=== PATIENT | male | born 1985 | race Two or more races ===

== ENCOUNTER 2016-06-07 17:21 | Emergency (ER) | payer SELFPAY ==
[~2016-06-07] VITALS: Ht 177.8 cm; Wt 90.7 kg
[2016-06-07 18:09] VITALS: BP 139/85
[2016-06-07] MEDS ORDERED: DIPHTH,PERTUSS(ACELL),TET TOX 0.5 ML DISP.SYRIN. VAX IM ONE (18:30)
[2016-06-07] MEDS ORDERED: CEPH-264 PO (18:59)
[2016-06-07] MEDS ORDERED: HYDR-971 PO (18:59)
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
== END 2016-06-07 19:05 | disposition home or self-care (01) ==
LOC: ER 17:21
DX: T23.232A Burn of second degree of multiple left fingers (nail), not including thumb, initial encounter (principal); G62.9 Polyneuropathy, unspecified; X12.XXXA Contact with other hot fluids, initial encounter; Y93.89 Activity, other specified; Y92.009 Unspecified place in unspecified non-institutional (private) residence as the place of occurrence of the external cause; Y99.8 Other external cause status
CPT/HCPCS: 90471; 90715; 99283-25

== ENCOUNTER 2016-07-01 15:46 | Emergency (ER) | payer SELFPAY ==
[~2016-07-01 15:46] MED LIST: CEPH-264 PO; HYDR-971 PO
[2016-07-01] MEDS ORDERED: CEPH-264 PO (16:37)
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
[2016-07-01] MEDS ORDERED: NEOMY/BACITR/POLYMYXIN OINT PACKET. TP ONE (16:45)
[2016-07-01 16:53] VITALS: BP 138/84
== END 2016-07-01 17:15 | disposition home or self-care (01) ==
LOC: ER 15:46
DX: T25.222A Burn of second degree of left foot, initial encounter (principal); T31.0 Burns involving less than 10% of body surface; X11.8XXA Contact with other hot tap-water, initial encounter; Y93.02 Activity, running; Y99.8 Other external cause status; Y92.89 Other specified places as the place of occurrence of the external cause
CPT/HCPCS: 16020; 82947; 99284-25

== ENCOUNTER 2016-11-15 00:45 | Emergency (ER) | payer SELFPAY ==
[~2016-11-15] VITALS: Ht 175.3 cm; Wt 90.7 kg
[2016-11-15] MEDS ORDERED: PIP/TAZO PER PHARMACY MC PRN (03:30)
[2016-11-15] MEDS ORDERED: VANCOMYCIN PER PHARMACY MC PRN (03:30)
[2016-11-15] MEDS ORDERED: ACETAMINOPHEN 325 MG TABLET. PO ONE (04:00)
[2016-11-15] MEDS ORDERED: KETOROLAC 15 MG/ML VIAL. IV ONE (04:00)
[2016-11-15] MEDS ORDERED: VANCOMYCIN 2 GM in IV NORMAL SALINE 500ML BAG 500 ML IV ONE (04:00)
[2016-11-15] MEDS ORDERED: PIPERACILLIN/TAZOBACTAM 4.5 GM in IV NORMAL SALINE 100ML 100 ML IV ONE (04:00)
[2016-11-15 04:35] LABS: BASO # 0.1 x10^3/uL (0.0-0.2); BASO % 0 % (0-3); EOS % 1 % (0-3); HEMATOCRIT 43.5 % (39.0-53.0); HEMOGLOBIN 14.7 g/dL (13.0-17.5); LYMPH # 2.8 x10^3/uL (1.0-4.8); LYMPH % 18 % (24-48); MEAN CORPUSCULAR HEMOGLOBIN 28 pg (25-35); MEAN CORPUSCULAR HGB CONC 34 g/dL (31-37); MEAN CORPUSCULAR VOLUME 82 fL (79-100); MONO % 9 % (0-9); NEUT % 73 % (31-73); PLATELET COUNT 352 x10^3/uL (140-400); RED BLOOD COUNT 5.31 x10^6/uL (4.30-5.70); RED CELL DISTRIBUTION WIDTH 14.2 % (11.5-14.5); WHITE BLOOD COUNT 16.1 x10^3/uL (4.0-11.0)
[2016-11-15 04:51] LABS: ALBUMIN 3.9 g/dL (3.4-5.0); ALBUMIN/GLOBULIN RATIO 0.8 (1.0-1.7); CREATININE 1.2 mg/dL (0.7-1.3); GFR 71.1; TOTAL PROTEIN 9.1 g/dL (6.4-8.2)
[2016-11-15 05:08] LABS: POTASSIUM 2.4 mmol/L (3.5-5.1)
[2016-11-15] MEDS ORDERED: POTASSIUM CHLORIDE 20 MEQ TABLET.ER. PO ONE (05:30)
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
[2016-11-15 06:38] VITALS: BP 118/73
== END 2016-11-15 06:52 | disposition home or self-care (01) ==
LOC: ER 00:45
DX: M65.842 Other synovitis and tenosynovitis, left hand (principal); M65.841 Other synovitis and tenosynovitis, right hand; E87.6 Hypokalemia; L08.9 Local infection of the skin and subcutaneous tissue, unspecified; G62.9 Polyneuropathy, unspecified
CPT/HCPCS: 36415; 80053; 83605; 85027; 87040; 96365; 96366; 96367; 96375; 99285; J1885; J2543; J3370; J7040

== ENCOUNTER 2018-05-23 23:25 | Inpatient (IN) | payer SELFPAY ==
[~2018-05-23] VITALS: Ht 170.2 cm; Wt 94.3 kg
[~2018-05-23 23:25] MED LIST changes: +HYDR-3164 PO; -HYDR-971 PO
[2018-05-24] VITALS (13 sets, daily range): BP systolic 88–128; BP diastolic 49–83
[2018-05-24] MEDS ORDERED: CLINDAMYCIN 600MG PREMIX 50 ML IV ONE
[2018-05-24] MEDS ORDERED: DIPHTH,PERTUSS(ACELL),TET TOX 0.5 ML DISP.SYRIN. VAX IM ONE (00:15)
[2018-05-24] MEDS ORDERED: ACETAMINOPHEN 500 MG TABLET PO ONE (00:15)
[2018-05-24] MEDS ORDERED: IV NORMAL SALINE 1000ML BAG 1,000 ML IV ONE ×2 (00:15)
[2018-05-24] MEDS ORDERED: MUPIROCIN 2 % TOPICAL CREAM 15GM TUBE. TP ONE (00:15)
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
[2018-05-24 00:52] LABS: BASO # 0.1 x10^3/uL (0.0-0.2); BASO % 1 % (0-3); EOS # 0.2 x10^3/uL (0.0-0.7); EOS % 2 % (0-3); HEMATOCRIT 38.5 % (39.0-53.0); LYMPH # 0.9 x10^3/uL (1.0-4.8); LYMPH % 10 % (24-48); MEAN CORPUSCULAR HEMOGLOBIN 27 pg (25-35); MEAN CORPUSCULAR HGB CONC 34 g/dL (31-37); MEAN CORPUSCULAR VOLUME 79 fL (79-100); MONO # 0.4 x10^3/uL (0.0-1.1); MONO % 5 % (0-9); NEUT # 7.4 x10^3uL (1.8-7.7); NEUT % 82 % (31-73); PLATELET COUNT 348 x10^3/uL (140-400); RED BLOOD COUNT 4.86 x10^6/uL (4.30-5.70)
[2018-05-24 00:58] LABS: INFLUENZA A PATIENT NEGATIVE (NEGATIVE); INFLUENZA B PATIENT NEGATIVE (NEGATIVE)
[2018-05-24 01:08] LABS: PROTHROMBIN TIME PATIENT 14.6 SEC (11.7-14.0)
[2018-05-24 01:12] LABS: ALBUMIN 2.7 g/dL (3.4-5.0); ALBUMIN/GLOBULIN RATIO 0.5 (1.0-1.7); CALCIUM 8.4 mg/dL (8.5-10.1); CREATININE 1.1 mg/dL (0.7-1.3); GFR 78.1; MAGNESIUM 1.6 mg/dL (1.8-2.4); TOTAL BILIRUBIN 0.4 mg/dL (0.2-1.0); TOTAL PROTEIN 8.5 g/dL (6.4-8.2)
[2018-05-24 01:18] LABS: POTASSIUM 2.6 mmol/L (3.5-5.1)
[2018-05-24] MEDS ORDERED: POTASSIUM CHLORIDE 20 MEQ TABLET.ER. PO ONE (01:30)
[2018-05-24] MEDS ORDERED: VANCOMYCIN 1.75 GM in IV NORMAL SALINE 500ML BAG 500 ML IV ONE (01:30)
[2018-05-24 01:37] LABS: BILIRUBIN,URINE NEGATIVE (NEG); CLARITY,URINE CLEAR; COLOR,URINE YELLOW; NITRITE,URINE NEGATIVE (NEG); PH,URINE 6.5; PROTEIN,URINE 30 mg/dL (NEG-TRACE)
[2018-05-24 01:43] LABS: BACTERIA,URINE 0 /HPF (0-FEW); SQUAMOUS EPITHELIAL CELL,UR OCC /LPF; WBC,URINE OCC /HPF (0-4)
[2018-05-24] MEDS ORDERED: ONDANSETRON PF 4 MG/2 ML VIAL. IV PRN ×2 (02:15→07:30)
[2018-05-24] MEDS ORDERED: fentaNYL PF VIAL 100 MCG/2 ML VIAL IV PRN ×3 (02:15→07:30)
--- NOTE | 2018-05-24 03:30 | NUR ---
ADMIT Pt arrived via W/C from ED accompanied by spouse, Dana. Pt A/Ox4, room air. VSS, 99.7 oral temp. Full admission assessment completed at this time. Vanco infusion currently infusing. IV intact. Discussed plan of care, spouse at bedside. Bilateral hand wounds and left foot wound photographed at this time and dressed. Advised of NPO. Oriented to room and call light. Pt denies pain at this time. Will continue to monitor closely.
--- NOTE | 2018-05-24 04:02 | RAD ---
PA and lateral chest x-ray HISTORY: Cough. FINDINGS: Heart size normal. Mediastinal silhouette is normal. No pneumothorax, pulmonary opacities or pleural effusions. Bones are unremarkable. IMPRESSION: No acute process. Electronically signed by: Abdoulaye Quiroz MD (05/24/2018 3:57 AM) [id number]
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
--- NOTE | 2018-05-24 04:10 | RAD ---
Hand bilateral x-rays 3 views each HISTORY: Restricted fingers or hands unable to straighten from old injury, hand pain and open wounds. FINDINGS: Right hand demonstrates fixed flexion of the thumb and index finger. There is a small metallic density at the thenar soft tissues could be a foreign body. Small chronic ossicle overlying the tuft of the second finger distal phalanx. No acute fracture or dislocation. No lytic bone destruction. Left hand: The fingers are fixed in a flexed position. There is soft tissue swelling of the tip of the index finger and there is moderate ostial lysis of the distal phalanx tuft. There may be mild osteolysis of the tuft of the thumb distal phalanx. There is dorsal dislocation of the fourth distal phalanx at the DIP joint. No acute fracture. IMPRESSION: 1. Fingers are flexed presumably due to contractures. The left hand demonstrates areas of acral osteolysis involving the second digit distal phalanx and thumb distal phalanx kwadwo with surrounding soft tissue swelling, which could be indicative of osteomyelitis, although phalangeal tuft lysis could also be observed with a prior chemical or thermal injury as well as other etiologies. 2. Dislocation of the left hand fourth DIP joint could be chronic. No acute fracture evident. 3. Chronic appearing small ossicle about the tuft of the right hand second distal phalanx tuft. 4. Small metallic density could be a foreign body at the thenar web of the right hand. Electronically signed by: Abdoulaye Quiroz MD (05/24/2018 4:06 AM) [facility]
[2018-05-24] MEDS ORDERED: IV RINGERS,LACTATED 1000ML 1,000 ML IV SCH (07:29)
[2018-05-24] MEDS ORDERED: HYDROmorphone 2 MG/ML VIAL IV PRN (07:30)
[2018-05-24] MEDS ORDERED: LIDOCAINE 1% PF 2 ML VIAL. ID PRN (07:30)
[2018-05-24] MEDS ORDERED: MORPHINE SULFATE 4 MG/ML VIAL. IV PRN (07:30)
[2018-05-24] MEDS ORDERED: PROCHLORPERAZINE 10 MG/2 ML VIAL. IV PRN (07:30)
[2018-05-24 08:10] LABS: CALCIUM 7.9 mg/dL (8.5-10.1); GFR 87.2
--- NOTE | 2018-05-24 08:23 | PDOC ---
Infectious Disease Note Vital Sign Vital Signs Vital Signs Date Time Temp Pulse Resp B/P (MAP) Pulse Ox O2 Delivery O2 Flow Rate FiO2 05/24/18 03:30 Room Air 05/24/18 03:30 99.7 95 16 102/64 (77) 98 99.7 Labs Lab Laboratory Tests Test 05/24/18 00:20 05/24/18 00:40 05/24/18 01:20 Influenza Type A Antigen Negative (NEGATIVE) Influenza Type B Antigen Negative (NEGATIVE) White Blood Count 9.0 x10^3/uL (4.0-11.0) Red Blood Count 4.86 x10^6/uL (4.30-5.70) Hemoglobin 13.0 g/dL (13.0-17.5) Hematocrit 38.5 % (39.0-53.0) Mean Corpuscular Volume 79 fL (79-100) Mean Corpuscular Hemoglobin 27 pg (25-35) Mean Corpuscular Hemoglobin Concent 34 g/dL (31-37) Red Cell Distribution Width 13.0 % (11.5-14.5) Platelet Count 348 x10^3/uL (140-400) Neutrophils (%) (Auto) 82 % (31-73) Lymphocytes (%) (Auto) 10 % (24-48) Monocytes (%) (Auto) 5 % (0-9) Eosinophils (%) (Auto) 2 % (0-3) Basophils (%) (Auto) 1 % (0-3) Neutrophils # (Auto) 7.4 x10^3uL (1.8-7.7) Lymphocytes # (Auto) 0.9 x10^3/uL (1.0-4.8) Monocytes # (Auto) 0.4 x10^3/uL (0.0-1.1) Eosinophils # (Auto) 0.2 x10^3/uL (0.0-0.7) Basophils # (Auto) 0.1 x10^3/uL (0.0-0.2) Erythrocyte Sedimentation Rate 80 (0-15) Prothrombin Time 14.6 SEC (11.7-14.0) Prothromb Time International Ratio 1.2 (0.8-1.1) Activated Partial Thromboplast Time 44 SEC (24-38) Sodium Level 128 mmol/L (136-145) Potassium Level 2.6 mmol/L (3.5-5.1) Chloride Level 95 mmol/L (98-107) Carbon Dioxide Level 26 mmol/L (21-32) Anion Gap 7 (6-14) Blood Urea Nitrogen 12 mg/dL (8-26) Creatinine 1.1 mg/dL (0.7-1.3) Estimated GFR (Cockcroft-Gault) 78.1 BUN/Creatinine Ratio 11 (6-20) Glucose Level 131 mg/dL (70-99) Lactic Acid Level 1.8 mmol/L (0.4-2.0) Calcium Level 8.4 mg/dL (8.5-10.1) Magnesium Level 1.6 mg/dL (1.8-2.4) Total Bilirubin 0.4 mg/dL (0.2-1.0) Aspartate Amino Transf (AST/SGOT) 54 U/L (15-37) Alanine Aminotransferase (ALT/SGPT) 75 U/L (16-63) Alkaline Phosphatase 150 U/L (46-116) C-Reactive Protein, Quantitative 149.2 mg/L (0-3.3) Total Protein 8.5 g/dL (6.4-8.2) Albumin 2.7 g/dL (3.4-5.0) Albumin/Globulin Ratio 0.5 (1.0-1.7) Urine Collection Type Unknown Urine Color Yellow Urine Clarity Clear Urine pH 6.5 Urine Specific [place] 1.025 Urine Protein 30 mg/dL (NEG-TRACE) Urine Glucose (UA) Negative mg/dL (NEG) Urine Ketones (Stick) Negative mg/dL (NEG) Urine Blood Trace (NEG) Urine Nitrite Negative (NEG) Urine Bilirubin Negative (NEG) Urine Urobilinogen Dipstick 1.0 mg/dL (0.2 mg/dL) Urine Leukocyte Esterase Negative (NEG) Urine RBC 3-5 /HPF (0-2) Urine WBC Occ /HPF (0-4) Urine Squamous Epithelial Cells Occ /LPF Urine Bacteria 0 /HPF (0-FEW) Urine Mucus Mod /LPF Micro IMPRESSION: Soft tissue swelling of the plantar and dorsal forefoot. Widening of the second metatarsophalangeal joint and small lytic defects at the second metatarsal head and a portion of the base of the third proximal phalanx, could be observed with osteomyelitis given the adjacent soft tissue abnormalities. There is mixed bone lysis and bony sclerosis and exuberant ossification at the base of the second toe proximal phalanx which could be observed with chronic injury superimposed upon osteomyelitis. This could be further assessed with MR imaging. FINDINGS: Right hand demonstrates fixed flexion of the thumb and index finger. There is a small metallic density at the thenar soft tissues could be a foreign body. Small chronic ossicle overlying the tuft of the second finger distal phalanx. No acute fracture or dislocation. No lytic bone destruction. Left hand: The fingers are fixed in a flexed position. There is soft tissue swelling of the tip of the index finger and there is moderate ostial lysis of the distal phalanx tuft. There may be mild osteolysis of the tuft of the thumb distal phalanx. There is dorsal dislocation of the fourth distal phalanx at the DIP joint. No acute fracture. IMPRESSION: 1. Fingers are flexed presumably due to contractures. The left hand demonstrates areas of acral osteolysis involving the second digit distal phalanx and thumb distal phalanx kwadwo with surrounding soft tissue swelling, which could be indicative of osteomyelitis, although phalangeal tuft lysis could also be observed with a prior chemical or thermal injury as well as other etiologies. 2. Dislocation of the left hand fourth DIP joint could be chronic. No acute fracture evident. 3. Chronic appearing small ossicle about the tuft of the right hand second distal phalanx tuft. 4. Small metallic density could be a foreign body at the thenar web of the right hand Objective Assessment Fever Left foot wound from stepping on a screw - ? osteomyelitis Left foot cellulitis ? Foreign body to right hand Plan Plan of Care Cont Vanc (tetanus given) Add Zosyn/fluconazole F/u labs and cults Await surgical eval as he is NPO. Made need further imaging Thank you # [id number] [place] ROLAND MD May 24, 2018 08:23
[2018-05-24] MEDS: PIPERACILLIN/TAZOBACTAM 4.5 GM in IV NORMAL SALINE 100ML 100 ML IV SCH ×3 (09:37→17:45)
--- NOTE | 2018-05-24 10:34 | PDOC2 ---
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 He tells me that he has noticed a wound over a digit of his left hand. There has not been any drainage or redness associated with this. Her bottom and was worsening pain redness and drainage from a puncture wound suffered a couple weeks ago when he stepped on a screw. He has been trying to keep the wound on the bottom his left foot clean, but has noticed over the past couple days it is becoming more red swollen and draining. This prompted his visit to the emergency department. No fevers or chills lately. He denies any pain in his right hand, over his thenar eminence and webspace. He has recurrent wounds at the volar base of his fingers from working, this most recent one is a couple weeks old. He tells me that he usually does not have any difficulty healing these. His initial injury was about 2 years ago. Current Medications Current Medications Current Medications Clindamycin Phosphate 50 ml @ 100 mls/hr 1X ONCE IV Last administered on 05/24at 01:05; Start 05/24/18 at 00:00; Stop 05/24/18 at 00:29; Status DC Sodium Chloride 1,000 ml @ 1,000 mls/hr 1X ONCE IV Last administered on at 01:05; Start 05/24/18 at 00:00; Stop 05/24/18 at 00:59; Status DC Acetaminophen (Tylenol) 500 mg 1X ONCE PO Last administered on 05/24/18at 01:05 ; Start 05/24/18 at 00:15; Stop 05/24/18 at 00:16; Status DC Sodium Chloride 1,000 ml @ 1,000 mls/hr 1X ONCE IV Last administered on at 01:50; Start 05/24/18 at 00:15; Stop 05/24/18 at 01:14; Status DC Diphtheria/ Tetanus/Acell Pertussis (Boostrix) 0.5 ml ONCE ONCE VAX IM Last administered on 05/24/18at 01:05; Start 05/24/18 at 00:15; Stop 05/24/18 at 00:16 ; Status DC Mupirocin (Bactroban) 1 brii 1X ONCE TP Last administered on 05/24/18at 00:15; Start 05/24/18 at 00:15; Stop 05/24/18 at 00:16; Status DC Potassium Chloride (Klor-Con) 40 meq 1X ONCE PO Last administered on at 01:30; Start 05/24/18 at 01:30; Stop 05/24/18 at 01:31; Status DC Vancomycin HCl 1.75 gm/Sodium Chloride 500 ml @ 250 mls/hr 1X ONCE IV Last administered on 05/24/18at 01:50; Start 05/24/18 at 01:30; Stop 05/24/18 at 03:29 ; Status DC Ondansetron HCl (Zofran) 4 mg PRN Q8HRS PRN IV NAUSEA/VOMITING; Start 05/24/18 at 02:15; Stop 05/25/18 at 02:14 Fentanyl Citrate (Fentanyl 2ml Vial) 50 mcg PRN Q2HR PRN IV PAIN; Start at 02:15 Ondansetron HCl (Zofran) 4 mg PRN Q6HRS PRN IV NAUSEA/VOMITING; Start 05/24/18 at 07:30; Stop 05/24/18 at 18:00 Fentanyl Citrate (Fentanyl 2ml Vial) 25 mcg PRN Q5MIN PRN IV MILD PAIN; Start 05/24/18 at 07:30; Stop 05/24/18 at 18:00 Fentanyl Citrate (Fentanyl 2ml Vial) 50 mcg PRN Q5MIN PRN IV MODERATE TO SEVERE PAIN; Start 05/24/18 at 07:30; Stop 05/24/18 at 18:00 Morphine Sulfate (Morphine Sulfate) 1 mg PRN Q10MIN PRN IV SEVERE PAIN; Start 05/24/18 at 07:30; Stop 05/25/18 at 07:29 Ringer's Solution 1,000 ml @ 30 mls/hr Q24H IV ; Start 05/24/18 at 07:29; Stop 05/24/18 at 19:28 Lidocaine HCl (Xylocaine-Mpf 1% 2ml Vial) 2 ml 1X PRN PRN ID IV START; Start at 07:30; Stop 05/24/18 at 18:00 Hydromorphone HCl (Dilaudid) 0.5 mg PRN Q10MIN PRN IV SEV PAIN, Second choice; Start 05/24/18 at 07:30; Stop 05/24/18 at 18:00 Prochlorperazine Edisylate (Compazine) 5 mg PACU PRN PRN IV NAUSEA, MRX1; Start 05/24/18 at 07:30; Stop 05/24/18 at 18:00 Piperacillin Sod/ Tazobactam Sod 4.5 gm/Sodium Chloride 100 ml @ 200 mls/hr Q6HRS IV Last administered on 05/24/18at 09:37; Start 05/24/18 at 08:00 Fluconazole/ Sodium Chloride 100 ml @ 100 mls/hr Q24H IV ; Start 05/24/18 at 10 :00 Vancomycin HCl (Vanco Per Pharmacy) 1 each PRN DAILY PRN MC SEE COMMENTS; Start 05/24/18 at 08:00 Active Scripts Active Keflex (Cephalexin) 500 Mg Capsule 1 Cap PO TID [place] 5-325 Tablet (Acetaminophen/Hydrocodone Bitart) 1 Each Tablet 1 Tab PO PRN Q6HRS PRN Keflex (Cephalexin) 500 Mg Capsule 1 Cap PO TID Allergies Allergies: Coded Allergies: No Known Drug Allergies (Unverified , 06/07/16) ROS General: No: Chills, Night Sweats, Fatigue, Malaise, Appetite, Other PSYCHOLOGICAL ROS: No: Anxiety, Behavioral Disorder, Concentration difficultie , Decreased libido, Depression, Disorientation, Hallucinations, Hostility, Irritablity, Memory difficulties, Mood Swings, Obsessive thoughts, Physical abuse, Sexual abuse, Sleep disturbances, Suicidal ideation, Other Eyes: No Blurry vision, No Decreased vision, No Double vision, No Dry eyes, No Excessive tearing, No Eye Pain, No Itchy Eyes, No Loss of vision, No Photophobia , No Scotomata, No Uses contacts, No Uses glasses, No Other HEENT: No: Heacaches, Visual Changes, Hearing change, Nasal congestion, Nasal discharge, Oral lesions, Sinus pain, Sore Throat, Epistaxis, Sneezing, Snoring, Tinnitus, Vertigo, Vocal changes, Other Hematological and Lymphatic: No: Bleeding Problems, Blood Clots, Blood Transfusions, Brusing, Night Sweats, Pallor, Swollen Lymph Nodes, Other ENDOCRINE: No: Breast Changes, Galactorrhea, Hair Pattern Changes, Hot Flashes , Malaise/lethargy, Mood Swings, Palpitations, Polydipsia/polyuria, Skin Changes , Temperature Intolerance, Unexpected Weight Changes, Other Respiratory: No: Cough, Hemoptysis, Orthopnea, Pleuritic Pain, Shortness of breath, SOB with excertion, Sputum Changes, Stridor, Tachypnea, Wheezing, Other Cardiovascular: No Chest Pain, No Palpitations, No Orthopnea, No Paroxysmal Noc. Dyspnea, No Edema, No Lt Headedness, No Other Gastrointestinal: No Nausea, No Vomiting, No Abdominal Pain, No Diarrhea, No Constipation, No Melena, No Hematochezia, No Other Genitourinary: No Dysuria, No Frequency, No Incontinence, No Hematuria, No Retention, No Discharge, No Urgency, No Pain, No Flank Pain, No Other, No , No , No , No , No , No , No Musculoskeletal: Yes Joint Pain, Yes Joint Stiffness, Yes Pain In: (left foot) Neurological: No Behavorial Changes, No Bowel/Bladder ControlChng, No Confusion , No Dizziness, No Gait Disturbance, No Headaches, No Impaired Coord/balance, No Memory Loss, No Numbness/Tingling, No Seizures, No Speech Problems, No Tremors, No Visual Changes, No Weakness, No Other Skin: No Dry Skin, No Eczema, No Hair Changes, No Lumps, No Mole Changes, No Mottling, No Nail Changes, No Pruritus, No Rash, No Skin Lesion Changes, No Other, No Acne Physical Exam General: Alert, Oriented X3, No acute distress HEENT: Atraumatic, EOMI Lungs: Other (respirations are unlabored with symmetric chest rise) Heart: Regular rate Abdomen: Soft, No tenderness Extremities: No edema, Normal pulses, Other (no edema except in his left foot) Neuro: Normal speech, Strength at 5/5 X4 ext, Other (decreased sensation in hands) Psych/Mental Status: Mental status NL, Mood NL MUSCULOSKELETAL: Other (he has flexion contractures of bilateral hands with shiny skin around. He has about a 1-1/2 cm wound at his volar MCP of his left third digit. No erythema or drainage present. There is granulation tissue at the base. He has no tenderness with palpation over his thenar eminence or webspace on the right hand. Examination of his left foot reveals it is erythematous and swollen the dorsal and plantar aspect of his forefoot. He has about a 1.5 x 1 cm open wound, I'm able to probe to bone. There is purulent and necrotic material the base of the wound.) Vitals VITALS Vital Signs Date Time Temp Pulse Resp B/P (MAP) Pulse Ox O2 Delivery O2 Flow Rate FiO2 05/24/18 07:00 98.7 86 18 88/50 (63) 97 Room Air 98.7 Labs Labs Laboratory Tests Test 05/24/18 00:20 05/24/18 00:40 05/24/18 01:20 05/24/18 07:20 Influenza Type A Antigen Negative (NEGATIVE) Influenza Type B Antigen Negative (NEGATIVE) White Blood Count 9.0 x10^3/uL (4.0-11.0) Red Blood Count 4.86 x10^6/uL (4.30-5.70) Hemoglobin 13.0 g/dL (13.0-17.5) Hematocrit 38.5 % (39.0-53.0) Mean Corpuscular Volume 79 fL (79-100) Mean Corpuscular Hemoglobin 27 pg (25-35) Mean Corpuscular Hemoglobin Concent 34 g/dL (31-37) Red Cell Distribution Width 13.0 % (11.5-14.5) Platelet Count 348 x10^3/uL (140-400) Neutrophils (%) (Auto) 82 % (31-73) Lymphocytes (%) (Auto) 10 % (24-48) Monocytes (%) (Auto) 5 % (0-9) Eosinophils (%) (Auto) 2 % (0-3) Basophils (%) (Auto) 1 % (0-3) Neutrophils # (Auto) 7.4 x10^3uL (1.8-7.7) Lymphocytes # (Auto) 0.9 x10^3/uL (1.0-4.8) Monocytes # (Auto) 0.4 x10^3/uL (0.0-1.1) Eosinophils # (Auto) 0.2 x10^3/uL (0.0-0.7) Basophils # (Auto) 0.1 x10^3/uL (0.0-0.2) Erythrocyte Sedimentation Rate 80 (0-15) Prothrombin Time 14.6 SEC (11.7-14.0) Prothromb Time International Ratio 1.2 (0.8-1.1) Activated Partial Thromboplast Time 44 SEC (24-38) Sodium Level 128 mmol/L (136-145) 138 mmol/L (136-145) Potassium Level 2.6 mmol/L (3.5-5.1) 3.0 mmol/L (3.5-5.1) Chloride Level 95 mmol/L (98-107) 102 mmol/L (98-107) Carbon Dioxide Level 26 mmol/L (21-32) 26 mmol/L (21-32) Anion Gap 7 (6-14) 10 (6-14) Blood Urea Nitrogen 12 mg/dL (8-26) 8 mg/dL (8-26) Creatinine 1.1 mg/dL (0.7-1.3) 1.0 mg/dL (0.7-1.3) Estimated GFR (Cockcroft-Gault) 78.1 87.2 BUN/Creatinine Ratio 11 (6-20) Glucose Level 131 mg/dL (70-99) 101 mg/dL (70-99) Lactic Acid Level 1.8 mmol/L (0.4-2.0) Calcium Level 8.4 mg/dL (8.5-10.1) 7.9 mg/dL (8.5-10.1) Magnesium Level 1.6 mg/dL (1.8-2.4) Total Bilirubin 0.4 mg/dL (0.2-1.0) Aspartate Amino Transf (AST/SGOT) 54 U/L (15-37) Alanine Aminotransferase (ALT/SGPT) 75 U/L (16-63) Alkaline Phosphatase 150 U/L (46-116) C-Reactive Protein, Quantitative 149.2 mg/L (0-3.3) Total Protein 8.5 g/dL (6.4-8.2) Albumin 2.7 g/dL (3.4-5.0) Albumin/Globulin Ratio 0.5 (1.0-1.7) Urine Collection Type Unknown Urine Color Yellow Urine Clarity Clear Urine pH 6.5 Urine Specific [place] 1.025 Urine Protein 30 mg/dL (NEG-TRACE) Urine Glucose (UA) Negative mg/dL (NEG) Urine Ketones (Stick) Negative mg/dL (NEG) Urine Blood Trace (NEG) Urine Nitrite Negative (NEG) Urine Bilirubin Negative (NEG) Urine Urobilinogen Dipstick 1.0 mg/dL (0.2 mg/dL) Urine Leukocyte Esterase Negative (NEG) Urine RBC 3-5 /HPF (0-2) Urine WBC Occ /HPF (0-4) Urine Squamous Epithelial Cells Occ /LPF Urine Bacteria 0 /HPF (0-FEW) Urine Mucus Mod /LPF Laboratory Tests Test 05/24/18 00:20 05/24/18 00:40 05/24/18 01:20 05/24/18 07:20 Influenza Type A Antigen Negative (NEGATIVE) Influenza Type B Antigen Negative (NEGATIVE) White Blood Count 9.0 x10^3/uL (4.0-11.0) Red Blood Count 4.86 x10^6/uL (4.30-5.70) Hemoglobin 13.0 g/dL (13.0-17.5) Hematocrit 38.5 % (39.0-53.0) Mean Corpuscular Volume 79 fL (79-100) Mean Corpuscular Hemoglobin 27 pg (25-35) Mean Corpuscular Hemoglobin Concent 34 g/dL (31-37) Red Cell Distribution Width 13.0 % (11.5-14.5) Platelet Count 348 x10^3/uL (140-400) Neutrophils (%) (Auto) 82 % (31-73) Lymphocytes (%) (Auto) 10 % (24-48) Monocytes (%) (Auto) 5 % (0-9) Eosinophils (%) (Auto) 2 % (0-3) Basophils (%) (Auto) 1 % (0-3) Neutrophils # (Auto) 7.4 x10^3uL (1.8-7.7) Lymphocytes # (Auto) 0.9 x10^3/uL (1.0-4.8) Monocytes # (Auto) 0.4 x10^3/uL (0.0-1.1) Eosinophils # (Auto) 0.2 x10^3/uL (0.0-0.7) Basophils # (Auto) 0.1 x10^3/uL (0.0-0.2) Erythrocyte Sedimentation Rate 80 (0-15) Prothrombin Time 14.6 SEC (11.7-14.0) Prothromb Time International Ratio 1.2 (0.8-1.1) Activated Partial Thromboplast Time 44 SEC (24-38) Sodium Level 128 mmol/L (136-145) 138 mmol/L (136-145) Potassium Level 2.6 mmol/L (3.5-5.1) 3.0 mmol/L (3.5-5.1) Chloride Level 95 mmol/L (98-107) 102 mmol/L (98-107) Carbon Dioxide Level 26 mmol/L (21-32) 26 mmol/L (21-32) Anion Gap 7 (6-14) 10 (6-14) Blood Urea Nitrogen 12 mg/dL (8-26) 8 mg/dL (8-26) Creatinine 1.1 mg/dL (0.7-1.3) 1.0 mg/dL (0.7-1.3) Estimated GFR (Cockcroft-Gault) 78.1 87.2 BUN/Creatinine Ratio 11 (6-20) Glucose Level 131 mg/dL (70-99) 101 mg/dL (70-99) Lactic Acid Level 1.8 mmol/L (0.4-2.0) Calcium Level 8.4 mg/dL (8.5-10.1) 7.9 mg/dL (8.5-10.1) Magnesium Level 1.6 mg/dL (1.8-2.4) Total Bilirubin 0.4 mg/dL (0.2-1.0) Aspartate Amino Transf (AST/SGOT) 54 U/L (15-37) Alanine Aminotransferase (ALT/SGPT) 75 U/L (16-63) Alkaline Phosphatase 150 U/L (46-116) C-Reactive Protein, Quantitative 149.2 mg/L (0-3.3) Total Protein 8.5 g/dL (6.4-8.2) Albumin 2.7 g/dL (3.4-5.0) Albumin/Globulin Ratio 0.5 (1.0-1.7) Urine Collection Type Unknown Urine Color Yellow Urine Clarity Clear Urine pH 6.5 Urine Specific [place] 1.025 Urine Protein 30 mg/dL (NEG-TRACE) Urine Glucose (UA) Negative mg/dL (NEG) Urine Ketones (Stick) Negative mg/dL (NEG) Urine Blood Trace (NEG) Urine Nitrite Negative (NEG) Urine Bilirubin Negative (NEG) Urine Urobilinogen Dipstick 1.0 mg/dL (0.2 mg/dL) Urine Leukocyte Esterase Negative (NEG) Urine RBC 3-5 /HPF (0-2) Urine WBC Occ /HPF (0-4) Urine Squamous Epithelial Cells Occ /LPF Urine Bacteria 0 /HPF (0-FEW) Urine Mucus Mod /LPF Images Images Hand and foot x-rays are reviewed by myself. He has chronic deformity in his hands present. Small metallic debris in his first webspace right hand. Foot x- rays reveal chronic changes adjacent to the open wound at his bone, mainly at the base of the second proximal phalanx Assessment/Plan Assessment/Plan I did discuss the risks, benefits, and alternatives to irrigation and debridement and biopsy of his left foot wound. I do not think anything needs to be done regarding the very small foreign material in his right first webspace. The hand wound appears to be healing appropriately and we will continue to monitor this. We will plan on surgery later today. OBINNA LÓPEZ II, MD May 24, 2018 10:34
[2018-05-24] MEDS: FLUCONAZOLE 200MG/100ML PREMIX 100 ML IV SCH (10:51)
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
[2018-05-24] MEDS ORDERED: PROPOFOL 20 ML IV ONE (11:47)
[2018-05-24] MEDS ORDERED: SEVOFLURANE 31 TO 60 MINUTES. IH ONE (11:47)
[2018-05-24] MEDS ORDERED: KETOROLAC 30 MG/ML INJ FOR OR. INJ ONE (11:47)
[2018-05-24] MEDS ORDERED: LIDOCAINE 2% PF 5 ML VIAL. ONE (11:47)
--- NOTE | 2018-05-24 12:16 | PDOC4 ---
Operative Note Operative Note Date of procedure: 05/16/2018 Surgeon: Antoine López Preoperative diagnosis: Left foot infection with osteomyelitis Postoperative diagnosis: Same Procedure performed: #1 irrigation and debridement down to bone, excisional of left foot #2 bone biopsy of metatarsal head region #3 application of wound VAC to wound less than 25 cm� Anesthesia: Gen. Findings: Gross purulence and necrotic debris in wound Blood loss: 10mL Tourniquet time: less than 30 min Specimens: Swabs and tissue sent for culture; bone to pathology Findings: Patient had full-thickness wound from plantar aspect to dorsal aspect of his foot that tracked through the second metatarsal phalangeal joint region. The involved bone did not feel soft, had normal appearance. There was scattered purulent material and some necrotic material throughout this wound. Reason for procedure: Patient is a pleasant 32-year-old gentleman who has has seen in consultation for his foot pain, redness drainage and open wound. Please see my consult note for full details. A discussion of the risks, benefits, and alternatives to surgery was had with him and he elected to proceed. Description of procedure: Patient was greeted in the preoperative holding area by myself for the correct extremity was verified and marked. He was taken back to the operative suite, maintained on his scheduled antibiotics. Once in the operative room, he was transferred gently supine to the operating table and secured to the bed after successful induction of a general anesthetic. All pressure points were padded. Nonsterile tourniquet applied and taped in place to his left thigh. Left lower extremity was prepped and draped in our usual sterile fashion using Betadine paint. I then began the procedure by exploring the wound, I sharply excised the necrotic tissue around the periphery of the wound on the plantar aspect of his foot with a scalpel. I then used a combination of rongeur and curet to debride the subcutaneous tissue down to bone. Using a hemostat, was able to easily enter the dorsal aspect of the foot, he had a small punctate wound over the third metatarsal phalangeal joint region. I debrided skin and necrotic appearing tissue around this area. In order to get a bone biopsy, and an incision centered over his second metatarsal phalangeal joint spread down with hemostat, protected the tendon, and identified the base of the proximal phalanx at his second digit and using a rongeur, I took samples of bone and sent off to pathology. After all this I irrigated him out a little bit. I then sent tissue and swabs for culture. I then continued my irrigation at all 3 of these wounds using approximately the full amount of the 3000 mL bag. After this, I cut to pieces of wound VAC sponge to pack the wounds, the medial one went from dorsal to plantar, the lateral 1 I connected to this in the subcutaneous tissue. I then secured these with the VAC adhesive and placed 2 more on top of this to create a connection to the wound VAC suction. I then ensured the wound VAC had a good seal after turning it on. After this, the leg was cleansed and dried. He was awakened and transferred gently supine to the hospital bed and taken to PACU in a stable and extubated condition. Postoperative plan is to readmitted to the [facility] to the floor under the care of the primary care provider. Antibiotics per infectious disease. I will follow along with his course. ANTOINE LÓPEZ II, MD May 24, 2018 12:16
[2018-05-24] MEDS ORDERED: ONDANSETRON PF 4 MG/2 ML VIAL. ONE (12:37)
[2018-05-24] MEDS ORDERED: fentaNYL PF VIAL 100 MCG/2 ML VIAL ONE (12:37)
[2018-05-24] MEDS ORDERED: DEXAMETHASONE SOD PHOS 20 MG/5 ML VIAL. ONE (12:37)
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
[2018-05-24] MEDS: VANCOMYCIN PER PHARMACY MC PRN (14:23)
--- NOTE | 2018-05-24 14:26 | NUR ---
Pharmacy Vancomycin Dosing Note S:Consulted to monitor and dose vancomycin started 05/24/18. O:JOHN CURRY is a 32 year old M with Cellulitis Osteomyelitis . Height: 5 feet, 7 inches Weight: 94.490281 kg [place] Body Weight: 66.10 Adjusted Body Weight: 77.46 Dosing Weight: Actual Other Antibiotics: ZOSYN LABS: Last BUN: 8 Last Creatinine: 1.0 Creatinine Clearance: >100 mL/min Last WBC: 9.0 Last Procalcitonin: Tmax (past 24 hours): 103.1 Microbiology: I/O: Drug Levels: Last level: on at Last dose given 05/24/18 at 0150 Vancomycin Dosing: Loading Dose: 1750 mg x1 Dosing Weight: Actual Target Trough: 15-20 A: Based on: Body weight and renal function P: 1. start Vancomycin 1500 mg IV q12h 2. Follow up Trough level on 05/25/18 at 1430 3. Pharmacy will continue to monitor, follow and adjust therapy as needed. SHAD ROBB [facility], 05/24/18 [id number]
--- NOTE | 2018-05-24 15:18 | NUR ---
Wound Care Wound care consult for wounds to hands and left foot. Pt went to surgery today with Dr Garcias, vac placed on foot. Bilat hands have callouses with fissures from using contracted hands to work. Cleansed wounds, applied Bactroban, Xeroform and Kerlix to help soften callouses. No other wounds found on full skin inspection. Pt educated on PU prevention. WC will follow up on Thu to assess foot wound.
[2018-05-24] MEDS: VANCOMYCIN 1.5 GM in IV NORMAL SALINE 500ML BAG 500 ML IV SCH (15:29)
--- NOTE | 2018-05-24 16:13 | NUR ---
SW following for discharge planning. Discussed with RN, pt is from home with and is having surgery today. SW attempted to meet with pt to give self pay resources, however pt was being seen by wound care. SW will attempt to see pt tomorrow (05/25/18). SW will continue to follow.
[2018-05-25] MEDS: PIPERACILLIN/TAZOBACTAM 4.5 GM in IV NORMAL SALINE 100ML 100 ML IV SCH ×4 (00:05→18:35)
[2018-05-25 03:00] VITALS: BP 131/77
[2018-05-25] MEDS: VANCOMYCIN 1.5 GM in IV NORMAL SALINE 500ML BAG 500 ML IV SCH ×3 (03:08→23:15)
[2018-05-25 04:04] LABS: BASO % 0 % (0-3); EOS % 0 % (0-3); HEMATOCRIT 39.1 % (39.0-53.0); LYMPH # 1.2 x10^3/uL (1.0-4.8); LYMPH % 15 % (24-48); MEAN CORPUSCULAR HEMOGLOBIN 27 pg (25-35); MEAN CORPUSCULAR HGB CONC 33 g/dL (31-37); MEAN CORPUSCULAR VOLUME 81 fL (79-100); MONO # 0.3 x10^3/uL (0.0-1.1); MONO % 4 % (0-9); NEUT # 6.7 x10^3uL (1.8-7.7); NEUT % 81 % (31-73); PLATELET COUNT 354 x10^3/uL (140-400); RED CELL DISTRIBUTION WIDTH 13.2 % (11.5-14.5); WHITE BLOOD COUNT 8.2 x10^3/uL (4.0-11.0)
[2018-05-25 04:19] LABS: ALBUMIN 2.3 g/dL (3.4-5.0); ALBUMIN/GLOBULIN RATIO 0.4 (1.0-1.7); CALCIUM 8.8 mg/dL (8.5-10.1); CREATININE 1.1 mg/dL (0.7-1.3); GFR 78.1; POTASSIUM 3.6 mmol/L (3.5-5.1); TOTAL BILIRUBIN 0.5 mg/dL (0.2-1.0)
[2018-05-25 07:00] VITALS: BP 103/45
--- NOTE | 2018-05-25 08:34 | PDOC ---
ORTHO PROGRESS NOTES Subjective Resting comfortably. No acute events Vitals Vital Signs Date Time Temp Pulse Resp B/P (MAP) Pulse Ox O2 Delivery O2 Flow Rate FiO2 05/25/18 07:00 97.5 49 18 103/45 (64) 100 Room Air 97.5 05/24/18 13:37 10 Labs Laboratory Tests Test 05/24/18 00:20 05/24/18 00:40 05/24/18 01:20 05/24/18 07:20 Influenza Type A Antigen Negative (NEGATIVE) Influenza Type B Antigen Negative (NEGATIVE) White Blood Count 9.0 x10^3/uL (4.0-11.0) Red Blood Count 4.86 x10^6/uL (4.30-5.70) Hemoglobin 13.0 g/dL (13.0-17.5) Hematocrit 38.5 % (39.0-53.0) Mean Corpuscular Volume 79 fL (79-100) Mean Corpuscular Hemoglobin 27 pg (25-35) Mean Corpuscular Hemoglobin Concent 34 g/dL (31-37) Red Cell Distribution Width 13.0 % (11.5-14.5) Platelet Count 348 x10^3/uL (140-400) Neutrophils (%) (Auto) 82 % (31-73) Lymphocytes (%) (Auto) 10 % (24-48) Monocytes (%) (Auto) 5 % (0-9) Eosinophils (%) (Auto) 2 % (0-3) Basophils (%) (Auto) 1 % (0-3) Neutrophils # (Auto) 7.4 x10^3uL (1.8-7.7) Lymphocytes # (Auto) 0.9 x10^3/uL (1.0-4.8) Monocytes # (Auto) 0.4 x10^3/uL (0.0-1.1) Eosinophils # (Auto) 0.2 x10^3/uL (0.0-0.7) Basophils # (Auto) 0.1 x10^3/uL (0.0-0.2) Erythrocyte Sedimentation Rate 80 (0-15) Prothrombin Time 14.6 SEC (11.7-14.0) Prothromb Time International Ratio 1.2 (0.8-1.1) Activated Partial Thromboplast Time 44 SEC (24-38) Sodium Level 128 mmol/L (136-145) 138 mmol/L (136-145) Potassium Level 2.6 mmol/L (3.5-5.1) 3.0 mmol/L (3.5-5.1) Chloride Level 95 mmol/L (98-107) 102 mmol/L (98-107) Carbon Dioxide Level 26 mmol/L (21-32) 26 mmol/L (21-32) Anion Gap 7 (6-14) 10 (6-14) Blood Urea Nitrogen 12 mg/dL (8-26) 8 mg/dL (8-26) Creatinine 1.1 mg/dL (0.7-1.3) 1.0 mg/dL (0.7-1.3) Estimated GFR (Cockcroft-Gault) 78.1 87.2 BUN/Creatinine Ratio 11 (6-20) Glucose Level 131 mg/dL (70-99) 101 mg/dL (70-99) Lactic Acid Level 1.8 mmol/L (0.4-2.0) Calcium Level 8.4 mg/dL (8.5-10.1) 7.9 mg/dL (8.5-10.1) Magnesium Level 1.6 mg/dL (1.8-2.4) Total Bilirubin 0.4 mg/dL (0.2-1.0) Aspartate Amino Transf (AST/SGOT) 54 U/L (15-37) Alanine Aminotransferase (ALT/SGPT) 75 U/L (16-63) Alkaline Phosphatase 150 U/L (46-116) C-Reactive Protein, Quantitative 149.2 mg/L (0-3.3) Total Protein 8.5 g/dL (6.4-8.2) Albumin 2.7 g/dL (3.4-5.0) Albumin/Globulin Ratio 0.5 (1.0-1.7) Urine Collection Type Unknown Urine Color Yellow Urine Clarity Clear Urine pH 6.5 Urine Specific [place] 1.025 Urine Protein 30 mg/dL (NEG-TRACE) Urine Glucose (UA) Negative mg/dL (NEG) Urine Ketones (Stick) Negative mg/dL (NEG) Urine Blood Trace (NEG) Urine Nitrite Negative (NEG) Urine Bilirubin Negative (NEG) Urine Urobilinogen Dipstick 1.0 mg/dL (0.2 mg/dL) Urine Leukocyte Esterase Negative (NEG) Urine RBC 3-5 /HPF (0-2) Urine WBC Occ /HPF (0-4) Urine Squamous Epithelial Cells Occ /LPF Urine Bacteria 0 /HPF (0-FEW) Urine Mucus Mod /LPF Test 05/25/18 03:40 White Blood Count 8.2 x10^3/uL (4.0-11.0) Red Blood Count 4.80 x10^6/uL (4.30-5.70) Hemoglobin 13.0 g/dL (13.0-17.5) Hematocrit 39.1 % (39.0-53.0) Mean Corpuscular Volume 81 fL (79-100) Mean Corpuscular Hemoglobin 27 pg (25-35) Mean Corpuscular Hemoglobin Concent 33 g/dL (31-37) Red Cell Distribution Width 13.2 % (11.5-14.5) Platelet Count 354 x10^3/uL (140-400) Neutrophils (%) (Auto) 81 % (31-73) Lymphocytes (%) (Auto) 15 % (24-48) Monocytes (%) (Auto) 4 % (0-9) Eosinophils (%) (Auto) 0 % (0-3) Basophils (%) (Auto) 0 % (0-3) Neutrophils # (Auto) 6.7 x10^3uL (1.8-7.7) Lymphocytes # (Auto) 1.2 x10^3/uL (1.0-4.8) Monocytes # (Auto) 0.3 x10^3/uL (0.0-1.1) Eosinophils # (Auto) 0.0 x10^3/uL (0.0-0.7) Basophils # (Auto) 0.0 x10^3/uL (0.0-0.2) Sodium Level 139 mmol/L (136-145) Potassium Level 3.6 mmol/L (3.5-5.1) Chloride Level 103 mmol/L (98-107) Carbon Dioxide Level 26 mmol/L (21-32) Anion Gap 10 (6-14) Blood Urea Nitrogen 16 mg/dL (8-26) Creatinine 1.1 mg/dL (0.7-1.3) Estimated GFR (Cockcroft-Gault) 78.1 BUN/Creatinine Ratio 15 (6-20) Glucose Level 216 mg/dL (70-99) Calcium Level 8.8 mg/dL (8.5-10.1) Total Bilirubin 0.5 mg/dL (0.2-1.0) Aspartate Amino Transf (AST/SGOT) 67 U/L (15-37) Alanine Aminotransferase (ALT/SGPT) 101 U/L (16-63) Alkaline Phosphatase 151 U/L (46-116) Total Protein 8.0 g/dL (6.4-8.2) Albumin 2.3 g/dL (3.4-5.0) Albumin/Globulin Ratio 0.4 (1.0-1.7) Laboratory Tests Test 05/25/18 03:40 White Blood Count 8.2 x10^3/uL (4.0-11.0) Red Blood Count 4.80 x10^6/uL (4.30-5.70) Hemoglobin 13.0 g/dL (13.0-17.5) Hematocrit 39.1 % (39.0-53.0) Mean Corpuscular Volume 81 fL (79-100) Mean Corpuscular Hemoglobin 27 pg (25-35) Mean Corpuscular Hemoglobin Concent 33 g/dL (31-37) Red Cell Distribution Width 13.2 % (11.5-14.5) Platelet Count 354 x10^3/uL (140-400) Neutrophils (%) (Auto) 81 % (31-73) Lymphocytes (%) (Auto) 15 % (24-48) Monocytes (%) (Auto) 4 % (0-9) Eosinophils (%) (Auto) 0 % (0-3) Basophils (%) (Auto) 0 % (0-3) Neutrophils # (Auto) 6.7 x10^3uL (1.8-7.7) Lymphocytes # (Auto) 1.2 x10^3/uL (1.0-4.8) Monocytes # (Auto) 0.3 x10^3/uL (0.0-1.1) Eosinophils # (Auto) 0.0 x10^3/uL (0.0-0.7) Basophils # (Auto) 0.0 x10^3/uL (0.0-0.2) Sodium Level 139 mmol/L (136-145) Potassium Level 3.6 mmol/L (3.5-5.1) Chloride Level 103 mmol/L (98-107) Carbon Dioxide Level 26 mmol/L (21-32) Anion Gap 10 (6-14) Blood Urea Nitrogen 16 mg/dL (8-26) Creatinine 1.1 mg/dL (0.7-1.3) Estimated GFR (Cockcroft-Gault) 78.1 BUN/Creatinine Ratio 15 (6-20) Glucose Level 216 mg/dL (70-99) Calcium Level 8.8 mg/dL (8.5-10.1) Total Bilirubin 0.5 mg/dL (0.2-1.0) Aspartate Amino Transf (AST/SGOT) 67 U/L (15-37) Alanine Aminotransferase (ALT/SGPT) 101 U/L (16-63) Alkaline Phosphatase 151 U/L (46-116) Total Protein 8.0 g/dL (6.4-8.2) Albumin 2.3 g/dL (3.4-5.0) Albumin/Globulin Ratio 0.4 (1.0-1.7) Notes He is resting, easily awakens. Wound VAC is in place with a good seal at his left foot. Overall the foot appears unchanged in appearance. Assessment and Plan Osteomyelitis and cellulitis left foot. Antibiotic spur infectious disease, we will follow along with the culture reports. OBINNA LÓPEZ II, MD May 25, 2018 08:34
--- NOTE | 2018-05-25 09:14 | PDOC ---
Infectious Disease Note Subjective Subjective Doing ok. pain controlled. No Hungry No F/C/S/N/V/SOA/Rash. No Flatus ROS ROS o/w neg Vital Sign Vital Signs Vital Signs Date Time Temp Pulse Resp B/P (MAP) Pulse Ox O2 Delivery O2 Flow Rate FiO2 05/25/18 07:00 97.5 49 18 103/45 (64) 100 Room Air 97.5 05/24/18 13:37 10 Physical Exam PHYSICAL EXAM CONSTITUTIONAL: He is alert. He is minimally responsive. He was lying on his right side on arrival, did shift a little bit over on to his back. HEENT: Pupils were equal and reactive. Oral cavity, pharynx was moist. NECK: Without swelling. No JVD. LUNGS: Clear to auscultation. HEART: S1, S2. ABDOMEN: Obese, soft, no guarding or rebound. SKIN: Without generalized rash. He does have some tattoos. EXTREMITIES: His left foot has 1+ edema. Vac in place. Left hand and right hand have bilateral contractures with some chronic appearing wound on the palmar surface. He does have a little bit of tenia associated with hands and his feet. NEUROLOGIC: He was nonfocal, moved extremities, but was limited with his answers. PSYCHIATRIC: Affect was flat Labs Lab Laboratory Tests Test 05/25/18 03:40 White Blood Count 8.2 x10^3/uL (4.0-11.0) Red Blood Count 4.80 x10^6/uL (4.30-5.70) Hemoglobin 13.0 g/dL (13.0-17.5) Hematocrit 39.1 % (39.0-53.0) Mean Corpuscular Volume 81 fL (79-100) Mean Corpuscular Hemoglobin 27 pg (25-35) Mean Corpuscular Hemoglobin Concent 33 g/dL (31-37) Red Cell Distribution Width 13.2 % (11.5-14.5) Platelet Count 354 x10^3/uL (140-400) Neutrophils (%) (Auto) 81 % (31-73) Lymphocytes (%) (Auto) 15 % (24-48) Monocytes (%) (Auto) 4 % (0-9) Eosinophils (%) (Auto) 0 % (0-3) Basophils (%) (Auto) 0 % (0-3) Neutrophils # (Auto) 6.7 x10^3uL (1.8-7.7) Lymphocytes # (Auto) 1.2 x10^3/uL (1.0-4.8) Monocytes # (Auto) 0.3 x10^3/uL (0.0-1.1) Eosinophils # (Auto) 0.0 x10^3/uL (0.0-0.7) Basophils # (Auto) 0.0 x10^3/uL (0.0-0.2) Sodium Level 139 mmol/L (136-145) Potassium Level 3.6 mmol/L (3.5-5.1) Chloride Level 103 mmol/L (98-107) Carbon Dioxide Level 26 mmol/L (21-32) Anion Gap 10 (6-14) Blood Urea Nitrogen 16 mg/dL (8-26) Creatinine 1.1 mg/dL (0.7-1.3) Estimated GFR (Cockcroft-Gault) 78.1 BUN/Creatinine Ratio 15 (6-20) Glucose Level 216 mg/dL (70-99) Calcium Level 8.8 mg/dL (8.5-10.1) Total Bilirubin 0.5 mg/dL (0.2-1.0) Aspartate Amino Transf (AST/SGOT) 67 U/L (15-37) Alanine Aminotransferase (ALT/SGPT) 101 U/L (16-63) Alkaline Phosphatase 151 U/L (46-116) Total Protein 8.0 g/dL (6.4-8.2) Albumin 2.3 g/dL (3.4-5.0) Albumin/Globulin Ratio 0.4 (1.0-1.7) Micro IMPRESSION: Soft tissue swelling of the plantar and dorsal forefoot. Widening of the second metatarsophalangeal joint and small lytic defects at the second metatarsal head and a portion of the base of the third proximal phalanx, could be observed with osteomyelitis given the adjacent soft tissue abnormalities. There is mixed bone lysis and bony sclerosis and exuberant ossification at the base of the second toe proximal phalanx which could be observed with chronic injury superimposed upon osteomyelitis. This could be further assessed with MR imaging. FINDINGS: Right hand demonstrates fixed flexion of the thumb and index finger. There is a small metallic density at the thenar soft tissues could be a foreign body. Small chronic ossicle overlying the tuft of the second finger distal phalanx. No acute fracture or dislocation. No lytic bone destruction. Left hand: The fingers are fixed in a flexed position. There is soft tissue swelling of the tip of the index finger and there is moderate ostial lysis of the distal phalanx tuft. There may be mild osteolysis of the tuft of the thumb distal phalanx. There is dorsal dislocation of the fourth distal phalanx at the DIP joint. No acute fracture. IMPRESSION: 1. Fingers are flexed presumably due to contractures. The left hand demonstrates areas of acral osteolysis involving the second digit distal phalanx and thumb distal phalanx kwadwo with surrounding soft tissue swelling, which could be indicative of osteomyelitis, although phalangeal tuft lysis could also be observed with a prior chemical or thermal injury as well as other etiologies. 2. Dislocation of the left hand fourth DIP joint could be chronic. No acute fracture evident. 3. Chronic appearing small ossicle about the tuft of the right hand second distal phalanx tuft. 4. Small metallic density could be a foreign body at the thenar web of the right hand Objective Assessment Fever - better Left foot wound from stepping on a screw - ? osteomyelitis - s/p I and D 05/24 cults pending Left foot cellulitis ? Foreign body to right hand Plan Plan of Care Cont Vanc (tetanus given) Add Zosyn/fluconazole F/u labs and cults [place] ROLAND MD May 25, 2018 09:14
--- NOTE | 2018-05-25 10:35 | PDOC ---
PROGRESS NOTES History of Present Illness History of Present Illness Assessment/Plan Assessment/Plan impression 1. Widening of the second metatarsophalangeal joint and small lytic defects at the second metatarsal head and a portion of the base of the third proximal phalanx, could be observed with osteomyelitis 2. left hand demonstrates areas of acral osteolysis involving the second digit distal phalanx and thumb distal phalanx kwadwo with surrounding soft tissue swelling, which could be indicative of osteomyelitis plan iv antibiotics ID consult ortho consult Date of procedure: 05/24/2018 Surgeon: Antoine Garcias Preoperative diagnosis: Left foot infection with osteomyelitis Postoperative diagnosis: Same Procedure performed: #1 irrigation and debridement down to bone, excisional of left foot #2 bone biopsy of metatarsal head region #3 application of wound VAC to wound less than 25 cm� Anesthesia: Gen. Findings: Gross purulence and necrotic debris in wound Blood loss: 10mL Tourniquet time: less than 30 min Vitals Vitals Vital Signs Date Time Temp Pulse Resp B/P (MAP) Pulse Ox O2 Delivery O2 Flow Rate FiO2 05/25/18 07:00 97.5 49 18 103/45 (64) 100 Room Air 97.5 05/24/18 13:37 10 Physical Exam Physical Exam CONSTITUTIONAL: He is alert. He is minimally responsive. He was lying on his right side on arrival, did shift a little bit over on to his back. HEENT: Pupils were equal and reactive. Oral cavity, pharynx was moist. NECK: Without swelling. No JVD. LUNGS: Clear to auscultation. HEART: S1, S2. ABDOMEN: Obese, soft, no guarding or rebound. SKIN: Without generalized rash. He does have some tattoos. EXTREMITIES: His left foot has 1+ edema. Vac in place. Left hand and right hand have bilateral contractures with some chronic appearing wound on the palmar surface. He does have a little bit of tenia associated with hands and his feet. NEUROLOGIC: He was nonfocal, moved extremities, but was limited with his answers. PSYCHIATRIC: Affect was flat General: Alert, Oriented X3, Cooperative, moderate distress Heart: Regular rate, Normal S1, Normal S2 Lungs: Clear Abdomen: Soft, No tenderness Extremities: No cyanosis Labs LABS Laboratory Tests Test 05/25/18 03:40 White Blood Count 8.2 x10^3/uL (4.0-11.0) Red Blood Count 4.80 x10^6/uL (4.30-5.70) Hemoglobin 13.0 g/dL (13.0-17.5) Hematocrit 39.1 % (39.0-53.0) Mean Corpuscular Volume 81 fL (79-100) Mean Corpuscular Hemoglobin 27 pg (25-35) Mean Corpuscular Hemoglobin Concent 33 g/dL (31-37) Red Cell Distribution Width 13.2 % (11.5-14.5) Platelet Count 354 x10^3/uL (140-400) Neutrophils (%) (Auto) 81 % (31-73) Lymphocytes (%) (Auto) 15 % (24-48) Monocytes (%) (Auto) 4 % (0-9) Eosinophils (%) (Auto) 0 % (0-3) Basophils (%) (Auto) 0 % (0-3) Neutrophils # (Auto) 6.7 x10^3uL (1.8-7.7) Lymphocytes # (Auto) 1.2 x10^3/uL (1.0-4.8) Monocytes # (Auto) 0.3 x10^3/uL (0.0-1.1) Eosinophils # (Auto) 0.0 x10^3/uL (0.0-0.7) Basophils # (Auto) 0.0 x10^3/uL (0.0-0.2) Sodium Level 139 mmol/L (136-145) Potassium Level 3.6 mmol/L (3.5-5.1) Chloride Level 103 mmol/L (98-107) Carbon Dioxide Level 26 mmol/L (21-32) Anion Gap 10 (6-14) Blood Urea Nitrogen 16 mg/dL (8-26) Creatinine 1.1 mg/dL (0.7-1.3) Estimated GFR (Cockcroft-Gault) 78.1 BUN/Creatinine Ratio 15 (6-20) Glucose Level 216 mg/dL (70-99) Calcium Level 8.8 mg/dL (8.5-10.1) Total Bilirubin 0.5 mg/dL (0.2-1.0) Aspartate Amino Transf (AST/SGOT) 67 U/L (15-37) Alanine Aminotransferase (ALT/SGPT) 101 U/L (16-63) Alkaline Phosphatase 151 U/L (46-116) Total Protein 8.0 g/dL (6.4-8.2) Albumin 2.3 g/dL (3.4-5.0) Albumin/Globulin Ratio 0.4 (1.0-1.7) Comment Review of Relevant I have reviewed the following items pedro (where applicable) has been applied. Labs Laboratory Tests Test 05/24/18 00:20 05/24/18 00:40 05/24/18 01:20 05/24/18 07:20 Influenza Type A Antigen Negative (NEGATIVE) Influenza Type B Antigen Negative (NEGATIVE) White Blood Count 9.0 x10^3/uL (4.0-11.0) Red Blood Count 4.86 x10^6/uL (4.30-5.70) Hemoglobin 13.0 g/dL (13.0-17.5) Hematocrit 38.5 % (39.0-53.0) Mean Corpuscular Volume 79 fL (79-100) Mean Corpuscular Hemoglobin 27 pg (25-35) Mean Corpuscular Hemoglobin Concent 34 g/dL (31-37) Red Cell Distribution Width 13.0 % (11.5-14.5) Platelet Count 348 x10^3/uL (140-400) Neutrophils (%) (Auto) 82 % (31-73) Lymphocytes (%) (Auto) 10 % (24-48) Monocytes (%) (Auto) 5 % (0-9) Eosinophils (%) (Auto) 2 % (0-3) Basophils (%) (Auto) 1 % (0-3) Neutrophils # (Auto) 7.4 x10^3uL (1.8-7.7) Lymphocytes # (Auto) 0.9 x10^3/uL (1.0-4.8) Monocytes # (Auto) 0.4 x10^3/uL (0.0-1.1) Eosinophils # (Auto) 0.2 x10^3/uL (0.0-0.7) Basophils # (Auto) 0.1 x10^3/uL (0.0-0.2) Erythrocyte Sedimentation Rate 80 (0-15) Prothrombin Time 14.6 SEC (11.7-14.0) Prothromb Time International Ratio 1.2 (0.8-1.1) Activated Partial Thromboplast Time 44 SEC (24-38) Sodium Level 128 mmol/L (136-145) 138 mmol/L (136-145) Potassium Level 2.6 mmol/L (3.5-5.1) 3.0 mmol/L (3.5-5.1) Chloride Level 95 mmol/L (98-107) 102 mmol/L (98-107) Carbon Dioxide Level 26 mmol/L (21-32) 26 mmol/L (21-32) Anion Gap 7 (6-14) 10 (6-14) Blood Urea Nitrogen 12 mg/dL (8-26) 8 mg/dL (8-26) Creatinine 1.1 mg/dL (0.7-1.3) 1.0 mg/dL (0.7-1.3) Estimated GFR (Cockcroft-Gault) 78.1 87.2 BUN/Creatinine Ratio 11 (6-20) Glucose Level 131 mg/dL (70-99) 101 mg/dL (70-99) Lactic Acid Level 1.8 mmol/L (0.4-2.0) Calcium Level 8.4 mg/dL (8.5-10.1) 7.9 mg/dL (8.5-10.1) Magnesium Level 1.6 mg/dL (1.8-2.4) Total Bilirubin 0.4 mg/dL (0.2-1.0) Aspartate Amino Transf (AST/SGOT) 54 U/L (15-37) Alanine Aminotransferase (ALT/SGPT) 75 U/L (16-63) Alkaline Phosphatase 150 U/L (46-116) C-Reactive Protein, Quantitative 149.2 mg/L (0-3.3) Total Protein 8.5 g/dL (6.4-8.2) Albumin 2.7 g/dL (3.4-5.0) Albumin/Globulin Ratio 0.5 (1.0-1.7) Urine Collection Type Unknown Urine Color Yellow Urine Clarity Clear Urine pH 6.5 Urine Specific [place] 1.025 Urine Protein 30 mg/dL (NEG-TRACE) Urine Glucose (UA) Negative mg/dL (NEG) Urine Ketones (Stick) Negative mg/dL (NEG) Urine Blood Trace (NEG) Urine Nitrite Negative (NEG) Urine Bilirubin Negative (NEG) Urine Urobilinogen Dipstick 1.0 mg/dL (0.2 mg/dL) Urine Leukocyte Esterase Negative (NEG) Urine RBC 3-5 /HPF (0-2) Urine WBC Occ /HPF (0-4) Urine Squamous Epithelial Cells Occ /LPF Urine Bacteria 0 /HPF (0-FEW) Urine Mucus Mod /LPF Test 05/25/18 03:40 White Blood Count 8.2 x10^3/uL (4.0-11.0) Red Blood Count 4.80 x10^6/uL (4.30-5.70) Hemoglobin 13.0 g/dL (13.0-17.5) Hematocrit 39.1 % (39.0-53.0) Mean Corpuscular Volume 81 fL (79-100) Mean Corpuscular Hemoglobin 27 pg (25-35) Mean Corpuscular Hemoglobin Concent 33 g/dL (31-37) Red Cell Distribution Width 13.2 % (11.5-14.5) Platelet Count 354 x10^3/uL (140-400) Neutrophils (%) (Auto) 81 % (31-73) Lymphocytes (%) (Auto) 15 % (24-48) Monocytes (%) (Auto) 4 % (0-9) Eosinophils (%) (Auto) 0 % (0-3) Basophils (%) (Auto) 0 % (0-3) Neutrophils # (Auto) 6.7 x10^3uL (1.8-7.7) Lymphocytes # (Auto) 1.2 x10^3/uL (1.0-4.8) Monocytes # (Auto) 0.3 x10^3/uL (0.0-1.1) Eosinophils # (Auto) 0.0 x10^3/uL (0.0-0.7) Basophils # (Auto) 0.0 x10^3/uL (0.0-0.2) Sodium Level 139 mmol/L (136-145) Potassium Level 3.6 mmol/L (3.5-5.1) Chloride Level 103 mmol/L (98-107) Carbon Dioxide Level 26 mmol/L (21-32) Anion Gap 10 (6-14) Blood Urea Nitrogen 16 mg/dL (8-26) Creatinine 1.1 mg/dL (0.7-1.3) Estimated GFR (Cockcroft-Gault) 78.1 BUN/Creatinine Ratio 15 (6-20) Glucose Level 216 mg/dL (70-99) Calcium Level 8.8 mg/dL (8.5-10.1) Total Bilirubin 0.5 mg/dL (0.2-1.0) Aspartate Amino Transf (AST/SGOT) 67 U/L (15-37) Alanine Aminotransferase (ALT/SGPT) 101 U/L (16-63) Alkaline Phosphatase 151 U/L (46-116) Total Protein 8.0 g/dL (6.4-8.2) Albumin 2.3 g/dL (3.4-5.0) Albumin/Globulin Ratio 0.4 (1.0-1.7) Laboratory Tests Test 05/25/18 03:40 White Blood Count 8.2 x10^3/uL (4.0-11.0) Red Blood Count 4.80 x10^6/uL (4.30-5.70) Hemoglobin 13.0 g/dL (13.0-17.5) Hematocrit 39.1 % (39.0-53.0) Mean Corpuscular Volume 81 fL (79-100) Mean Corpuscular Hemoglobin 27 pg (25-35) Mean Corpuscular Hemoglobin Concent 33 g/dL (31-37) Red Cell Distribution Width 13.2 % (11.5-14.5) Platelet Count 354 x10^3/uL (140-400) Neutrophils (%) (Auto) 81 % (31-73) Lymphocytes (%) (Auto) 15 % (24-48) Monocytes (%) (Auto) 4 % (0-9) Eosinophils (%) (Auto) 0 % (0-3) Basophils (%) (Auto) 0 % (0-3) Neutrophils # (Auto) 6.7 x10^3uL (1.8-7.7) Lymphocytes # (Auto) 1.2 x10^3/uL (1.0-4.8) Monocytes # (Auto) 0.3 x10^3/uL (0.0-1.1) Eosinophils # (Auto) 0.0 x10^3/uL (0.0-0.7) Basophils # (Auto) 0.0 x10^3/uL (0.0-0.2) Sodium Level 139 mmol/L (136-145) Potassium Level 3.6 mmol/L (3.5-5.1) Chloride Level 103 mmol/L (98-107) Carbon Dioxide Level 26 mmol/L (21-32) Anion Gap 10 (6-14) Blood Urea Nitrogen 16 mg/dL (8-26) Creatinine 1.1 mg/dL (0.7-1.3) Estimated GFR (Cockcroft-Gault) 78.1 BUN/Creatinine Ratio 15 (6-20) Glucose Level 216 mg/dL (70-99) Calcium Level 8.8 mg/dL (8.5-10.1) Total Bilirubin 0.5 mg/dL (0.2-1.0) Aspartate Amino Transf (AST/SGOT) 67 U/L (15-37) Alanine Aminotransferase (ALT/SGPT) 101 U/L (16-63) Alkaline Phosphatase 151 U/L (46-116) Total Protein 8.0 g/dL (6.4-8.2) Albumin 2.3 g/dL (3.4-5.0) Albumin/Globulin Ratio 0.4 (1.0-1.7) Microbiology 05/24/18 Blood Culture - Preliminary, Resulted NO GROWTH AFTER 1 DAY Medications Current Medications Clindamycin Phosphate 50 ml @ 100 mls/hr 1X ONCE IV Last administered on 05/24at 01:05; Start 05/24/18 at 00:00; Stop 05/24/18 at 00:29; Status DC Sodium Chloride 1,000 ml @ 1,000 mls/hr 1X ONCE IV Last administered on at 01:05; Start 05/24/18 at 00:00; Stop 05/24/18 at 00:59; Status DC Acetaminophen (Tylenol) 500 mg 1X ONCE PO Last administered on 05/24/18at 01:05 ; Start 05/24/18 at 00:15; Stop 05/24/18 at 00:16; Status DC Sodium Chloride 1,000 ml @ 1,000 mls/hr 1X ONCE IV Last administered on at 01:50; Start 05/24/18 at 00:15; Stop 05/24/18 at 01:14; Status DC Diphtheria/ Tetanus/Acell Pertussis (Boostrix) 0.5 ml ONCE ONCE VAX IM Last administered on 05/24/18at 01:05; Start 05/24/18 at 00:15; Stop 05/24/18 at 00:16 ; Status DC Mupirocin (Bactroban) 1 brii 1X ONCE TP Last administered on 05/24/18at 00:15; Start 05/24/18 at 00:15; Stop 05/24/18 at 00:16; Status DC Potassium Chloride (Klor-Con) 40 meq 1X ONCE PO Last administered on at 01:30; Start 05/24/18 at 01:30; Stop 05/24/18 at 01:31; Status DC Vancomycin HCl 1.75 gm/Sodium Chloride 500 ml @ 250 mls/hr 1X ONCE IV Last administered on 05/24/18at 01:50; Start 05/24/18 at 01:30; Stop 05/24/18 at 03:29 ; Status DC Ondansetron HCl (Zofran) 4 mg PRN Q8HRS PRN IV NAUSEA/VOMITING; Start 05/24/18 at 02:15; Stop 05/25/18 at 02:14; Status DC Fentanyl Citrate (Fentanyl 2ml Vial) 50 mcg PRN Q2HR PRN IV PAIN; Start at 02:15 Ondansetron HCl (Zofran) 4 mg PRN Q6HRS PRN IV NAUSEA/VOMITING; Start 05/24/18 at 07:30; Stop 05/24/18 at 18:00; Status DC Fentanyl Citrate (Fentanyl 2ml Vial) 25 mcg PRN Q5MIN PRN IV MILD PAIN; Start 05/24/18 at 07:30; Stop 05/24/18 at 18:00; Status DC Fentanyl Citrate (Fentanyl 2ml Vial) 50 mcg PRN Q5MIN PRN IV MODERATE TO SEVERE PAIN; Start 05/24/18 at 07:30; Stop 05/24/18 at 18:00; Status DC Morphine Sulfate (Morphine Sulfate) 1 mg PRN Q10MIN PRN IV SEVERE PAIN; Start 05/24/18 at 07:30; Stop 05/25/18 at 07:29; Status DC Ringer's Solution 1,000 ml @ 30 mls/hr Q24H IV ; Start 05/24/18 at 07:29; Stop 05/24/18 at 19:28; Status DC Lidocaine HCl (Xylocaine-Mpf 1% 2ml Vial) 2 ml 1X PRN PRN ID IV START; Start at 07:30; Stop 05/24/18 at 18:00; Status DC Hydromorphone HCl (Dilaudid) 0.5 mg PRN Q10MIN PRN IV SEV PAIN, Second choice; Start 05/24/18 at 07:30; Stop 05/24/18 at 18:00; Status DC Prochlorperazine Edisylate (Compazine) 5 mg PACU PRN PRN IV NAUSEA, MRX1; Start 05/24/18 at 07:30; Stop 05/24/18 at 18:00; Status DC Piperacillin Sod/ Tazobactam Sod 4.5 gm/Sodium Chloride 100 ml @ 200 mls/hr Q6HRS IV Last administered on 05/25/18at 06:00; Start 05/24/18 at 08:00 Fluconazole/ Sodium Chloride 100 ml @ 100 mls/hr Q24H IV Last administered on 05/24/18at 10:51; Start 05/24/18 at 10:00 Vancomycin HCl (Vanco Per Pharmacy) 1 each PRN DAILY PRN MC SEE COMMENTS Last administered on 05/24/18at 14:23; Start 05/24/18 at 08:00 Propofol 20 ml @ As Directed STK-MED ONCE IV ; Start 05/24/18 at 11:47; Stop at 11:49; Status DC Lidocaine HCl (Lidocaine Pf 2% Vial) 5 ml STK-MED ONCE .ROUTE ; Start 05/24/18 at 11:47; Stop 05/24/18 at 11:49; Status DC Ketorolac Tromethamine (Toradol For Or Only) 30 mg STK-MED ONCE INJ ; Start at 11:47; Stop 05/24/18 at 11:49; Status DC Sevoflurane (Ultane) 30 ml STK-MED ONCE IH ; Start 05/24/18 at 11:47; Stop 05/24 at 11:49; Status DC Dexamethasone Sodium Phosphate (Decadron) 20 mg STK-MED ONCE .ROUTE ; Start at 12:37; Stop 05/24/18 at 12:39; Status DC Ondansetron HCl (Zofran) 4 mg STK-MED ONCE .ROUTE ; Start 05/24/18 at 12:37; Stop 05/24/18 at 12:39; Status DC Fentanyl Citrate (Fentanyl 2ml Vial) 100 mcg STK-MED ONCE .ROUTE ; Start at 12:37; Stop 05/24/18 at 12:39; Status DC Vancomycin HCl 1.5 gm/Sodium Chloride 500 ml @ 250 mls/hr Q12H IV Last administered on 05/25/18at 03:08; Start 05/24/18 at 15:00 Vancomycin HCl (Vancomycin Trough Level) 1 each 1X ONCE MC ; Start 05/25/18 at 14:30; Stop 05/25/18 at 14:31 Active Scripts Active Keflex (Cephalexin) 500 Mg Capsule 1 Cap PO TID [place] 5-325 Tablet (Acetaminophen/Hydrocodone Bitart) 1 Each Tablet 1 Tab PO PRN Q6HRS PRN Keflex (Cephalexin) 500 Mg Capsule 1 Cap PO TID Vitals/I & O Vital Sign - Last 24 Hours 05/24/18 05/24/18 05/24/18 05/24/18 11:00 12:21 13:37 13:37 Temp 98.3 98.2 98.4 98.3 98.2 98.4 Pulse 86 89 78 Resp 18 15 16 B/P (MAP) 119/74 (89) 126/67 96/49 Pulse Ox 98 99 99 O2 Delivery Room Air Room Air Simple Mask Mask O2 Flow Rate 10 10 05/24/18 05/24/18 05/24/18 05/24/18 13:52 14:30 14:45 15:00 Temp 98.4 98.1 98.4 98.1 Pulse 82 84 72 78 Resp 18 16 B/P (MAP) 111/55 111/68 (82) 107/68 (81) 109/76 (87) Pulse Ox 96 98 99 97 O2 Delivery Room Air Room Air Room Air Room Air 05/24/18 05/24/18 05/24/18 05/24/18 15:15 15:30 16:00 16:30 Pulse 83 86 74 72 B/P (MAP) 114/83 (93) 121/73 (89) 107/63 (78) 100/56 (71) Pulse Ox 98 100 99 99 O2 Delivery Room Air Room Air Room Air Room Air 05/24/18 05/24/18 05/24/18 05/24/18 17:30 19:00 20:00 23:00 Temp 97.9 98.3 97.9 98.3 Pulse 72 59 93 Resp 18 16 B/P (MAP) 107/49 (68) 112/59 (76) 128/72 (90) Pulse Ox 99 100 96 O2 Delivery Room Air Room Air Room Air Room Air 05/25/18 05/25/18 03:00 07:00 Temp 98.6 97.5 98.6 97.5 Pulse 87 49 Resp 18 18 B/P (MAP) 131/77 (95) 103/45 (64) Pulse Ox 96 100 O2 Delivery Room Air Room Air Intake and Output 05/24/18 05/24/18 05/25/18 15:01 23:01 07:01 Intake Total 400 ml 300 ml 240 ml Output Total 10 ml 450 ml 300 ml Balance 390 ml -150 ml -60 ml JACQUES KEMP MD May 25, 2018 10:35
[2018-05-25] MEDS: FLUCONAZOLE 200MG/100ML PREMIX 100 ML IV SCH (10:51)
[2018-05-25 11:00] VITALS: BP 118/73
[2018-05-25] MEDS: VANCOMYCIN PER PHARMACY MC PRN ×2 (11:03→15:58)
[2018-05-25 15:00] VITALS: BP 122/78
[2018-05-25 15:34] LABS: VANC TR 6.2 mcg/mL (10.0-20.0)
--- NOTE | 2018-05-25 15:59 | NUR ---
Pharmacy Vancomycin Dosing Note S:Consulted to monitor and dose vancomycin started 05/24/18. O:JOHN CURRY is a 32 year old M with Cellulitis Osteomyelitis . Height: 5 feet, 7 inches Weight: 94.565100 kg [place] Body Weight: 204.10 Adjusted Body Weight: 160.26 Dosing Weight: Actual Other Antibiotics: ZOSYN LABS: Last BUN: 16 Last Creatinine: 1.1 Creatinine Clearance: 106 mL/min Last WBC: 8.2 Last Procalcitonin: Tmax (past 24 hours): 98.6 Microbiology: BLOOD CULTURE Preliminary NO GROWTH AFTER 1 DAY I/O: 940/760 Drug Levels: Last Trough level: 6.2 on 05/25/18 at 1510 Last dose given 05/25/18 at 0308 Vancomycin Dosing: Loading Dose: 1750 mg x1 Dosing Weight: Actual Target Trough: 15-20 A: Based on trough of 6.2: P: 1. Increase Vancomycin to 1500 mg IV q8h. 2. Follow up Trough level as needed. 3. Pharmacy will continue to monitor, follow and adjust therapy as needed. Juan August [facility], 05/25/18 [id number]
--- NOTE | 2018-05-25 16:13 | NUR ---
ROHAN following. Discussed with RN, pt may need a brittney wound vac - ROHAN to get in touch with the C to discuss discharge planning. Pt is from [facility]. SW will continue to follow.
[2018-05-25 19:30] VITALS: BP 129/77
[2018-05-25] MEDS: LACTOBACILLUS RHAMNOSUS GG 1 CAPSULE. PO SCH (21:00)
[2018-05-25 23:25] VITALS: BP 134/78
--- NOTE | 2018-05-26 01:03 | NUR ---
spotty wifi coverage on [employer] tonight. Charging meds per desk computer when signal is not working
[2018-05-26] MEDS: PIPERACILLIN/TAZOBACTAM 4.5 GM in IV NORMAL SALINE 100ML 100 ML IV SCH ×5 (03:00→23:32)
[2018-05-26 03:10] VITALS: BP 129/77
[2018-05-26 04:52] LABS: BASO % 0 % (0-3); EOS # 0.1 x10^3/uL (0.0-0.7); EOS % 0 % (0-3); HEMATOCRIT 36.8 % (39.0-53.0); HEMOGLOBIN 12.2 g/dL (13.0-17.5); LYMPH # 2.2 x10^3/uL (1.0-4.8); LYMPH % 18 % (24-48); MEAN CORPUSCULAR HEMOGLOBIN 27 pg (25-35); MEAN CORPUSCULAR HGB CONC 33 g/dL (31-37); MEAN CORPUSCULAR VOLUME 80 fL (79-100); MONO # 0.7 x10^3/uL (0.0-1.1); MONO % 6 % (0-9); NEUT # 9.2 x10^3uL (1.8-7.7); NEUT % 75 % (31-73); PLATELET COUNT 383 x10^3/uL (140-400); RED CELL DISTRIBUTION WIDTH 13.2 % (11.5-14.5); WHITE BLOOD COUNT 12.2 x10^3/uL (4.0-11.0)
[2018-05-26 05:08] LABS: CALCIUM 7.9 mg/dL (8.5-10.1); CREATININE 0.9 mg/dL (0.7-1.3); GFR 98.4
[2018-05-26 05:10] LABS: POTASSIUM 2.9 mmol/L (3.5-5.1)
[2018-05-26] MEDS ORDERED: POTASSIUM CHLORIDE 20 MEQ TABLET.ER. PO ONE ×3 (05:45→20:00)
[2018-05-26 07:00] VITALS: BP 133/76
[2018-05-26] MEDS: VANCOMYCIN 1.5 GM in IV NORMAL SALINE 500ML BAG 500 ML IV SCH ×2 (07:00→16:02)
--- NOTE | 2018-05-26 07:55 | PDOC ---
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 Vitals Vital Signs Date Time Temp Pulse Resp B/P (MAP) Pulse Ox O2 Delivery O2 Flow Rate FiO2 05/26/18 03:10 98.0 70 18 129/77 (94) 100 Room Air 98.0 Labs Laboratory Tests Test 05/25/18 03:40 05/25/18 15:10 05/26/18 03:40 White Blood Count 8.2 x10^3/uL (4.0-11.0) 12.2 x10^3/uL (4.0-11.0) Red Blood Count 4.80 x10^6/uL (4.30-5.70) 4.60 x10^6/uL (4.30-5.70) Hemoglobin 13.0 g/dL (13.0-17.5) 12.2 g/dL (13.0-17.5) Hematocrit 39.1 % (39.0-53.0) 36.8 % (39.0-53.0) Mean Corpuscular Volume 81 fL (79-100) 80 fL (79-100) Mean Corpuscular Hemoglobin 27 pg (25-35) 27 pg (25-35) Mean Corpuscular Hemoglobin Concent 33 g/dL (31-37) 33 g/dL (31-37) Red Cell Distribution Width 13.2 % (11.5-14.5) 13.2 % (11.5-14.5) Platelet Count 354 x10^3/uL (140-400) 383 x10^3/uL (140-400) Neutrophils (%) (Auto) 81 % (31-73) 75 % (31-73) Lymphocytes (%) (Auto) 15 % (24-48) 18 % (24-48) Monocytes (%) (Auto) 4 % (0-9) 6 % (0-9) Eosinophils (%) (Auto) 0 % (0-3) 0 % (0-3) Basophils (%) (Auto) 0 % (0-3) 0 % (0-3) Neutrophils # (Auto) 6.7 x10^3uL (1.8-7.7) 9.2 x10^3uL (1.8-7.7) Lymphocytes # (Auto) 1.2 x10^3/uL (1.0-4.8) 2.2 x10^3/uL (1.0-4.8) Monocytes # (Auto) 0.3 x10^3/uL (0.0-1.1) 0.7 x10^3/uL (0.0-1.1) Eosinophils # (Auto) 0.0 x10^3/uL (0.0-0.7) 0.1 x10^3/uL (0.0-0.7) Basophils # (Auto) 0.0 x10^3/uL (0.0-0.2) 0.0 x10^3/uL (0.0-0.2) Sodium Level 139 mmol/L (136-145) 141 mmol/L (136-145) Potassium Level 3.6 mmol/L (3.5-5.1) 2.9 mmol/L (3.5-5.1) Chloride Level 103 mmol/L (98-107) 105 mmol/L (98-107) Carbon Dioxide Level 26 mmol/L (21-32) 27 mmol/L (21-32) Anion Gap 10 (6-14) 9 (6-14) Blood Urea Nitrogen 16 mg/dL (8-26) 12 mg/dL (8-26) Creatinine 1.1 mg/dL (0.7-1.3) 0.9 mg/dL (0.7-1.3) Estimated GFR (Cockcroft-Gault) 78.1 98.4 BUN/Creatinine Ratio 15 (6-20) Glucose Level 216 mg/dL (70-99) 144 mg/dL (70-99) Calcium Level 8.8 mg/dL (8.5-10.1) 7.9 mg/dL (8.5-10.1) Total Bilirubin 0.5 mg/dL (0.2-1.0) Aspartate Amino Transf (AST/SGOT) 67 U/L (15-37) Alanine Aminotransferase (ALT/SGPT) 101 U/L (16-63) Alkaline Phosphatase 151 U/L (46-116) Total Protein 8.0 g/dL (6.4-8.2) Albumin 2.3 g/dL (3.4-5.0) Albumin/Globulin Ratio 0.4 (1.0-1.7) Vancomycin Level Trough 6.2 mcg/mL (10.0-20.0) Vancomycin Last Dose Date Unk Vancomycin Last Dose Time Unk Laboratory Tests Test 05/25/18 15:10 05/26/18 03:40 Vancomycin Level Trough 6.2 mcg/mL (10.0-20.0) Vancomycin Last Dose Date Unk Vancomycin Last Dose Time Unk White Blood Count 12.2 x10^3/uL (4.0-11.0) Red Blood Count 4.60 x10^6/uL (4.30-5.70) Hemoglobin 12.2 g/dL (13.0-17.5) Hematocrit 36.8 % (39.0-53.0) Mean Corpuscular Volume 80 fL (79-100) Mean Corpuscular Hemoglobin 27 pg (25-35) Mean Corpuscular Hemoglobin Concent 33 g/dL (31-37) Red Cell Distribution Width 13.2 % (11.5-14.5) Platelet Count 383 x10^3/uL (140-400) Neutrophils (%) (Auto) 75 % (31-73) Lymphocytes (%) (Auto) 18 % (24-48) Monocytes (%) (Auto) 6 % (0-9) Eosinophils (%) (Auto) 0 % (0-3) Basophils (%) (Auto) 0 % (0-3) Neutrophils # (Auto) 9.2 x10^3uL (1.8-7.7) Lymphocytes # (Auto) 2.2 x10^3/uL (1.0-4.8) Monocytes # (Auto) 0.7 x10^3/uL (0.0-1.1) Eosinophils # (Auto) 0.1 x10^3/uL (0.0-0.7) Basophils # (Auto) 0.0 x10^3/uL (0.0-0.2) Sodium Level 141 mmol/L (136-145) Potassium Level 2.9 mmol/L (3.5-5.1) Chloride Level 105 mmol/L (98-107) Carbon Dioxide Level 27 mmol/L (21-32) Anion Gap 9 (6-14) Blood Urea Nitrogen 12 mg/dL (8-26) Creatinine 0.9 mg/dL (0.7-1.3) Estimated GFR (Cockcroft-Gault) 98.4 Glucose Level 144 mg/dL (70-99) Calcium Level 7.9 mg/dL (8.5-10.1) Assessment and Plan POD # 2 I&D left foot wound with wound vac. Bone biopsy results not available at athis time. Cultures pending continue wound care and antibiotics per ID WILLIAM CASH APRN May 26, 2018 07:55
[2018-05-26] MEDS: LACTOBACILLUS RHAMNOSUS GG 1 CAPSULE. PO SCH ×2 (08:30→20:32)
--- NOTE | 2018-05-26 10:00 | PDOC ---
Infectious Disease Note Subjective Subjective Doing ok. pain controlled. No Hungry No F/C/S/N/V/SOA/Rash. No Flatus ROS ROS o/w neg Vital Sign Vital Signs Vital Signs Date Time Temp Pulse Resp B/P (MAP) Pulse Ox O2 Delivery O2 Flow Rate FiO2 05/26/18 07:00 97.7 59 18 133/76 (95) 97 Room Air 97.7 Physical Exam PHYSICAL EXAM CONSTITUTIONAL: He is alert. He is minimally responsive. He was lying on his right side on arrival, did shift a little bit over on to his back. HEENT: Pupils were equal and reactive. Oral cavity, pharynx was moist. NECK: Without swelling. No JVD. LUNGS: Clear to auscultation. HEART: S1, S2. ABDOMEN: Obese, soft, no guarding or rebound. SKIN: Without generalized rash. He does have some tattoos. EXTREMITIES: His left foot has 1+ edema. Vac in place. Left hand and right hand have bilateral contractures with some chronic appearing wound on the palmar surface. He does have a little bit of tenia associated with hands and his feet. NEUROLOGIC: He was nonfocal, moved extremities, but was limited with his answers. PSYCHIATRIC: Affect was flat Labs Lab Laboratory Tests Test 05/25/18 15:10 05/26/18 03:40 Vancomycin Level Trough 6.2 mcg/mL (10.0-20.0) Vancomycin Last Dose Date Unk Vancomycin Last Dose Time Unk White Blood Count 12.2 x10^3/uL (4.0-11.0) Red Blood Count 4.60 x10^6/uL (4.30-5.70) Hemoglobin 12.2 g/dL (13.0-17.5) Hematocrit 36.8 % (39.0-53.0) Mean Corpuscular Volume 80 fL (79-100) Mean Corpuscular Hemoglobin 27 pg (25-35) Mean Corpuscular Hemoglobin Concent 33 g/dL (31-37) Red Cell Distribution Width 13.2 % (11.5-14.5) Platelet Count 383 x10^3/uL (140-400) Neutrophils (%) (Auto) 75 % (31-73) Lymphocytes (%) (Auto) 18 % (24-48) Monocytes (%) (Auto) 6 % (0-9) Eosinophils (%) (Auto) 0 % (0-3) Basophils (%) (Auto) 0 % (0-3) Neutrophils # (Auto) 9.2 x10^3uL (1.8-7.7) Lymphocytes # (Auto) 2.2 x10^3/uL (1.0-4.8) Monocytes # (Auto) 0.7 x10^3/uL (0.0-1.1) Eosinophils # (Auto) 0.1 x10^3/uL (0.0-0.7) Basophils # (Auto) 0.0 x10^3/uL (0.0-0.2) Sodium Level 141 mmol/L (136-145) Potassium Level 2.9 mmol/L (3.5-5.1) Chloride Level 105 mmol/L (98-107) Carbon Dioxide Level 27 mmol/L (21-32) Anion Gap 9 (6-14) Blood Urea Nitrogen 12 mg/dL (8-26) Creatinine 0.9 mg/dL (0.7-1.3) Estimated GFR (Cockcroft-Gault) 98.4 Glucose Level 144 mg/dL (70-99) Calcium Level 7.9 mg/dL (8.5-10.1) Micro IMPRESSION: Soft tissue swelling of the plantar and dorsal forefoot. Widening of the second metatarsophalangeal joint and small lytic defects at the second metatarsal head and a portion of the base of the third proximal phalanx, could be observed with osteomyelitis given the adjacent soft tissue abnormalities. There is mixed bone lysis and bony sclerosis and exuberant ossification at the base of the second toe proximal phalanx which could be observed with chronic injury superimposed upon osteomyelitis. This could be further assessed with MR imaging. FINDINGS: Right hand demonstrates fixed flexion of the thumb and index finger. There is a small metallic density at the thenar soft tissues could be a foreign body. Small chronic ossicle overlying the tuft of the second finger distal phalanx. No acute fracture or dislocation. No lytic bone destruction. Left hand: The fingers are fixed in a flexed position. There is soft tissue swelling of the tip of the index finger and there is moderate ostial lysis of the distal phalanx tuft. There may be mild osteolysis of the tuft of the thumb distal phalanx. There is dorsal dislocation of the fourth distal phalanx at the DIP joint. No acute fracture. IMPRESSION: 1. Fingers are flexed presumably due to contractures. The left hand demonstrates areas of acral osteolysis involving the second digit distal phalanx and thumb distal phalanx kwadwo with surrounding soft tissue swelling, which could be indicative of osteomyelitis, although phalangeal tuft lysis could also be observed with a prior chemical or thermal injury as well as other etiologies. 2. Dislocation of the left hand fourth DIP joint could be chronic. No acute fracture evident. 3. Chronic appearing small ossicle about the tuft of the right hand second distal phalanx tuft. 4. Small metallic density could be a foreign body at the thenar web of the right hand Objective Assessment Fever - better Left foot wound from stepping on a screw - ? osteomyelitis - s/p I and D 05/24 cults pending Left foot cellulitis ? 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
[2018-05-26 11:00] VITALS: BP 118/88
[2018-05-26] MEDS: FLUCONAZOLE 200MG/100ML PREMIX 100 ML IV SCH (11:15)
--- NOTE | 2018-05-26 11:33 | PDOC ---
PROGRESS NOTES History of Present Illness History of Present Illness Assessment/Plan Assessment/Plan impression 1. Widening of the second metatarsophalangeal joint and small lytic defects at the second metatarsal head and a portion of the base of the third proximal phalanx, could be observed with osteomyelitis 2. left hand demonstrates areas of acral osteolysis involving the second digit distal phalanx and thumb distal phalanx kwadwo with surrounding soft tissue swelling, which could be indicative of osteomyelitis 3. hypokalemia plan iv antibiotics ID consult ortho consult replace k Date of procedure: 05/24/2018 Surgeon: Antoine Garcias Preoperative diagnosis: Left foot infection with osteomyelitis Postoperative diagnosis: Same Procedure performed: #1 irrigation and debridement down to bone, excisional of left foot #2 bone biopsy of metatarsal head region #3 application of wound VAC to wound less than 25 cm� Anesthesia: Gen. Findings: Gross purulence and necrotic debris in wound Vitals Vitals Vital Signs Date Time Temp Pulse Resp B/P (MAP) Pulse Ox O2 Delivery O2 Flow Rate FiO2 05/26/18 11:15 Room Air 05/26/18 07:00 97.7 59 18 133/76 (95) 97 97.7 Physical Exam Physical Exam CONSTITUTIONAL: He is alert. HEENT: Pupils were equal and reactive. Oral cavity, pharynx was moist. NECK: Without swelling. No JVD. LUNGS: Clear to auscultation. HEART: S1, S2. ABDOMEN: Obese, soft, no guarding or rebound. SKIN: Without generalized rash. He does have some tattoos. EXTREMITIES: His left foot has 1+ edema. Vac in place. Left hand and right hand have bilateral contractures with some chronic appearing wound on the palmar surface. He does have a little bit of tenia associated with hands and his feet. NEUROLOGIC: He was nonfocal, moved extremities, PSYCHIATRIC: Affect was flat General: Alert, Oriented X3, Cooperative, No acute distress Heart: Regular rate, Normal S1, Normal S2 Lungs: Clear Abdomen: Soft, No tenderness Extremities: No cyanosis Labs LABS Laboratory Tests Test 05/25/18 15:10 05/26/18 03:40 Vancomycin Level Trough 6.2 mcg/mL (10.0-20.0) Vancomycin Last Dose Date Unk Vancomycin Last Dose Time Unk White Blood Count 12.2 x10^3/uL (4.0-11.0) Red Blood Count 4.60 x10^6/uL (4.30-5.70) Hemoglobin 12.2 g/dL (13.0-17.5) Hematocrit 36.8 % (39.0-53.0) Mean Corpuscular Volume 80 fL (79-100) Mean Corpuscular Hemoglobin 27 pg (25-35) Mean Corpuscular Hemoglobin Concent 33 g/dL (31-37) Red Cell Distribution Width 13.2 % (11.5-14.5) Platelet Count 383 x10^3/uL (140-400) Neutrophils (%) (Auto) 75 % (31-73) Lymphocytes (%) (Auto) 18 % (24-48) Monocytes (%) (Auto) 6 % (0-9) Eosinophils (%) (Auto) 0 % (0-3) Basophils (%) (Auto) 0 % (0-3) Neutrophils # (Auto) 9.2 x10^3uL (1.8-7.7) Lymphocytes # (Auto) 2.2 x10^3/uL (1.0-4.8) Monocytes # (Auto) 0.7 x10^3/uL (0.0-1.1) Eosinophils # (Auto) 0.1 x10^3/uL (0.0-0.7) Basophils # (Auto) 0.0 x10^3/uL (0.0-0.2) Sodium Level 141 mmol/L (136-145) Potassium Level 2.9 mmol/L (3.5-5.1) Chloride Level 105 mmol/L (98-107) Carbon Dioxide Level 27 mmol/L (21-32) Anion Gap 9 (6-14) Blood Urea Nitrogen 12 mg/dL (8-26) Creatinine 0.9 mg/dL (0.7-1.3) Estimated GFR (Cockcroft-Gault) 98.4 Glucose Level 144 mg/dL (70-99) Calcium Level 7.9 mg/dL (8.5-10.1) Comment Review of Relevant I have reviewed the following items pedro (where applicable) has been applied. Labs Laboratory Tests Test 05/25/18 03:40 05/25/18 15:10 05/26/18 03:40 White Blood Count 8.2 x10^3/uL (4.0-11.0) 12.2 x10^3/uL (4.0-11.0) Red Blood Count 4.80 x10^6/uL (4.30-5.70) 4.60 x10^6/uL (4.30-5.70) Hemoglobin 13.0 g/dL (13.0-17.5) 12.2 g/dL (13.0-17.5) Hematocrit 39.1 % (39.0-53.0) 36.8 % (39.0-53.0) Mean Corpuscular Volume 81 fL (79-100) 80 fL (79-100) Mean Corpuscular Hemoglobin 27 pg (25-35) 27 pg (25-35) Mean Corpuscular Hemoglobin Concent 33 g/dL (31-37) 33 g/dL (31-37) Red Cell Distribution Width 13.2 % (11.5-14.5) 13.2 % (11.5-14.5) Platelet Count 354 x10^3/uL (140-400) 383 x10^3/uL (140-400) Neutrophils (%) (Auto) 81 % (31-73) 75 % (31-73) Lymphocytes (%) (Auto) 15 % (24-48) 18 % (24-48) Monocytes (%) (Auto) 4 % (0-9) 6 % (0-9) Eosinophils (%) (Auto) 0 % (0-3) 0 % (0-3) Basophils (%) (Auto) 0 % (0-3) 0 % (0-3) Neutrophils # (Auto) 6.7 x10^3uL (1.8-7.7) 9.2 x10^3uL (1.8-7.7) Lymphocytes # (Auto) 1.2 x10^3/uL (1.0-4.8) 2.2 x10^3/uL (1.0-4.8) Monocytes # (Auto) 0.3 x10^3/uL (0.0-1.1) 0.7 x10^3/uL (0.0-1.1) Eosinophils # (Auto) 0.0 x10^3/uL (0.0-0.7) 0.1 x10^3/uL (0.0-0.7) Basophils # (Auto) 0.0 x10^3/uL (0.0-0.2) 0.0 x10^3/uL (0.0-0.2) Sodium Level 139 mmol/L (136-145) 141 mmol/L (136-145) Potassium Level 3.6 mmol/L (3.5-5.1) 2.9 mmol/L (3.5-5.1) Chloride Level 103 mmol/L (98-107) 105 mmol/L (98-107) Carbon Dioxide Level 26 mmol/L (21-32) 27 mmol/L (21-32) Anion Gap 10 (6-14) 9 (6-14) Blood Urea Nitrogen 16 mg/dL (8-26) 12 mg/dL (8-26) Creatinine 1.1 mg/dL (0.7-1.3) 0.9 mg/dL (0.7-1.3) Estimated GFR (Cockcroft-Gault) 78.1 98.4 BUN/Creatinine Ratio 15 (6-20) Glucose Level 216 mg/dL (70-99) 144 mg/dL (70-99) Calcium Level 8.8 mg/dL (8.5-10.1) 7.9 mg/dL (8.5-10.1) Total Bilirubin 0.5 mg/dL (0.2-1.0) Aspartate Amino Transf (AST/SGOT) 67 U/L (15-37) Alanine Aminotransferase (ALT/SGPT) 101 U/L (16-63) Alkaline Phosphatase 151 U/L (46-116) Total Protein 8.0 g/dL (6.4-8.2) Albumin 2.3 g/dL (3.4-5.0) Albumin/Globulin Ratio 0.4 (1.0-1.7) Vancomycin Level Trough 6.2 mcg/mL (10.0-20.0) Vancomycin Last Dose Date Unk Vancomycin Last Dose Time Unk Laboratory Tests Test 05/25/18 15:10 05/26/18 03:40 Vancomycin Level Trough 6.2 mcg/mL (10.0-20.0) Vancomycin Last Dose Date Unk Vancomycin Last Dose Time Unk White Blood Count 12.2 x10^3/uL (4.0-11.0) Red Blood Count 4.60 x10^6/uL (4.30-5.70) Hemoglobin 12.2 g/dL (13.0-17.5) Hematocrit 36.8 % (39.0-53.0) Mean Corpuscular Volume 80 fL (79-100) Mean Corpuscular Hemoglobin 27 pg (25-35) Mean Corpuscular Hemoglobin Concent 33 g/dL (31-37) Red Cell Distribution Width 13.2 % (11.5-14.5) Platelet Count 383 x10^3/uL (140-400) Neutrophils (%) (Auto) 75 % (31-73) Lymphocytes (%) (Auto) 18 % (24-48) Monocytes (%) (Auto) 6 % (0-9) Eosinophils (%) (Auto) 0 % (0-3) Basophils (%) (Auto) 0 % (0-3) Neutrophils # (Auto) 9.2 x10^3uL (1.8-7.7) Lymphocytes # (Auto) 2.2 x10^3/uL (1.0-4.8) Monocytes # (Auto) 0.7 x10^3/uL (0.0-1.1) Eosinophils # (Auto) 0.1 x10^3/uL (0.0-0.7) Basophils # (Auto) 0.0 x10^3/uL (0.0-0.2) Sodium Level 141 mmol/L (136-145) Potassium Level 2.9 mmol/L (3.5-5.1) Chloride Level 105 mmol/L (98-107) Carbon Dioxide Level 27 mmol/L (21-32) Anion Gap 9 (6-14) Blood Urea Nitrogen 12 mg/dL (8-26) Creatinine 0.9 mg/dL (0.7-1.3) Estimated GFR (Cockcroft-Gault) 98.4 Glucose Level 144 mg/dL (70-99) Calcium Level 7.9 mg/dL (8.5-10.1) Microbiology 05/24/18 Blood Culture - Preliminary, Resulted NO GROWTH AFTER 2 DAYS 05/24/18 Anaerobic/Aerobic Culture, Resulted Pending 05/24/18 Anaerobic Culture Result 1 (JAMARCUS), Resulted Pending 05/24/18 Aerobic Culture, Resulted Pending 05/24/18 Aerobic Culture Result 1 (JAMARCUS), Resulted Pending 05/24/18 Gram Stain - Final, Resulted 05/24/18 Gram Stain Result 1 (JAMARCUS) - Final, Resulted 05/24/18 Gram Stain Result 2 (JAMARCUS) - Final, Resulted Medications Current Medications Clindamycin Phosphate 50 ml @ 100 mls/hr 1X ONCE IV Last administered on 05/24at 01:05; Start 05/24/18 at 00:00; Stop 05/24/18 at 00:29; Status DC Sodium Chloride 1,000 ml @ 1,000 mls/hr 1X ONCE IV Last administered on at 01:05; Start 05/24/18 at 00:00; Stop 05/24/18 at 00:59; Status DC Acetaminophen (Tylenol) 500 mg 1X ONCE PO Last administered on 05/24/18at 01:05 ; Start 05/24/18 at 00:15; Stop 05/24/18 at 00:16; Status DC Sodium Chloride 1,000 ml @ 1,000 mls/hr 1X ONCE IV Last administered on at 01:50; Start 05/24/18 at 00:15; Stop 05/24/18 at 01:14; Status DC Diphtheria/ Tetanus/Acell Pertussis (Boostrix) 0.5 ml ONCE ONCE VAX IM Last administered on 05/24/18at 01:05; Start 05/24/18 at 00:15; Stop 05/24/18 at 00:16 ; Status DC Mupirocin (Bactroban) 1 brii 1X ONCE TP Last administered on 05/24/18at 00:15; Start 05/24/18 at 00:15; Stop 05/24/18 at 00:16; Status DC Potassium Chloride (Klor-Con) 40 meq 1X ONCE PO Last administered on at 01:30; Start 05/24/18 at 01:30; Stop 05/24/18 at 01:31; Status DC Vancomycin HCl 1.75 gm/Sodium Chloride 500 ml @ 250 mls/hr 1X ONCE IV Last administered on 05/24/18at 01:50; Start 05/24/18 at 01:30; Stop 05/24/18 at 03:29 ; Status DC Ondansetron HCl (Zofran) 4 mg PRN Q8HRS PRN IV NAUSEA/VOMITING; Start 05/24/18 at 02:15; Stop 05/25/18 at 02:14; Status DC Fentanyl Citrate (Fentanyl 2ml Vial) 50 mcg PRN Q2HR PRN IV PAIN Last administered on 05/26/18at 11:15; Start 05/24/18 at 02:15 Ondansetron HCl (Zofran) 4 mg PRN Q6HRS PRN IV NAUSEA/VOMITING; Start 05/24/18 at 07:30; Stop 05/24/18 at 18:00; Status DC Fentanyl Citrate (Fentanyl 2ml Vial) 25 mcg PRN Q5MIN PRN IV MILD PAIN; Start 05/24/18 at 07:30; Stop 05/24/18 at 18:00; Status DC Fentanyl Citrate (Fentanyl 2ml Vial) 50 mcg PRN Q5MIN PRN IV MODERATE TO SEVERE PAIN; Start 05/24/18 at 07:30; Stop 05/24/18 at 18:00; Status DC Morphine Sulfate (Morphine Sulfate) 1 mg PRN Q10MIN PRN IV SEVERE PAIN; Start 05/24/18 at 07:30; Stop 05/25/18 at 07:29; Status DC Ringer's Solution 1,000 ml @ 30 mls/hr Q24H IV ; Start 05/24/18 at 07:29; Stop 05/24/18 at 19:28; Status DC Lidocaine HCl (Xylocaine-Mpf 1% 2ml Vial) 2 ml 1X PRN PRN ID IV START; Start at 07:30; Stop 05/24/18 at 18:00; Status DC Hydromorphone HCl (Dilaudid) 0.5 mg PRN Q10MIN PRN IV SEV PAIN, Second choice; Start 05/24/18 at 07:30; Stop 05/24/18 at 18:00; Status DC Prochlorperazine Edisylate (Compazine) 5 mg PACU PRN PRN IV NAUSEA, MRX1; Start 05/24/18 at 07:30; Stop 05/24/18 at 18:00; Status DC Piperacillin Sod/ Tazobactam Sod 4.5 gm/Sodium Chloride 100 ml @ 200 mls/hr Q6HRS IV Last administered on 05/26/18at 10:20; Start 05/24/18 at 08:00 Fluconazole/ Sodium Chloride 100 ml @ 100 mls/hr Q24H IV Last administered on 05/26/18at 11:15; Start 05/24/18 at 10:00 Vancomycin HCl (Vanco Per Pharmacy) 1 each PRN DAILY PRN MC SEE COMMENTS Last administered on 05/25/18at 15:58; Start 05/24/18 at 08:00 Propofol 20 ml @ As Directed STK-MED ONCE IV ; Start 05/24/18 at 11:47; Stop at 11:49; Status DC Lidocaine HCl (Lidocaine Pf 2% Vial) 5 ml STK-MED ONCE .ROUTE ; Start 05/24/18 at 11:47; Stop 05/24/18 at 11:49; Status DC Ketorolac Tromethamine (Toradol For Or Only) 30 mg STK-MED ONCE INJ ; Start at 11:47; Stop 05/24/18 at 11:49; Status DC Sevoflurane (Ultane) 30 ml STK-MED ONCE IH ; Start 05/24/18 at 11:47; Stop 05/24 at 11:49; Status DC Dexamethasone Sodium Phosphate (Decadron) 20 mg STK-MED ONCE .ROUTE ; Start at 12:37; Stop 05/24/18 at 12:39; Status DC Ondansetron HCl (Zofran) 4 mg STK-MED ONCE .ROUTE ; Start 05/24/18 at 12:37; Stop 05/24/18 at 12:39; Status DC Fentanyl Citrate (Fentanyl 2ml Vial) 100 mcg STK-MED ONCE .ROUTE ; Start at 12:37; Stop 05/24/18 at 12:39; Status DC Vancomycin HCl 1.5 gm/Sodium Chloride 500 ml @ 250 mls/hr Q12H IV Last administered on 05/25/18at 16:00; Start 05/24/18 at 15:00; Stop 05/25/18 at 18:00 ; Status DC Vancomycin HCl (Vancomycin Trough Level) 1 each 1X ONCE MC Last administered on 05/25/18at 14:30; Start 05/25/18 at 14:30; Stop 05/25/18 at 14:31; Status DC Lactobacillus Rhamnosus (Culturelle) 1 cap BID PO Last administered on at 08:30; Start 05/25/18 at 21:00 Vancomycin HCl 1.5 gm/Sodium Chloride 500 ml @ 250 mls/hr Q8H IV Last administered on 05/26/18at 07:00; Start 05/25/18 at 23:00 Potassium Chloride (Klor-Con) 40 meq 1X ONCE PO Last administered on at 06:11; Start 05/26/18 at 05:45; Stop 05/26/18 at 05:46; Status DC Active Scripts Active Keflex (Cephalexin) 500 Mg Capsule 1 Cap PO TID Mcdaniel 5-325 Tablet (Acetaminophen/Hydrocodone Bitart) 1 Each Tablet 1 Tab PO PRN Q6HRS PRN Keflex (Cephalexin) 500 Mg Capsule 1 Cap PO TID Vitals/I & O Vital Sign - Last 24 Hours 05/25/18 05/25/18 05/25/18 05/25/18 15:00 19:30 20:00 23:25 Temp 97.9 97.9 98.2 97.9 97.9 98.2 Pulse 68 72 67 Resp 18 18 B/P (MAP) 122/78 (93) 129/77 (94) 134/78 (96) Pulse Ox 96 100 100 O2 Delivery Room Air Room Air Room Air 05/26/18 05/26/18 05/26/18 03:10 07:00 11:15 Temp 98.0 97.7 98.0 97.7 Pulse 70 59 Resp 18 18 B/P (MAP) 129/77 (94) 133/76 (95) Pulse Ox 100 97 O2 Delivery Room Air Room Air Room Air Intake and Output 05/25/18 05/25/18 05/26/18 15:01 23:01 07:01 Intake Total 600 ml 240 ml 480 ml Output Total 850 ml Balance 600 ml 240 ml -370 ml JACQUES KEMP MD May 26, 2018 11:33
--- NOTE | 2018-05-26 12:00 | NUR ---
Attempted to use etl informatica developer phone to obtain consents for PICC. Pt refused need for phone.
--- NOTE | 2018-05-26 12:50 | NUR ---
PICC Pre-Insertion Note Allergies and reactions NKDA INR 1.2 BUN 12 Cr 0.9 Platelets 383 Blood culture done yes blood culture results no growth x 2 days Order Verified yes Consent signed yes Previous PICC placement unknown Past Medical/Surgical history and current diagnosis reviewed yes Patient Medical /Surgical History Related to PICC line placement None Special considerations for PICC line placement None PICC placement indication intermodal customer service antibiotic usage, name of PICC Nurse Anuradha Aguiar RN Addendum: 05/26/18 at 1344 by ARETHA AGUIAR RN Amended: Links added.
--- NOTE | 2018-05-26 13:19 | NUR ---
SW following for discharge planning. Discussed with RN. ROHAN met with pt to provide self pay resource packet. Pt is from [facility] and speaks [facility] but does speak and understand some Welsh. Pt's nurse aide asked if pt wanted SW to wait for his , pt said it was okay and he can speak and understand well enough. 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 SW to meet with pt again when his is present. Pt is going to need outpatient abx, awaiting determination of which antibiotic. SW awaiting call back from Robert PEREZ to determine if pt is going to need a wound vac. SW will continue to follow.
--- NOTE | 2018-05-26 13:23 | NUR ---
PICC Insertion Note- Procedure: Following complete explanation of the PICC procedure including the indications, risks, and potential complications, informed consent was obtained. The possibility for infection was discussed along with signs, symptoms, and prevention. All the questions were answered. Written and verbal patient education was provided. Hand hygiene performed. Standardized central line checklist was utilized. The patient was placed in the supine position, the arm was prepped with chlorhexidine and patient draped with maximum sterile barrier. 2 mL 1% lidocaine was infiltrated into the skin to provide local anesthesia. A thorough assessment of right upper extremity completed. Using real-time ultrasound guidance and standardized micro puncture set, the Basilic vein was punctured and a peel away sheath was placed using the modified Seldinger technique. A tip location device was used to ensure adequate catheter placement. The catheter was secured using a securement device and an antimicrobial patch was applied directly on the insertion site followed by a transparent dressing. All ports withdraw blood and flush without resistance. Patient tolerated the procedure without apparent complication(s). Single Lumen Power PICC placement successful and uncomplicated. Placement verified by EKG tip confirmation system and/or chest x-ray. Tip located in the CAJ/SVC. Complications: none Catheter trimmed at 41cm with 2cm visible at insertion site.
[2018-05-26] MEDS: VANCOMYCIN PER PHARMACY MC PRN (14:02)
[2018-05-26 15:00] VITALS: BP 127/76
--- NOTE | 2018-05-26 15:08 | NUR ---
Wound care: Patient seen for wound vac dressing change. Dressing removed and wound cleansed, assessed, measured, and pictured. Skin prep for wound vac, two piece of black foam used in left dorsal wound and one piece of black foam used in the left plantar wound. The vac tracked up to left lateral lower leg and a good seal maintained at 125mmHg. Patient had removed dressings to bilateral hands. Recommendations just to continue with Bactroban ointment as directed without the dressings covering. Bed lowered and call light in reach. Will follow up with patient on Thursday for wound vac dressing change.
[2018-05-26 19:00] VITALS: BP 117/82
[2018-05-26 23:00] VITALS: BP 114/61
[2018-05-27] MEDS: VANCOMYCIN 1.5 GM in IV NORMAL SALINE 500ML BAG 500 ML IV SCH ×3 (00:17→15:36)
[2018-05-27 03:00] VITALS: BP 119/78
[2018-05-27] MEDS: PIPERACILLIN/TAZOBACTAM 4.5 GM in IV NORMAL SALINE 100ML 100 ML IV SCH ×4 (05:43→23:45)
[2018-05-27 07:00] VITALS: BP 147/95
--- NOTE | 2018-05-27 08:21 | PDOC ---
Infectious Disease Note Subjective Subjective Doing ok. pain controlled. Appetite better No F/C/S/N/V/SOA/Rash. No Flatus Vital Sign Vital Signs Vital Signs Date Time Temp Pulse Resp B/P (MAP) Pulse Ox O2 Delivery O2 Flow Rate FiO2 05/27/18 07:00 97.9 72 18 147/95 (112) 100 Room Air 97.9 Physical Exam PHYSICAL EXAM CONSTITUTIONAL: He is alert. NAD HEENT: Pupils were equal and reactive. Oral cavity, pharynx was moist. NECK: Without swelling. No JVD. LUNGS: Clear to auscultation. HEART: S1, S2. ABDOMEN: Obese, soft, no guarding or rebound. SKIN: Without generalized rash. He does have some tattoos. EXTREMITIES: His left foot has 1+ edema. Vac in place. Left hand and right hand have bilateral contractures with some chronic appearing wound on the palmar surface. He does have a little bit of tenia associated with hands and his feet. NEUROLOGIC: He was nonfocal, moved extremities, PSYCHIATRIC: Affect was pleasant IV: PICC - RUE Labs Lab Laboratory Tests Test 05/26/18 16:00 Potassium Level 2.9 mmol/L (3.5-5.1) Micro IMPRESSION: Soft tissue swelling of the plantar and dorsal forefoot. Widening of the second metatarsophalangeal joint and small lytic defects at the second metatarsal head and a portion of the base of the third proximal phalanx, could be observed with osteomyelitis given the adjacent soft tissue abnormalities. There is mixed bone lysis and bony sclerosis and exuberant ossification at the base of the second toe proximal phalanx which could be observed with chronic injury superimposed upon osteomyelitis. This could be further assessed with MR imaging. FINDINGS: Right hand demonstrates fixed flexion of the thumb and index finger. There is a small metallic density at the thenar soft tissues could be a foreign body. Small chronic ossicle overlying the tuft of the second finger distal phalanx. No acute fracture or dislocation. No lytic bone destruction. Left hand: The fingers are fixed in a flexed position. There is soft tissue swelling of the tip of the index finger and there is moderate ostial lysis of the distal phalanx tuft. There may be mild osteolysis of the tuft of the thumb distal phalanx. There is dorsal dislocation of the fourth distal phalanx at the DIP joint. No acute fracture. IMPRESSION: 1. Fingers are flexed presumably due to contractures. The left hand demonstrates areas of acral osteolysis involving the second digit distal phalanx and thumb distal phalanx kwadwo with surrounding soft tissue swelling, which could be indicative of osteomyelitis, although phalangeal tuft lysis could also be observed with a prior chemical or thermal injury as well as other etiologies. 2. Dislocation of the left hand fourth DIP joint could be chronic. No acute fracture evident. 3. Chronic appearing small ossicle about the tuft of the right hand second distal phalanx tuft. 4. Small metallic density could be a foreign body at the thenar web of the right hand Objective Assessment Bacteremia - strep species 05/31 bottles 05/24 Fever - better Left foot wound from stepping on a screw - ? osteomyelitis - s/p I and D 05/24 cults pending Left foot cellulitis ? 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
--- NOTE | 2018-05-27 08:44 | PDOC ---
ORTHO PROGRESS NOTES Subjective No complaints, no acute events, PICC yesterday Vitals Vital Signs Date Time Temp Pulse Resp B/P (MAP) Pulse Ox O2 Delivery O2 Flow Rate FiO2 05/27/18 07:00 97.9 72 18 147/95 (112) 100 Room Air 97.9 Labs Laboratory Tests Test 05/25/18 15:10 05/26/18 03:40 05/26/18 16:00 Vancomycin Level Trough 6.2 mcg/mL (10.0-20.0) Vancomycin Last Dose Date Unk Vancomycin Last Dose Time Unk White Blood Count 12.2 x10^3/uL (4.0-11.0) Red Blood Count 4.60 x10^6/uL (4.30-5.70) Hemoglobin 12.2 g/dL (13.0-17.5) Hematocrit 36.8 % (39.0-53.0) Mean Corpuscular Volume 80 fL (79-100) Mean Corpuscular Hemoglobin 27 pg (25-35) Mean Corpuscular Hemoglobin Concent 33 g/dL (31-37) Red Cell Distribution Width 13.2 % (11.5-14.5) Platelet Count 383 x10^3/uL (140-400) Neutrophils (%) (Auto) 75 % (31-73) Lymphocytes (%) (Auto) 18 % (24-48) Monocytes (%) (Auto) 6 % (0-9) Eosinophils (%) (Auto) 0 % (0-3) Basophils (%) (Auto) 0 % (0-3) Neutrophils # (Auto) 9.2 x10^3uL (1.8-7.7) Lymphocytes # (Auto) 2.2 x10^3/uL (1.0-4.8) Monocytes # (Auto) 0.7 x10^3/uL (0.0-1.1) Eosinophils # (Auto) 0.1 x10^3/uL (0.0-0.7) Basophils # (Auto) 0.0 x10^3/uL (0.0-0.2) Sodium Level 141 mmol/L (136-145) Potassium Level 2.9 mmol/L (3.5-5.1) 2.9 mmol/L (3.5-5.1) Chloride Level 105 mmol/L (98-107) Carbon Dioxide Level 27 mmol/L (21-32) Anion Gap 9 (6-14) Blood Urea Nitrogen 12 mg/dL (8-26) Creatinine 0.9 mg/dL (0.7-1.3) Estimated GFR (Cockcroft-Gault) 98.4 Glucose Level 144 mg/dL (70-99) Calcium Level 7.9 mg/dL (8.5-10.1) Laboratory Tests Test 05/26/18 16:00 Potassium Level 2.9 mmol/L (3.5-5.1) Notes resting, awakens VAC in place, foot looks better, less edema Assessment and Plan d/w Dov rec IV abx cont VAC OBINNA LÓPEZ II, MD May 27, 2018 08:44
[2018-05-27 09:02] LABS: BASO # 0.1 x10^3/uL (0.0-0.2); BASO % 1 % (0-3); EOS # 0.4 x10^3/uL (0.0-0.7); EOS % 4 % (0-3); HEMOGLOBIN 13.7 g/dL (13.0-17.5); LYMPH # 3.2 x10^3/uL (1.0-4.8); LYMPH % 33 % (24-48); MEAN CORPUSCULAR HEMOGLOBIN 27 pg (25-35); MEAN CORPUSCULAR HGB CONC 33 g/dL (31-37); MEAN CORPUSCULAR VOLUME 80 fL (79-100); MONO # 0.8 x10^3/uL (0.0-1.1); MONO % 8 % (0-9); NEUT # 5.4 x10^3uL (1.8-7.7); NEUT % 55 % (31-73); PLATELET COUNT 427 x10^3/uL (140-400); RED BLOOD COUNT 5.12 x10^6/uL (4.30-5.70); RED CELL DISTRIBUTION WIDTH 13.4 % (11.5-14.5); WHITE BLOOD COUNT 9.9 x10^3/uL (4.0-11.0)
--- NOTE | 2018-05-27 09:11 | PATHOLOGY ---
[facility] Accession Number: [id number] . 01 Material submitted: . LEFT FOOT BONE . 01 Clinical history: . Left foot cellulitis and osteomyelitis . 02 Diagnosis: Segments of bone and soft tissue, left foot bone biopsy: - Focal acute cellulitis of soft tissue and focal acute osteomyelitis of attached bone. (JPM:bunch trimmer mold; 05/26/2018) MBR/05/27/2018 . 02 Electronically signed: . Diego Hedrick MD, Pathologist NPI- [id number] . 01 Gross description: . The specimen is received in formalin, labeled "Farzaneh Lomeli, left foot bone", are two irregular fragments of street-brown bone measuring 0.5 x 0.4 x 0.1 cm and 0.4 x 0.2 x 0.1 cm, entirely submitted in A1 after decalcification. ([facility]; 05/25/2018) SHS/SHS . 02 Pathologist provided ICD-10: L03.116, M89.8X7 . 02 CPT . 492865, 229360 Specimen Comment: A courtesy copy of this report has been sent to Specimen Comment: [phone], , . Specimen Comment: Report sent to ,DR PATE / DR JONES Specimen Comment: A duplicate report has been generated due to demographic updates. Performed at: 01 [facility] [address], [place] [id number] MD Nikko Puente MD Phone: [phone] Performed at: 02 [facility] [address] [place], [place] [id number] MD Diego Hedrick MD Phone: [phone]
[2018-05-27 09:23] LABS: CREATININE 1.1 mg/dL (0.7-1.3); GFR 78.1; POTASSIUM 3.5 mmol/L (3.5-5.1)
[2018-05-27] MEDS: LACTOBACILLUS RHAMNOSUS GG 1 CAPSULE. PO SCH ×2 (09:46→21:07)
[2018-05-27] MEDS: POTASSIUM CHLORIDE 20 MEQ TABLET.ER. PO SCH (09:46)
[2018-05-27] MEDS: FLUCONAZOLE 200MG/100ML PREMIX 100 ML IV SCH (09:46)
--- NOTE | 2018-05-27 09:52 | PDOC ---
PROGRESS NOTES History of Present Illness History of Present Illness Assessment/Plan Assessment/Plan impression 1. Widening of the second metatarsophalangeal joint and small lytic defects at the second metatarsal head and a portion of the base of the third proximal phalanx, could be observed with osteomyelitis 2. left hand demonstrates areas of acral osteolysis involving the second digit distal phalanx and thumb distal phalanx kwadwo with surrounding soft tissue swelling, which could be indicative of osteomyelitis 3. hypokalemia plan iv antibiotics ID consult ortho consult replace k Date of procedure: 05/24/2018 Surgeon: Antoine Garcias Preoperative diagnosis: Left foot infection with osteomyelitis Postoperative diagnosis: Same Procedure performed: #1 irrigation and debridement down to bone, excisional of left foot #2 bone biopsy of metatarsal head region #3 application of wound VAC to wound less than 25 cm� Anesthesia: Gen. Findings: Gross purulence and necrotic debris in wound Vitals Vitals Vital Signs Date Time Temp Pulse Resp B/P (MAP) Pulse Ox O2 Delivery O2 Flow Rate FiO2 05/27/18 08:00 Room Air 05/27/18 07:00 97.9 72 18 147/95 (112) 100 97.9 Physical Exam Physical Exam CONSTITUTIONAL: He is alert. NAD HEENT: Pupils were equal and reactive. Oral cavity, pharynx was moist. NECK: Without swelling. No JVD. LUNGS: Clear to auscultation. HEART: S1, S2. ABDOMEN: Obese, soft, no guarding or rebound. SKIN: Without generalized rash. EXTREMITIES: His left foot has 1+ edema. Vac in place. Left hand and right hand have bilateral contractures with some chronic appearing wound on the palmar surface. He does have a little bit of tenia associated with hands and his feet. NEUROLOGIC: He was nonfocal, moved extremities, PSYCHIATRIC: Affect was pleasant IV: PICC - RUE General: Alert, Oriented X3, Cooperative, No acute distress Heart: Regular rate, Normal S1, Normal S2, No murmurs Lungs: Clear Abdomen: Normal bowel sounds, Soft, No tenderness Extremities: No cyanosis Labs LABS Laboratory Tests Test 05/26/18 16:00 05/27/18 08:20 Potassium Level 2.9 mmol/L (3.5-5.1) 3.5 mmol/L (3.5-5.1) White Blood Count 9.9 x10^3/uL (4.0-11.0) Red Blood Count 5.12 x10^6/uL (4.30-5.70) Hemoglobin 13.7 g/dL (13.0-17.5) Hematocrit 41.0 % (39.0-53.0) Mean Corpuscular Volume 80 fL (79-100) Mean Corpuscular Hemoglobin 27 pg (25-35) Mean Corpuscular Hemoglobin Concent 33 g/dL (31-37) Red Cell Distribution Width 13.4 % (11.5-14.5) Platelet Count 427 x10^3/uL (140-400) Neutrophils (%) (Auto) 55 % (31-73) Lymphocytes (%) (Auto) 33 % (24-48) Monocytes (%) (Auto) 8 % (0-9) Eosinophils (%) (Auto) 4 % (0-3) Basophils (%) (Auto) 1 % (0-3) Neutrophils # (Auto) 5.4 x10^3uL (1.8-7.7) Lymphocytes # (Auto) 3.2 x10^3/uL (1.0-4.8) Monocytes # (Auto) 0.8 x10^3/uL (0.0-1.1) Eosinophils # (Auto) 0.4 x10^3/uL (0.0-0.7) Basophils # (Auto) 0.1 x10^3/uL (0.0-0.2) Sodium Level 140 mmol/L (136-145) Chloride Level 104 mmol/L (98-107) Carbon Dioxide Level 29 mmol/L (21-32) Anion Gap 7 (6-14) Blood Urea Nitrogen 11 mg/dL (8-26) Creatinine 1.1 mg/dL (0.7-1.3) Estimated GFR (Cockcroft-Gault) 78.1 Glucose Level 132 mg/dL (70-99) Calcium Level 8.0 mg/dL (8.5-10.1) Comment Review of Relevant I have reviewed the following items pedro (where applicable) has been applied. Labs Laboratory Tests Test 05/25/18 15:10 05/26/18 03:40 05/26/18 16:00 05/27/18 08:20 Vancomycin Level Trough 6.2 mcg/mL (10.0-20.0) Vancomycin Last Dose Date Unk Vancomycin Last Dose Time Unk White Blood Count 12.2 x10^3/uL (4.0-11.0) 9.9 x10^3/uL (4.0-11.0) Red Blood Count 4.60 x10^6/uL (4.30-5.70) 5.12 x10^6/uL (4.30-5.70) Hemoglobin 12.2 g/dL (13.0-17.5) 13.7 g/dL (13.0-17.5) Hematocrit 36.8 % (39.0-53.0) 41.0 % (39.0-53.0) Mean Corpuscular Volume 80 fL (79-100) 80 fL (79-100) Mean Corpuscular Hemoglobin 27 pg (25-35) 27 pg (25-35) Mean Corpuscular Hemoglobin Concent 33 g/dL (31-37) 33 g/dL (31-37) Red Cell Distribution Width 13.2 % (11.5-14.5) 13.4 % (11.5-14.5) Platelet Count 383 x10^3/uL (140-400) 427 x10^3/uL (140-400) Neutrophils (%) (Auto) 75 % (31-73) 55 % (31-73) Lymphocytes (%) (Auto) 18 % (24-48) 33 % (24-48) Monocytes (%) (Auto) 6 % (0-9) 8 % (0-9) Eosinophils (%) (Auto) 0 % (0-3) 4 % (0-3) Basophils (%) (Auto) 0 % (0-3) 1 % (0-3) Neutrophils # (Auto) 9.2 x10^3uL (1.8-7.7) 5.4 x10^3uL (1.8-7.7) Lymphocytes # (Auto) 2.2 x10^3/uL (1.0-4.8) 3.2 x10^3/uL (1.0-4.8) Monocytes # (Auto) 0.7 x10^3/uL (0.0-1.1) 0.8 x10^3/uL (0.0-1.1) Eosinophils # (Auto) 0.1 x10^3/uL (0.0-0.7) 0.4 x10^3/uL (0.0-0.7) Basophils # (Auto) 0.0 x10^3/uL (0.0-0.2) 0.1 x10^3/uL (0.0-0.2) Sodium Level 141 mmol/L (136-145) 140 mmol/L (136-145) Potassium Level 2.9 mmol/L (3.5-5.1) 2.9 mmol/L (3.5-5.1) 3.5 mmol/L (3.5-5.1) Chloride Level 105 mmol/L (98-107) 104 mmol/L (98-107) Carbon Dioxide Level 27 mmol/L (21-32) 29 mmol/L (21-32) Anion Gap 9 (6-14) 7 (6-14) Blood Urea Nitrogen 12 mg/dL (8-26) 11 mg/dL (8-26) Creatinine 0.9 mg/dL (0.7-1.3) 1.1 mg/dL (0.7-1.3) Estimated GFR (Cockcroft-Gault) 98.4 78.1 Glucose Level 144 mg/dL (70-99) 132 mg/dL (70-99) Calcium Level 7.9 mg/dL (8.5-10.1) 8.0 mg/dL (8.5-10.1) Laboratory Tests Test 05/26/18 16:00 05/27/18 08:20 Potassium Level 2.9 mmol/L (3.5-5.1) 3.5 mmol/L (3.5-5.1) White Blood Count 9.9 x10^3/uL (4.0-11.0) Red Blood Count 5.12 x10^6/uL (4.30-5.70) Hemoglobin 13.7 g/dL (13.0-17.5) Hematocrit 41.0 % (39.0-53.0) Mean Corpuscular Volume 80 fL (79-100) Mean Corpuscular Hemoglobin 27 pg (25-35) Mean Corpuscular Hemoglobin Concent 33 g/dL (31-37) Red Cell Distribution Width 13.4 % (11.5-14.5) Platelet Count 427 x10^3/uL (140-400) Neutrophils (%) (Auto) 55 % (31-73) Lymphocytes (%) (Auto) 33 % (24-48) Monocytes (%) (Auto) 8 % (0-9) Eosinophils (%) (Auto) 4 % (0-3) Basophils (%) (Auto) 1 % (0-3) Neutrophils # (Auto) 5.4 x10^3uL (1.8-7.7) Lymphocytes # (Auto) 3.2 x10^3/uL (1.0-4.8) Monocytes # (Auto) 0.8 x10^3/uL (0.0-1.1) Eosinophils # (Auto) 0.4 x10^3/uL (0.0-0.7) Basophils # (Auto) 0.1 x10^3/uL (0.0-0.2) Sodium Level 140 mmol/L (136-145) Chloride Level 104 mmol/L (98-107) Carbon Dioxide Level 29 mmol/L (21-32) Anion Gap 7 (6-14) Blood Urea Nitrogen 11 mg/dL (8-26) Creatinine 1.1 mg/dL (0.7-1.3) Estimated GFR (Cockcroft-Gault) 78.1 Glucose Level 132 mg/dL (70-99) Calcium Level 8.0 mg/dL (8.5-10.1) Microbiology 05/24/18 Blood Culture - Preliminary, Resulted NO GROWTH AFTER 3 DAYS 05/24/18 Anaerobic/Aerobic Culture, Resulted Pending 05/24/18 Anaerobic Culture Result 1 (JAMARCUS), Resulted Pending 05/24/18 Aerobic Culture - Preliminary, Resulted 05/24/18 Aerobic Culture Result 1 (JAMARCUS) - Preliminary, Resulted 05/24/18 Gram Stain - Final, Resulted 05/24/18 Gram Stain Result 1 (JAMARCUS) - Final, Resulted 05/24/18 Gram Stain Result 2 (JAMARCUS) - Final, Resulted Medications Current Medications Clindamycin Phosphate 50 ml @ 100 mls/hr 1X ONCE IV Last administered on 05/24at 01:05; Start 05/24/18 at 00:00; Stop 05/24/18 at 00:29; Status DC Sodium Chloride 1,000 ml @ 1,000 mls/hr 1X ONCE IV Last administered on at 01:05; Start 05/24/18 at 00:00; Stop 05/24/18 at 00:59; Status DC Acetaminophen (Tylenol) 500 mg 1X ONCE PO Last administered on 05/24/18at 01:05 ; Start 05/24/18 at 00:15; Stop 05/24/18 at 00:16; Status DC Sodium Chloride 1,000 ml @ 1,000 mls/hr 1X ONCE IV Last administered on at 01:50; Start 05/24/18 at 00:15; Stop 05/24/18 at 01:14; Status DC Diphtheria/ Tetanus/Acell Pertussis (Boostrix) 0.5 ml ONCE ONCE VAX IM Last administered on 05/24/18at 01:05; Start 05/24/18 at 00:15; Stop 05/24/18 at 00:16 ; Status DC Mupirocin (Bactroban) 1 brii 1X ONCE TP Last administered on 05/24/18at 00:15; Start 05/24/18 at 00:15; Stop 05/24/18 at 00:16; Status DC Potassium Chloride (Klor-Con) 40 meq 1X ONCE PO Last administered on at 01:30; Start 05/24/18 at 01:30; Stop 05/24/18 at 01:31; Status DC Vancomycin HCl 1.75 gm/Sodium Chloride 500 ml @ 250 mls/hr 1X ONCE IV Last administered on 05/24/18at 01:50; Start 05/24/18 at 01:30; Stop 05/24/18 at 03:29 ; Status DC Ondansetron HCl (Zofran) 4 mg PRN Q8HRS PRN IV NAUSEA/VOMITING; Start 05/24/18 at 02:15; Stop 05/25/18 at 02:14; Status DC Fentanyl Citrate (Fentanyl 2ml Vial) 50 mcg PRN Q2HR PRN IV PAIN Last administered on 05/26/18at 11:15; Start 05/24/18 at 02:15 Ondansetron HCl (Zofran) 4 mg PRN Q6HRS PRN IV NAUSEA/VOMITING; Start 05/24/18 at 07:30; Stop 05/24/18 at 18:00; Status DC Fentanyl Citrate (Fentanyl 2ml Vial) 25 mcg PRN Q5MIN PRN IV MILD PAIN; Start 05/24/18 at 07:30; Stop 05/24/18 at 18:00; Status DC Fentanyl Citrate (Fentanyl 2ml Vial) 50 mcg PRN Q5MIN PRN IV MODERATE TO SEVERE PAIN; Start 05/24/18 at 07:30; Stop 05/24/18 at 18:00; Status DC Morphine Sulfate (Morphine Sulfate) 1 mg PRN Q10MIN PRN IV SEVERE PAIN; Start 05/24/18 at 07:30; Stop 05/25/18 at 07:29; Status DC Ringer's Solution 1,000 ml @ 30 mls/hr Q24H IV ; Start 05/24/18 at 07:29; Stop 05/24/18 at 19:28; Status DC Lidocaine HCl (Xylocaine-Mpf 1% 2ml Vial) 2 ml 1X PRN PRN ID IV START; Start at 07:30; Stop 05/24/18 at 18:00; Status DC Hydromorphone HCl (Dilaudid) 0.5 mg PRN Q10MIN PRN IV SEV PAIN, Second choice; Start 05/24/18 at 07:30; Stop 05/24/18 at 18:00; Status DC Prochlorperazine Edisylate (Compazine) 5 mg PACU PRN PRN IV NAUSEA, MRX1; Start 05/24/18 at 07:30; Stop 05/24/18 at 18:00; Status DC Piperacillin Sod/ Tazobactam Sod 4.5 gm/Sodium Chloride 100 ml @ 200 mls/hr Q6HRS IV Last administered on 05/27/18at 05:43; Start 05/24/18 at 08:00 Fluconazole/ Sodium Chloride 100 ml @ 100 mls/hr Q24H IV Last administered on 05/27/18at 09:46; Start 05/24/18 at 10:00 Vancomycin HCl (Vanco Per Pharmacy) 1 each PRN DAILY PRN MC SEE COMMENTS Last administered on 05/26/18at 14:02; Start 05/24/18 at 08:00 Propofol 20 ml @ As Directed STK-MED ONCE IV ; Start 05/24/18 at 11:47; Stop at 11:49; Status DC Lidocaine HCl (Lidocaine Pf 2% Vial) 5 ml STK-MED ONCE .ROUTE ; Start 05/24/18 at 11:47; Stop 05/24/18 at 11:49; Status DC Ketorolac Tromethamine (Toradol For Or Only) 30 mg STK-MED ONCE INJ ; Start at 11:47; Stop 05/24/18 at 11:49; Status DC Sevoflurane (Ultane) 30 ml STK-MED ONCE IH ; Start 05/24/18 at 11:47; Stop 05/24 at 11:49; Status DC Dexamethasone Sodium Phosphate (Decadron) 20 mg STK-MED ONCE .ROUTE ; Start at 12:37; Stop 05/24/18 at 12:39; Status DC Ondansetron HCl (Zofran) 4 mg STK-MED ONCE .ROUTE ; Start 05/24/18 at 12:37; Stop 05/24/18 at 12:39; Status DC Fentanyl Citrate (Fentanyl 2ml Vial) 100 mcg STK-MED ONCE .ROUTE ; Start at 12:37; Stop 05/24/18 at 12:39; Status DC Vancomycin HCl 1.5 gm/Sodium Chloride 500 ml @ 250 mls/hr Q12H IV Last administered on 05/25/18at 16:00; Start 05/24/18 at 15:00; Stop 05/25/18 at 18:00 ; Status DC Vancomycin HCl (Vancomycin Trough Level) 1 each 1X ONCE MC Last administered on 05/25/18at 14:30; Start 05/25/18 at 14:30; Stop 05/25/18 at 14:31; Status DC Lactobacillus Rhamnosus (Culturelle) 1 cap BID PO Last administered on at 09:46; Start 05/25/18 at 21:00 Vancomycin HCl 1.5 gm/Sodium Chloride 500 ml @ 250 mls/hr Q8H IV Last administered on 05/27/18at 06:36; Start 05/25/18 at 23:00 Potassium Chloride (Klor-Con) 40 meq 1X ONCE PO Last administered on at 06:11; Start 05/26/18 at 05:45; Stop 05/26/18 at 05:46; Status DC Potassium Chloride (Klor-Con) 40 meq 1X ONCE PO Last administered on at 15:59; Start 05/26/18 at 14:00; Stop 05/26/18 at 14:01; Status DC Potassium Chloride (Klor-Con) 20 meq DAILYWBKFT PO Last administered on at 09:46; Start 05/27/18 at 08:00 Potassium Chloride (Klor-Con) 40 meq 1X ONCE PO Last administered on at 20:32; Start 05/26/18 at 20:00; Stop 05/26/18 at 20:01; Status DC Vancomycin HCl (Vancomycin Trough Level) 1 each 1X ONCE MC ; Start 05/27/18 at 14:30; Stop 05/27/18 at 14:31 Active Scripts Active Keflex (Cephalexin) 500 Mg Capsule 1 Cap PO TID [place] 5-325 Tablet (Acetaminophen/Hydrocodone Bitart) 1 Each Tablet 1 Tab PO PRN Q6HRS PRN Keflex (Cephalexin) 500 Mg Capsule 1 Cap PO TID Vitals/I & O Vital Sign - Last 24 Hours 05/26/18 05/26/18 05/26/18 05/26/18 11:00 11:15 12:28 15:00 Temp 97.4 97.9 97.4 97.9 Pulse 66 53 Resp 18 18 B/P (MAP) 118/88 (98) 127/76 (93) Pulse Ox 99 100 O2 Delivery Room Air Room Air Room Air Room Air 05/26/18 05/26/18 05/26/18 05/27/18 19:00 20:00 23:00 03:00 Temp 97.6 97.8 98.8 97.6 97.8 98.8 Pulse 69 75 77 Resp 16 16 18 B/P (MAP) 117/82 (94) 114/61 (78) 119/78 (92) Pulse Ox 100 100 100 O2 Delivery Room Air Room Air Room Air Room Air 05/27/18 05/27/18 07:00 08:00 Temp 97.9 97.9 Pulse 72 Resp 18 B/P (MAP) 147/95 (112) Pulse Ox 100 O2 Delivery Room Air Room Air Intake and Output 05/26/18 05/26/18 05/27/18 15:01 23:01 07:01 Intake Total 225 ml 340 ml 700 ml Output Total 500 ml 1425 ml Balance 225 ml -160 ml -725 ml JACQUES KEMP MD May 27, 2018 09:52
[2018-05-27 11:00] VITALS: BP 140/74
--- NOTE | 2018-05-27 13:16 | NUR ---
SW following. Discussed with RN, pt will be here another couple of days to determine IV abx. ROHAN discussed with Robert (wound care) possibility of a brittney wound vac. ROHAN will continue to follow.
[2018-05-27 14:59] LABS: VANC TR 19.5 mcg/mL (10.0-20.0)
[2018-05-27 15:00] VITALS: BP 142/83
[2018-05-27] MEDS: ERYTHROMYCIN 0.5% OPHTH OINTMENT 1GM TUBE. OS SCH ×3 (15:35→21:09)
--- NOTE | 2018-05-27 16:00 | NUR ---
Wound Care Ada wound vac application given to pt and explained, will f/u tomorrow to pick pack worker, if completed.
[2018-05-27] MEDS: VANCOMYCIN PER PHARMACY MC PRN ×2 (16:04→16:06)
--- NOTE | 2018-05-27 16:05 | NUR ---
Pharmacy Vancomycin Dosing Note S:Consulted to monitor and dose vancomycin started 05/24/18. O:JOHN CURRY is a 32 year old M with Cellulitis Osteomyelitis . Height: 5 feet, 7 inches Weight: 94.110597 kg [place] Body Weight: 204.10 Adjusted Body Weight: 160.26 Dosing Weight: Actual Other Antibiotics: ZOSYN LABS: Last BUN: 11 Last Creatinine: 1.1 Creatinine Clearance: 106 mL/min Last WBC: 12 Last Procalcitonin: Tmax (past 24 hours): 98.6 Microbiology: BLOOD CULTURE Preliminary NO GROWTH AFTER 1 DAY I/O: 1265/1925 Drug Levels: Last Trough level: 19.5 on 05/27/18 at 1430 Last dose given 05/25/18 at 0308 Vancomycin Dosing: Loading Dose: 1750 mg x1 Dosing Weight: Actual Target Trough: 15-20 A: Based on: trough=19.5 P: 1. Begin Vancomycin 1250 mg IV q8h 2. Follow up Trough level as needed 3. Pharmacy will continue to monitor, follow and adjust therapy as needed. VINI SANDERSON, [facility], 05/27/18 [id number]
[2018-05-27 19:00] VITALS: BP 118/65
[2018-05-27 23:00] VITALS: BP 133/84
[2018-05-28] MEDS: VANCOMYCIN 1.25 GM in IV NORMAL SALINE 250ML 250 ML IV SCH ×3 (00:39→16:59)
[2018-05-28 03:00] VITALS: BP 121/76
[2018-05-28] MEDS: ERYTHROMYCIN 0.5% OPHTH OINTMENT 1GM TUBE. OS SCH ×6 (06:04→20:45)
[2018-05-28] MEDS: PIPERACILLIN/TAZOBACTAM 4.5 GM in IV NORMAL SALINE 100ML 100 ML IV SCH ×3 (06:11→18:57)
[2018-05-28 06:30] LABS: BASO # 0.2 x10^3/uL (0.0-0.2); BASO % 1 % (0-3); EOS # 0.5 x10^3/uL (0.0-0.7); EOS % 5 % (0-3); HEMATOCRIT 41.6 % (39.0-53.0); HEMOGLOBIN 13.5 g/dL (13.0-17.5); LYMPH # 3.4 x10^3/uL (1.0-4.8); LYMPH % 29 % (24-48); MEAN CORPUSCULAR HEMOGLOBIN 26 pg (25-35); MEAN CORPUSCULAR HGB CONC 33 g/dL (31-37); MEAN CORPUSCULAR VOLUME 81 fL (79-100); MONO # 0.8 x10^3/uL (0.0-1.1); MONO % 7 % (0-9); NEUT # 7.1 x10^3uL (1.8-7.7); NEUT % 59 % (31-73); PLATELET COUNT 403 x10^3/uL (140-400); RED BLOOD COUNT 5.16 x10^6/uL (4.30-5.70); RED CELL DISTRIBUTION WIDTH 13.1 % (11.5-14.5); WHITE BLOOD COUNT 12.1 x10^3/uL (4.0-11.0)
[2018-05-28 06:37] LABS: CALCIUM 8.7 mg/dL (8.5-10.1); CREATININE 1.1 mg/dL (0.7-1.3); GFR 78.1; POTASSIUM 3.6 mmol/L (3.5-5.1)
[2018-05-28 07:00] VITALS: BP 105/75
--- NOTE | 2018-05-28 08:32 | PDOC ---
Infectious Disease Note Subjective Subjective Doing ok. pain controlled. Appetite better No F/C/S/N/V/SOA/Rash. Vital Sign Vital Signs Vital Signs Date Time Temp Pulse Resp B/P (MAP) Pulse Ox O2 Delivery O2 Flow Rate FiO2 05/28/18 07:38 Room Air 05/28/18 07:00 98.1 62 18 105/75 (85) 99 98.1 Physical Exam PHYSICAL EXAM CONSTITUTIONAL: He is alert. NAD - looks well HEENT: Pupils were equal and reactive. Oral cavity, pharynx was moist. NECK: Without swelling. No JVD. LUNGS: Clear to auscultation. HEART: S1, S2. ABDOMEN: Obese, soft, no guarding or rebound. SKIN: Without generalized rash. EXTREMITIES: His left foot has 1+ edema. Vac in place. Left hand and right hand have bilateral contractures with some chronic appearing wound on the palmar surface. He does have a little bit of tenia associated with hands and his feet. NEUROLOGIC: He was nonfocal, moved extremities, PSYCHIATRIC: Affect was pleasant IV: PICC - RUE Labs Lab Laboratory Tests Test 05/27/18 14:30 05/28/18 06:00 Vancomycin Level Trough 19.5 mcg/mL (10.0-20.0) Vancomycin Last Dose Date 05/27/18 Vancomycin Last Dose Time 0900 White Blood Count 12.1 x10^3/uL (4.0-11.0) Red Blood Count 5.16 x10^6/uL (4.30-5.70) Hemoglobin 13.5 g/dL (13.0-17.5) Hematocrit 41.6 % (39.0-53.0) Mean Corpuscular Volume 81 fL (79-100) Mean Corpuscular Hemoglobin 26 pg (25-35) Mean Corpuscular Hemoglobin Concent 33 g/dL (31-37) Red Cell Distribution Width 13.1 % (11.5-14.5) Platelet Count 403 x10^3/uL (140-400) Neutrophils (%) (Auto) 59 % (31-73) Lymphocytes (%) (Auto) 29 % (24-48) Monocytes (%) (Auto) 7 % (0-9) Eosinophils (%) (Auto) 5 % (0-3) Basophils (%) (Auto) 1 % (0-3) Neutrophils # (Auto) 7.1 x10^3uL (1.8-7.7) Lymphocytes # (Auto) 3.4 x10^3/uL (1.0-4.8) Monocytes # (Auto) 0.8 x10^3/uL (0.0-1.1) Eosinophils # (Auto) 0.5 x10^3/uL (0.0-0.7) Basophils # (Auto) 0.2 x10^3/uL (0.0-0.2) Sodium Level 139 mmol/L (136-145) Potassium Level 3.6 mmol/L (3.5-5.1) Chloride Level 103 mmol/L (98-107) Carbon Dioxide Level 30 mmol/L (21-32) Anion Gap 6 (6-14) Blood Urea Nitrogen 12 mg/dL (8-26) Creatinine 1.1 mg/dL (0.7-1.3) Estimated GFR (Cockcroft-Gault) 78.1 Glucose Level 98 mg/dL (70-99) Calcium Level 8.7 mg/dL (8.5-10.1) Micro IMPRESSION: Soft tissue swelling of the plantar and dorsal forefoot. Widening of the second metatarsophalangeal joint and small lytic defects at the second metatarsal head and a portion of the base of the third proximal phalanx, could be observed with osteomyelitis given the adjacent soft tissue abnormalities. There is mixed bone lysis and bony sclerosis and exuberant ossification at the base of the second toe proximal phalanx which could be observed with chronic injury superimposed upon osteomyelitis. This could be further assessed with MR imaging. FINDINGS: Right hand demonstrates fixed flexion of the thumb and index finger. There is a small metallic density at the thenar soft tissues could be a foreign body. Small chronic ossicle overlying the tuft of the second finger distal phalanx. No acute fracture or dislocation. No lytic bone destruction. Left hand: The fingers are fixed in a flexed position. There is soft tissue swelling of the tip of the index finger and there is moderate ostial lysis of the distal phalanx tuft. There may be mild osteolysis of the tuft of the thumb distal phalanx. There is dorsal dislocation of the fourth distal phalanx at the DIP joint. No acute fracture. IMPRESSION: 1. Fingers are flexed presumably due to contractures. The left hand demonstrates areas of acral osteolysis involving the second digit distal phalanx and thumb distal phalanx kwadwo with surrounding soft tissue swelling, which could be indicative of osteomyelitis, although phalangeal tuft lysis could also be observed with a prior chemical or thermal injury as well as other etiologies. 2. Dislocation of the left hand fourth DIP joint could be chronic. No acute fracture evident. 3. Chronic appearing small ossicle about the tuft of the right hand second distal phalanx tuft. 4. Small metallic density could be a foreign body at the thenar web of the right hand Objective Assessment Bacteremia - strep species 05/31 bottles 05/24 Mild leukocytosis today - ? reactive - clinically much better Fever - better Left foot wound from stepping on a screw - ? osteomyelitis - s/p I and D 05/24 cults pending -neg so far Left foot cellulitis ? Foreign body to right hand - per Ortho Plan Plan of Care Cont Vanc (tetanus given) Cont Zosyn/fluconazole (to po today) F/u labs and cults then decide on outpat IV CBC in [facility] following D/w Dr. Garcias 05/27 [place] ROLAND MD May 28, 2018 08:31
[2018-05-28] MEDS: LACTOBACILLUS RHAMNOSUS GG 1 CAPSULE. PO SCH ×2 (08:42→20:46)
[2018-05-28] MEDS: POTASSIUM CHLORIDE 20 MEQ TABLET.ER. PO SCH (08:42)
--- NOTE | 2018-05-28 08:43 | PDOC ---
ORTHO PROGRESS NOTES Subjective No complaints. Resting well. Vitals Vital Signs Date Time Temp Pulse Resp B/P (MAP) Pulse Ox O2 Delivery O2 Flow Rate FiO2 05/28/18 07:38 Room Air 05/28/18 07:00 98.1 62 18 105/75 (85) 99 98.1 Labs Laboratory Tests Test 05/26/18 16:00 05/27/18 08:20 05/27/18 14:30 05/28/18 06:00 Potassium Level 2.9 mmol/L (3.5-5.1) 3.5 mmol/L (3.5-5.1) 3.6 mmol/L (3.5-5.1) White Blood Count 9.9 x10^3/uL (4.0-11.0) 12.1 x10^3/uL (4.0-11.0) Red Blood Count 5.12 x10^6/uL (4.30-5.70) 5.16 x10^6/uL (4.30-5.70) Hemoglobin 13.7 g/dL (13.0-17.5) 13.5 g/dL (13.0-17.5) Hematocrit 41.0 % (39.0-53.0) 41.6 % (39.0-53.0) Mean Corpuscular Volume 80 fL (79-100) 81 fL (79-100) Mean Corpuscular Hemoglobin 27 pg (25-35) 26 pg (25-35) Mean Corpuscular Hemoglobin Concent 33 g/dL (31-37) 33 g/dL (31-37) Red Cell Distribution Width 13.4 % (11.5-14.5) 13.1 % (11.5-14.5) Platelet Count 427 x10^3/uL (140-400) 403 x10^3/uL (140-400) Neutrophils (%) (Auto) 55 % (31-73) 59 % (31-73) Lymphocytes (%) (Auto) 33 % (24-48) 29 % (24-48) Monocytes (%) (Auto) 8 % (0-9) 7 % (0-9) Eosinophils (%) (Auto) 4 % (0-3) 5 % (0-3) Basophils (%) (Auto) 1 % (0-3) 1 % (0-3) Neutrophils # (Auto) 5.4 x10^3uL (1.8-7.7) 7.1 x10^3uL (1.8-7.7) Lymphocytes # (Auto) 3.2 x10^3/uL (1.0-4.8) 3.4 x10^3/uL (1.0-4.8) Monocytes # (Auto) 0.8 x10^3/uL (0.0-1.1) 0.8 x10^3/uL (0.0-1.1) Eosinophils # (Auto) 0.4 x10^3/uL (0.0-0.7) 0.5 x10^3/uL (0.0-0.7) Basophils # (Auto) 0.1 x10^3/uL (0.0-0.2) 0.2 x10^3/uL (0.0-0.2) Sodium Level 140 mmol/L (136-145) 139 mmol/L (136-145) Chloride Level 104 mmol/L (98-107) 103 mmol/L (98-107) Carbon Dioxide Level 29 mmol/L (21-32) 30 mmol/L (21-32) Anion Gap 7 (6-14) 6 (6-14) Blood Urea Nitrogen 11 mg/dL (8-26) 12 mg/dL (8-26) Creatinine 1.1 mg/dL (0.7-1.3) 1.1 mg/dL (0.7-1.3) Estimated GFR (Cockcroft-Gault) 78.1 78.1 Glucose Level 132 mg/dL (70-99) 98 mg/dL (70-99) Calcium Level 8.0 mg/dL (8.5-10.1) 8.7 mg/dL (8.5-10.1) Vancomycin Level Trough 19.5 mcg/mL (10.0-20.0) Vancomycin Last Dose Date 05/27/18 Vancomycin Last Dose Time 0900 Laboratory Tests Test 05/27/18 14:30 05/28/18 06:00 Vancomycin Level Trough 19.5 mcg/mL (10.0-20.0) Vancomycin Last Dose Date 05/27/18 Vancomycin Last Dose Time 0900 White Blood Count 12.1 x10^3/uL (4.0-11.0) Red Blood Count 5.16 x10^6/uL (4.30-5.70) Hemoglobin 13.5 g/dL (13.0-17.5) Hematocrit 41.6 % (39.0-53.0) Mean Corpuscular Volume 81 fL (79-100) Mean Corpuscular Hemoglobin 26 pg (25-35) Mean Corpuscular Hemoglobin Concent 33 g/dL (31-37) Red Cell Distribution Width 13.1 % (11.5-14.5) Platelet Count 403 x10^3/uL (140-400) Neutrophils (%) (Auto) 59 % (31-73) Lymphocytes (%) (Auto) 29 % (24-48) Monocytes (%) (Auto) 7 % (0-9) Eosinophils (%) (Auto) 5 % (0-3) Basophils (%) (Auto) 1 % (0-3) Neutrophils # (Auto) 7.1 x10^3uL (1.8-7.7) Lymphocytes # (Auto) 3.4 x10^3/uL (1.0-4.8) Monocytes # (Auto) 0.8 x10^3/uL (0.0-1.1) Eosinophils # (Auto) 0.5 x10^3/uL (0.0-0.7) Basophils # (Auto) 0.2 x10^3/uL (0.0-0.2) Sodium Level 139 mmol/L (136-145) Potassium Level 3.6 mmol/L (3.5-5.1) Chloride Level 103 mmol/L (98-107) Carbon Dioxide Level 30 mmol/L (21-32) Anion Gap 6 (6-14) Blood Urea Nitrogen 12 mg/dL (8-26) Creatinine 1.1 mg/dL (0.7-1.3) Estimated GFR (Cockcroft-Gault) 78.1 Glucose Level 98 mg/dL (70-99) Calcium Level 8.7 mg/dL (8.5-10.1) Notes Cultures reviewed Resting in bed, awakens. Wound VAC is in place with good seal. Less edema around his foot is present. Assessment and Plan Had a box per infectious disease. Would recommend continued wound VAC. Discussed with wound care and infectious disease. Disposition per primary. OBINNA LÓPEZ II, MD May 28, 2018 08:43
[2018-05-28] MEDS: FLUCONAZOLE 100 MG TABLET. PO SCH (09:58)
--- NOTE | 2018-05-28 10:56 | PDOC ---
PROGRESS NOTES History of Present Illness History of Present Illness Assessment/Plan Assessment/Plan impression 1. Widening of the second metatarsophalangeal joint and small lytic defects at the second metatarsal head and a portion of the base of the third proximal phalanx, could be observed with osteomyelitis 2. left hand demonstrates areas of acral osteolysis involving the second digit distal phalanx and thumb distal phalanx kwadwo with surrounding soft tissue swelling, which could be indicative of osteomyelitis 3. hypokalemia 4. Bacteremia - strep species / bottles 05/24 plan iv Cont Vanc Cont Zosyn/fluconazole PO ID following ortho consult replace k Date of procedure: 05/24/2018 Surgeon: Antoine Garcias Preoperative diagnosis: Left foot infection with osteomyelitis Postoperative diagnosis: Same Procedure performed: #1 irrigation and debridement down to bone, excisional of left foot #2 bone biopsy of metatarsal head region #3 application of wound VAC to wound less than 25 cm� Anesthesia: Gen. Findings: Gross purulence and necrotic debris in wound Vitals Vitals Vital Signs Date Time Temp Pulse Resp B/P (MAP) Pulse Ox O2 Delivery O2 Flow Rate FiO2 05/28/18 07:38 Room Air 05/28/18 07:00 98.1 62 18 105/75 (85) 99 98.1 Physical Exam Physical Exam CONSTITUTIONAL: He is alert. NAD - looks well HEENT: Pupils were equal and reactive. Oral cavity, pharynx was moist. NECK: Without swelling. No JVD. LUNGS: Clear to auscultation. HEART: S1, S2. ABDOMEN: Obese, soft, no guarding or rebound. SKIN: Without generalized rash. EXTREMITIES: His left foot has 1+ edema. Vac in place. Left hand and right hand have bilateral contractures with some chronic appearing wound on the palmar surface. He does have a little bit of tenia associated with hands and his feet. NEUROLOGIC: He was nonfocal, moved extremities, PSYCHIATRIC: Affect was pleasant IV: PICC - RUE General: Alert, Oriented X3, Cooperative, No acute distress Heart: Regular rate, Normal S1, Normal S2, No murmurs Lungs: Clear Abdomen: Normal bowel sounds, Soft, No tenderness Extremities: No cyanosis Labs LABS Laboratory Tests Test 05/27/18 14:30 05/28/18 06:00 Vancomycin Level Trough 19.5 mcg/mL (10.0-20.0) Vancomycin Last Dose Date 05/27/18 Vancomycin Last Dose Time 0900 White Blood Count 12.1 x10^3/uL (4.0-11.0) Red Blood Count 5.16 x10^6/uL (4.30-5.70) Hemoglobin 13.5 g/dL (13.0-17.5) Hematocrit 41.6 % (39.0-53.0) Mean Corpuscular Volume 81 fL (79-100) Mean Corpuscular Hemoglobin 26 pg (25-35) Mean Corpuscular Hemoglobin Concent 33 g/dL (31-37) Red Cell Distribution Width 13.1 % (11.5-14.5) Platelet Count 403 x10^3/uL (140-400) Neutrophils (%) (Auto) 59 % (31-73) Lymphocytes (%) (Auto) 29 % (24-48) Monocytes (%) (Auto) 7 % (0-9) Eosinophils (%) (Auto) 5 % (0-3) Basophils (%) (Auto) 1 % (0-3) Neutrophils # (Auto) 7.1 x10^3uL (1.8-7.7) Lymphocytes # (Auto) 3.4 x10^3/uL (1.0-4.8) Monocytes # (Auto) 0.8 x10^3/uL (0.0-1.1) Eosinophils # (Auto) 0.5 x10^3/uL (0.0-0.7) Basophils # (Auto) 0.2 x10^3/uL (0.0-0.2) Sodium Level 139 mmol/L (136-145) Potassium Level 3.6 mmol/L (3.5-5.1) Chloride Level 103 mmol/L (98-107) Carbon Dioxide Level 30 mmol/L (21-32) Anion Gap 6 (6-14) Blood Urea Nitrogen 12 mg/dL (8-26) Creatinine 1.1 mg/dL (0.7-1.3) Estimated GFR (Cockcroft-Gault) 78.1 Glucose Level 98 mg/dL (70-99) Calcium Level 8.7 mg/dL (8.5-10.1) Comment Review of Relevant I have reviewed the following items pedro (where applicable) has been applied. Labs Laboratory Tests Test 05/26/18 16:00 05/27/18 08:20 05/27/18 14:30 05/28/18 06:00 Potassium Level 2.9 mmol/L (3.5-5.1) 3.5 mmol/L (3.5-5.1) 3.6 mmol/L (3.5-5.1) White Blood Count 9.9 x10^3/uL (4.0-11.0) 12.1 x10^3/uL (4.0-11.0) Red Blood Count 5.12 x10^6/uL (4.30-5.70) 5.16 x10^6/uL (4.30-5.70) Hemoglobin 13.7 g/dL (13.0-17.5) 13.5 g/dL (13.0-17.5) Hematocrit 41.0 % (39.0-53.0) 41.6 % (39.0-53.0) Mean Corpuscular Volume 80 fL (79-100) 81 fL (79-100) Mean Corpuscular Hemoglobin 27 pg (25-35) 26 pg (25-35) Mean Corpuscular Hemoglobin Concent 33 g/dL (31-37) 33 g/dL (31-37) Red Cell Distribution Width 13.4 % (11.5-14.5) 13.1 % (11.5-14.5) Platelet Count 427 x10^3/uL (140-400) 403 x10^3/uL (140-400) Neutrophils (%) (Auto) 55 % (31-73) 59 % (31-73) Lymphocytes (%) (Auto) 33 % (24-48) 29 % (24-48) Monocytes (%) (Auto) 8 % (0-9) 7 % (0-9) Eosinophils (%) (Auto) 4 % (0-3) 5 % (0-3) Basophils (%) (Auto) 1 % (0-3) 1 % (0-3) Neutrophils # (Auto) 5.4 x10^3uL (1.8-7.7) 7.1 x10^3uL (1.8-7.7) Lymphocytes # (Auto) 3.2 x10^3/uL (1.0-4.8) 3.4 x10^3/uL (1.0-4.8) Monocytes # (Auto) 0.8 x10^3/uL (0.0-1.1) 0.8 x10^3/uL (0.0-1.1) Eosinophils # (Auto) 0.4 x10^3/uL (0.0-0.7) 0.5 x10^3/uL (0.0-0.7) Basophils # (Auto) 0.1 x10^3/uL (0.0-0.2) 0.2 x10^3/uL (0.0-0.2) Sodium Level 140 mmol/L (136-145) 139 mmol/L (136-145) Chloride Level 104 mmol/L (98-107) 103 mmol/L (98-107) Carbon Dioxide Level 29 mmol/L (21-32) 30 mmol/L (21-32) Anion Gap 7 (6-14) 6 (6-14) Blood Urea Nitrogen 11 mg/dL (8-26) 12 mg/dL (8-26) Creatinine 1.1 mg/dL (0.7-1.3) 1.1 mg/dL (0.7-1.3) Estimated GFR (Cockcroft-Gault) 78.1 78.1 Glucose Level 132 mg/dL (70-99) 98 mg/dL (70-99) Calcium Level 8.0 mg/dL (8.5-10.1) 8.7 mg/dL (8.5-10.1) Vancomycin Level Trough 19.5 mcg/mL (10.0-20.0) Vancomycin Last Dose Date 05/27/18 Vancomycin Last Dose Time 0900 Laboratory Tests Test 05/27/18 14:30 05/28/18 06:00 Vancomycin Level Trough 19.5 mcg/mL (10.0-20.0) Vancomycin Last Dose Date 05/27/18 Vancomycin Last Dose Time 0900 White Blood Count 12.1 x10^3/uL (4.0-11.0) Red Blood Count 5.16 x10^6/uL (4.30-5.70) Hemoglobin 13.5 g/dL (13.0-17.5) Hematocrit 41.6 % (39.0-53.0) Mean Corpuscular Volume 81 fL (79-100) Mean Corpuscular Hemoglobin 26 pg (25-35) Mean Corpuscular Hemoglobin Concent 33 g/dL (31-37) Red Cell Distribution Width 13.1 % (11.5-14.5) Platelet Count 403 x10^3/uL (140-400) Neutrophils (%) (Auto) 59 % (31-73) Lymphocytes (%) (Auto) 29 % (24-48) Monocytes (%) (Auto) 7 % (0-9) Eosinophils (%) (Auto) 5 % (0-3) Basophils (%) (Auto) 1 % (0-3) Neutrophils # (Auto) 7.1 x10^3uL (1.8-7.7) Lymphocytes # (Auto) 3.4 x10^3/uL (1.0-4.8) Monocytes # (Auto) 0.8 x10^3/uL (0.0-1.1) Eosinophils # (Auto) 0.5 x10^3/uL (0.0-0.7) Basophils # (Auto) 0.2 x10^3/uL (0.0-0.2) Sodium Level 139 mmol/L (136-145) Potassium Level 3.6 mmol/L (3.5-5.1) Chloride Level 103 mmol/L (98-107) Carbon Dioxide Level 30 mmol/L (21-32) Anion Gap 6 (6-14) Blood Urea Nitrogen 12 mg/dL (8-26) Creatinine 1.1 mg/dL (0.7-1.3) Estimated GFR (Cockcroft-Gault) 78.1 Glucose Level 98 mg/dL (70-99) Calcium Level 8.7 mg/dL (8.5-10.1) Microbiology 05/24/18 Blood Culture - Preliminary, Resulted NO GROWTH AFTER 4 DAYS 05/24/18 Anaerobic/Aerobic Culture - Preliminary, Resulted 05/24/18 Anaerobic Culture Result 1 (JAMARCUS) - Preliminary, Resulted 05/24/18 Aerobic Culture - Final, Resulted 05/24/18 Aerobic Culture Result 1 (JAMARCUS) - Final, Resulted 05/24/18 Gram Stain - Final, Resulted 05/24/18 Gram Stain Result 1 (JAMARCUS) - Final, Resulted 05/24/18 Gram Stain Result 2 (JAMARCUS) - Final, Resulted Medications Current Medications Clindamycin Phosphate 50 ml @ 100 mls/hr 1X ONCE IV Last administered on 05/24at 01:05; Start 05/24/18 at 00:00; Stop 05/24/18 at 00:29; Status DC Sodium Chloride 1,000 ml @ 1,000 mls/hr 1X ONCE IV Last administered on at 01:05; Start 05/24/18 at 00:00; Stop 05/24/18 at 00:59; Status DC Acetaminophen (Tylenol) 500 mg 1X ONCE PO Last administered on 05/24/18at 01:05 ; Start 05/24/18 at 00:15; Stop 05/24/18 at 00:16; Status DC Sodium Chloride 1,000 ml @ 1,000 mls/hr 1X ONCE IV Last administered on at 01:50; Start 05/24/18 at 00:15; Stop 05/24/18 at 01:14; Status DC Diphtheria/ Tetanus/Acell Pertussis (Boostrix) 0.5 ml ONCE ONCE VAX IM Last administered on 05/24/18at 01:05; Start 05/24/18 at 00:15; Stop 05/24/18 at 00:16 ; Status DC Mupirocin (Bactroban) 1 brii 1X ONCE TP Last administered on 05/24/18at 00:15; Start 05/24/18 at 00:15; Stop 05/24/18 at 00:16; Status DC Potassium Chloride (Klor-Con) 40 meq 1X ONCE PO Last administered on at 01:30; Start 05/24/18 at 01:30; Stop 05/24/18 at 01:31; Status DC Vancomycin HCl 1.75 gm/Sodium Chloride 500 ml @ 250 mls/hr 1X ONCE IV Last administered on 05/24/18at 01:50; Start 05/24/18 at 01:30; Stop 05/24/18 at 03:29 ; Status DC Ondansetron HCl (Zofran) 4 mg PRN Q8HRS PRN IV NAUSEA/VOMITING; Start 05/24/18 at 02:15; Stop 05/25/18 at 02:14; Status DC Fentanyl Citrate (Fentanyl 2ml Vial) 50 mcg PRN Q2HR PRN IV PAIN Last administered on 05/26/18at 11:15; Start 05/24/18 at 02:15 Ondansetron HCl (Zofran) 4 mg PRN Q6HRS PRN IV NAUSEA/VOMITING; Start 05/24/18 at 07:30; Stop 05/24/18 at 18:00; Status DC Fentanyl Citrate (Fentanyl 2ml Vial) 25 mcg PRN Q5MIN PRN IV MILD PAIN; Start 05/24/18 at 07:30; Stop 05/24/18 at 18:00; Status DC Fentanyl Citrate (Fentanyl 2ml Vial) 50 mcg PRN Q5MIN PRN IV MODERATE TO SEVERE PAIN; Start 05/24/18 at 07:30; Stop 05/24/18 at 18:00; Status DC Morphine Sulfate (Morphine Sulfate) 1 mg PRN Q10MIN PRN IV SEVERE PAIN; Start 05/24/18 at 07:30; Stop 05/25/18 at 07:29; Status DC Ringer's Solution 1,000 ml @ 30 mls/hr Q24H IV ; Start 05/24/18 at 07:29; Stop 05/24/18 at 19:28; Status DC Lidocaine HCl (Xylocaine-Mpf 1% 2ml Vial) 2 ml 1X PRN PRN ID IV START; Start at 07:30; Stop 05/24/18 at 18:00; Status DC Hydromorphone HCl (Dilaudid) 0.5 mg PRN Q10MIN PRN IV SEV PAIN, Second choice; Start 05/24/18 at 07:30; Stop 05/24/18 at 18:00; Status DC Prochlorperazine Edisylate (Compazine) 5 mg PACU PRN PRN IV NAUSEA, MRX1; Start 05/24/18 at 07:30; Stop 05/24/18 at 18:00; Status DC Piperacillin Sod/ Tazobactam Sod 4.5 gm/Sodium Chloride 100 ml @ 200 mls/hr Q6HRS IV Last administered on 05/28/18at 06:11; Start 05/24/18 at 08:00 Fluconazole/ Sodium Chloride 100 ml @ 100 mls/hr Q24H IV Last administered on 05/27/18at 09:46; Start 05/24/18 at 10:00; Stop 05/28/18 at 08:31; Status DC Vancomycin HCl (Vanco Per Pharmacy) 1 each PRN DAILY PRN MC SEE COMMENTS Last administered on 05/27/18at 16:06; Start 05/24/18 at 08:00 Propofol 20 ml @ As Directed STK-MED ONCE IV ; Start 05/24/18 at 11:47; Stop at 11:49; Status DC Lidocaine HCl (Lidocaine Pf 2% Vial) 5 ml STK-MED ONCE .ROUTE ; Start 05/24/18 at 11:47; Stop 05/24/18 at 11:49; Status DC Ketorolac Tromethamine (Toradol For Or Only) 30 mg STK-MED ONCE INJ ; Start at 11:47; Stop 05/24/18 at 11:49; Status DC Sevoflurane (Ultane) 30 ml STK-MED ONCE IH ; Start 05/24/18 at 11:47; Stop 05/24 at 11:49; Status DC Dexamethasone Sodium Phosphate (Decadron) 20 mg STK-MED ONCE .ROUTE ; Start at 12:37; Stop 05/24/18 at 12:39; Status DC Ondansetron HCl (Zofran) 4 mg STK-MED ONCE .ROUTE ; Start 05/24/18 at 12:37; Stop 05/24/18 at 12:39; Status DC Fentanyl Citrate (Fentanyl 2ml Vial) 100 mcg STK-MED ONCE .ROUTE ; Start at 12:37; Stop 05/24/18 at 12:39; Status DC Vancomycin HCl 1.5 gm/Sodium Chloride 500 ml @ 250 mls/hr Q12H IV Last administered on 05/25/18at 16:00; Start 05/24/18 at 15:00; Stop 05/25/18 at 18:00 ; Status DC Vancomycin HCl (Vancomycin Trough Level) 1 each 1X ONCE MC Last administered on 05/25/18at 14:30; Start 05/25/18 at 14:30; Stop 05/25/18 at 14:31; Status DC Lactobacillus Rhamnosus (Culturelle) 1 cap BID PO Last administered on at 08:42; Start 05/25/18 at 21:00 Vancomycin HCl 1.5 gm/Sodium Chloride 500 ml @ 250 mls/hr Q8H IV Last administered on 05/27/18at 15:36; Start 05/25/18 at 23:00; Stop 05/27/18 at 16:00 ; Status DC Potassium Chloride (Klor-Con) 40 meq 1X ONCE PO Last administered on at 06:11; Start 05/26/18 at 05:45; Stop 05/26/18 at 05:46; Status DC Potassium Chloride (Klor-Con) 40 meq 1X ONCE PO Last administered on at 15:59; Start 05/26/18 at 14:00; Stop 05/26/18 at 14:01; Status DC Potassium Chloride (Klor-Con) 20 meq [id number] PO Last administered on 08:42; Start 05/27/18 at 08:00 Potassium Chloride (Klor-Con) 40 meq 1X ONCE PO Last administered on 20:32; Start 05/26/18 at 20:00; Stop 05/26/18 at 20:01; Status DC Vancomycin HCl (Vancomycin Trough Level) 1 each 1X ONCE MC Last administered on 05/27/18at 14:46; Start 05/27/18 at 14:30; Stop 05/27/18 at 14:31; Status DC Erythromycin (Romycin) 0.25 inch 6XDAY OS Last administered on 05/27/18 21:09 ; Start 05/27/18 at 15:00 Vancomycin HCl 1.25 gm/Sodium Chloride 250 ml @ 167 mls/hr Q8H IV Last administered on 05/28/18 08:43; Start 05/28/18 at 00:00 Fluconazole (Diflucan) 200 mg DAILY PO Last administered on 05/28/18 09:58; Start 05/28/18 at 09:00 Active Scripts Active Keflex (Cephalexin) 500 Mg Capsule 1 Cap PO TID [place] 5-325 Tablet (Acetaminophen/Hydrocodone Bitart) 1 Each Tablet 1 Tab PO PRN Q6HRS PRN Keflex (Cephalexin) 500 Mg Capsule 1 Cap PO TID Vitals/I & O Vital Sign - Last 24 Hours 05/27/18 05/27/18 05/27/18 05/27/18 11:00 15:00 19:00 19:40 Temp 97.6 97.8 97.9 97.6 97.8 97.9 Pulse 87 90 93 Resp 18 18 16 B/P (MAP) 140/74 (96) 142/83 (102) 118/65 (82) Pulse Ox 97 99 97 O2 Delivery Room Air Room Air Room Air Room Air 05/27/18 05/28/18 05/28/18 05/28/18 23:00 03:00 07:00 07:38 Temp 98.2 98.8 98.1 98.2 98.8 98.1 Pulse 91 80 62 Resp 18 16 18 B/P (MAP) 133/84 (100) 121/76 (91) 105/75 (85) Pulse Ox 99 99 99 O2 Delivery Room Air Room Air Room Air Room Air Intake and Output 05/27/18 05/27/18 05/28/18 15:01 23:01 07:01 Intake Total 120 ml 350 ml Output Total 1250 ml 1650 ml 400 ml Balance -1130 ml -1650 ml -50 ml JACQUES KEMP MD May 28, 2018 10:56
[2018-05-28 11:00] VITALS: BP 124/90
--- NOTE | 2018-05-28 12:33 | NUR ---
SW following. Discussed with RN, waiting on wound cultures and whether pt will receive the brittney wound vac or not. Possible discharge Thursday (05/31/18). SW will continue to follow.
--- NOTE | 2018-05-28 13:33 | NUR ---
Wound care: Patient seen for wound vac dressing change. Dressing removed and wound cleansed and assessed. Skin prep for wound vac, two piece of black foam used in left dorsal wound and one piece of black foam used in the left plantar wound. The vac tracked up to left medial dorsal foot and a good seal maintained at 125mmHg. Recommendations just to continue with Bactroban ointment BID as directed without the dressings covering. Bed lowered and call light in reach. Will follow up with patient on Thursday for wound vac dressing change. Ada application obtained, will apply today.
[2018-05-28] MEDS: VANCOMYCIN PER PHARMACY MC PRN (13:57)
[2018-05-28 15:00] VITALS: BP 120/83
[2018-05-28 19:35] VITALS: BP 114/73
[2018-05-28 23:30] VITALS: BP 112/74
[2018-05-29] VITALS (7 sets, daily range): BP systolic 96–131; BP diastolic 57–77
[2018-05-29] MEDS: PIPERACILLIN/TAZOBACTAM 4.5 GM in IV NORMAL SALINE 100ML 100 ML IV SCH ×5 (00:08→23:57)
[2018-05-29] MEDS: VANCOMYCIN 1.25 GM in IV NORMAL SALINE 250ML 250 ML IV SCH ×4 (01:10→19:58)
[2018-05-29] MEDS: ERYTHROMYCIN 0.5% OPHTH OINTMENT 1GM TUBE. OS SCH ×6 (06:17→22:00)
[2018-05-29 06:31] LABS: BASO # 0.1 x10^3/uL (0.0-0.2); BASO % 1 % (0-3); EOS # 0.7 x10^3/uL (0.0-0.7); EOS % 5 % (0-3); LYMPH # 2.8 x10^3/uL (1.0-4.8); LYMPH % 21 % (24-48); MEAN CORPUSCULAR HEMOGLOBIN 27 pg (25-35); MEAN CORPUSCULAR HGB CONC 33 g/dL (31-37); MEAN CORPUSCULAR VOLUME 81 fL (79-100); MONO # 0.9 x10^3/uL (0.0-1.1); MONO % 7 % (0-9); NEUT # 9.1 x10^3uL (1.8-7.7); NEUT % 67 % (31-73); PLATELET COUNT 479 x10^3/uL (140-400); RED BLOOD COUNT 5.21 x10^6/uL (4.30-5.70); RED CELL DISTRIBUTION WIDTH 13.5 % (11.5-14.5); WHITE BLOOD COUNT 13.6 x10^3/uL (4.0-11.0)
[2018-05-29 06:42] LABS: CALCIUM 8.8 mg/dL (8.5-10.1); CREATININE 1.2 mg/dL (0.7-1.3); GFR 70.6; POTASSIUM 3.6 mmol/L (3.5-5.1)
[2018-05-29] MEDS: LACTOBACILLUS RHAMNOSUS GG 1 CAPSULE. PO SCH ×2 (08:30→20:42)
[2018-05-29] MEDS: FLUCONAZOLE 100 MG TABLET. PO SCH (08:30)
[2018-05-29] MEDS: POTASSIUM CHLORIDE 20 MEQ TABLET.ER. PO SCH (08:31)
--- NOTE | 2018-05-29 09:52 | PDOC ---
PROGRESS NOTES History of Present Illness History of Present Illness Assessment/Plan Assessment/Plan impression 1. Widening of the second metatarsophalangeal joint and small lytic defects at the second metatarsal head and a portion of the base of the third proximal phalanx, could be observed with osteomyelitis 2. left hand demonstrates areas of acral osteolysis involving the second digit distal phalanx and thumb distal phalanx kwadwo with surrounding soft tissue swelling, indicative of osteomyelitis 3. hypokalemia 4. Bacteremia - strep species 05/31 bottles 05/24 pain is variable, fair control plan iv Cont Vanc Cont Zosyn/fluconazole PO ID following ortho following wound vac replace k Date of procedure: 05/24/2018 Surgeon: Antoine Garcias Preoperative diagnosis: Left foot infection with osteomyelitis Postoperative diagnosis: Same Procedure performed: #1 irrigation and debridement down to bone, excisional of left foot #2 bone biopsy of metatarsal head region #3 application of wound VAC to wound less than 25 cm� Anesthesia: Gen. Findings: Gross purulence and necrotic debris in wound Vitals Vitals Vital Signs Date Time Temp Pulse Resp B/P (MAP) Pulse Ox O2 Delivery O2 Flow Rate FiO2 05/29/18 08:30 Room Air 05/29/18 08:00 97.6 80 18 113/72 (86) 100 97.6 Physical Exam Physical Exam CONSTITUTIONAL: He is alert. NAD - looks well HEENT: Pupils were equal and reactive. Oral cavity, pharynx was moist. NECK: Without swelling. No JVD. LUNGS: Clear to auscultation. HEART: S1, S2. ABDOMEN: Obese, soft, no guarding or rebound. SKIN: Without generalized rash. EXTREMITIES: His left foot has 1+ edema. Vac in place. Left hand and right hand have bilateral contractures with some chronic appearing wound on the palmar surface. He does have a little bit of tenia associated with hands and his feet. NEUROLOGIC: He was nonfocal, moved extremities, PSYCHIATRIC: Affect was pleasant IV: PICC - RUE General: Alert, Oriented X3, Cooperative, No acute distress Heart: Regular rate, Normal S1, Normal S2, No murmurs Lungs: Clear Abdomen: Normal bowel sounds, Soft, No tenderness Extremities: No cyanosis Labs LABS Laboratory Tests Test 05/29/18 06:00 White Blood Count 13.6 x10^3/uL (4.0-11.0) Red Blood Count 5.21 x10^6/uL (4.30-5.70) Hemoglobin 14.0 g/dL (13.0-17.5) Hematocrit 42.0 % (39.0-53.0) Mean Corpuscular Volume 81 fL (79-100) Mean Corpuscular Hemoglobin 27 pg (25-35) Mean Corpuscular Hemoglobin Concent 33 g/dL (31-37) Red Cell Distribution Width 13.5 % (11.5-14.5) Platelet Count 479 x10^3/uL (140-400) Neutrophils (%) (Auto) 67 % (31-73) Lymphocytes (%) (Auto) 21 % (24-48) Monocytes (%) (Auto) 7 % (0-9) Eosinophils (%) (Auto) 5 % (0-3) Basophils (%) (Auto) 1 % (0-3) Neutrophils # (Auto) 9.1 x10^3uL (1.8-7.7) Lymphocytes # (Auto) 2.8 x10^3/uL (1.0-4.8) Monocytes # (Auto) 0.9 x10^3/uL (0.0-1.1) Eosinophils # (Auto) 0.7 x10^3/uL (0.0-0.7) Basophils # (Auto) 0.1 x10^3/uL (0.0-0.2) Erythrocyte Sedimentation Rate 49 (0-15) Sodium Level 141 mmol/L (136-145) Potassium Level 3.6 mmol/L (3.5-5.1) Chloride Level 104 mmol/L (98-107) Carbon Dioxide Level 29 mmol/L (21-32) Anion Gap 8 (6-14) Blood Urea Nitrogen 14 mg/dL (8-26) Creatinine 1.2 mg/dL (0.7-1.3) Estimated GFR (Cockcroft-Gault) 70.6 Glucose Level 109 mg/dL (70-99) Calcium Level 8.8 mg/dL (8.5-10.1) Comment Review of Relevant I have reviewed the following items pedro (where applicable) has been applied. Labs Laboratory Tests Test 05/27/18 14:30 05/28/18 06:00 05/29/18 06:00 Vancomycin Level Trough 19.5 mcg/mL (10.0-20.0) Vancomycin Last Dose Date 05/27/18 Vancomycin Last Dose Time 0900 White Blood Count 12.1 x10^3/uL (4.0-11.0) 13.6 x10^3/uL (4.0-11.0) Red Blood Count 5.16 x10^6/uL (4.30-5.70) 5.21 x10^6/uL (4.30-5.70) Hemoglobin 13.5 g/dL (13.0-17.5) 14.0 g/dL (13.0-17.5) Hematocrit 41.6 % (39.0-53.0) 42.0 % (39.0-53.0) Mean Corpuscular Volume 81 fL (79-100) 81 fL (79-100) Mean Corpuscular Hemoglobin 26 pg (25-35) 27 pg (25-35) Mean Corpuscular Hemoglobin Concent 33 g/dL (31-37) 33 g/dL (31-37) Red Cell Distribution Width 13.1 % (11.5-14.5) 13.5 % (11.5-14.5) Platelet Count 403 x10^3/uL (140-400) 479 x10^3/uL (140-400) Neutrophils (%) (Auto) 59 % (31-73) 67 % (31-73) Lymphocytes (%) (Auto) 29 % (24-48) 21 % (24-48) Monocytes (%) (Auto) 7 % (0-9) 7 % (0-9) Eosinophils (%) (Auto) 5 % (0-3) 5 % (0-3) Basophils (%) (Auto) 1 % (0-3) 1 % (0-3) Neutrophils # (Auto) 7.1 x10^3uL (1.8-7.7) 9.1 x10^3uL (1.8-7.7) Lymphocytes # (Auto) 3.4 x10^3/uL (1.0-4.8) 2.8 x10^3/uL (1.0-4.8) Monocytes # (Auto) 0.8 x10^3/uL (0.0-1.1) 0.9 x10^3/uL (0.0-1.1) Eosinophils # (Auto) 0.5 x10^3/uL (0.0-0.7) 0.7 x10^3/uL (0.0-0.7) Basophils # (Auto) 0.2 x10^3/uL (0.0-0.2) 0.1 x10^3/uL (0.0-0.2) Sodium Level 139 mmol/L (136-145) 141 mmol/L (136-145) Potassium Level 3.6 mmol/L (3.5-5.1) 3.6 mmol/L (3.5-5.1) Chloride Level 103 mmol/L (98-107) 104 mmol/L (98-107) Carbon Dioxide Level 30 mmol/L (21-32) 29 mmol/L (21-32) Anion Gap 6 (6-14) 8 (6-14) Blood Urea Nitrogen 12 mg/dL (8-26) 14 mg/dL (8-26) Creatinine 1.1 mg/dL (0.7-1.3) 1.2 mg/dL (0.7-1.3) Estimated GFR (Cockcroft-Gault) 78.1 70.6 Glucose Level 98 mg/dL (70-99) 109 mg/dL (70-99) Calcium Level 8.7 mg/dL (8.5-10.1) 8.8 mg/dL (8.5-10.1) Erythrocyte Sedimentation Rate 49 (0-15) Laboratory Tests Test 05/29/18 06:00 White Blood Count 13.6 x10^3/uL (4.0-11.0) Red Blood Count 5.21 x10^6/uL (4.30-5.70) Hemoglobin 14.0 g/dL (13.0-17.5) Hematocrit 42.0 % (39.0-53.0) Mean Corpuscular Volume 81 fL (79-100) Mean Corpuscular Hemoglobin 27 pg (25-35) Mean Corpuscular Hemoglobin Concent 33 g/dL (31-37) Red Cell Distribution Width 13.5 % (11.5-14.5) Platelet Count 479 x10^3/uL (140-400) Neutrophils (%) (Auto) 67 % (31-73) Lymphocytes (%) (Auto) 21 % (24-48) Monocytes (%) (Auto) 7 % (0-9) Eosinophils (%) (Auto) 5 % (0-3) Basophils (%) (Auto) 1 % (0-3) Neutrophils # (Auto) 9.1 x10^3uL (1.8-7.7) Lymphocytes # (Auto) 2.8 x10^3/uL (1.0-4.8) Monocytes # (Auto) 0.9 x10^3/uL (0.0-1.1) Eosinophils # (Auto) 0.7 x10^3/uL (0.0-0.7) Basophils # (Auto) 0.1 x10^3/uL (0.0-0.2) Erythrocyte Sedimentation Rate 49 (0-15) Sodium Level 141 mmol/L (136-145) Potassium Level 3.6 mmol/L (3.5-5.1) Chloride Level 104 mmol/L (98-107) Carbon Dioxide Level 29 mmol/L (21-32) Anion Gap 8 (6-14) Blood Urea Nitrogen 14 mg/dL (8-26) Creatinine 1.2 mg/dL (0.7-1.3) Estimated GFR (Cockcroft-Gault) 70.6 Glucose Level 109 mg/dL (70-99) Calcium Level 8.8 mg/dL (8.5-10.1) Microbiology 05/24/18 Blood Culture - Final, Complete NO GROWTH AFTER 5 DAYS 05/24/18 Anaerobic/Aerobic Culture - Final, Complete 05/24/18 Anaerobic Culture Result 1 (JAMARCUS) - Final, Complete 05/24/18 Aerobic Culture - Final, Complete 05/24/18 Aerobic Culture Result 1 (JAMARCUS) - Final, Complete 05/24/18 Gram Stain - Final, Complete 05/24/18 Gram Stain Result 1 (JAMARCUS) - Final, Complete 05/24/18 Gram Stain Result 2 (JAMARCUS) - Final, Complete Medications Current Medications Clindamycin Phosphate 50 ml @ 100 mls/hr 1X ONCE IV Last administered on 05/24at 01:05; Start 05/24/18 at 00:00; Stop 05/24/18 at 00:29; Status DC Sodium Chloride 1,000 ml @ 1,000 mls/hr 1X ONCE IV Last administered on at 01:05; Start 05/24/18 at 00:00; Stop 05/24/18 at 00:59; Status DC Acetaminophen (Tylenol) 500 mg 1X ONCE PO Last administered on 05/24/18at 01:05 ; Start 05/24/18 at 00:15; Stop 05/24/18 at 00:16; Status DC Sodium Chloride 1,000 ml @ 1,000 mls/hr 1X ONCE IV Last administered on at 01:50; Start 05/24/18 at 00:15; Stop 05/24/18 at 01:14; Status DC Diphtheria/ Tetanus/Acell Pertussis (Boostrix) 0.5 ml ONCE ONCE VAX IM Last administered on 05/24/18at 01:05; Start 05/24/18 at 00:15; Stop 05/24/18 at 00:16 ; Status DC Mupirocin (Bactroban) 1 brii 1X ONCE TP Last administered on 05/24/18at 00:15; Start 05/24/18 at 00:15; Stop 05/24/18 at 00:16; Status DC Potassium Chloride (Klor-Con) 40 meq 1X ONCE PO Last administered on at 01:30; Start 05/24/18 at 01:30; Stop 05/24/18 at 01:31; Status DC Vancomycin HCl 1.75 gm/Sodium Chloride 500 ml @ 250 mls/hr 1X ONCE IV Last administered on 05/24/18at 01:50; Start 05/24/18 at 01:30; Stop 05/24/18 at 03:29 ; Status DC Ondansetron HCl (Zofran) 4 mg PRN Q8HRS PRN IV NAUSEA/VOMITING; Start 05/24/18 at 02:15; Stop 05/25/18 at 02:14; Status DC Fentanyl Citrate (Fentanyl 2ml Vial) 50 mcg PRN Q2HR PRN IV PAIN Last administered on 05/26/18at 11:15; Start 05/24/18 at 02:15 Ondansetron HCl (Zofran) 4 mg PRN Q6HRS PRN IV NAUSEA/VOMITING; Start 05/24/18 at 07:30; Stop 05/24/18 at 18:00; Status DC Fentanyl Citrate (Fentanyl 2ml Vial) 25 mcg PRN Q5MIN PRN IV MILD PAIN; Start 05/24/18 at 07:30; Stop 05/24/18 at 18:00; Status DC Fentanyl Citrate (Fentanyl 2ml Vial) 50 mcg PRN Q5MIN PRN IV MODERATE TO SEVERE PAIN; Start 05/24/18 at 07:30; Stop 05/24/18 at 18:00; Status DC Morphine Sulfate (Morphine Sulfate) 1 mg PRN Q10MIN PRN IV SEVERE PAIN; Start 05/24/18 at 07:30; Stop 05/25/18 at 07:29; Status DC Ringer's Solution 1,000 ml @ 30 mls/hr Q24H IV ; Start 05/24/18 at 07:29; Stop 05/24/18 at 19:28; Status DC Lidocaine HCl (Xylocaine-Mpf 1% 2ml Vial) 2 ml 1X PRN PRN ID IV START; Start at 07:30; Stop 05/24/18 at 18:00; Status DC Hydromorphone HCl (Dilaudid) 0.5 mg PRN Q10MIN PRN IV SEV PAIN, Second choice; Start 05/24/18 at 07:30; Stop 05/24/18 at 18:00; Status DC Prochlorperazine Edisylate (Compazine) 5 mg PACU PRN PRN IV NAUSEA, MRX1; Start 05/24/18 at 07:30; Stop 05/24/18 at 18:00; Status DC Piperacillin Sod/ Tazobactam Sod 4.5 gm/Sodium Chloride 100 ml @ 200 mls/hr Q6HRS IV Last administered on 05/29/18at 06:14; Start 05/24/18 at 08:00 Fluconazole/ Sodium Chloride 100 ml @ 100 mls/hr Q24H IV Last administered on 05/27/18at 09:46; Start 05/24/18 at 10:00; Stop 05/28/18 at 08:31; Status DC Vancomycin HCl (Vanco Per Pharmacy) 1 each PRN DAILY PRN MC SEE COMMENTS Last administered on 05/28/18at 13:57; Start 05/24/18 at 08:00 Propofol 20 ml @ As Directed STK-MED ONCE IV ; Start 05/24/18 at 11:47; Stop at 11:49; Status DC Lidocaine HCl (Lidocaine Pf 2% Vial) 5 ml STK-MED ONCE .ROUTE ; Start 05/24/18 at 11:47; Stop 05/24/18 at 11:49; Status DC Ketorolac Tromethamine (Toradol For Or Only) 30 mg STK-MED ONCE INJ ; Start at 11:47; Stop 05/24/18 at 11:49; Status DC Sevoflurane (Ultane) 30 ml STK-MED ONCE IH ; Start 05/24/18 at 11:47; Stop 05/24 at 11:49; Status DC Dexamethasone Sodium Phosphate (Decadron) 20 mg STK-MED ONCE .ROUTE ; Start at 12:37; Stop 05/24/18 at 12:39; Status DC Ondansetron HCl (Zofran) 4 mg STK-MED ONCE .ROUTE ; Start 05/24/18 at 12:37; Stop 05/24/18 at 12:39; Status DC Fentanyl Citrate (Fentanyl 2ml Vial) 100 mcg STK-MED ONCE .ROUTE ; Start at 12:37; Stop 05/24/18 at 12:39; Status DC Vancomycin HCl 1.5 gm/Sodium Chloride 500 ml @ 250 mls/hr Q12H IV Last administered on 05/25/18at 16:00; Start 05/24/18 at 15:00; Stop 05/25/18 at 18:00 ; Status DC Vancomycin HCl (Vancomycin Trough Level) 1 each 1X ONCE MC Last administered on 05/25/18at 14:30; Start 05/25/18 at 14:30; Stop 05/25/18 at 14:31; Status DC Lactobacillus Rhamnosus (Culturelle) 1 cap BID PO Last administered on at 08:30; Start 05/25/18 at 21:00 Vancomycin HCl 1.5 gm/Sodium Chloride 500 ml @ 250 mls/hr Q8H IV Last administered on 05/27/18at 15:36; Start 05/25/18 at 23:00; Stop 05/27/18 at 16:00 ; Status DC Potassium Chloride (Klor-Con) 40 meq 1X ONCE PO Last administered on at 06:11; Start 05/26/18 at 05:45; Stop 05/26/18 at 05:46; Status DC Potassium Chloride (Klor-Con) 40 meq 1X ONCE PO Last administered on 15:59; Start 05/26/18 at 14:00; Stop 05/26/18 at 14:01; Status DC Potassium Chloride (Klor-Con) 20 meq [id number] PO Last administered on 08:31; Start 05/27/18 at 08:00 Potassium Chloride (Klor-Con) 40 meq 1X ONCE PO Last administered on 20:32; Start 05/26/18 at 20:00; Stop 05/26/18 at 20:01; Status DC Vancomycin HCl (Vancomycin Trough Level) 1 each 1X ONCE MC Last administered on 05/27/18 14:46; Start 05/27/18 at 14:30; Stop 05/27/18 at 14:31; Status DC Erythromycin (Romycin) 0.25 inch 6XDAY OS Last administered on 05/27/18 21:09 ; Start 05/27/18 at 15:00 Vancomycin HCl 1.25 gm/Sodium Chloride 250 ml @ 167 mls/hr Q8H IV Last administered on 05/29/18 08:30; Start 05/28/18 at 00:00 Fluconazole (Diflucan) 200 mg DAILY PO Last administered on 05/29/18 08:30; Start 05/28/18 at 09:00 Active Scripts Active Keflex (Cephalexin) 500 Mg Capsule 1 Cap PO TID [place] 5-325 Tablet (Acetaminophen/Hydrocodone Bitart) 1 Each Tablet 1 Tab PO PRN Q6HRS PRN Keflex (Cephalexin) 500 Mg Capsule 1 Cap PO TID Vitals/I & O Vital Sign - Last 24 Hours 05/28/18 05/28/18 05/28/18 05/28/18 11:00 15:00 19:35 20:15 Temp 97.9 98.1 98.2 97.9 98.1 98.2 Pulse 99 89 73 Resp 16 16 18 B/P (MAP) 124/90 (101) 120/83 (95) 114/73 (87) Pulse Ox 98 100 O2 Delivery Room Air Room Air Room Air Room Air 05/28/18 05/29/18 05/29/1819 23:30 02:57 07:00 08:00 Temp 98.3 98.2 98.2 97.6 98.3 98.2 98.2 97.6 Pulse 90 86 84 80 Resp 18 20 16 18 B/P (MAP) 112/74 (87) 98/63 (75) 131/57 (81) 113/72 (86) Pulse Ox 100 97 97 100 O2 Delivery Room Air Room Air Room Air Room Air 05/29/18 08:30 O2 Delivery Room Air Intake and Output 05/28/18 05/28/18 05/29/18 15:01 23:01 07:01 Intake Total 1590 ml Output Total 600 ml 1400 ml 300 ml Balance -600 ml -1400 ml 1290 ml JACQUES KEMP MD May 29, 2018 09:52
--- NOTE | 2018-05-29 11:23 | RAD ---
EXAM: AP View of the chest DATE: 05/29/2018 10:14 AM INDICATION: PAIN AFTER PICC LINE PLACEMENT COMPARISON: 05/24/2018 FINDINGS: Right upper extremity PICC tip projects over the distal SVC. The heart is not enlarged. Mediastinal and hilar contours are normal. No focal parenchymal airspace opacity. No pleural effusion or pneumothorax. IMPRESSION: 1. Right upper extremity PICC tip projects over the distal SVC. 2. No evidence for acute cardiopulmonary process. Electronically signed by: Christopher Aguilar MD (05/29/2018 11:18 AM) [facility]
--- NOTE | 2018-05-29 13:00 | NUR ---
This nurse went to access patient's wound vacc, as it was alarming, this nurse used ostomy ring to seal between the toes, green light showing on seal. This nurse will continue to monitor.
--- NOTE | 2018-05-29 13:02 | PDOC ---
PROGRESS NOTES Subjective Subjective Denies pain. Wants to get back to work IRINA Objective Vital Signs Vital Signs Date Time Temp Pulse Resp B/P (MAP) Pulse Ox O2 Delivery O2 Flow Rate FiO2 05/29/18 11:03 97.8 81 18 96/68 (77) 100 Room Air 97.8 05/24/18 13:37 10 Physical Exam Wound VAC with plenty of output. Foot appears benign with VAC in place. Nontender at heel. Has neuropathy, but WB on heel should be safe. Labs Laboratory Tests Test 05/27/18 14:30 05/28/18 06:00 05/29/18 06:00 Vancomycin Level Trough 19.5 mcg/mL (10.0-20.0) Vancomycin Last Dose Date 05/27/18 Vancomycin Last Dose Time 0900 White Blood Count 12.1 x10^3/uL (4.0-11.0) 13.6 x10^3/uL (4.0-11.0) Red Blood Count 5.16 x10^6/uL (4.30-5.70) 5.21 x10^6/uL (4.30-5.70) Hemoglobin 13.5 g/dL (13.0-17.5) 14.0 g/dL (13.0-17.5) Hematocrit 41.6 % (39.0-53.0) 42.0 % (39.0-53.0) Mean Corpuscular Volume 81 fL (79-100) 81 fL (79-100) Mean Corpuscular Hemoglobin 26 pg (25-35) 27 pg (25-35) Mean Corpuscular Hemoglobin Concent 33 g/dL (31-37) 33 g/dL (31-37) Red Cell Distribution Width 13.1 % (11.5-14.5) 13.5 % (11.5-14.5) Platelet Count 403 x10^3/uL (140-400) 479 x10^3/uL (140-400) Neutrophils (%) (Auto) 59 % (31-73) 67 % (31-73) Lymphocytes (%) (Auto) 29 % (24-48) 21 % (24-48) Monocytes (%) (Auto) 7 % (0-9) 7 % (0-9) Eosinophils (%) (Auto) 5 % (0-3) 5 % (0-3) Basophils (%) (Auto) 1 % (0-3) 1 % (0-3) Neutrophils # (Auto) 7.1 x10^3uL (1.8-7.7) 9.1 x10^3uL (1.8-7.7) Lymphocytes # (Auto) 3.4 x10^3/uL (1.0-4.8) 2.8 x10^3/uL (1.0-4.8) Monocytes # (Auto) 0.8 x10^3/uL (0.0-1.1) 0.9 x10^3/uL (0.0-1.1) Eosinophils # (Auto) 0.5 x10^3/uL (0.0-0.7) 0.7 x10^3/uL (0.0-0.7) Basophils # (Auto) 0.2 x10^3/uL (0.0-0.2) 0.1 x10^3/uL (0.0-0.2) Sodium Level 139 mmol/L (136-145) 141 mmol/L (136-145) Potassium Level 3.6 mmol/L (3.5-5.1) 3.6 mmol/L (3.5-5.1) Chloride Level 103 mmol/L (98-107) 104 mmol/L (98-107) Carbon Dioxide Level 30 mmol/L (21-32) 29 mmol/L (21-32) Anion Gap 6 (6-14) 8 (6-14) Blood Urea Nitrogen 12 mg/dL (8-26) 14 mg/dL (8-26) Creatinine 1.1 mg/dL (0.7-1.3) 1.2 mg/dL (0.7-1.3) Estimated GFR (Cockcroft-Gault) 78.1 70.6 Glucose Level 98 mg/dL (70-99) 109 mg/dL (70-99) Calcium Level 8.7 mg/dL (8.5-10.1) 8.8 mg/dL (8.5-10.1) Erythrocyte Sedimentation Rate 49 (0-15) Laboratory Tests Test 05/29/18 06:00 White Blood Count 13.6 x10^3/uL (4.0-11.0) Red Blood Count 5.21 x10^6/uL (4.30-5.70) Hemoglobin 14.0 g/dL (13.0-17.5) Hematocrit 42.0 % (39.0-53.0) Mean Corpuscular Volume 81 fL (79-100) Mean Corpuscular Hemoglobin 27 pg (25-35) Mean Corpuscular Hemoglobin Concent 33 g/dL (31-37) Red Cell Distribution Width 13.5 % (11.5-14.5) Platelet Count 479 x10^3/uL (140-400) Neutrophils (%) (Auto) 67 % (31-73) Lymphocytes (%) (Auto) 21 % (24-48) Monocytes (%) (Auto) 7 % (0-9) Eosinophils (%) (Auto) 5 % (0-3) Basophils (%) (Auto) 1 % (0-3) Neutrophils # (Auto) 9.1 x10^3uL (1.8-7.7) Lymphocytes # (Auto) 2.8 x10^3/uL (1.0-4.8) Monocytes # (Auto) 0.9 x10^3/uL (0.0-1.1) Eosinophils # (Auto) 0.7 x10^3/uL (0.0-0.7) Basophils # (Auto) 0.1 x10^3/uL (0.0-0.2) Erythrocyte Sedimentation Rate 49 (0-15) Sodium Level 141 mmol/L (136-145) Potassium Level 3.6 mmol/L (3.5-5.1) Chloride Level 104 mmol/L (98-107) Carbon Dioxide Level 29 mmol/L (21-32) Anion Gap 8 (6-14) Blood Urea Nitrogen 14 mg/dL (8-26) Creatinine 1.2 mg/dL (0.7-1.3) Estimated GFR (Cockcroft-Gault) 70.6 Glucose Level 109 mg/dL (70-99) Calcium Level 8.8 mg/dL (8.5-10.1) Assessment Assessment 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 Needs wound VAC for now, probably 1-2 more weeks or per wound care/ID/[place] Continue abx. KRYS ANTOINE MD May 29, 2018 13:02
--- NOTE | 2018-05-29 13:11 | PDOC ---
Infectious Disease Note Subjective Subjective Doing ok. pain controlled. No F/C/S/N/V/SOA/Rash. ROS ROS per HPI Vital Sign Vital Signs Vital Signs Date Time Temp Pulse Resp B/P (MAP) Pulse Ox O2 Delivery O2 Flow Rate FiO2 05/29/18 11:03 97.8 81 18 96/68 (77) 100 Room Air 97.8 Physical Exam PHYSICAL EXAM GENERAL: Propped up in bed, alert, on cell phone HEENT: Pupils were equal and reactive. Oral cavity, pharynx was moist. NECK: Without swelling. No JVD. LUNGS: Clear to auscultation. HEART: S1, S2. ABDOMEN: Obese, soft, no guarding or rebound. SKIN: Without generalized rash. EXTREMITIES: His left foot has 1+ edema. Vac in place. Left hand and right hand have bilateral contractures with some chronic appearing wound on the palmar surface. He does have a little bit of tenia associated with hands and his feet. NEUROLOGIC: He was nonfocal, moved extremities, PICC - RUE clean Labs Lab Laboratory Tests Test 05/29/18 06:00 White Blood Count 13.6 x10^3/uL (4.0-11.0) Red Blood Count 5.21 x10^6/uL (4.30-5.70) Hemoglobin 14.0 g/dL (13.0-17.5) Hematocrit 42.0 % (39.0-53.0) Mean Corpuscular Volume 81 fL (79-100) Mean Corpuscular Hemoglobin 27 pg (25-35) Mean Corpuscular Hemoglobin Concent 33 g/dL (31-37) Red Cell Distribution Width 13.5 % (11.5-14.5) Platelet Count 479 x10^3/uL (140-400) Neutrophils (%) (Auto) 67 % (31-73) Lymphocytes (%) (Auto) 21 % (24-48) Monocytes (%) (Auto) 7 % (0-9) Eosinophils (%) (Auto) 5 % (0-3) Basophils (%) (Auto) 1 % (0-3) Neutrophils # (Auto) 9.1 x10^3uL (1.8-7.7) Lymphocytes # (Auto) 2.8 x10^3/uL (1.0-4.8) Monocytes # (Auto) 0.9 x10^3/uL (0.0-1.1) Eosinophils # (Auto) 0.7 x10^3/uL (0.0-0.7) Basophils # (Auto) 0.1 x10^3/uL (0.0-0.2) Erythrocyte Sedimentation Rate 49 (0-15) Sodium Level 141 mmol/L (136-145) Potassium Level 3.6 mmol/L (3.5-5.1) Chloride Level 104 mmol/L (98-107) Carbon Dioxide Level 29 mmol/L (21-32) Anion Gap 8 (6-14) Blood Urea Nitrogen 14 mg/dL (8-26) Creatinine 1.2 mg/dL (0.7-1.3) Estimated GFR (Cockcroft-Gault) 70.6 Glucose Level 109 mg/dL (70-99) Calcium Level 8.8 mg/dL (8.5-10.1) Micro 05/24. BLOOD CULTURE Final GRAM POSITIVE COCCI IN CHAINS, SUGGESTIVE OF STREP, IN 2 OF 4 BOTTLES, TWO SETS DRAWN. BOTH BOTTLES OF ONE SET ARE POSITIVE. Objective Assessment Bacteremia - strep species 2/4 bottles 05/24 Leukocytosis Fever - better Left foot wound from stepping on a screw - ? osteomyelitis -s/p I and D down to bone, excisional of left foot on 05/24. cults pending - neg so far - ESR 49 Left foot cellulitis ? Foreign body to right hand - per Ortho Plan Plan of Care Cont Vanc, Zosyn and fluconazole Trough 19.5 F/u cults (tetanus given) CBC in am Rad Tech following Attending Co-Sign The patient was seen and interviewed as well as examined at the bedside. The chart was reviewed. The case was discussed. Agree with the plan of care. ROMINA LOZANO APRN May 29, 2018 13:11 JESSICA PRINCE MD May 29, 2018 13:15
[2018-05-29] MEDS: VANCOMYCIN PER PHARMACY MC PRN ×2 (15:05→15:32)
[2018-05-29] MEDS: MUPIROCIN 2 % TOPICAL CREAM 15GM TUBE. TP SCH (21:00)
[2018-05-30 03:00] VITALS: BP 98/57
[2018-05-30] MEDS: VANCOMYCIN 1.25 GM in IV NORMAL SALINE 250ML 250 ML IV SCH ×3 (04:03→21:47)
[2018-05-30] MEDS: PIPERACILLIN/TAZOBACTAM 4.5 GM in IV NORMAL SALINE 100ML 100 ML IV SCH ×3 (05:59→18:45)
[2018-05-30 07:00] VITALS: BP 114/69
[2018-05-30] MEDS: ERYTHROMYCIN 0.5% OPHTH OINTMENT 1GM TUBE. OS SCH ×6 (07:00→22:00)
--- NOTE | 2018-05-30 08:00 | NUR ---
This nurse asked Pt if it was okay to take pictures of his finger wounds on bilat hands. Pt stated it was okay but declined for this nurse to use the KISS sticker system to label wounds. Pt appeared upset when the second picture was taken and stated "no more." so this nurse stopped. One picture of each hand obtained.
[2018-05-30 08:06] LABS: HEMOGLOBIN 13.9 g/dL (13.0-17.5); RED BLOOD COUNT 5.14 x10^6/uL (4.30-5.70); RED CELL DISTRIBUTION WIDTH 13.5 % (11.5-14.5); WHITE BLOOD COUNT 12.6 x10^3/uL (4.0-11.0)
[2018-05-30] MEDS: FLUCONAZOLE 100 MG TABLET. PO SCH (08:54)
[2018-05-30] MEDS: POTASSIUM CHLORIDE 20 MEQ TABLET.ER. PO SCH (08:54)
[2018-05-30] MEDS: LACTOBACILLUS RHAMNOSUS GG 1 CAPSULE. PO SCH ×2 (08:54→21:46)
[2018-05-30] MEDS: MUPIROCIN 2 % TOPICAL CREAM 15GM TUBE. TP SCH ×2 (09:01→21:00)
--- NOTE | 2018-05-30 09:36 | PDOC ---
PROGRESS NOTES History of Present Illness History of Present Illness Assessment/Plan Assessment/Plan impression 1. Widening of the second metatarsophalangeal joint and small lytic defects at the second metatarsal head and a portion of the base of the third proximal phalanx, could be observed with osteomyelitis 2. left hand demonstrates areas of acral osteolysis involving the second digit distal phalanx and thumb distal phalanx kwadwo with surrounding soft tissue swelling, indicative of osteomyelitis 3. hypokalemia 4. Bacteremia - strep species / bottles 05/24 pain is variable, fair control plan iv Cont Vanc Cont Zosyn/fluconazole PO ID following ortho following wound vac replace k Date of procedure: 05/24/2018 Surgeon: Antoine Garcias Preoperative diagnosis: Left foot infection with osteomyelitis Postoperative diagnosis: Same Procedure performed: #1 irrigation and debridement down to bone, excisional of left foot #2 bone biopsy of metatarsal head region #3 application of wound VAC to wound less than 25 cm� Anesthesia: Gen. Findings: Gross purulence and necrotic debris in wound Vitals Vitals Vital Signs Date Time Temp Pulse Resp B/P (MAP) Pulse Ox O2 Delivery O2 Flow Rate FiO2 05/30/18 07:00 97.9 70 18 114/69 (84) 95 Room Air 97.9 Physical Exam Physical Exam GENERAL: Propped up in bed, alert, on cell phone HEENT: Pupils were equal and reactive. Oral cavity, pharynx was moist. NECK: Without swelling. No JVD. LUNGS: Clear to auscultation. HEART: S1, S2. ABDOMEN: Obese, soft, no guarding or rebound. SKIN: Without generalized rash. EXTREMITIES: His left foot has 1+ edema. Vac in place. Left hand and right hand have bilateral contractures with some chronic appearing wound on the palmar surface. He does have a little bit of tenia associated with hands and his feet. NEUROLOGIC: He was nonfocal, moved extremities, PICC - RUE clean General: Alert, Oriented X3, Cooperative, No acute distress Heart: Regular rate, Normal S1, Normal S2, No murmurs Lungs: Clear Abdomen: Normal bowel sounds, Soft, No tenderness Extremities: No cyanosis Labs LABS PATIENT: JOHN CURRY ACCT: [id number] LOC: [address] [place] [address] U : [id number] AGE/SX: 32/M ROOM: 418 REG : 05/24/[address]: WILBER JONES MD : 1985 BED: 1 DIS : STATUS: ADM IN TLOC: SPEC #: [id number] MICHAEL: 05/24/18 STATUS: COMP REQ #: [id number] RECD: 05/24/[address]: BROOKS PATE DO SOURCE: BLOOD ENTR: 05/23/189919 ISIAH DR: ИРИНА LARSON SPDESC: ORDERED: BCULT Procedure Result BLOOD CULTURE Final NO GROWTH AFTER 5 DAYS PATIENT: JOHN CURRY ACCT: [id number] LOC: [address] [place] [address] U : [id number] AGE/SX: 32/M ROOM: 418 REG : 05/24/[address]: WILBER JONES MD : 1985 BED: 1 DIS : STATUS: ADM IN TLOC: SPEC #: [id number] MICHAEL: 05/24/18 STATUS: COMP REQ #: [id number] RECD: 05/24/[address]: BROOKS PATE DO SOURCE: BLOOD ENTR: 05/23/[id number] ISIAH DR: ИРИНА LARSON SPDESC: ORDERED: BCULT Procedure Result BLOOD CULTURE Final GRAM POSITIVE COCCI IN CHAINS, SUGGESTIVE OF STREP, IN 2 OF 4 BOTTLES, TWO SETS DRAWN. BOTH BOTTLES OF ONE SET ARE POSITIVE. CALLED TO RHIANNON BARRETT RN ON 4N AT 8:20 ON 05/27/18 DW MT SENT TO LAB [facility] FOR FURTHER WIORKUP. Laboratory Tests Test 05/30/18 07:00 White Blood Count 12.6 x10^3/uL (4.0-11.0) Red Blood Count 5.14 x10^6/uL (4.30-5.70) Hemoglobin 13.9 g/dL (13.0-17.5) Hematocrit 42.0 % (39.0-53.0) Mean Corpuscular Volume 82 fL (79-100) Mean Corpuscular Hemoglobin 27 pg (25-35) Mean Corpuscular Hemoglobin Concent 33 g/dL (31-37) Red Cell Distribution Width 13.5 % (11.5-14.5) Platelet Count 488 x10^3/uL (140-400) Comment Review of Relevant I have reviewed the following items pedro (where applicable) has been applied. Labs Laboratory Tests Test 05/29/18 06:00 05/30/18 07:00 White Blood Count 13.6 x10^3/uL (4.0-11.0) 12.6 x10^3/uL (4.0-11.0) Red Blood Count 5.21 x10^6/uL (4.30-5.70) 5.14 x10^6/uL (4.30-5.70) Hemoglobin 14.0 g/dL (13.0-17.5) 13.9 g/dL (13.0-17.5) Hematocrit 42.0 % (39.0-53.0) 42.0 % (39.0-53.0) Mean Corpuscular Volume 81 fL (79-100) 82 fL (79-100) Mean Corpuscular Hemoglobin 27 pg (25-35) 27 pg (25-35) Mean Corpuscular Hemoglobin Concent 33 g/dL (31-37) 33 g/dL (31-37) Red Cell Distribution Width 13.5 % (11.5-14.5) 13.5 % (11.5-14.5) Platelet Count 479 x10^3/uL (140-400) 488 x10^3/uL (140-400) Neutrophils (%) (Auto) 67 % (31-73) Lymphocytes (%) (Auto) 21 % (24-48) Monocytes (%) (Auto) 7 % (0-9) Eosinophils (%) (Auto) 5 % (0-3) Basophils (%) (Auto) 1 % (0-3) Neutrophils # (Auto) 9.1 x10^3uL (1.8-7.7) Lymphocytes # (Auto) 2.8 x10^3/uL (1.0-4.8) Monocytes # (Auto) 0.9 x10^3/uL (0.0-1.1) Eosinophils # (Auto) 0.7 x10^3/uL (0.0-0.7) Basophils # (Auto) 0.1 x10^3/uL (0.0-0.2) Erythrocyte Sedimentation Rate 49 (0-15) Sodium Level 141 mmol/L (136-145) Potassium Level 3.6 mmol/L (3.5-5.1) Chloride Level 104 mmol/L (98-107) Carbon Dioxide Level 29 mmol/L (21-32) Anion Gap 8 (6-14) Blood Urea Nitrogen 14 mg/dL (8-26) Creatinine 1.2 mg/dL (0.7-1.3) Estimated GFR (Cockcroft-Gault) 70.6 Glucose Level 109 mg/dL (70-99) Calcium Level 8.8 mg/dL (8.5-10.1) Laboratory Tests Test 05/30/18 07:00 White Blood Count 12.6 x10^3/uL (4.0-11.0) Red Blood Count 5.14 x10^6/uL (4.30-5.70) Hemoglobin 13.9 g/dL (13.0-17.5) Hematocrit 42.0 % (39.0-53.0) Mean Corpuscular Volume 82 fL (79-100) Mean Corpuscular Hemoglobin 27 pg (25-35) Mean Corpuscular Hemoglobin Concent 33 g/dL (31-37) Red Cell Distribution Width 13.5 % (11.5-14.5) Platelet Count 488 x10^3/uL (140-400) Microbiology 1/28/19 Blood Culture - Preliminary, Resulted 05/24/18 Blood Culture Result 1 (JAMARCUS) - Preliminary, Resulted 05/24/18 Anaerobic/Aerobic Culture - Final, Complete 05/24/18 Anaerobic Culture Result 1 (JAMARCUS) - Final, Complete 05/24/18 Aerobic Culture - Final, Complete 05/24/18 Aerobic Culture Result 1 (JAMARCUS) - Final, Complete 05/24/18 Gram Stain - Final, Complete 05/24/18 Gram Stain Result 1 (JAMARCUS) - Final, Complete 05/24/18 Gram Stain Result 2 (JAMARCUS) - Final, Complete Medications Current Medications Clindamycin Phosphate 50 ml @ 100 mls/hr 1X ONCE IV Last administered on 05/24at 01:05; Start 05/24/18 at 00:00; Stop 05/24/18 at 00:29; Status DC Sodium Chloride 1,000 ml @ 1,000 mls/hr 1X ONCE IV Last administered on at 01:05; Start 05/24/18 at 00:00; Stop 05/24/18 at 00:59; Status DC Acetaminophen (Tylenol) 500 mg 1X ONCE PO Last administered on 05/24/18at 01:05 ; Start 05/24/18 at 00:15; Stop 05/24/18 at 00:16; Status DC Sodium Chloride 1,000 ml @ 1,000 mls/hr 1X ONCE IV Last administered on at 01:50; Start 05/24/18 at 00:15; Stop 05/24/18 at 01:14; Status DC Diphtheria/ Tetanus/Acell Pertussis (Boostrix) 0.5 ml ONCE ONCE VAX IM Last administered on 05/24/18at 01:05; Start 05/24/18 at 00:15; Stop 05/24/18 at 00:16 ; Status DC Mupirocin (Bactroban) 1 brii 1X ONCE TP Last administered on 05/24/18at 00:15; Start 05/24/18 at 00:15; Stop 05/24/18 at 00:16; Status DC Potassium Chloride (Klor-Con) 40 meq 1X ONCE PO Last administered on at 01:30; Start 05/24/18 at 01:30; Stop 05/24/18 at 01:31; Status DC Vancomycin HCl 1.75 gm/Sodium Chloride 500 ml @ 250 mls/hr 1X ONCE IV Last administered on 05/24/18at 01:50; Start 05/24/18 at 01:30; Stop 05/24/18 at 03:29 ; Status DC Ondansetron HCl (Zofran) 4 mg PRN Q8HRS PRN IV NAUSEA/VOMITING; Start 05/24/18 at 02:15; Stop 05/25/18 at 02:14; Status DC Fentanyl Citrate (Fentanyl 2ml Vial) 50 mcg PRN Q2HR PRN IV PAIN Last administered on 05/26/18at 11:15; Start 05/24/18 at 02:15 Ondansetron HCl (Zofran) 4 mg PRN Q6HRS PRN IV NAUSEA/VOMITING; Start 05/24/18 at 07:30; Stop 05/24/18 at 18:00; Status DC Fentanyl Citrate (Fentanyl 2ml Vial) 25 mcg PRN Q5MIN PRN IV MILD PAIN; Start 05/24/18 at 07:30; Stop 05/24/18 at 18:00; Status DC Fentanyl Citrate (Fentanyl 2ml Vial) 50 mcg PRN Q5MIN PRN IV MODERATE TO SEVERE PAIN; Start 05/24/18 at 07:30; Stop 05/24/18 at 18:00; Status DC Morphine Sulfate (Morphine Sulfate) 1 mg PRN Q10MIN PRN IV SEVERE PAIN; Start 05/24/18 at 07:30; Stop 05/25/18 at 07:29; Status DC Ringer's Solution 1,000 ml @ 30 mls/hr Q24H IV ; Start 05/24/18 at 07:29; Stop 05/24/18 at 19:28; Status DC Lidocaine HCl (Xylocaine-Mpf 1% 2ml Vial) 2 ml 1X PRN PRN ID IV START; Start at 07:30; Stop 05/24/18 at 18:00; Status DC Hydromorphone HCl (Dilaudid) 0.5 mg PRN Q10MIN PRN IV SEV PAIN, Second choice; Start 05/24/18 at 07:30; Stop 05/24/18 at 18:00; Status DC Prochlorperazine Edisylate (Compazine) 5 mg PACU PRN PRN IV NAUSEA, MRX1; Start 05/24/18 at 07:30; Stop 05/24/18 at 18:00; Status DC Piperacillin Sod/ Tazobactam Sod 4.5 gm/Sodium Chloride 100 ml @ 200 mls/hr Q6HRS IV Last administered on 05/30/18at 05:59; Start 05/24/18 at 08:00 Fluconazole/ Sodium Chloride 100 ml @ 100 mls/hr Q24H IV Last administered on 05/27/18at 09:46; Start 05/24/18 at 10:00; Stop 05/28/18 at 08:31; Status DC Vancomycin HCl (Vanco Per Pharmacy) 1 each PRN DAILY PRN MC SEE COMMENTS Last administered on 05/29/18at 15:32; Start 05/24/18 at 08:00 Propofol 20 ml @ As Directed STK-MED ONCE IV ; Start 05/24/18 at 11:47; Stop at 11:49; Status DC Lidocaine HCl (Lidocaine Pf 2% Vial) 5 ml STK-MED ONCE .ROUTE ; Start 05/24/18 at 11:47; Stop 05/24/18 at 11:49; Status DC Ketorolac Tromethamine (Toradol For Or Only) 30 mg STK-MED ONCE INJ ; Start at 11:47; Stop 05/24/18 at 11:49; Status DC Sevoflurane (Ultane) 30 ml STK-MED ONCE IH ; Start 05/24/18 at 11:47; Stop 05/24 at 11:49; Status DC Dexamethasone Sodium Phosphate (Decadron) 20 mg STK-MED ONCE .ROUTE ; Start at 12:37; Stop 05/24/18 at 12:39; Status DC Ondansetron HCl (Zofran) 4 mg STK-MED ONCE .ROUTE ; Start 05/24/18 at 12:37; Stop 05/24/18 at 12:39; Status DC Fentanyl Citrate (Fentanyl 2ml Vial) 100 mcg STK-MED ONCE .ROUTE ; Start at 12:37; Stop 05/24/18 at 12:39; Status DC Vancomycin HCl 1.5 gm/Sodium Chloride 500 ml @ 250 mls/hr Q12H IV Last administered on 05/25/18at 16:00; Start 05/24/18 at 15:00; Stop 05/25/18 at 18:00 ; Status DC Vancomycin HCl (Vancomycin Trough Level) 1 each 1X ONCE MC Last administered on 05/25/18at 14:30; Start 05/25/18 at 14:30; Stop 05/25/18 at 14:31; Status DC Lactobacillus Rhamnosus (Culturelle) 1 cap BID PO Last administered on 08:54; Start 05/25/18 at 21:00 Vancomycin HCl 1.5 gm/Sodium Chloride 500 ml @ 250 mls/hr Q8H IV Last administered on 05/27/18 15:36; Start 05/25/18 at 23:00; Stop 05/27/18 at 16:00 ; Status DC Potassium Chloride (Klor-Con) 40 meq 1X ONCE PO Last administered on at 06:11; Start 05/26/18 at 05:45; Stop 05/26/18 at 05:46; Status DC Potassium Chloride (Klor-Con) 40 meq 1X ONCE PO Last administered on 15:59; Start 05/26/18 at 14:00; Stop 05/26/18 at 14:01; Status DC Potassium Chloride (Klor-Con) 20 meq [id number] PO Last administered on 08:54; Start 05/27/18 at 08:00 Potassium Chloride (Klor-Con) 40 meq 1X ONCE PO Last administered on at 20:32; Start 05/26/18 at 20:00; Stop 05/26/18 at 20:01; Status DC Vancomycin HCl (Vancomycin Trough Level) 1 each 1X ONCE MC Last administered on 05/27/18at 14:46; Start 05/27/18 at 14:30; Stop 05/27/18 at 14:31; Status DC Erythromycin (Romycin) 0.25 inch 6XDAY OS Last administered on 05/27/18 21:09 ; Start 05/27/18 at 15:00 Vancomycin HCl 1.25 gm/Sodium Chloride 250 ml @ 167 mls/hr Q8H IV Last administered on 05/29/18 11:40; Start 05/28/18 at 00:00; Stop 05/29/18 at 15:26; Status DC Fluconazole (Diflucan) 200 mg DAILY PO Last administered on 05/30/18at 08:54; Start 05/28/18 at 09:00 Vancomycin HCl (Vancomycin Trough Level) 1 each 1X ONCE MC ; Start 05/30/18 at 07:30; Stop 05/30/18 at 07:30; Status DC Vancomycin HCl 1.25 gm/Sodium Chloride 250 ml @ 167 mls/hr Q8H IV Last administered on 05/30/18at 04:03; Start 05/29/18 at 20:00 Mupirocin (Bactroban) 1 brii BID TP Last administered on 05/30/18at 09:01; Start 05/29/18 at 21:00 Active Scripts Active Keflex (Cephalexin) 500 Mg Capsule 1 Cap PO TID [place] 5-325 Tablet (Acetaminophen/Hydrocodone Bitart) 1 Each Tablet 1 Tab PO PRN Q6HRS PRN Keflex (Cephalexin) 500 Mg Capsule 1 Cap PO TID Vitals/I & O Vital Sign - Last 24 Hours 05/29/18 05/29/18 05/29/18 05/29/18 11:03 15:10 19:00 20:00 Temp 97.8 97.8 98.0 97.8 97.8 98.0 Pulse 81 89 93 Resp 18 20 18 B/P (MAP) 96/68 (77) 110/77 (88) 112/75 (87) Pulse Ox 100 99 91 O2 Delivery Room Air Room Air Room Air Room Air 05/29/18 05/30/18 05/30/18 22:57 03:00 07:00 Temp 98.0 98.0 97.9 98.0 98.0 97.9 Pulse 87 73 70 Resp 18 18 18 B/P (MAP) 97/65 (76) 98/57 (71) 114/69 (84) Pulse Ox 94 93 95 O2 Delivery Room Air Room Air Room Air Intake and Output 05/29/18 05/29/18 05/30/18 15:01 23:01 07:01 Intake Total 720 ml Balance 720 ml JACQUES KEMP MD May 30, 2018 09:36
--- NOTE | 2018-05-30 10:15 | NUR ---
Pt refused erythromycin eye ointment.
--- NOTE | 2018-05-30 10:51 | PDOC ---
Infectious Disease Note Subjective Subjective Planning on going home tomorrow No F/C/S/N/V/SOA/Rash. ROS ROS per HPI Vital Sign Vital Signs Vital Signs Date Time Temp Pulse Resp B/P (MAP) Pulse Ox O2 Delivery O2 Flow Rate FiO2 05/30/18 08:15 Room Air 05/30/18 07:00 97.9 70 18 114/69 (84) 95 97.9 Physical Exam PHYSICAL EXAM GENERAL: Sitting in the chair, legs elevated, on cell phone HEENT: Pupils were equal and reactive. Oral cavity, pharynx was moist. NECK: Without swelling. No JVD. LUNGS: Clear to auscultation. HEART: S1, S2. ABDOMEN: Obese, soft, no guarding or rebound. SKIN: Without generalized rash. EXTREMITIES: Left foot 1+ edema, Vac in place. Left hand and right hand have bilateral contractures with some chronic appearing wound on the palmar surface. He does have a little bit of tenia associated with hands and his feet. NEUROLOGIC: He was nonfocal, moved extremities, RUE- PICC (05/26) clean Labs Lab Laboratory Tests Test 05/30/18 07:00 White Blood Count 12.6 x10^3/uL (4.0-11.0) Red Blood Count 5.14 x10^6/uL (4.30-5.70) Hemoglobin 13.9 g/dL (13.0-17.5) Hematocrit 42.0 % (39.0-53.0) Mean Corpuscular Volume 82 fL (79-100) Mean Corpuscular Hemoglobin 27 pg (25-35) Mean Corpuscular Hemoglobin Concent 33 g/dL (31-37) Red Cell Distribution Width 13.5 % (11.5-14.5) Platelet Count 488 x10^3/uL (140-400) Micro 05/24. BLD CULT RESULT 1 Preliminary Streptococcus species Objective Assessment Bacteremia - strep species / bottles 05/24 Leukocytosis Fever - better Left foot wound from stepping on a screw - ? osteomyelitis -s/p I and D down to bone, excisional of left foot on 05/24. cults pending - neg so far - ESR 49 on 05/29. Left foot cellulitis ? Foreign body to right hand - per Ortho Plan Plan of Care Cont Vanc, Zosyn and fluconazole Trough 19.5 F/u cults, strep spp ID still pending (tetanus given) CBC in am [place] [employer] following Attending Co-Sign The patient was seen and interviewed as well as examined at the bedside. The chart was reviewed. The case was discussed. Agree with the plan of care. ROMINA LOZANO APRN May 30, 2018 10:51 JESSICA PRINCE MD May 30, 2018 13:14
[2018-05-30 11:00] VITALS: BP 120/72
[2018-05-30 15:00] VITALS: BP 131/83
[2018-05-30 19:00] VITALS: BP 104/68
[2018-05-30 23:00] VITALS: BP 126/82
[2018-05-31] MEDS: PIPERACILLIN/TAZOBACTAM 4.5 GM in IV NORMAL SALINE 100ML 100 ML IV SCH ×2 (00:15→06:11)
[2018-05-31 03:00] VITALS: BP 105/68
[2018-05-31 03:59] LABS: VANC TR 25.5 mcg/mL (10.0-20.0)
[2018-05-31 04:11] LABS: CALCIUM 8.9 mg/dL (8.5-10.1); CREATININE 1.3 mg/dL (0.7-1.3); GFR 64.4; POTASSIUM 3.7 mmol/L (3.5-5.1)
[2018-05-31] MEDS: VANCOMYCIN PER PHARMACY MC PRN (05:23)
--- NOTE | 2018-05-31 05:23 | NUR ---
Pharmacy Vancomycin Dosing Note S:Consulted to monitor and dose vancomycin started 05/24/18. O:JOHN CURRY is a 32 year old M with Cellulitis Osteomyelitis . Height: 5 feet, 7 inches Weight: 94.688962 kg [place] Body Weight: 66.10 Adjusted Body Weight: 77.46 Dosing Weight: Actual Other Antibiotics: ZOSYN LABS: Last BUN: 14 Last Creatinine: 1.3 Creatinine Clearance: 97 mL/min Last WBC: 12.1 Last Procalcitonin: Tmax (past 24 hours): 98.8 Microbiology: BLOOD CULTURE: GPC IN 2 OF 4 BOTTLES FOOT: MIXED SKIN TRELL I/O: 470/3330 Drug Levels: Last Trough level: 21.8 TRUE TROUGH on 05/31/18 at 0330 Last dose given 05/29/18 at 1140 Vancomycin Dosing: Loading Dose: 1750 mg x1 Dosing Weight: Actual Target Trough: 15-20 A: Based on: TRUE TROUGH P: 1. HOLD Vancomycin 1250 mg IV q8h 2. Follow up Random level on 05/31/18 at 1000 3. Pharmacy will continue to monitor, follow and adjust therapy as needed. RAMYA HERNANDEZ RPH, 05/31/18 0523 Signed: 05/31/18 at 0524 by RAMYA HERNANDEZ RPH PHA
[2018-05-31 06:22] LABS: BASO # 0.1 x10^3/uL (0.0-0.2); BASO % 1 % (0-3); EOS # 0.6 x10^3/uL (0.0-0.7); EOS % 5 % (0-3); HEMATOCRIT 42.1 % (39.0-53.0); LYMPH # 2.9 x10^3/uL (1.0-4.8); LYMPH % 21 % (24-48); MEAN CORPUSCULAR HEMOGLOBIN 27 pg (25-35); MEAN CORPUSCULAR HGB CONC 33 g/dL (31-37); MEAN CORPUSCULAR VOLUME 81 fL (79-100); MONO # 0.9 x10^3/uL (0.0-1.1); MONO % 7 % (0-9); NEUT % 67 % (31-73); PLATELET COUNT 522 x10^3/uL (140-400); RED BLOOD COUNT 5.19 x10^6/uL (4.30-5.70); RED CELL DISTRIBUTION WIDTH 13.8 % (11.5-14.5); WHITE BLOOD COUNT 13.5 x10^3/uL (4.0-11.0)
[2018-05-31] MEDS: ERYTHROMYCIN 0.5% OPHTH OINTMENT 1GM TUBE. OS SCH ×3 (07:00→12:03)
[2018-05-31 07:15] VITALS: BP 122/84
[2018-05-31] MEDS: LACTOBACILLUS RHAMNOSUS GG 1 CAPSULE. PO SCH (08:36)
[2018-05-31] MEDS: FLUCONAZOLE 100 MG TABLET. PO SCH (08:37)
[2018-05-31] MEDS: MUPIROCIN 2 % TOPICAL CREAM 15GM TUBE. TP SCH (08:38)
[2018-05-31] MEDS: POTASSIUM CHLORIDE 20 MEQ TABLET.ER. PO SCH (08:38)
--- NOTE | 2018-05-31 08:55 | PDOC ---
Infectious Disease Note Subjective Subjective feeling ok ROS ROS no n/v/d/sob/fever Vital Sign Vital Signs Vital Signs Date Time Temp Pulse Resp B/P (MAP) Pulse Ox O2 Delivery O2 Flow Rate FiO2 05/31/18 07:15 98.3 88 16 122/84 (97) 98 Room Air 98.3 Physical Exam PHYSICAL EXAM GENERAL: comfortable HEENT: Pupils were equal and reactive. Oral cavity, pharynx was moist. NECK: Without swelling. No JVD. LUNGS: Clear to auscultation. HEART: S1, S2. ABDOMEN: Obese, soft, no guarding or rebound. SKIN: Without generalized rash. EXTREMITIES: Left foot 1+ edema, Vac in place. Left hand and right hand have bilateral contractures with some chronic appearing wound on the palmar surface. He does have a little bit of tenia associated with hands and his feet. NEUROLOGIC: He was nonfocal, moved extremities, RUE- PICC (05/26) clean Labs Lab Laboratory Tests Test 05/31/18 03:30 05/31/18 06:00 Sodium Level 138 mmol/L (136-145) Potassium Level 3.7 mmol/L (3.5-5.1) Chloride Level 101 mmol/L (98-107) Carbon Dioxide Level 26 mmol/L (21-32) Anion Gap 11 (6-14) Blood Urea Nitrogen 16 mg/dL (8-26) Creatinine 1.3 mg/dL (0.7-1.3) Estimated GFR (Cockcroft-Gault) 64.4 Glucose Level 105 mg/dL (70-99) Calcium Level 8.9 mg/dL (8.5-10.1) Vancomycin Level Trough 25.5 mcg/mL (10.0-20.0) Vancomycin Last Dose Date [id number] Vancomycin Last Dose Time 1999 White Blood Count 13.5 x10^3/uL (4.0-11.0) Red Blood Count 5.19 x10^6/uL (4.30-5.70) Hemoglobin 14.0 g/dL (13.0-17.5) Hematocrit 42.1 % (39.0-53.0) Mean Corpuscular Volume 81 fL (79-100) Mean Corpuscular Hemoglobin 27 pg (25-35) Mean Corpuscular Hemoglobin Concent 33 g/dL (31-37) Red Cell Distribution Width 13.8 % (11.5-14.5) Platelet Count 522 x10^3/uL (140-400) Neutrophils (%) (Auto) 67 % (31-73) Lymphocytes (%) (Auto) 21 % (24-48) Monocytes (%) (Auto) 7 % (0-9) Eosinophils (%) (Auto) 5 % (0-3) Basophils (%) (Auto) 1 % (0-3) Neutrophils # (Auto) 9.0 x10^3uL (1.8-7.7) Lymphocytes # (Auto) 2.9 x10^3/uL (1.0-4.8) Monocytes # (Auto) 0.9 x10^3/uL (0.0-1.1) Eosinophils # (Auto) 0.6 x10^3/uL (0.0-0.7) Basophils # (Auto) 0.1 x10^3/uL (0.0-0.2) Micro culture is still pending in blood, foot culture neg Objective Assessment Bacteremia - strep species 05/31 bottles 05/24 ID still pending Leukocytosis Fever - better Left foot wound from stepping on a screw - ? osteomyelitis -s/p I and D down to bone, excisional of left foot on 05/24. cults pending - neg so far - ESR 49 on 05/29. Left foot cellulitis ? Foreign body to right hand - per Ortho Plan Plan of Care Cont Vanc, Zosyn and fluconazole Trough 19.5 F/u cults, strep spp ID still pending (tetanus given) CBC in Last [place] following JESSICA PRINCE MD May 31, 2018 08:55
[2018-05-31] MEDS ORDERED: VANCOMYCIN RANDOM LEVEL. MC ONE (10:00)
--- NOTE | 2018-05-31 10:08 | PDOC ---
PROGRESS NOTES History of Present Illness History of Present Illness Assessment/Plan Assessment/Plan impression 1. Widening of the second metatarsophalangeal joint and small lytic defects at the second metatarsal head and a portion of the base of the third proximal phalanx, could be observed with osteomyelitis 2. left hand demonstrates areas of acral osteolysis involving the second digit distal phalanx and thumb distal phalanx kwadwo with surrounding soft tissue swelling, indicative of osteomyelitis 3. hypokalemia 4. Bacteremia - strep species 05/31 bottles 05/24 pain is variable, fair control plan iv Cont Vanc Cont Zosyn/fluconazole PO ID following ortho following wound vac replace k Date of procedure: 05/24/2018 Surgeon: Antoine Garcias Preoperative diagnosis: Left foot infection with osteomyelitis Postoperative diagnosis: Same Procedure performed: #1 irrigation and debridement down to bone, excisional of left foot #2 bone biopsy of metatarsal head region #3 application of wound VAC to wound less than 25 cm� Anesthesia: Gen. Findings: Gross purulence and necrotic debris in wound Vitals Vitals Vital Signs Date Time Temp Pulse Resp B/P (MAP) Pulse Ox O2 Delivery O2 Flow Rate FiO2 05/31/18 07:15 98.3 88 16 122/84 (97) 98 Room Air 98.3 Physical Exam Physical Exam GENERAL: comfortable HEENT: Pupils were equal and reactive. Oral cavity, pharynx was moist. NECK: Without swelling. No JVD. LUNGS: Clear to auscultation. HEART: S1, S2. ABDOMEN: Obese, soft, no guarding or rebound. SKIN: Without generalized rash. EXTREMITIES: Left foot 1+ edema, Vac in place. Left hand and right hand have bilateral contractures with some chronic appearing wound on the palmar surface. He does have a little bit of tenia associated with hands and his feet. NEUROLOGIC: He was nonfocal, moved extremities, RUE- PICC (05/26) clean General: Alert, Oriented X3, Cooperative, No acute distress Heart: Regular rate, Normal S1, Normal S2, No murmurs Lungs: Clear Abdomen: Normal bowel sounds, Soft, No tenderness Extremities: No cyanosis Labs LABS Diagnosis: Segments of bone and soft tissue, left foot bone biopsy: - Focal acute cellulitis of soft tissue and focal acute osteomyelitis of attached bone. (JPM:ramone; 05/26/2018) MBR/05/27/2018 Laboratory Tests Test 05/31/18 03:30 05/31/18 06:00 Sodium Level 138 mmol/L (136-145) Potassium Level 3.7 mmol/L (3.5-5.1) Chloride Level 101 mmol/L (98-107) Carbon Dioxide Level 26 mmol/L (21-32) Anion Gap 11 (6-14) Blood Urea Nitrogen 16 mg/dL (8-26) Creatinine 1.3 mg/dL (0.7-1.3) Estimated GFR (Cockcroft-Gault) 64.4 Glucose Level 105 mg/dL (70-99) Calcium Level 8.9 mg/dL (8.5-10.1) Vancomycin Level Trough 25.5 mcg/mL (10.0-20.0) Vancomycin Last Dose Date [id number] Vancomycin Last Dose Time 1999 White Blood Count 13.5 x10^3/uL (4.0-11.0) Red Blood Count 5.19 x10^6/uL (4.30-5.70) Hemoglobin 14.0 g/dL (13.0-17.5) Hematocrit 42.1 % (39.0-53.0) Mean Corpuscular Volume 81 fL (79-100) Mean Corpuscular Hemoglobin 27 pg (25-35) Mean Corpuscular Hemoglobin Concent 33 g/dL (31-37) Red Cell Distribution Width 13.8 % (11.5-14.5) Platelet Count 522 x10^3/uL (140-400) Neutrophils (%) (Auto) 67 % (31-73) Lymphocytes (%) (Auto) 21 % (24-48) Monocytes (%) (Auto) 7 % (0-9) Eosinophils (%) (Auto) 5 % (0-3) Basophils (%) (Auto) 1 % (0-3) Neutrophils # (Auto) 9.0 x10^3uL (1.8-7.7) Lymphocytes # (Auto) 2.9 x10^3/uL (1.0-4.8) Monocytes # (Auto) 0.9 x10^3/uL (0.0-1.1) Eosinophils # (Auto) 0.6 x10^3/uL (0.0-0.7) Basophils # (Auto) 0.1 x10^3/uL (0.0-0.2) Comment Review of Relevant I have reviewed the following items pedro (where applicable) has been applied. Labs Laboratory Tests Test 05/30/18 07:00 05/31/18 03:30 05/31/18 06:00 White Blood Count 12.6 x10^3/uL (4.0-11.0) 13.5 x10^3/uL (4.0-11.0) Red Blood Count 5.14 x10^6/uL (4.30-5.70) 5.19 x10^6/uL (4.30-5.70) Hemoglobin 13.9 g/dL (13.0-17.5) 14.0 g/dL (13.0-17.5) Hematocrit 42.0 % (39.0-53.0) 42.1 % (39.0-53.0) Mean Corpuscular Volume 82 fL (79-100) 81 fL (79-100) Mean Corpuscular Hemoglobin 27 pg (25-35) 27 pg (25-35) Mean Corpuscular Hemoglobin Concent 33 g/dL (31-37) 33 g/dL (31-37) Red Cell Distribution Width 13.5 % (11.5-14.5) 13.8 % (11.5-14.5) Platelet Count 488 x10^3/uL (140-400) 522 x10^3/uL (140-400) Sodium Level 138 mmol/L (136-145) Potassium Level 3.7 mmol/L (3.5-5.1) Chloride Level 101 mmol/L (98-107) Carbon Dioxide Level 26 mmol/L (21-32) Anion Gap 11 (6-14) Blood Urea Nitrogen 16 mg/dL (8-26) Creatinine 1.3 mg/dL (0.7-1.3) Estimated GFR (Cockcroft-Gault) 64.4 Glucose Level 105 mg/dL (70-99) Calcium Level 8.9 mg/dL (8.5-10.1) Vancomycin Level Trough 25.5 mcg/mL (10.0-20.0) Vancomycin Last Dose Date Vancomycin Last Dose Time 1999 Neutrophils (%) (Auto) 67 % (31-73) Lymphocytes (%) (Auto) 21 % (24-48) Monocytes (%) (Auto) 7 % (0-9) Eosinophils (%) (Auto) 5 % (0-3) Basophils (%) (Auto) 1 % (0-3) Neutrophils # (Auto) 9.0 x10^3uL (1.8-7.7) Lymphocytes # (Auto) 2.9 x10^3/uL (1.0-4.8) Monocytes # (Auto) 0.9 x10^3/uL (0.0-1.1) Eosinophils # (Auto) 0.6 x10^3/uL (0.0-0.7) Basophils # (Auto) 0.1 x10^3/uL (0.0-0.2) Laboratory Tests Test 05/31/18 03:30 05/31/18 06:00 Sodium Level 138 mmol/L (136-145) Potassium Level 3.7 mmol/L (3.5-5.1) Chloride Level 101 mmol/L (98-107) Carbon Dioxide Level 26 mmol/L (21-32) Anion Gap 11 (6-14) Blood Urea Nitrogen 16 mg/dL (8-26) Creatinine 1.3 mg/dL (0.7-1.3) Estimated GFR (Cockcroft-Gault) 64.4 Glucose Level 105 mg/dL (70-99) Calcium Level 8.9 mg/dL (8.5-10.1) Vancomycin Level Trough 25.5 mcg/mL (10.0-20.0) Vancomycin Last Dose Date Vancomycin Last Dose Time 1999 White Blood Count 13.5 x10^3/uL (4.0-11.0) Red Blood Count 5.19 x10^6/uL (4.30-5.70) Hemoglobin 14.0 g/dL (13.0-17.5) Hematocrit 42.1 % (39.0-53.0) Mean Corpuscular Volume 81 fL (79-100) Mean Corpuscular Hemoglobin 27 pg (25-35) Mean Corpuscular Hemoglobin Concent 33 g/dL (31-37) Red Cell Distribution Width 13.8 % (11.5-14.5) Platelet Count 522 x10^3/uL (140-400) Neutrophils (%) (Auto) 67 % (31-73) Lymphocytes (%) (Auto) 21 % (24-48) Monocytes (%) (Auto) 7 % (0-9) Eosinophils (%) (Auto) 5 % (0-3) Basophils (%) (Auto) 1 % (0-3) Neutrophils # (Auto) 9.0 x10^3uL (1.8-7.7) Lymphocytes # (Auto) 2.9 x10^3/uL (1.0-4.8) Monocytes # (Auto) 0.9 x10^3/uL (0.0-1.1) Eosinophils # (Auto) 0.6 x10^3/uL (0.0-0.7) Basophils # (Auto) 0.1 x10^3/uL (0.0-0.2) Microbiology 05/24/18 Blood Culture - Final, Complete 05/24/18 Blood Culture Result 1 (JAMARCUS) - Final, Complete 05/24/18 Antimicrobic Susceptibility - Final, Complete 05/24/18 Anaerobic/Aerobic Culture - Final, Complete 05/24/18 Anaerobic Culture Result 1 (JAMARCUS) - Final, Complete 05/24/18 Aerobic Culture - Final, Complete 05/24/18 Aerobic Culture Result 1 (JAMARCUS) - Final, Complete 05/24/18 Gram Stain - Final, Complete 05/24/18 Gram Stain Result 1 (JAMARCUS) - Final, Complete 05/24/18 Gram Stain Result 2 (JAMARCUS) - Final, Complete Medications Current Medications Clindamycin Phosphate 50 ml @ 100 mls/hr 1X ONCE IV Last administered on 05/24at 01:05; Start 05/24/18 at 00:00; Stop 05/24/18 at 00:29; Status DC Sodium Chloride 1,000 ml @ 1,000 mls/hr 1X ONCE IV Last administered on at 01:05; Start 05/24/18 at 00:00; Stop 05/24/18 at 00:59; Status DC Acetaminophen (Tylenol) 500 mg 1X ONCE PO Last administered on 05/24/18at 01:05 ; Start 05/24/18 at 00:15; Stop 05/24/18 at 00:16; Status DC Sodium Chloride 1,000 ml @ 1,000 mls/hr 1X ONCE IV Last administered on at 01:50; Start 05/24/18 at 00:15; Stop 05/24/18 at 01:14; Status DC Diphtheria/ Tetanus/Acell Pertussis (Boostrix) 0.5 ml ONCE ONCE VAX IM Last administered on 05/24/18at 01:05; Start 05/24/18 at 00:15; Stop 05/24/18 at 00:16 ; Status DC Mupirocin (Bactroban) 1 brii 1X ONCE TP Last administered on 05/24/18at 00:15; Start 05/24/18 at 00:15; Stop 05/24/18 at 00:16; Status DC Potassium Chloride (Klor-Con) 40 meq 1X ONCE PO Last administered on at 01:30; Start 05/24/18 at 01:30; Stop 05/24/18 at 01:31; Status DC Vancomycin HCl 1.75 gm/Sodium Chloride 500 ml @ 250 mls/hr 1X ONCE IV Last administered on 05/24/18at 01:50; Start 05/24/18 at 01:30; Stop 05/24/18 at 03:29 ; Status DC Ondansetron HCl (Zofran) 4 mg PRN Q8HRS PRN IV NAUSEA/VOMITING; Start 05/24/18 at 02:15; Stop 05/25/18 at 02:14; Status DC Fentanyl Citrate (Fentanyl 2ml Vial) 50 mcg PRN Q2HR PRN IV PAIN Last administered on 05/26/18at 11:15; Start 05/24/18 at 02:15 Ondansetron HCl (Zofran) 4 mg PRN Q6HRS PRN IV NAUSEA/VOMITING; Start 05/24/18 at 07:30; Stop 05/24/18 at 18:00; Status DC Fentanyl Citrate (Fentanyl 2ml Vial) 25 mcg PRN Q5MIN PRN IV MILD PAIN; Start 05/24/18 at 07:30; Stop 05/24/18 at 18:00; Status DC Fentanyl Citrate (Fentanyl 2ml Vial) 50 mcg PRN Q5MIN PRN IV MODERATE TO SEVERE PAIN; Start 05/24/18 at 07:30; Stop 05/24/18 at 18:00; Status DC Morphine Sulfate (Morphine Sulfate) 1 mg PRN Q10MIN PRN IV SEVERE PAIN; Start 05/24/18 at 07:30; Stop 05/25/18 at 07:29; Status DC Ringer's Solution 1,000 ml @ 30 mls/hr Q24H IV ; Start 05/24/18 at 07:29; Stop 05/24/18 at 19:28; Status DC Lidocaine HCl (Xylocaine-Mpf 1% 2ml Vial) 2 ml 1X PRN PRN ID IV START; Start at 07:30; Stop 05/24/18 at 18:00; Status DC Hydromorphone HCl (Dilaudid) 0.5 mg PRN Q10MIN PRN IV SEV PAIN, Second choice; Start 05/24/18 at 07:30; Stop 05/24/18 at 18:00; Status DC Prochlorperazine Edisylate (Compazine) 5 mg PACU PRN PRN IV NAUSEA, MRX1; Start 05/24/18 at 07:30; Stop 05/24/18 at 18:00; Status DC Piperacillin Sod/ Tazobactam Sod 4.5 gm/Sodium Chloride 100 ml @ 200 mls/hr Q6HRS IV Last administered on 05/31/18at 06:11; Start 05/24/18 at 08:00 Fluconazole/ Sodium Chloride 100 ml @ 100 mls/hr Q24H IV Last administered on 05/27/18at 09:46; Start 05/24/18 at 10:00; Stop 05/28/18 at 08:31; Status DC Vancomycin HCl (Vanco Per Pharmacy) 1 each PRN DAILY PRN MC SEE COMMENTS Last administered on 05/31/18at 05:23; Start 05/24/18 at 08:00 Propofol 20 ml @ As Directed STK-MED ONCE IV ; Start 05/24/18 at 11:47; Stop at 11:49; Status DC Lidocaine HCl (Lidocaine Pf 2% Vial) 5 ml STK-MED ONCE .ROUTE ; Start 05/24/18 at 11:47; Stop 05/24/18 at 11:49; Status DC Ketorolac Tromethamine (Toradol For Or Only) 30 mg STK-MED ONCE INJ ; Start at 11:47; Stop 05/24/18 at 11:49; Status DC Sevoflurane (Ultane) 30 ml STK-MED ONCE IH ; Start 05/24/18 at 11:47; Stop 05/24 at 11:49; Status DC Dexamethasone Sodium Phosphate (Decadron) 20 mg STK-MED ONCE .ROUTE ; Start at 12:37; Stop 05/24/18 at 12:39; Status DC Ondansetron HCl (Zofran) 4 mg STK-MED ONCE .ROUTE ; Start 05/24/18 at 12:37; Stop 05/24/18 at 12:39; Status DC Fentanyl Citrate (Fentanyl 2ml Vial) 100 mcg STK-MED ONCE .ROUTE ; Start at 12:37; Stop 05/24/18 at 12:39; Status DC Vancomycin HCl 1.5 gm/Sodium Chloride 500 ml @ 250 mls/hr Q12H IV Last administered on 05/25/18at 16:00; Start 05/24/18 at 15:00; Stop 05/25/18 at 18:00 ; Status DC Vancomycin HCl (Vancomycin Trough Level) 1 each 1X ONCE MC Last administered on 05/25/18at 14:30; Start 05/25/18 at 14:30; Stop 05/25/18 at 14:31; Status DC Lactobacillus Rhamnosus (Culturelle) 1 cap BID PO Last administered on at 08:36; Start 05/25/18 at 21:00 Vancomycin HCl 1.5 gm/Sodium Chloride 500 ml @ 250 mls/hr Q8H IV Last administered on 05/27/18at 15:36; Start 05/25/18 at 23:00; Stop 05/27/18 at 16:00 ; Status DC Potassium Chloride (Klor-Con) 40 meq 1X ONCE PO Last administered on at 06:11; Start 05/26/18 at 05:45; Stop 05/26/18 at 05:46; Status DC Potassium Chloride (Klor-Con) 40 meq 1X ONCE PO Last administered on at 15:59; Start 05/26/18 at 14:00; Stop 05/26/18 at 14:01; Status DC Potassium Chloride (Klor-Con) 20 meq [id number] PO Last administered on at 08:38; Start 05/27/18 at 08:00 Potassium Chloride (Klor-Con) 40 meq 1X ONCE PO Last administered on at 20:32; Start 05/26/18 at 20:00; Stop 05/26/18 at 20:01; Status DC Vancomycin HCl (Vancomycin Trough Level) 1 each 1X ONCE MC Last administered on 05/27/18at 14:46; Start 05/27/18 at 14:30; Stop 05/27/18 at 14:31; Status DC Erythromycin (Romycin) 0.25 inch 6XDAY OS Last administered on 05/27/18at 21:09 ; Start 05/27/18 at 15:00 Vancomycin HCl 1.25 gm/Sodium Chloride 250 ml @ 167 mls/hr Q8H IV Last administered on 05/29/18 11:40; Start 05/28/18 at 00:00; Stop 05/29/18 at 15:26; Status DC Fluconazole (Diflucan) 200 mg DAILY PO Last administered on 05/31/18 08:37; Start 05/28/18 at 09:00 Vancomycin HCl (Vancomycin Trough Level) 1 each 1X ONCE MC ; Start 05/30/18 at 07:30; Stop 05/30/18 at 07:30; Status DC Vancomycin HCl 1.25 gm/Sodium Chloride 250 ml @ 167 mls/hr Q8H IV Last administered on 05/30/18at 21:47; Start 05/29/18 at 20:00; Stop 05/31/18 at 04:25; Status DC Mupirocin (Bactroban) 1 brii BID TP Last administered on 05/31/18 08:38; Start 05/29/18 at 21:00 Vancomycin HCl (Vancomycin Trough Level) 1 each 1X ONCE MC Last administered on 05/31/18 03:30; Start 05/31/18 at 03:30; Stop 05/31/18 at 03:31; Status DC Vancomycin HCl (Vancomycin Random Level) 1 each 1X ONCE MC ; Start 05/31/18 at 10:00; Stop 05/31/18 at 10:01; Status DC Active Scripts Active Keflex (Cephalexin) 500 Mg Capsule 1 Cap PO TID [place] 5-325 Tablet (Acetaminophen/Hydrocodone Bitart) 1 Each Tablet 1 Tab PO PRN Q6HRS PRN Keflex (Cephalexin) 500 Mg Capsule 1 Cap PO TID Vitals/I & O Vital Sign - Last 24 Hours 05/30/18 05/30/18 05/30/18 05/30/18 11:00 15:00 19:00 19:50 Temp 97.7 97.9 98.1 97.7 97.9 98.1 Pulse 82 76 98 Resp 18 18 18 B/P (MAP) 120/72 (88) 131/83 (99) 104/68 (80) Pulse Ox 95 96 95 O2 Delivery Room Air Room Air Room Air Room Air 05/30/18 05/31/18 05/31/18 23:00 03:00 07:15 Temp 98.7 97.8 98.3 98.7 97.8 98.3 Pulse 92 81 88 Resp 18 18 16 B/P (MAP) 126/82 (97) 105/68 (80) 122/84 (97) Pulse Ox 98 100 98 O2 Delivery Room Air Room Air Room Air Intake and Output 05/30/18 05/30/18 05/31/18 15:01 23:01 07:01 Intake Total 360 ml 240 ml Output Total 700 ml Balance 360 ml 240 ml -700 ml JACQUES KEMP MD May 31, 2018 10:08
--- NOTE | 2018-05-31 10:15 | NUR ---
Wound Care Pt seen for wound care follow up and wound vac change. L foot vac dressing removed, wounds cleaned, measured and photographed, photographs of hands taken yesterday by RN, Dr. Dowling at bedside to assess foot. L foot wounds tunnel from dorsal aspect through and through to plantar surface, wound beds are free of slough, with beefy red granulation tissue, tendon exposed on dorsal surface. 2 pieces of black vac foam placed, one on dorsal, one in plantar, contact layer placed over tendon, foam tracked up to lower leg, vac showings strong seal at -125 mmHg continuous suction, pt tolerated well. Pt was approved for home brittney vac, for discharge, RN to call [facility] when d/cing.
[2018-05-31] MEDS ORDERED: cefTRIAXone IV Push 2 GM VIAL. IVP SCH (11:00)
[2018-05-31 11:05] VITALS: BP 132/86
--- NOTE | 2018-05-31 12:08 | PDOC3 ---
Discharge Summary Date of Admission: May 24, 2018 Date of Discharge: May 31, 2018 Follow-Up: 1-2 days Admitting Diagnosis comment: discharge dx Assessment/Plan impression 1. Widening of the second metatarsophalangeal joint and small lytic defects at the second metatarsal head and a portion of the base of the third proximal phalanx, could be observed with osteomyelitis 2. left hand demonstrates areas of acral osteolysis involving the second digit distal phalanx and thumb distal phalanx kwadwo with surrounding soft tissue swelling, indicative of osteomyelitis 3. hypokalemia 4. Bacteremia - strep species 05/31 bottles 05/24 pain is variable, fair control plan iv Cont rocephin 2 gm x 4 weeks daily here in out patient Cont Zosyn/fluconazole PO ID following ortho following wound vac approved for brittney use replace k Date of procedure: 05/24/2018 Surgeon: Antoine Garcias Preoperative diagnosis: Left foot infection with osteomyelitis Postoperative diagnosis: Same Procedure performed: #1 irrigation and debridement down to bone, excisional of left foot #2 bone biopsy of metatarsal head region #3 application of wound VAC to wound less than 25 cm� Anesthesia: Gen. Findings: Gross purulence and necrotic debris in wound Vitals Vitals Vital Signs Date Time Temp Pulse Resp B/P (MAP) Pulse Ox O2 Delivery O2 Flow Rate FiO2 05/31/18 07:15 98.3 88 16 122/84 (97) 98 Room Air 98.3 Physical Exam Physical Exam GENERAL: comfortable HEENT: Pupils were equal and reactive. Oral cavity, pharynx was moist. NECK: Without swelling. No JVD. LUNGS: Clear to auscultation. HEART: S1, S2. ABDOMEN: Obese, soft, no guarding or rebound. SKIN: Without generalized rash. EXTREMITIES: Left foot 1+ edema, Vac in place. Left hand and right hand have bilateral contractures with some chronic appearing wound on the palmar surface. He does have a little bit of tenia associated with hands and his feet. NEUROLOGIC: He was nonfocal, moved extremities, RUE- PICC (05/26) clean General: Alert, Oriented X3, Cooperative, No acute distress Heart: Regular rate, Normal S1, Normal S2, No murmurs Lungs: Clear Abdomen: Normal bowel sounds, Soft, No tenderness Extremities: No cyanosis Labs LABS Diagnosis: Segments of bone and soft tissue, left foot bone biopsy: - Focal acute cellulitis of soft tissue and focal acute osteomyelitis of attached bone. (JPM:ramone; 05/26/2018) Brief Hospital Course Mr. Lomeli is a 32 old [sex] who presented with [ ] Discharge Medications Current Medications Clindamycin Phosphate 50 ml @ 100 mls/hr 1X ONCE IV Last administered on 05/24at 01:05; Start 05/24/18 at 00:00; Stop 05/24/18 at 00:29; Status DC Sodium Chloride 1,000 ml @ 1,000 mls/hr 1X ONCE IV Last administered on at 01:05; Start 05/24/18 at 00:00; Stop 05/24/18 at 00:59; Status DC Acetaminophen (Tylenol) 500 mg 1X ONCE PO Last administered on 05/24/18at 01:05 ; Start 05/24/18 at 00:15; Stop 05/24/18 at 00:16; Status DC Sodium Chloride 1,000 ml @ 1,000 mls/hr 1X ONCE IV Last administered on at 01:50; Start 05/24/18 at 00:15; Stop 05/24/18 at 01:14; Status DC Diphtheria/ Tetanus/Acell Pertussis (Boostrix) 0.5 ml ONCE ONCE VAX IM Last administered on 05/24/18at 01:05; Start 05/24/18 at 00:15; Stop 05/24/18 at 00:16 ; Status DC Mupirocin (Bactroban) 1 brii 1X ONCE TP Last administered on 05/24/18at 00:15; Start 05/24/18 at 00:15; Stop 05/24/18 at 00:16; Status DC Potassium Chloride (Klor-Con) 40 meq 1X ONCE PO Last administered on at 01:30; Start 05/24/18 at 01:30; Stop 05/24/18 at 01:31; Status DC Vancomycin HCl 1.75 gm/Sodium Chloride 500 ml @ 250 mls/hr 1X ONCE IV Last administered on 05/24/18at 01:50; Start 05/24/18 at 01:30; Stop 05/24/18 at 03:29 ; Status DC Ondansetron HCl (Zofran) 4 mg PRN Q8HRS PRN IV NAUSEA/VOMITING; Start 05/24/18 at 02:15; Stop 05/25/18 at 02:14; Status DC Fentanyl Citrate (Fentanyl 2ml Vial) 50 mcg PRN Q2HR PRN IV PAIN Last administered on 05/26/18at 11:15; Start 05/24/18 at 02:15 Ondansetron HCl (Zofran) 4 mg PRN Q6HRS PRN IV NAUSEA/VOMITING; Start 05/24/18 at 07:30; Stop 05/24/18 at 18:00; Status DC Fentanyl Citrate (Fentanyl 2ml Vial) 25 mcg PRN Q5MIN PRN IV MILD PAIN; Start 05/24/18 at 07:30; Stop 05/24/18 at 18:00; Status DC Fentanyl Citrate (Fentanyl 2ml Vial) 50 mcg PRN Q5MIN PRN IV MODERATE TO SEVERE PAIN; Start 05/24/18 at 07:30; Stop 05/24/18 at 18:00; Status DC Morphine Sulfate (Morphine Sulfate) 1 mg PRN Q10MIN PRN IV SEVERE PAIN; Start 05/24/18 at 07:30; Stop 05/25/18 at 07:29; Status DC Ringer's Solution 1,000 ml @ 30 mls/hr Q24H IV ; Start 05/24/18 at 07:29; Stop 05/24/18 at 19:28; Status DC Lidocaine HCl (Xylocaine-Mpf 1% 2ml Vial) 2 ml 1X PRN PRN ID IV START; Start at 07:30; Stop 05/24/18 at 18:00; Status DC Hydromorphone HCl (Dilaudid) 0.5 mg PRN Q10MIN PRN IV SEV PAIN, Second choice; Start 05/24/18 at 07:30; Stop 05/24/18 at 18:00; Status DC Prochlorperazine Edisylate (Compazine) 5 mg PACU PRN PRN IV NAUSEA, MRX1; Start 05/24/18 at 07:30; Stop 05/24/18 at 18:00; Status DC Piperacillin Sod/ Tazobactam Sod 4.5 gm/Sodium Chloride 100 ml @ 200 mls/hr Q6HRS IV Last administered on 05/31/18at 06:11; Start 05/24/18 at 08:00; Stop 05/31/18 at 10:52; Status DC Fluconazole/ Sodium Chloride 100 ml @ 100 mls/hr Q24H IV Last administered on 05/27/18at 09:46; Start 05/24/18 at 10:00; Stop 05/28/18 at 08:31; Status DC Vancomycin HCl (Vanco Per Pharmacy) 1 each PRN DAILY PRN MC SEE COMMENTS Last administered on 05/31/18at 05:23; Start 05/24/18 at 08:00; Stop 05/31/18 at 10:52; Status DC Propofol 20 ml @ As Directed STK-MED ONCE IV ; Start 05/24/18 at 11:47; Stop at 11:49; Status DC Lidocaine HCl (Lidocaine Pf 2% Vial) 5 ml STK-MED ONCE .ROUTE ; Start 05/24/18 at 11:47; Stop 05/24/18 at 11:49; Status DC Ketorolac Tromethamine (Toradol For Or Only) 30 mg STK-MED ONCE INJ ; Start at 11:47; Stop 05/24/18 at 11:49; Status DC Sevoflurane (Ultane) 30 ml STK-MED ONCE IH ; Start 05/24/18 at 11:47; Stop 05/24 at 11:49; Status DC Dexamethasone Sodium Phosphate (Decadron) 20 mg STK-MED ONCE .ROUTE ; Start at 12:37; Stop 05/24/18 at 12:39; Status DC Ondansetron HCl (Zofran) 4 mg STK-MED ONCE .ROUTE ; Start 05/24/18 at 12:37; Stop 05/24/18 at 12:39; Status DC Fentanyl Citrate (Fentanyl 2ml Vial) 100 mcg STK-MED ONCE .ROUTE ; Start at 12:37; Stop 05/24/18 at 12:39; Status DC Vancomycin HCl 1.5 gm/Sodium Chloride 500 ml @ 250 mls/hr Q12H IV Last administered on 05/25/18at 16:00; Start 05/24/18 at 15:00; Stop 05/25/18 at 18:00 ; Status DC Vancomycin HCl (Vancomycin Trough Level) 1 each 1X ONCE MC Last administered on 05/25/18at 14:30; Start 05/25/18 at 14:30; Stop 05/25/18 at 14:31; Status DC Lactobacillus Rhamnosus (Culturelle) 1 cap BID PO Last administered on 08:36; Start 05/25/18 at 21:00 Vancomycin HCl 1.5 gm/Sodium Chloride 500 ml @ 250 mls/hr Q8H IV Last administered on 05/27/18at 15:36; Start 05/25/18 at 23:00; Stop 05/27/18 at 16:00 ; Status DC Potassium Chloride (Klor-Con) 40 meq 1X ONCE PO Last administered on at 06:11; Start 05/26/18 at 05:45; Stop 05/26/18 at 05:46; Status DC Potassium Chloride (Klor-Con) 40 meq 1X ONCE PO Last administered on at 15:59; Start 05/26/18 at 14:00; Stop 05/26/18 at 14:01; Status DC Potassium Chloride (Klor-Con) 20 meq [id number] PO Last administered on at 08:38; Start 05/27/18 at 08:00 Potassium Chloride (Klor-Con) 40 meq 1X ONCE PO Last administered on at 20:32; Start 05/26/18 at 20:00; Stop 05/26/18 at 20:01; Status DC Vancomycin HCl (Vancomycin Trough Level) 1 each 1X ONCE MC Last administered on 05/27/18at 14:46; Start 05/27/18 at 14:30; Stop 05/27/18 at 14:31; Status DC Erythromycin (Romycin) 0.25 inch 6XDAY OS Last administered on 05/27/18at 21:09 ; Start 05/27/18 at 15:00 Vancomycin HCl 1.25 gm/Sodium Chloride 250 ml @ 167 mls/hr Q8H IV Last administered on 05/29/18 11:40; Start 05/28/18 at 00:00; Stop 05/29/18 at 15:26; Status DC Fluconazole (Diflucan) 200 mg DAILY PO Last administered on 05/31/18 08:37; Start 05/28/18 at 09:00 Vancomycin HCl (Vancomycin Trough Level) 1 each 1X ONCE MC ; Start 05/30/18 at 07:30; Stop 05/30/18 at 07:30; Status DC Vancomycin HCl 1.25 gm/Sodium Chloride 250 ml @ 167 mls/hr Q8H IV Last administered on 05/30/18 21:47; Start 05/29/18 at 20:00; Stop 05/31/18 at 04:25; Status DC Mupirocin (Bactroban) 1 brii BID TP Last administered on 05/31/18 08:38; Start 05/29/18 at 21:00 Vancomycin HCl (Vancomycin Trough Level) 1 each 1X ONCE MC Last administered on 05/31/18 03:30; Start 05/31/18 at 03:30; Stop 05/31/18 at 10:52; Status DC Vancomycin HCl (Vancomycin Random Level) 1 each 1X ONCE MC Last administered on 05/31/18at 10:26; Start 05/31/18 at 10:00; Stop 05/31/18 at 10:52; Status DC Ceftriaxone Sodium (Rocephin) 2 gm Q24H IVP Last administered on 05/31/18at 12:02 ; Start 05/31/18 at 11:00 Active Scripts Active Keflex (Cephalexin) 500 Mg Capsule 1 Cap PO TID Milfay 5-325 Tablet (Acetaminophen/Hydrocodone Bitart) 1 Each Tablet 1 Tab PO PRN Q6HRS PRN Keflex (Cephalexin) 500 Mg Capsule 1 Cap PO TID Vital Signs Vital Signs Date Time Temp Pulse Resp B/P (MAP) Pulse Ox O2 Delivery O2 Flow Rate FiO2 05/31/18 11:05 97.2 93 16 132/86 (101) 99 Room Air 97.2 Labs Laboratory Tests Test 05/30/18 07:00 05/31/18 03:30 05/31/18 06:00 05/31/18 10:00 White Blood Count 12.6 x10^3/uL (4.0-11.0) 13.5 x10^3/uL (4.0-11.0) Red Blood Count 5.14 x10^6/uL (4.30-5.70) 5.19 x10^6/uL (4.30-5.70) Hemoglobin 13.9 g/dL (13.0-17.5) 14.0 g/dL (13.0-17.5) Hematocrit 42.0 % (39.0-53.0) 42.1 % (39.0-53.0) Mean Corpuscular Volume 82 fL (79-100) 81 fL (79-100) Mean Corpuscular Hemoglobin 27 pg (25-35) 27 pg (25-35) Mean Corpuscular Hemoglobin Concent 33 g/dL (31-37) 33 g/dL (31-37) Red Cell Distribution Width 13.5 % (11.5-14.5) 13.8 % (11.5-14.5) Platelet Count 488 x10^3/uL (140-400) 522 x10^3/uL (140-400) Sodium Level 138 mmol/L (136-145) Potassium Level 3.7 mmol/L (3.5-5.1) Chloride Level 101 mmol/L (98-107) Carbon Dioxide Level 26 mmol/L (21-32) Anion Gap 11 (6-14) Blood Urea Nitrogen 16 mg/dL (8-26) Creatinine 1.3 mg/dL (0.7-1.3) Estimated GFR (Cockcroft-Gault) 64.4 Glucose Level 105 mg/dL (70-99) Calcium Level 8.9 mg/dL (8.5-10.1) Vancomycin Level Trough 25.5 mcg/mL (10.0-20.0) Vancomycin Last Dose Date Vancomycin Last Dose Time 1999 Neutrophils (%) (Auto) 67 % (31-73) Lymphocytes (%) (Auto) 21 % (24-48) Monocytes (%) (Auto) 7 % (0-9) Eosinophils (%) (Auto) 5 % (0-3) Basophils (%) (Auto) 1 % (0-3) Neutrophils # (Auto) 9.0 x10^3uL (1.8-7.7) Lymphocytes # (Auto) 2.9 x10^3/uL (1.0-4.8) Monocytes # (Auto) 0.9 x10^3/uL (0.0-1.1) Eosinophils # (Auto) 0.6 x10^3/uL (0.0-0.7) Basophils # (Auto) 0.1 x10^3/uL (0.0-0.2) Random Vancomycin Level 13.4 mcg/mL Laboratory Tests Test 05/31/18 03:30 05/31/18 06:00 05/31/18 10:00 Sodium Level 138 mmol/L (136-145) Potassium Level 3.7 mmol/L (3.5-5.1) Chloride Level 101 mmol/L (98-107) Carbon Dioxide Level 26 mmol/L (21-32) Anion Gap 11 (6-14) Blood Urea Nitrogen 16 mg/dL (8-26) Creatinine 1.3 mg/dL (0.7-1.3) Estimated GFR (Cockcroft-Gault) 64.4 Glucose Level 105 mg/dL (70-99) Calcium Level 8.9 mg/dL (8.5-10.1) Vancomycin Level Trough 25.5 mcg/mL (10.0-20.0) Vancomycin Last Dose Date Vancomycin Last Dose Time 1999 White Blood Count 13.5 x10^3/uL (4.0-11.0) Red Blood Count 5.19 x10^6/uL (4.30-5.70) Hemoglobin 14.0 g/dL (13.0-17.5) Hematocrit 42.1 % (39.0-53.0) Mean Corpuscular Volume 81 fL (79-100) Mean Corpuscular Hemoglobin 27 pg (25-35) Mean Corpuscular Hemoglobin Concent 33 g/dL (31-37) Red Cell Distribution Width 13.8 % (11.5-14.5) Platelet Count 522 x10^3/uL (140-400) Neutrophils (%) (Auto) 67 % (31-73) Lymphocytes (%) (Auto) 21 % (24-48) Monocytes (%) (Auto) 7 % (0-9) Eosinophils (%) (Auto) 5 % (0-3) Basophils (%) (Auto) 1 % (0-3) Neutrophils # (Auto) 9.0 x10^3uL (1.8-7.7) Lymphocytes # (Auto) 2.9 x10^3/uL (1.0-4.8) Monocytes # (Auto) 0.9 x10^3/uL (0.0-1.1) Eosinophils # (Auto) 0.6 x10^3/uL (0.0-0.7) Basophils # (Auto) 0.1 x10^3/uL (0.0-0.2) Random Vancomycin Level 13.4 mcg/mL Allergies Allergies Coded Allergies Type Severity Reaction Last Updated Verified No Known Drug Allergies 06/07/16 No Disposition/Orders: D/C to Home Patient Instructions d/c planning 40 min JACQUES KEMP MD May 31, 2018 12:08
[2018-05-31] MEDS ORDERED: MUPI15CR8 TP (12:13)
[2018-05-31] MEDS ORDERED: CEFTRIAXONE SODIUM IVP (12:13)
[2018-05-31] MEDS ORDERED: LACT1CAP19 PO (12:13)
[2018-05-31] MEDS ORDERED: Fluconazole PO (12:13)
[2018-05-31] MEDS ORDERED: ERYT1OIN6 OS (12:13)
[2018-05-31] MEDS ORDERED: POTA20TA4 PO (12:13)
--- NOTE | 2018-05-31 12:14 | DISCH ---
DISCHARGE INSTRUCTIONS Condition on Discharge Condition on Discharge: Stable Activity After Discharge Activity Instructions for Disc: Activity as tolerated Bathing Instructions: No Tub Bath until see Lifting Instructions after Dis: No heavy lifting, No pulling or pushing Driving Instructions after Dis: Do not drive Weight Bearing Status after Di: As tolerated, Partial weight bearing Diet after Discharge Diet after Discharge: Regular Wound Incision Care Wound/Incision Care: Keep wound elevated, Reinforce dressing PRN Checks after Discharge Checks after discharge: Check blood press - daily Contacting the DRBrenda after DC Call your doctor for: If your condition worsens JACQUES KEMP MD May 31, 2018 12:14
--- NOTE | 2018-05-31 12:40 | NUR ---
SW following. Discussed with RN, pt has been approved for the [facility] wound vac, and will come to outpt for IV Rocephin 2gm daily and wound care. SW faxed IV script to outpt, outpt clinic has 1100 as a time for pt. RN notified. SW will continue to follow.
--- NOTE | 2018-05-31 16:15 | NUR ---
Pt discharged home with [facility] wound vac and outpatient IV infusion services daily. By w/c to hospital entrance, accompanied by spouse. patient services assistant confirmed daily IV ABT infusion by PICC line at 1100. Wound care confirmed dressing changes for wound vac on Tuesdays and . Discharge education and information regarding Dx provided to Pt and spouse; the latter verbalized understanding but Pt was not making eye contact or acknowledging understanding of any of the information provided. Home wound vac connected by hiv nurse, PICC line patent with good blood flow at time of discharge. No other changes from previous assessment.
--- NOTE | 2018-05-31 16:33 | NUR ---
Wound Care Received call that pt is discharging today, pt was approved for [facility] Vac. Proof of Delivery paperwork signed by patient and faxed to [facility], pt connected to home vac unit, troubleshooting and education provided. Pt sent with black return case, supplies left in [facility] for vac changes in Outpt Dept, pt and family v/u of f/u in Outpt Dept for IV abx and wound care.
== END 2018-05-31 16:15 | disposition home or self-care (01) | DRG 574 ==
LOC: ER 23:25 → 4 NORTH 05-24 02:23
PROVIDERS: ADMIT Internal Medicine; ATTEND Internal Medicine
PROC: 0QBP0ZX Excision of Left Metatarsal, Open Approach, Diagnostic (ICD-10-PCS; 2018-05-24)
PROC: 0YBN0ZZ Excision of Left Foot, Open Approach (ICD-10-PCS; principal; 2018-05-24 12:00)
PROC: 02HV33Z Insertion of Infusion Device into Superior Vena Cava, Percutaneous Approach (ICD-10-PCS; 2018-05-26)
PROC: B548ZZA Ultrasonography of Superior Vena Cava, Guidance (ICD-10-PCS; 2018-05-26)
DX: L03.116 Cellulitis of left lower limb (principal); M86.172 Other acute osteomyelitis, left ankle and foot; R78.81 Bacteremia; M89.542 Osteolysis, left hand; E87.6 Hypokalemia; G62.9 Polyneuropathy, unspecified; S91.342A Puncture wound with foreign body, left foot, initial encounter; W45.8XXA Other foreign body or object entering through skin, initial encounter; B95.5 Unspecified streptococcus as the cause of diseases classified elsewhere; X58.XXXA Exposure to other specified factors, initial encounter; Z79.899 Other long term (current) drug therapy; Y93.89 Activity, other specified; Y92.69 Other specified industrial and construction area as the place of occurrence of the external cause; Y99.8 Other external cause status
CPT/HCPCS: 36415; 36569; 71045; 71046; 73130; 73630; 80048; 80053; 80202; 81001; 83605; 83735; 84132; 85025; 85027; 85610; 85651; 85730; 86140; 87040; 87071; 87075; 87186; 87205; 87804; 88304; 88311; 90471; 90715; 96361; 96365; A7015; J0696; J1100; J1450; J1885; J2001; J2405; J2543; J2704; J3010; J3370; J3490; J7030; J7040; J7050; 99285-25; A4461; G0378

== ENCOUNTER 2018-09-12 20:29 | Inpatient (IN) | payer SELFPAY ==
[~2018-09-12] VITALS: Ht 170.2 cm; Wt 90.7 kg
[~2018-09-12 20:29] MED LIST changes: +CEFTRIAXONE SODIUM IVP; +ERYT1OIN6 OS; +Fluconazole PO; +LACT1CAP19 PO; +MUPI15CR8 TP; +POTA20TA4 PO
--- NOTE | 2018-09-12 21:49 | PHYS DOC ---
Past Medical History Past Medical History: Other Additional Past Medical Histor: CONTRACTURES BILAT HANDS, NEUROPATHY BILAT HANDS Past Surgical History: Other Additional Past Surgical Histo: LEIJA TO R AND L HAND Smoking: Chew Alcohol Use: None Drug Use: None Adult General Chief Complaint Chief Complaint: FOOT INJURY PAIN HPI HPI Patient is a 32 year old male who presents with left foot pain and swelling. Last fall the patient stepped on a nail with the left foot. It apparently became infected requiring surgical debridement in May of this year. Since that time he has been evaluated by wound care services. 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 Today, he was mowing his lawn when he noticed that his left foot had a throbbing pain to it. When he took off his sock he noted that it was more swollen that usual. Patient denies fever, chills, myalgias, fatigue. Review of Systems Review of Systems Constitutional: Denies fever or chills [] Eyes: Reports left eye redness. Denies change in visual acuity or eye pain [] HENT: Denies nasal congestion or sore throat [] Respiratory: Denies cough or shortness of breath [] Cardiovascular: Denies chest pain or palpitations[] GI: Denies abdominal pain, nausea, vomiting, or diarrhea [] Musculoskeletal: Reports left foot pain, swelling, bilateral hand contractures.[] Integument: Reports well-healed wounds on the dorsal and plantar aspect left foot[] Neurologic: Denies headache, focal weakness or sensory changes [] Complete review of systems found to be within normal limits, except as documented in this note. Current Medications Current Medications Current Medications Medications (Trade) Dose Ordered Sig/Manuela Start Time Stop Time Status Last Admin Dose Admin Ceftriaxone Sodium (Rocephin) 2 gm 1X ONCE 09/12/18 22:00 09/12/18 22:02 DC 09/12/18 22:10 2 GM Vancomycin HCl 2 gm/Sodium Chloride 500 ml @ 250 mls/hr 1X ONCE 09/12/18 22:00 09/12/18 23:59 09/12/18 22:10 250 MLS/HR Allergies Allergies Allergies Coded Allergies Type Severity Reaction Last Updated Verified No Known Drug Allergies 06/27/18 No Physical Exam Physical Exam Constitutional: Uncomfortable appearing male in no apparent distress. [] HENT: Normocephalic, atraumatic, oropharynx moist. [] Eyes: EOMI, left eye with conjunctival injection and telangiectasia.[] Neck: Normal range of motion, no tenderness, supple, no stridor. [] Cardiovascular:Heart rate regular rhythm, no murmur [] Lungs & Thorax: Bilateral breath sounds clear to auscultation [] Abdomen: Soft nontender. [] Extremities: Left foot and ankle obviously more swollen than the right, warm to touch, epithelialized dorsal wound over the head of the second metatarsal on the left side, examination of plantar aspect left foot reveals epithelialized wound with macerated borders. dorsalis pedis and posterior tibial pulses intact bilaterally. Left foot is tender to palpation in dorsal and plantar aspect, range of motion does not increase pain. [] Neurologic: Alert and oriented, normal motor function, normal sensory function, no focal deficits noted. [] Psychologic: Affect flat, judgement normal, mood normal. [] Current Patient Data Vital Signs Vital Signs Date Time Temp Pulse Resp B/P (MAP) Pulse Ox O2 Delivery O2 Flow Rate FiO2 09/12/18 22:27 88 18 113/66 (82) Room Air 09/12/18 21:00 99.9 98 99.9 Lab Values Laboratory Tests Test 09/12/18 21:15 White Blood Count 12.8 x10^3/uL (4.0-11.0) H Red Blood Count 4.96 x10^6/uL (4.30-5.70) Hemoglobin 12.8 g/dL (13.0-17.5) L Hematocrit 38.8 % (39.0-53.0) L Mean Corpuscular Volume 78 fL (79-100) L Mean Corpuscular Hemoglobin 26 pg (25-35) Mean Corpuscular Hemoglobin Concent 33 g/dL (31-37) Red Cell Distribution Width 14.1 % (11.5-14.5) Platelet Count 501 x10^3/uL (140-400) H Neutrophils (%) (Auto) 67 % (31-73) Lymphocytes (%) (Auto) 24 % (24-48) Monocytes (%) (Auto) 7 % (0-9) Eosinophils (%) (Auto) 2 % (0-3) Basophils (%) (Auto) 1 % (0-3) Neutrophils # (Auto) 8.5 x10^3uL (1.8-7.7) H Lymphocytes # (Auto) 3.0 x10^3/uL (1.0-4.8) Monocytes # (Auto) 0.9 x10^3/uL (0.0-1.1) Eosinophils # (Auto) 0.3 x10^3/uL (0.0-0.7) Basophils # (Auto) 0.1 x10^3/uL (0.0-0.2) Erythrocyte Sedimentation Rate 105 (0-15) H Sodium Level 135 mmol/L (136-145) L Potassium Level 2.8 mmol/L (3.5-5.1) *L Chloride Level 97 mmol/L (98-107) L Carbon Dioxide Level 26 mmol/L (21-32) Anion Gap 12 (6-14) Blood Urea Nitrogen 12 mg/dL (8-26) Creatinine 1.2 mg/dL (0.7-1.3) Estimated GFR (Cockcroft-Gault) 70.6 BUN/Creatinine Ratio 10 (6-20) Glucose Level 130 mg/dL (70-99) H Lactic Acid Level 1.6 mmol/L (0.4-2.0) Calcium Level 8.6 mg/dL (8.5-10.1) Total Bilirubin 0.5 mg/dL (0.2-1.0) Aspartate Amino Transferase (AST) 17 U/L (15-37) Alanine Aminotransferase (ALT) 21 U/L (16-63) Alkaline Phosphatase 90 U/L (46-116) C-Reactive Protein, Quantitative 112.8 mg/L (0-3.3) H Total Protein 9.0 g/dL (6.4-8.2) H Albumin 3.1 g/dL (3.4-5.0) L Albumin/Globulin Ratio 0.5 (1.0-1.7) L Laboratory Tests 09/12/18 21:15 Laboratory Tests 09/12/18 21:15 EKG EKG [] Radiology/Procedures Radiology/Procedures Foot Left 3V: Significant martin erosion at head of 2nd metatarsal with pathologic fracture. Erosion extends into 2nds MTP joint and proximal phalanx. Concern for osteomyelitis. Preliminary report provided by ED physician. [] Course & Med Decision Making Course & Med Decision Making Pertinent Labs and Imaging studies reviewed. (See chart for details) Patient is a 32-year-old male who presents for evaluation of left foot swelling and pain that he states acutely worsened within the last 24 hours. He stepped on a nail this past Fall and subsequently became infected requiring surgical debridement in May this past year. X-ray of the left foot shows evidence of significant bony erosion of the head of the second metatarsal extending to the proximal phalanx concerning for osteomyelitis. Patient temp of 99.9 with stable vital signs. White blood cell count of 12.8. Lactate of 1.6. ESR 105 with CRP 112.8. Potassium of 2.8. Patient was started on empiric antibiotics targeting osteomyelitis with Vancomycin and Rocephin. Blood cultures were drawn and are pending. Potassium replaced. Patient requiring admission for further evaluation and treatment. Discussed with Dr. Gonzalez who is in agreement with admission. Discussed findings and plan with patient, who acknowledge understanding and agreement. [] Dragon Disclaimer Dragon Disclaimer This electronic medical record was generated, in whole or in part, using a voice recognition dictation system. Departure Departure Impression: Primary Impression: Osteomyelitis of left foot Additional Impression: Hypokalemia Disposition: ADMITTED INPATIENT Admitting Physician: Other (Osmarfel) Condition: STABLE Referrals: NO PCP (PCP) Critical Care Time Critical care time was 30 minutes which includes time at bedside, spent in discussion of patient's care with specialists and/or family members, with in terpretation of laboratory and/or radiological studies and is exclusive of procedures. Problem Qualifiers Primary Impression: Osteomyelitis of left foot Osteomyelitis type: unspecified type Qualified Codes: M86.9 - Osteomyelitis, unspecified BROOKS PATE DO September 12, 2018 21:49
[2018-09-12] MEDS ORDERED: cefTRIAXone IV Push 1 GM VIAL. IVP ONE (22:00)
[2018-09-12] MEDS ORDERED: VANCOMYCIN 2 GM in IV NORMAL SALINE 500ML BAG 500 ML IV ONE (22:00)
[2018-09-12 22:07] LABS: BASO # 0.1 x10^3/uL (0.0-0.2); BASO % 1 % (0-3); EOS # 0.3 x10^3/uL (0.0-0.7); EOS % 2 % (0-3); HEMATOCRIT 38.8 % (39.0-53.0); HEMOGLOBIN 12.8 g/dL (13.0-17.5); LYMPH % 24 % (24-48); MEAN CORPUSCULAR HEMOGLOBIN 26 pg (25-35); MEAN CORPUSCULAR HGB CONC 33 g/dL (31-37); MEAN CORPUSCULAR VOLUME 78 fL (79-100); MONO # 0.9 x10^3/uL (0.0-1.1); MONO % 7 % (0-9); NEUT # 8.5 x10^3uL (1.8-7.7); NEUT % 67 % (31-73); PLATELET COUNT 501 x10^3/uL (140-400); RED BLOOD COUNT 4.96 x10^6/uL (4.30-5.70); RED CELL DISTRIBUTION WIDTH 14.1 % (11.5-14.5); WHITE BLOOD COUNT 12.8 x10^3/uL (4.0-11.0)
[2018-09-12 22:23] LABS: ALBUMIN 3.1 g/dL (3.4-5.0); ALBUMIN/GLOBULIN RATIO 0.5 (1.0-1.7); C-REACTIVE PROTEIN 112.8 mg/L (0-3.3); CALCIUM 8.6 mg/dL (8.5-10.1); CREATININE 1.2 mg/dL (0.7-1.3); GFR 70.6; TOTAL BILIRUBIN 0.5 mg/dL (0.2-1.0)
[2018-09-12 22:29] LABS: POTASSIUM 2.8 mmol/L (3.5-5.1)
[2018-09-12] MEDS ORDERED: POTASSIUM CHLORIDE 20 MEQ TABLET.ER. PO ONE (22:45)
[2018-09-12 23:35] VITALS: BP 104/61
--- NOTE | 2018-09-12 23:40 | NUR ---
Pt.just arrived from ED via w/c w/ L-foot cellulitis. He is A/O x4 and will make needs known. Family @ BS.
--- NOTE | 2018-09-13 02:06 | RAD ---
Left foot 3 views. HISTORY: Pain and swelling 3 views were taken the left foot. There is a bony destructive process involving the head of the second metatarsal and proximal aspect of the proximal phalanx of the second toe. The pattern suggests a septic arthritis or osteomyelitis. There is soft tissue swelling. There is no other fracture or bony destructive process. There is soft tissue swelling of the foot and ankle. IMPRESSION: 1. Bony destruction of the proximal phalanx of the left second toe and head of the second metatarsal consistent with an osteomyelitis and joint infection. 2. Soft tissue swelling. Electronically signed by: Joe Ellis MD (09/13/2018 2:03 AM) [id number]
[2018-09-13 03:00] VITALS: BP 91/51
[2018-09-13 07:00] VITALS: BP 110/73
--- NOTE | 2018-09-13 07:28 | NUR ---
Just notified 's answering service about consult.
[2018-09-13 11:00] VITALS: BP 108/75
--- NOTE | 2018-09-13 11:03 | PDOC1 ---
History and Physical Date of Admission Date of Admission DATE: 09/13/18 TIME: 10:53 Identification/Chief Complaint Chief Complaint foot pain Problems: (1) Osteomyelitis of left foot Source Source: Chart review, Patient History of Present Illness History of Present Illness 32 year old male no diagnosed medical problems who reports 1 day of foot swelling and pain in left foot. hx of stepping on a nail with the left foot which became infected requiring surgical debridement in apr 2018, discharged and followed by wound care services. 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 today when he was mowing the lawn he noticed more pain. denies any fevers, fatigue. hospitalist called for admission given concern for OM. VSS on admission. Past Medical History Cardiovascular: No pertinent hx Past Surgical History Past Surgical History left foot infection following nail perforation s/p debridement in fall 2017 Family History Family History denies Family History: Other Social History Smoke: No ALCOHOL: occassional Drugs: None Current Problem List Problem List Problems Medical Problems: (1) Hypokalemia Status: Acute (2) Osteomyelitis of left foot Status: Acute Current Medications Current Medications Current Medications Vancomycin HCl 2 gm/Sodium Chloride 500 ml @ 250 mls/hr 1X ONCE IV Last adm inistered on 09/12/18at 22:10; Start 09/12/18 at 22:00; Stop 09/12/18 at 23:59; Status DC Ceftriaxone Sodium (Rocephin) 2 gm 1X ONCE IVP Last administered on 09/12/18at 22:10; Start 09/12/18 at 22:00; Stop 09/12/18 at 22:02; Status DC Potassium Chloride (Klor-Con) 40 meq 1X ONCE PO Last administered on 09/12/18at 22:50; Start 09/12/18 at 22:45; Stop 09/12/18 at 22:46; Status DC Active Scripts Active Mupirocin Cream (Mupirocin) 15 Gm Cream..g. 1 [place] TP BID 14 Days Erythromycin (Erythromycin Base) 1 Gm Oint...g. 0.25 Inch OS 6XDAY 10 Days Culturelle (Lactobacillus Rhamnosus Gg) 1 Each Cap.sprink 1 Cap PO BID 30 Days Klor-Con M20 (Potassium Chloride) 20 Meq Tab.er.prt 20 Meq PO DAILYWBKFT 14 Days [Fluconazole] 100 MG Tablet 200 Mg PO DAILY 28 Days [Ceftriaxone Sodium] 2 GM Vial 2 Gm IVP Q24H 30 Days [place] 5-325 Tablet (Acetaminophen/Hydrocodone Bitart) 1 Each Tablet 1 Tab PO PRN Q6HRS PRN Allergies Allergies: Coded Allergies: No Known Drug Allergies (Unverified , 06/27/18) ROS Review of System CONSTITUTIONAL: No fever or chills EYES: No recent changes SKIN: No rash or itching CARDIOVASCULAR: No chest pain, syncope, palpitations, or edema RESPIRATORY: No SOB or cough GASTROINTESTINAL: No nausea, vomiting or abdominal pain NEUROLOGICAL: No headaches or weakness ENDOCRINE: No cold or heat intolerance GENITOURINARY: No urgency or frequency of urination MUSCULOSKELETAL: No back pain or joint pain LYMPHATICS: No enlarged lymph nodes PSYCHIATRIC: No anxiety or depression Physical Exam Physical Exam GENERAL: No apparent distress. Alert and oriented. HEENT: Head normocephalic, atraumatic. NECK: Supple LUNGS: Clear to auscultation. HEART: RRR, S1, S2 present, pulses intact ABDOMEN: Soft, positive bowel sounds. EXTREMITIES: left plantar surface with puncture wound. no obvious drainage. left foot swollen. NEUROLOGIC: Normal speech, normal tone PSYCHIATRIC: Normal affect, normal mood. SKIN: No ulceration. Vitals Vitals Vital Signs Date Time Temp Pulse Resp B/P (MAP) Pulse Ox O2 Delivery O2 Flow Rate FiO2 09/13/18 07:00 98.5 82 19 110/73 (85) 99 Room Air 98.5 Labs Labs Laboratory Tests Test 09/12/18 21:15 White Blood Count 12.8 x10^3/uL (4.0-11.0) Red Blood Count 4.96 x10^6/uL (4.30-5.70) Hemoglobin 12.8 g/dL (13.0-17.5) Hematocrit 38.8 % (39.0-53.0) Mean Corpuscular Volume 78 fL (79-100) Mean Corpuscular Hemoglobin 26 pg (25-35) Mean Corpuscular Hemoglobin Concent 33 g/dL (31-37) Red Cell Distribution Width 14.1 % (11.5-14.5) Platelet Count 501 x10^3/uL (140-400) Neutrophils (%) (Auto) 67 % (31-73) Lymphocytes (%) (Auto) 24 % (24-48) Monocytes (%) (Auto) 7 % (0-9) Eosinophils (%) (Auto) 2 % (0-3) Basophils (%) (Auto) 1 % (0-3) Neutrophils # (Auto) 8.5 x10^3uL (1.8-7.7) Lymphocytes # (Auto) 3.0 x10^3/uL (1.0-4.8) Monocytes # (Auto) 0.9 x10^3/uL (0.0-1.1) Eosinophils # (Auto) 0.3 x10^3/uL (0.0-0.7) Basophils # (Auto) 0.1 x10^3/uL (0.0-0.2) Erythrocyte Sedimentation Rate 105 (0-15) Sodium Level 135 mmol/L (136-145) Potassium Level 2.8 mmol/L (3.5-5.1) Chloride Level 97 mmol/L (98-107) Carbon Dioxide Level 26 mmol/L (21-32) Anion Gap 12 (6-14) Blood Urea Nitrogen 12 mg/dL (8-26) Creatinine 1.2 mg/dL (0.7-1.3) Estimated GFR (Cockcroft-Gault) 70.6 BUN/Creatinine Ratio 10 (6-20) Glucose Level 130 mg/dL (70-99) Lactic Acid Level 1.6 mmol/L (0.4-2.0) Calcium Level 8.6 mg/dL (8.5-10.1) Total Bilirubin 0.5 mg/dL (0.2-1.0) Aspartate Amino Transf (AST/SGOT) 17 U/L (15-37) Alanine Aminotransferase (ALT/SGPT) 21 U/L (16-63) Alkaline Phosphatase 90 U/L (46-116) C-Reactive Protein, Quantitative 112.8 mg/L (0-3.3) Total Protein 9.0 g/dL (6.4-8.2) Albumin 3.1 g/dL (3.4-5.0) Albumin/Globulin Ratio 0.5 (1.0-1.7) Laboratory Tests Test 09/12/18 21:15 White Blood Count 12.8 x10^3/uL (4.0-11.0) Red Blood Count 4.96 x10^6/uL (4.30-5.70) Hemoglobin 12.8 g/dL (13.0-17.5) Hematocrit 38.8 % (39.0-53.0) Mean Corpuscular Volume 78 fL (79-100) Mean Corpuscular Hemoglobin 26 pg (25-35) Mean Corpuscular Hemoglobin Concent 33 g/dL (31-37) Red Cell Distribution Width 14.1 % (11.5-14.5) Platelet Count 501 x10^3/uL (140-400) Neutrophils (%) (Auto) 67 % (31-73) Lymphocytes (%) (Auto) 24 % (24-48) Monocytes (%) (Auto) 7 % (0-9) Eosinophils (%) (Auto) 2 % (0-3) Basophils (%) (Auto) 1 % (0-3) Neutrophils # (Auto) 8.5 x10^3uL (1.8-7.7) Lymphocytes # (Auto) 3.0 x10^3/uL (1.0-4.8) Monocytes # (Auto) 0.9 x10^3/uL (0.0-1.1) Eosinophils # (Auto) 0.3 x10^3/uL (0.0-0.7) Basophils # (Auto) 0.1 x10^3/uL (0.0-0.2) Erythrocyte Sedimentation Rate 105 (0-15) Sodium Level 135 mmol/L (136-145) Potassium Level 2.8 mmol/L (3.5-5.1) Chloride Level 97 mmol/L (98-107) Carbon Dioxide Level 26 mmol/L (21-32) Anion Gap 12 (6-14) Blood Urea Nitrogen 12 mg/dL (8-26) Creatinine 1.2 mg/dL (0.7-1.3) Estimated GFR (Cockcroft-Gault) 70.6 BUN/Creatinine Ratio 10 (6-20) Glucose Level 130 mg/dL (70-99) Lactic Acid Level 1.6 mmol/L (0.4-2.0) Calcium Level 8.6 mg/dL (8.5-10.1) Total Bilirubin 0.5 mg/dL (0.2-1.0) Aspartate Amino Transf (AST/SGOT) 17 U/L (15-37) Alanine Aminotransferase (ALT/SGPT) 21 U/L (16-63) Alkaline Phosphatase 90 U/L (46-116) C-Reactive Protein, Quantitative 112.8 mg/L (0-3.3) Total Protein 9.0 g/dL (6.4-8.2) Albumin 3.1 g/dL (3.4-5.0) Albumin/Globulin Ratio 0.5 (1.0-1.7) VTE Prophylaxis Ordered VTE Prophylaxis Devices: No VTE Pharmacological Prophylaxi: Yes Assessment/Plan Assessment/Plan 32-year-old male Left foot pain and swelling s/p plantar nail puncture s/p debridement in Apr 2018 - admit to medical floor - X-ray of the left foot shows evidence of significant bony erosion of the head of the second metatarsal extending to the proximal phalanx concerning for osteomyelitis. - no fever, WBC of 12.8. Lactate of 1.6. ESR 105 with CRP 112.8. - continue Vancomycin and Rocephin. Blood cultures were drawn Hypokalemia - replaced dvt ppx: amb for now. hold heparin in case of sx full code dispo pending ortho eval Problem Qualifiers (1) Osteomyelitis of left foot: Osteomyelitis type: unspecified type Qualified Codes: M86.9 - Osteomyelitis, unspecified KUNAL DE PAZ MD September 13, 2018 11:03
[2018-09-13] MEDS ORDERED: cefTRIAXone IV Push 1 GM VIAL. IVP SCH (11:15)
[2018-09-13] MEDS ORDERED: VANCOMYCIN PER PHARMACY MC PRN (11:15)
[2018-09-13] MEDS ORDERED: VANCOMYCIN 1.5 GM in IV NORMAL SALINE 500ML BAG 500 ML IV SCH (12:00)
--- NOTE | 2018-09-13 12:45 | NUR ---
PATIENT INFORMED THIS REQUIREMENTS ANALYST THAT HE WOULD HAVE TO BE DISCHARGED TODAY TO BE ABLE TO MAKE IT TO HIS DAUGHTERS' GRADUATION, THIS REQUIREMENTS ANALYST INFORMED THE PATIENT THAT HE SHOULD BE SEEN BY DR. ANTOINE BEFORE CONSIDERING LEAVING THE HOSPITAL AND THAT I WOULD INFORM DR. ANTOINE AND DR. DE PAZ.
--- NOTE | 2018-09-13 13:14 | NUR ---
Pharmacy Vancomycin Dosing Note S:Consulted to monitor and dose vancomycin started 09/12/18. O:JOHN CURRY is a 32 year old M with Osteomyelitis . Height: 5 feet, 7 inches Weight: 90.157793 kg [place] Body Weight: 66.10 Adjusted Body Weight: 76.06 Dosing Weight: Actual Other Antibiotics: ROCEPHIN 2GM DAILY LABS: Last BUN: 12 Last Creatinine: 1.2 Creatinine Clearance: 95 mL/min Last WBC: 12.8 Last Procalcitonin: Tmax (past 24 hours): 98.8 Microbiology: I/O: Drug Levels: Last level: on at Last dose given 09/13/18 at 1145 Vancomycin Dosing: Loading Dose: 2000 mg x1 Dosing Weight: Actual Target Trough: 15-20 A: Based on: Body weight and renal function P: 1. After 2gm loading dose, start Vancomycin 1500 mg IV q12h 2. Follow up Trough level on 09/14/18 at 1130 3. Pharmacy will continue to monitor, follow and adjust therapy as needed. SHAD ROBB [facility], 09/13/18 [id number]
--- NOTE | 2018-09-13 13:30 | NUR ---
DR. DE PAZ INFORMED THIS DATA ENTRY TECHNICIAN THAT HE WOULD NOT GIVE AN ORDER FOR DISCHARGE BUT HE COULD LEAVE AMA AND SIGN THE PAPERWORK, THIS DATA ENTRY TECHNICIAN HAS NOT RECEIVED A CALL BACK FROM DR. ANTOINE AT THIS TIME.
--- NOTE | 2018-09-13 14:50 | NUR ---
PATIENTS' FAMILY HERE AT THE BEDSIDE AND PATIENT IS READY TO BE DISCHARGE, THIS RETAIL ACCOUNT EXECUTIVE HAS NOT RECEIVED A CALL BACK FROM DR. ANTOINE, PATIENT HAS BEEN SEEN BY WOUND CARE AND DRESSINGS APPLIED TO WOUND ONLEFT FOOT AND LEFT MIDDLE FINGER. SALINE LOCK REMOVED FROM LEFT AC AND AMA PAPERWORK SIGNED, PATIENT ENCOURAGED TO FOLLOW UP DR. ANTOINE OUTPATIENT.
[2018-09-13 15:00] VITALS: BP 132/95
--- NOTE | 2018-09-13 15:00 | NUR ---
Wound Care Wound care consult for left plantar foot wound and left 3rd finger wound. Pt is well know to WC team from previous admission and outpatient treatment with wound vac to left foot. Foot wound was healed but is now open, swollen, reddened and draining with depth of 3cm. Packed with iodoform gauze and covered with abd and Kerlix for padding, recommend to change every day. L 3rd finger is macerated, dressed with Iodoflex and bandaid, recommend to change every 3 days. Pt denies any other wounds at this time. WC will continue to follow for possible changes.
--- NOTE | 2018-09-13 15:17 | NUR ---
PATIENT LEAVES THE UNIT PER W/C, ALL PERSONAL BELONGINGS SENT AT TIME OF DISCHARGE, EMOTIONAL SUPPORT GIVEN.
--- NOTE | 2018-09-13 16:11 | PDOC3 ---
Discharge Summary Visit Information Date of Admission: September 13, 2018 Date of Discharge: September 13, 2018 Final Diagnosis Problems Medical Problems: (1) Hypokalemia Status: Acute (2) Osteomyelitis of left foot Status: Acute Brief Hospital Course Allergies Allergies Coded Allergies Type Severity Reaction Last Updated Verified No Known Drug Allergies 06/27/18 No Vital Signs Vital Signs Date Time Temp Pulse Resp B/P (MAP) Pulse Ox O2 Delivery O2 Flow Rate FiO2 09/13/18 15:00 98.3 83 18 132/95 (107) 96 Room Air 98.3 Lab Results Laboratory Tests Test 09/12/18 21:15 White Blood Count 12.8 x10^3/uL (4.0-11.0) Red Blood Count 4.96 x10^6/uL (4.30-5.70) Hemoglobin 12.8 g/dL (13.0-17.5) Hematocrit 38.8 % (39.0-53.0) Mean Corpuscular Volume 78 fL (79-100) Mean Corpuscular Hemoglobin 26 pg (25-35) Mean Corpuscular Hemoglobin Concent 33 g/dL (31-37) Red Cell Distribution Width 14.1 % (11.5-14.5) Platelet Count 501 x10^3/uL (140-400) Neutrophils (%) (Auto) 67 % (31-73) Lymphocytes (%) (Auto) 24 % (24-48) Monocytes (%) (Auto) 7 % (0-9) Eosinophils (%) (Auto) 2 % (0-3) Basophils (%) (Auto) 1 % (0-3) Neutrophils # (Auto) 8.5 x10^3uL (1.8-7.7) Lymphocytes # (Auto) 3.0 x10^3/uL (1.0-4.8) Monocytes # (Auto) 0.9 x10^3/uL (0.0-1.1) Eosinophils # (Auto) 0.3 x10^3/uL (0.0-0.7) Basophils # (Auto) 0.1 x10^3/uL (0.0-0.2) Erythrocyte Sedimentation Rate 105 (0-15) Sodium Level 135 mmol/L (136-145) Potassium Level 2.8 mmol/L (3.5-5.1) Chloride Level 97 mmol/L (98-107) Carbon Dioxide Level 26 mmol/L (21-32) Anion Gap 12 (6-14) Blood Urea Nitrogen 12 mg/dL (8-26) Creatinine 1.2 mg/dL (0.7-1.3) Estimated GFR (Cockcroft-Gault) 70.6 BUN/Creatinine Ratio 10 (6-20) Glucose Level 130 mg/dL (70-99) Lactic Acid Level 1.6 mmol/L (0.4-2.0) Calcium Level 8.6 mg/dL (8.5-10.1) Total Bilirubin 0.5 mg/dL (0.2-1.0) Aspartate Amino Transf (AST/SGOT) 17 U/L (15-37) Alanine Aminotransferase (ALT/SGPT) 21 U/L (16-63) Alkaline Phosphatase 90 U/L (46-116) C-Reactive Protein, Quantitative 112.8 mg/L (0-3.3) Total Protein 9.0 g/dL (6.4-8.2) Albumin 3.1 g/dL (3.4-5.0) Albumin/Globulin Ratio 0.5 (1.0-1.7) Laboratory Tests Test 09/12/18 21:15 White Blood Count 12.8 x10^3/uL (4.0-11.0) Red Blood Count 4.96 x10^6/uL (4.30-5.70) Hemoglobin 12.8 g/dL (13.0-17.5) Hematocrit 38.8 % (39.0-53.0) Mean Corpuscular Volume 78 fL (79-100) Mean Corpuscular Hemoglobin 26 pg (25-35) Mean Corpuscular Hemoglobin Concent 33 g/dL (31-37) Red Cell Distribution Width 14.1 % (11.5-14.5) Platelet Count 501 x10^3/uL (140-400) Neutrophils (%) (Auto) 67 % (31-73) Lymphocytes (%) (Auto) 24 % (24-48) Monocytes (%) (Auto) 7 % (0-9) Eosinophils (%) (Auto) 2 % (0-3) Basophils (%) (Auto) 1 % (0-3) Neutrophils # (Auto) 8.5 x10^3uL (1.8-7.7) Lymphocytes # (Auto) 3.0 x10^3/uL (1.0-4.8) Monocytes # (Auto) 0.9 x10^3/uL (0.0-1.1) Eosinophils # (Auto) 0.3 x10^3/uL (0.0-0.7) Basophils # (Auto) 0.1 x10^3/uL (0.0-0.2) Erythrocyte Sedimentation Rate 105 (0-15) Sodium Level 135 mmol/L (136-145) Potassium Level 2.8 mmol/L (3.5-5.1) Chloride Level 97 mmol/L (98-107) Carbon Dioxide Level 26 mmol/L (21-32) Anion Gap 12 (6-14) Blood Urea Nitrogen 12 mg/dL (8-26) Creatinine 1.2 mg/dL (0.7-1.3) Estimated GFR (Cockcroft-Gault) 70.6 BUN/Creatinine Ratio 10 (6-20) Glucose Level 130 mg/dL (70-99) Lactic Acid Level 1.6 mmol/L (0.4-2.0) Calcium Level 8.6 mg/dL (8.5-10.1) Total Bilirubin 0.5 mg/dL (0.2-1.0) Aspartate Amino Transf (AST/SGOT) 17 U/L (15-37) Alanine Aminotransferase (ALT/SGPT) 21 U/L (16-63) Alkaline Phosphatase 90 U/L (46-116) C-Reactive Protein, Quantitative 112.8 mg/L (0-3.3) Total Protein 9.0 g/dL (6.4-8.2) Albumin 3.1 g/dL (3.4-5.0) Albumin/Globulin Ratio 0.5 (1.0-1.7) Brief Hospital Course 32 year old male no diagnosed medical problems who reports 1 day of foot swe lling and pain in left foot. hx of stepping on a nail with the left foot which became infected requiring surgical debridement in apr 2018, discharged and followed by wound care services. 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 today when he was mowing the lawn he noticed more pain. denies any fevers, fatigue. hospitalist called for admission given concern for OM. VSS on admission. X-ray of the left foot shows evidence of significant bony erosion of the head of the second metatarsal extending to the proximal phalanx concerning for osteomyelitis. no fever, WBC of 12.8. Lactate of 1.6. ESR 105 with CRP 112.8. patient was continued Vancomycin and Rocephin. Blood cultures were drawn. ortho was consulted and patient did not want to stay for ortho evaluation and left AMA Discharge Information Condition at Discharge: Improved Disposition/Orders: Other (patient left AMA) Scheduled Erythromycin Base (Erythromycin) 1 Gm Oint...g., 0.25 INCH OS 6XDAY for eye infection for 10 Days, #10 Prescribed by: JACQUES KEMP MD on 05/31/18 1213 Lactobacillus Rhamnosus Gg (Culturelle) 1 Each Cap.sprink, 1 CAP PO BID for gut health for 30 Days, #60 Prescribed by: JACQUES KEMP MD on 05/31/18 1213 Mupirocin Calcium (Mupirocin Cream) 15 Gm Cream..g., 1 NOE TP BID for skin infection for 14 Days, #28 Prescribed by: JACQUES KEMP MD on 05/31/18 1213 Potassium Chloride (Klor-Con M20) 20 Meq Tab.er.prt, 20 MEQ PO DAILYWBKFT for supplement for 14 Days, #14 Prescribed by: JACQUES KEMP MD on 05/31/18 1213 [Ceftriaxone Sodium] 2 GM VIAL, 2 GM IVP Q24H for infection for 30 Days, #30 Prescribed by: JACQUES KEMP MD on 05/31/18 1213 [Fluconazole] 100 MG TABLET, 200 MG PO DAILY for infection for 28 Days, #56 Prescribed by: JACQUES KEMP MD on 05/31/18 1213 Scheduled PRN Hydrocodone/Apap 5-325 (Waldorf 5-325 Tablet) 1 Each Tablet, 1 TAB PO PRN Q6HRS PRN for PAIN, #15 Ref 0 Prescribed by: LISA PHOENIX on 06/07/16 185 KUNAL DE PAZ MD September 13, 2018 16:11
[2018-09-13] MEDS ORDERED: cefTRIAXone IV Push 2 GM VIAL. IVP SCH (22:00)
== END 2018-09-13 15:17 | disposition home or self-care (01) | DRG 541 ==
LOC: ER 20:29 → 5 NORTH 22:27
PROVIDERS: ADMIT Internal Medicine; ATTEND Internal Medicine
DX: M86.172 Other acute osteomyelitis, left ankle and foot (principal); E87.6 Hypokalemia
CPT/HCPCS: 36415; 73630; 80053; 83605; 85025; 85651; 86140; 87040; 96365; 96375; J0696; J3370; J7040; 99285-25

== ENCOUNTER 2019-06-23 20:30 | Emergency (ER) | payer SELFPAY ==
[~2019-06-23] VITALS: Ht 170.2 cm; Wt 94.0 kg
--- NOTE | 2019-06-23 22:04 | PHYS DOC ---
Past Medical History Past Medical History: Other Additional Past Medical Histor: CONTRACTURES BILAT HANDS, NEUROPATHY BILAT HANDS Past Surgical History: Other Additional Past Surgical Histo: LEIJA TO R AND L HAND Smoking Status: Never Smoker Alcohol Use: None Drug Use: None Adult General Chief Complaint Chief Complaint: LOWER EXTREMITY SWELLING [facility] 33-year-old male presents to emergency Department complaints of left lower extremity swelling. Patient denies any injury. He describes fever, cough, shortness of breath. Has abrasions to both of his knees however states this is from work without injury. As any chest pain, nausea, vomiting, abdominal pain. Patient states lower summary swelling has been ongoing 1 week. He states painful to stand on. He has history of osteomyelitis appreciated left foot. Review of Systems Review of Systems Constitutional: fever Respiratory: sob Cardiovascular: No additional information not addressed in HPI [] GI: Denies abdominal pain, nausea, vomiting, bloody stools or diarrhea [] : Denies dysuria or hematuria [] Musculoskeletal: left leg swelling/pain Integument: Denies rash or skin lesions [] Neurologic: Denies headache, focal weakness or sensory changes [] All other systems were reviewed and found to be within normal limits, except as documented in this note. Current Medications Current Medications Current Medications Medications (Trade) Dose Ordered Sig/Manuela Start Time Stop Time Status Last Admin Dose Admin Potassium Chloride (Klor-Con) 40 meq 1X ONCE 06/23/19 23:45 06/23/19 23:46 DC 06/23/19 23:35 40 MEQ Allergies Allergies Allergies Coded Allergies Type Severity Reaction Last Updated Verified No Known Drug Allergies 06/27/18 No Physical Exam Physical Exam Constitutional: Well developed, well nourished, no acute distress, non-toxic appearance. [] HENT: Normocephalic, atraumatic, bilateral external ears normal, oropharynx moist, no oral exudates, nose normal. [] Cardiovascular:Heart rate regular rhythm, no murmur [] Lungs & Thorax: Bilateral breath sounds clear to auscultation [] Abdomen: Bowel sounds normal, soft, no tenderness, no masses, no pulsatile masses. [] Skin: Warm, dry, no erythema Extremities: tenderness to left lower ext, trace edema, increased circumference as compared to right leg [] Neurologic: Alert and oriented X 3, no focal deficits noted. [] Psychologic: Affect normal, judgement normal, mood normal. [] Current Patient Data Vital Signs Vital Signs Date Time Temp Pulse Resp B/P (MAP) Pulse Ox O2 Delivery O2 Flow Rate FiO2 06/23/19 21:54 98.4 81 16 134/94 (107) 98 Room Air 98.4 Lab Values Laboratory Tests Test 06/23/19 22:57 White Blood Count 9.8 x10^3/uL (4.0-11.0) Red Blood Count 5.33 x10^6/uL (4.30-5.70) Hemoglobin 14.7 g/dL (13.0-17.5) Hematocrit 42.8 % (39.0-53.0) Mean Corpuscular Volume 80 fL (79-100) Mean Corpuscular Hemoglobin 28 pg (25-35) Mean Corpuscular Hemoglobin Concent 34 g/dL (31-37) Red Cell Distribution Width 14.2 % (11.5-14.5) Platelet Count 355 x10^3/uL (140-400) Neutrophils (%) (Auto) 61 % (31-73) Lymphocytes (%) (Auto) 29 % (24-48) Monocytes (%) (Auto) 6 % (0-9) Eosinophils (%) (Auto) 3 % (0-3) Basophils (%) (Auto) 1 % (0-3) Neutrophils # (Auto) 6.0 x10^3/uL (1.8-7.7) Lymphocytes # (Auto) 2.9 x10^3/uL (1.0-4.8) Monocytes # (Auto) 0.6 x10^3/uL (0.0-1.1) Eosinophils # (Auto) 0.3 x10^3/uL (0.0-0.7) Basophils # (Auto) 0.1 x10^3/uL (0.0-0.2) D-Dimer (Jenifer) 0.84 ug/mlFEU (0.00-0.50) H Sodium Level 139 mmol/L (136-145) Potassium Level 3.0 mmol/L (3.5-5.1) L Chloride Level 101 mmol/L (98-107) Carbon Dioxide Level 27 mmol/L (21-32) Anion Gap 11 (6-14) Blood Urea Nitrogen 16 mg/dL (8-26) Creatinine 1.0 mg/dL (0.7-1.3) Estimated GFR (Cockcroft-Gault) 86.6 BUN/Creatinine Ratio 16 (6-20) Glucose Level 112 mg/dL (70-99) H Calcium Level 8.6 mg/dL (8.5-10.1) Total Bilirubin 0.6 mg/dL (0.2-1.0) Aspartate Amino Transferase (AST) 22 U/L (15-37) Alanine Aminotransferase (ALT) 30 U/L (16-63) Alkaline Phosphatase 85 U/L (46-116) SN-Rsl-D-Type Natriuretic Peptide < 5 pg/mL (0-124) Total Protein 8.3 g/dL (6.4-8.2) H Albumin 3.7 g/dL (3.4-5.0) Albumin/Globulin Ratio 0.8 (1.0-1.7) L Laboratory Tests 06/23/19 22:57 Laboratory Tests 06/23/19 22:57 EKG EKG [] Radiology/Procedures Radiology/Procedures [facility] [address] [place] [address] IMAGING REPORT Signed PATIENT: JOHN CURRY ACCOUNT: [id number] : 1985 LOCATION: ER AGE: 33 SEX: M EXAM STATUS: REG ER ORD. PHYSICIAN: JOCELYN RAMIREZ MD REASON: elevated ddimer, swelling left leg PROCEDURE: VENOUS LOWER EXTREMITY LEFT Left lower extremity venous Doppler dated 06/23/2019. No comparison available. CLINICAL INDICATION: Left ankle swelling and pain. FINDINGS: Grayscale, color-flow and spectral waveform analysis performed to include the deep venous system of the left lower extremity. There is normal compressibility, phasicity and augmentation of flow throughout. No filling defects are seen. Borderline enlarged lymph nodes at the left groin measure up to 10 mm short axis, nonspecific. IMPRESSION: No evidence of left lower extremity deep vein thrombosis. Electronically signed by: Wily Cary MD (06/24/2019 12:13 AM) [id number] DICTATED and SIGNED BY: WILY CARY MD DATE: 06/24/19 0013 [] Course & Med Decision Making Course & Med Decision Making Pertinent Labs and Imaging studies reviewed. (See chart for details) []33-year-old male presents to emergency Department complaints of left lower extremity swelling. Patient denies any injury. He describes fever, cough, shortness of breath. Has abrasions to both of his knees however states this is from work without injury. As any chest pain, nausea, vomiting, abdominal pain. Patient states lower summary swelling has been ongoing 1 week. He states painful to stand on. He has history of osteomyelitis appreciated left foot. Dragon Disclaimer Dragon Disclaimer This electronic medical record was generated, in whole or in part, using a voice recognition dictation system. Departure Departure Impression: Primary Impression: Left leg swelling Disposition: HOME, SELF-CARE Condition: STABLE Referrals: NO PCP (PCP) Patient Instructions: Peripheral Edema Additional Instructions: Negative work up for DVT/cellulitis on exam No injury per patient No imaging aside from US obtained Tylenol/Motrin as needed Recommend follow up with PCP as outpatient JOCELYN RAMIREZ MD Jun 23, 2019 22:04
--- NOTE | 2019-06-23 22:25 | RAD ---
AP chest. HISTORY: Cough, short of breath AP view was taken of the chest. Lungs are free of infiltrates. There is no pleural effusion. Heart is normal in size. IMPRESSION: 1. No acute infiltrates or acute chest disease. Electronically signed by: Joe Ellis MD (06/23/2019 10:22 PM) [id number]
[2019-06-23 23:06] LABS: BASO # 0.1 x10^3/uL (0.0-0.2); BASO % 1 % (0-3); EOS # 0.3 x10^3/uL (0.0-0.7); EOS % 3 % (0-3); HEMATOCRIT 42.8 % (39.0-53.0); HEMOGLOBIN 14.7 g/dL (13.0-17.5); LYMPH # 2.9 x10^3/uL (1.0-4.8); LYMPH % 29 % (24-48); MEAN CORPUSCULAR HEMOGLOBIN 28 pg (25-35); MEAN CORPUSCULAR HGB CONC 34 g/dL (31-37); MEAN CORPUSCULAR VOLUME 80 fL (79-100); MONO # 0.6 x10^3/uL (0.0-1.1); MONO % 6 % (0-9); NEUT % 61 % (31-73); PLATELET COUNT 355 x10^3/uL (140-400); RED BLOOD COUNT 5.33 x10^6/uL (4.30-5.70); RED CELL DISTRIBUTION WIDTH 14.2 % (11.5-14.5); WHITE BLOOD COUNT 9.8 x10^3/uL (4.0-11.0)
[2019-06-23 23:21] LABS: CALCIUM 8.6 mg/dL (8.5-10.1); GFR 86.6
[2019-06-23 23:27] LABS: ALBUMIN 3.7 g/dL (3.4-5.0); ALBUMIN/GLOBULIN RATIO 0.8 (1.0-1.7); TOTAL BILIRUBIN 0.6 mg/dL (0.2-1.0); TOTAL PROTEIN 8.3 g/dL (6.4-8.2)
[2019-06-23] MEDS ORDERED: POTASSIUM CHLORIDE 20 MEQ TABLET.ER. PO ONE (23:45)
--- NOTE | 2019-06-24 00:16 | RAD ---
Left lower extremity venous Doppler dated 06/23/2019. No comparison available. CLINICAL INDICATION: Left ankle swelling and pain. FINDINGS: Grayscale, color-flow and spectral waveform analysis performed to include the deep venous system of the left lower extremity. There is normal compressibility, phasicity and augmentation of flow throughout. No filling defects are seen. Borderline enlarged lymph nodes at the left groin measure up to 10 mm short axis, nonspecific. IMPRESSION: No evidence of left lower extremity deep vein thrombosis. Electronically signed by: Wily Aguiar MD (06/24/2019 12:13 AM) [id number]
[2019-06-24 00:28] VITALS: BP 132/96
== END 2019-06-24 00:29 | disposition home or self-care (01) ==
LOC: ER 20:30
DX: R60.0 Localized edema (principal); R05 Cough; R06.02 Shortness of breath; R50.9 Fever, unspecified; Z98.890 Other specified postprocedural states
CPT/HCPCS: 36415; 71045; 80053; 83880; 85025; 85379; 93971; 99285

== ENCOUNTER 2019-07-16 18:02 | Inpatient (IN) | payer SELFPAY ==
[~2019-07-16] VITALS: Ht 170.2 cm; Wt 97.5 kg
--- NOTE | 2019-07-16 18:30 | PHYS DOC ---
Past Medical History Past Medical History: Other Additional Past Medical Histor: CONTRACTURES BILAT HANDS, NEUROPATHY BILAT HANDS (JONNY RAHMAN APRN) Past Surgical History: Other Additional Past Surgical Histo: LEIJA TO R AND L HAND, LT FOOT/ANKLE (JONNY RAHMAN APRN) Smoking Status: Never Smoker Alcohol Use: None Drug Use: None (JONNY RAHMAN APRN) Attending Signature I have participated in the care of this patient and I have reviewed and agree with all pertinent clinical information above including history, exam, and recommendations. (JOCELYN RAMIREZ MD) Adult General Chief Complaint Chief Complaint: FOOT INJURY PAIN HPI HPI Patient is a 33 year old male who presents with Left lower leg pain and swelling. He is ambulatory with a steady gait and has been working. He has a history of left lower extremity osteomylitis. He was also here 06/23/19 for same exact complaint for left lower leg pain and swelling. Rates his pain a 9/10. (JONNY RAHMAN APRN) Review of Systems Review of Systems Musculoskeletal: Left foot and ankle pain. Denies back pain or joint pain [] All other systems were reviewed and found to be within normal limits, except as documented in this note. (JONNY RAHMAN APRN) Allergies Allergies Allergies Coded Allergies Type Severity Reaction Last Updated Verified No Known Drug Allergies 06/27/18 No (JOCELYN RAMIREZ MD) Physical Exam Physical Exam Constitutional: Well developed, well nourished, no acute distress, non-toxic appearance. [] HENT: Normocephalic, atraumatic, bilateral external ears normal, oropharynx moist, no oral exudates, nose normal. [] Eyes: PERRLA, EOMI, conjunctiva normal, no discharge. [] Neck: Normal range of motion, no tenderness, supple, no stridor. [] Cardiovascular:Heart rate regular rhythm, no murmur [] Lungs & Thorax: Bilateral breath sounds clear to auscultation [] Abdomen: Bowel sounds normal, soft, no tenderness, no masses, no pulsatile masses. [] Skin: Warm, dry, no erythema, no rash. [] Back: No tenderness, no CVA tenderness. [] Extremities: Left anterior foot and ankle tenderness, no cyanosis, no clubbing, ROM intact, Left foot and ankle 2+ edema. [] Neurologic: Alert and oriented X 3, normal motor function, normal sensory function, no focal deficits noted. [] Psychologic: Affect normal, judgement normal, mood normal. [] (JONNY RAHMAN APRN) Current Patient Data Vital Signs Vital Signs Date Time Temp Pulse Resp B/P (MAP) Pulse Ox O2 Delivery O2 Flow Rate FiO2 07/16/19 18:21 98.1 95 18 147/88 (107) 100 Room Air 98.1 (JOCELYN RAMIREZ MD) EKG EKG [] (JONNY RAHMAN APRN) Radiology/Procedures Radiology/Procedures [] (JONNY RAHMAN APRN) Impressions: [facility] [address] [place] [address] IMAGING REPORT Signed PATIENT: JOHN CURRY ACCOUNT: [id number] : 1985 LOCATION: ER AGE: 33 SEX: M EXAM STATUS: PRE ER ORD. PHYSICIAN: JONNY RAHMAN APRN REASON: swelling pain PROCEDURE: ANKLE LEFT 3V Exam: Left tibia-fibula 2 views. Left ankle 3 views. Left foot 3 views INDICATION: Pain TECHNIQUE: Frontal and lateral views of the tib-fib. Frontal, lateral and oblique views of the left ankle and foot Comparisons: 09/12/2018 FINDINGS: Tib-fib: Bone mineralization is normal. No acute or healed fractures. Soft tissues are unremarkable. Joint spaces are well-maintained. Ankle: Bone mineralization is normal. There is mild soft tissue swelling about the ankle. No acute or healed fractures. Joint spaces are well-maintained. Foot: Enlargement sclerosis of the second metatarsal. There is irregularity and mineralization noted at the first TMT joint. Additionally there is irregularity at the second MTP joint. Soft tissue swelling throughout the left foot. IMPRESSION: 1. Irregularity with osseous destructive changes at the first TMT joint and second MTP joint. There is surrounding soft tissue swelling. These findings have progressed when compared to the prior radiograph on 09/12/2018 2. Enlargement and sclerosis of the second metatarsal, progressed from prior study. 3. No acute osseous abnormality of the left ankle. 4. No acute osseous abnormality of the left tibia and fibula. Electronically signed by: Glenna Medrano MD (07/16/2019 7:01 PM) [id number] DICTATED and SIGNED BY: GLENNA MEDRANO MD DATE: 07/16/191900 [facility] [address] [place] [address] IMAGING REPORT Signed PATIENT: JOHN CURRY ACCOUNT: [id number] : 1985 LOCATION: ER AGE: 33 SEX: M EXAM STATUS: REG ER ORD. PHYSICIAN: JONNY RAHMAN APRN REASON: swelling PROCEDURE: VENOUS LOWER EXTREMITY LEFT Left lower extremity venous duplex Doppler ultrasound HISTORY: Left leg swelling, history of osteomyelitis. FINDINGS: No DVT by grayscale sonography with compressibility, patent color Doppler blood flow and augmentation of blood flow the left common femoral vein, profunda femoral vein, superficial femoral vein, popliteal vein and posterior tibial veins in the calf and peroneal veins in the calf. There are prominent left inguinal lymph nodes largest of which measures 3.9 x 1.0 x 3.5 cm with mild thickened cortex measuring up to 0.4 cm in thickness. IMPRESSION: Negative left leg for DVT. Left inguinal adenopathy. Electronically signed by: Humza Enriquez MD (07/16/2019 7:58 PM) [id number] DICTATED and SIGNED BY: HUMZA ENRIQUEZ MD DATE: 07/16/191957 (JONNY RAHMAN APRN) Course & Med Decision Making Course & Med Decision Making Pertinent Labs and Imaging studies reviewed. (See chart for details) Vital signs within normal limits. Afebrile. Skin pink warm and dry. Pedal pulse strong and present. Patient does have neuropathy and contractures in his fingers bilaterally but that is chronic. Patient has 2+ swelling and tenderness to his left anterior foot distal to great toe and anterior ankle. He states that the is tenderness with the whole left foot up into the ankle. Patient denies injury. No wounds on the extremity. He states that is the same swelling has not gotten any worse since June 23. Patient states the pain has not gotten any worse. He denies numbness or tingling. Cap refill less than 3 seconds. Patient was here on June 23 he had a ultrasound of the extremity and x-rays done that showed no acute findings. Patient was told to follow-up with his primary care physician. Patient has not followed up. IMPRESSION: 1. Irregularity with osseous destructive changes at the first TMT joint and second MTP joint. There is surrounding soft tissue swelling. These findings have progressed when compared to the prior radiograph on 09/12/2018 2. Enlargement and sclerosis of the second metatarsal, progressed from prior study. 3. No acute osseous abnormality of the left ankle. 4. No acute osseous abnormality of the left tibia and fibula. Patient is educated that the infection in his foot continues. He is educated that he need IV antibiotics or he will become very ill. He could possible lose his foot or become systemically ill with the possibility of . Patient is educated that this infection will not get better on its own. Patient states his understanding but wants to talk to his girlfriend before making the decision to stay. In August when the patient was here the patient left AMA. Patient has agreed to be admitted. Patient admitted by Dr Cartagena. [] (JONNY RAHMAN APRN) Dragon Disclaimer Dragon Disclaimer This electronic medical record was generated, in whole or in part, using a voice recognition dictation system. (JONNY RAHMAN APRN) Departure Departure Impression: Primary Impression: Foot osteomyelitis, left Disposition: 09 ADMITTED INPATIENT Admitting Physician: RICHIE (JONNY RAHMAN APRN) Condition: STABLE Referrals: NO PCP (PCP) Problem Qualifiers Primary Impression: Foot osteomyelitis, left Osteomyelitis type: unspecified type Qualified Codes: M86.9 - Osteomyelitis, unspecified JONNY RAHMAN APRN Jul 16, 2019 18:30 JOCELYN RAMIREZ MD Jul 17, 2019 01:30
--- NOTE | 2019-07-16 19:04 | RAD ---
Exam: Left tibia-fibula 2 views. Left ankle 3 views. Left foot 3 views INDICATION: Pain TECHNIQUE: Frontal and lateral views of the tib-fib. Frontal, lateral and oblique views of the left ankle and foot Comparisons: 09/12/2018 FINDINGS: Tib-fib: Bone mineralization is normal. No acute or healed fractures. Soft tissues are unremarkable. Joint spaces are well-maintained. Ankle: Bone mineralization is normal. There is mild soft tissue swelling about the ankle. No acute or healed fractures. Joint spaces are well-maintained. Foot: Enlargement sclerosis of the second metatarsal. There is irregularity and mineralization noted at the first TMT joint. Additionally there is irregularity at the second MTP joint. Soft tissue swelling throughout the left foot. IMPRESSION: 1. Irregularity with osseous destructive changes at the first TMT joint and second MTP joint. There is surrounding soft tissue swelling. These findings have progressed when compared to the prior radiograph on 09/12/2018 2. Enlargement and sclerosis of the second metatarsal, progressed from prior study. 3. No acute osseous abnormality of the left ankle. 4. No acute osseous abnormality of the left tibia and fibula. Electronically signed by: Glenna Bedoya MD (07/16/2019 7:01 PM) [id number]
--- NOTE | 2019-07-16 20:01 | RAD ---
Left lower extremity venous duplex Doppler ultrasound HISTORY: Left leg swelling, history of osteomyelitis. FINDINGS: No DVT by grayscale sonography with compressibility, patent color Doppler blood flow and augmentation of blood flow the left common femoral vein, profunda femoral vein, superficial femoral vein, popliteal vein and posterior tibial veins in the calf and peroneal veins in the calf. There are prominent left inguinal lymph nodes largest of which measures 3.9 x 1.0 x 3.5 cm with mild thickened cortex measuring up to 0.4 cm in thickness. IMPRESSION: Negative left leg for DVT. Left inguinal adenopathy. Electronically signed by: Abdoulaye Quiroz MD (07/16/2019 7:58 PM) [id number]
[2019-07-16] MEDS ORDERED: ACETAMINOPHEN 325 MG TABLET. PO PRN ×2 (20:15→21:30)
[2019-07-16] MEDS ORDERED: VANCOMYCIN 2 GM in IV NORMAL SALINE 500ML BAG 500 ML IV ONE (20:15)
[2019-07-16] MEDS ORDERED: VANCOMYCIN 1GM IVPB FOR OMNI 250 ML IV ONE (20:15)
[2019-07-16] MEDS ORDERED: fentaNYL PF VIAL 100 MCG/2 ML VIAL IVP ONE (20:15)
[2019-07-16] MEDS ORDERED: cefTRIAXone IV Push 1 GM VIAL. IVP ONE (20:15)
[2019-07-16] MEDS ORDERED: fentaNYL PF VIAL 100 MCG/2 ML VIAL IV PRN (20:15)
[2019-07-16] MEDS ORDERED: IV NORMAL SALINE 1000ML BAG 1,000 ML IV ONE (20:15)
[2019-07-16] MEDS ORDERED: ONDANSETRON PF 4 MG/2 ML VIAL. IV PRN (20:15)
--- NOTE | 2019-07-16 20:20 | PDOC1 ---
History and Physical Date of Admission Date of Admission DATE: 07/16/19 TIME: 20:18 Identification/Chief Complaint Chief Complaint SEEN IN ER 33 year old male who presents with Left lower leg pain and swelling. He is ambulatory with a steady gait and has been working. history of left lower extremity osteomylitis. was also here 06/23/19 for same exact complaint for left lower leg pain and swelling. Rates his pain a 9/10. Past Medical History Cardiovascular: No pertinent hx Musculoskeletal: Other (OSTEOMYELITIS ) Family History Family History: Hypertension, Other Family History: Parent Social History Smoke: No ALCOHOL: occassional Drugs: None Current Medications Current Medications Current Medications Vancomycin HCl 250 ml @ 250 mls/hr 1X ONCE IV ; Start 07/16/19 at 20:15; Stop 07/16/19 at 21:14; Status Cancel Ceftriaxone Sodium (Rocephin) 1 gm 1X ONCE IVP ; Start 07/16/19 at 20:15; Stop 07/16/19 at 20:16; Status DC Ondansetron HCl (Zofran) 4 mg PRN Q8HRS PRN IV NAUSEA/VOMITING; Start 07/16/19 at 20:15; Stop 07/17/19 at 20:14 Fentanyl Citrate (Fentanyl 2ml Vial) 50 mcg PRN Q1HR PRN IV PAIN; Start 07/16/19 at 20:15; Stop 07/17/19 at 20:14 Acetaminophen (Tylenol) 650 mg PRN Q4HRS PRN PO FEVER; Start 07/16/19 at 20:15; Stop 07/17/19 at 20:14 Sodium Chloride 1,000 ml @ 1,000 mls/hr 1X ONCE IV ; Start 07/16/19 at 20:15; Stop 07/16/19 at 21:14 Fentanyl Citrate (Fentanyl 2ml Vial) 50 mcg 1X ONCE IVP ; Start 07/16/19 at 20:15; Stop 07/16/19 at 20:16; Status DC Vancomycin HCl 2 gm/Sodium Chloride 500 ml @ 250 mls/hr 1X ONCE IV ; Start 07/16/19 at 20:15; Stop 07/16/19 at 22:14 Active Scripts Active Mupirocin Cream (Mupirocin) 15 Gm Cream..g. 1 [place] TP BID 14 Days Erythromycin (Erythromycin Base) 1 Gm Oint...g. 0.25 Inch OS 6XDAY 10 Days Culturelle (Lactobacillus Rhamnosus Gg) 1 Each Cap.sprink 1 Cap PO BID 30 Days Klor-Con M20 (Potassium Chloride) 20 Meq Tab.er.prt 20 Meq PO DAILYWBKFT 14 Days [Fluconazole] 100 MG Tablet 200 Mg PO DAILY 28 Days [Ceftriaxone Sodium] 2 GM Vial 2 Gm IVP Q24H 30 Days [place] 5-325 Tablet (Acetaminophen/Hydrocodone Bitart) 1 Each Tablet 1 Tab PO PRN Q6HRS PRN Allergies Allergies: Coded Allergies: No Known Drug Allergies (Unverified , 06/27/18) ROS Review of System Review of Systems Review of Systems Musculoskeletal: Left foot and ankle pain. Denies back pain or joint pain [] 14 PT systems were reviewed and found to be within normal limits, except as documented ALLERGY AND IMMUNOLOGY: No: Hives, Insect Bite Sensitivity, Itchy/Watery Eyes, Nasal Congestion, Post Nasal Drip, Seasonal Allergies, Other Hematological and Lymphatic: No: Bleeding Problems, Blood Clots, Blood Transfusions, Brusing, Night Sweats, Pallor, Swollen Lymph Nodes, Other Respiratory: No: Cough, Hemoptysis, Orthopnea, Pleuritic Pain, Shortness of breath, SOB with excertion, Sputum Changes, Stridor, Tachypnea, Wheezing, Other Cardiovascular: No Chest Pain, No Palpitations, No Orthopnea, No Paroxysmal Noc. Dyspnea, No Edema, No Lt Headedness, No Other Gastrointestinal: No Nausea, No Vomiting, No Abdominal Pain, No Diarrhea, No Constipation, No Melena, No Hematochezia, No Other Musculoskeletal: Yes Gait Disturbance, Yes Joint Stiffness Neurological: Yes Gait Disturbance Skin: Yes Dry Skin Physical Exam Physical Exam Physical Exam Physical Exam Constitutional: Well developed, well nourished, no acute distress, non-toxic appearance. [] HENT: Normocephalic, atraumatic, bilateral external ears normal, oropharynx moist, no oral exudates, nose normal. [] Eyes: PERRLA, EOMI, conjunctiva normal, no discharge. [] Neck: Normal range of motion, no tenderness, supple, no stridor. [] Cardiovascular:Heart rate regular rhythm, no murmur [] Lungs & Thorax: Bilateral breath sounds clear to auscultation [] Abdomen: Bowel sounds normal, soft, no tenderness, no masses, no pulsatile masses. [] Skin: Warm, dry, no erythema, no rash. [] Back: No tenderness, no CVA tenderness. [] Extremities: Left anterior foot and ankle tenderness, no cyanosis, no clubbing, ROM intact, Left foot and ankle 2+ edema. mild tenderness to palpation [] Neurologic: Alert and oriented X 3, normal motor function, normal sensory function, no focal deficits noted. [] Psychologic: Affect normal, judgment POOR , mood normal. [] General: Alert, Oriented X3, Cooperative, No acute distress HEENT: EOMI, Mucous membr. moist/pink Lungs: Clear to auscultation, Normal air movement Heart: RRR, no rubs Abdomen: Normal bowel sounds, Soft Rectal Exam: not examined PELVIC: Examination not indicated Extremities: No cyanosis Neuro: Normal speech, Sensation intact, Cranial nerves 3-12 NL Psych/Mental Status: Mental status NL, Mood NL Vitals Vitals Vital Signs Date Time Temp Pulse Resp B/P (MAP) Pulse Ox O2 Delivery O2 Flow Rate FiO2 07/16/19 18:21 98.1 95 18 147/88 (107) 100 Room Air 98.1 Images Images Exam: Left tibia-fibula 2 views. Left ankle 3 views. Left foot 3 views INDICATION: Pain TECHNIQUE: Frontal and lateral views of the tib-fib. Frontal, lateral and oblique views of the left ankle and foot Comparisons: 09/12/2018 FINDINGS: Tib-fib: Bone mineralization is normal. No acute or healed fractures. Soft tissues are unremarkable. Joint spaces are well-maintained. Ankle: Bone mineralization is normal. There is mild soft tissue swelling about the ankle. No acute or healed fractures. Joint spaces are well-maintained. Foot: Enlargement sclerosis of the second metatarsal. There is irregularity and mineralization noted at the first TMT joint. Additionally there is irregularity at the second MTP joint. Soft tissue swelling throughout the left foot. IMPRESSION: 1. Irregularity with osseous destructive changes at the first TMT joint and second MTP joint. There is surrounding soft tissue swelling. These findings have progressed when compared to the prior radiograph on 09/12/2018 2. Enlargement and sclerosis of the second metatarsal, progressed from prior study. 3. No acute osseous abnormality of the left ankle. 4. No acute osseous abnormality of the left tibia and fibula. Electronically signed by: Magali Medrano MD (07/16/2019 7:01 PM) [id number] DICTATED and SIGNED BY: MAGALI MEDRANO MD DATE: 07/16/191900 INDICATION: Pain TECHNIQUE: Frontal and lateral views of the tib-fib. Frontal, lateral and oblique views of the left ankle and foot Comparisons: 09/12/2018 FINDINGS: Tib-fib: Bone mineralization is normal. No acute or healed fractures. Soft tissues are unremarkable. Joint spaces are well-maintained. Ankle: Bone mineralization is normal. There is mild soft tissue swelling about the ankle. No acute or healed fractures. Joint spaces are well-maintained. Foot: Enlargement sclerosis of the second metatarsal. There is irregularity and mineralization noted at the first TMT joint. Additionally there is irregularity at the second MTP joint. Soft tissue swelling throughout the left foot. IMPRESSION: 1. Irregularity with osseous destructive changes at the first TMT joint and second MTP joint. There is surrounding soft tissue swelling. These findings have progressed when compared to the prior radiograph on 09/12/2018 2. Enlargement and sclerosis of the second metatarsal, progressed from prior study. 3. No acute osseous abnormality of the left ankle. 4. No acute osseous abnormality of the left tibia and fibula. Electronically signed by: Magali Medrano MD (07/16/2019 7:01 PM) [id number] DICTATED and SIGNED BY: MAGALI MEDRANO MD DATE: 07/16/191900 VTE Prophylaxis Ordered VTE Prophylaxis Devices: No VTE Pharmacological Prophylaxi: Yes Assessment/Plan Assessment/Plan VTE Prophylaxis Ordered VTE Prophylaxis Devices: No VTE Pharmacological Prophylaxi: Yes Assessment/Plan Assessment/Plan Left foot pain and swelling s/p plantar nail puncture s/p debridement in Apr 2018// OSTEOMYELITIS Irregularity with osseous destructive changes at the first TMT joint and second MTP joint. There is surrounding soft tissue swelling. These findings have progressed when compared to the prior radiograph on 09/12/2018 Enlargement and sclerosis of the second metatarsal, progressed from prior study. - admit to medical floor - X-ray of the left foot shows evidence of significant bony erosion of the head of the second metatarsal extending to the proximal phalanx concerning for osteomyelitis. - no fever, - Vancomycin and Rocephin. Blood cultures were drawn HYPOKALEMIA NONCOMPLIANCE HX PLAN ADMIT dvt ppx: full code ortho CONSULT ID CONSULT EMPERIC IV ANTIBIOTICS PROCALCITONIN BLOOD CULT DVT PROPHYLAXIS REPLETE K JACQUES KEMP MD Jul 16, 2019 20:20
[2019-07-16 20:35] LABS: BASO % 1 % (0-3); EOS # 0.4 x10^3/uL (0.0-0.7); EOS % 4 % (0-3); HEMATOCRIT 45.4 % (39.0-53.0); HEMOGLOBIN 15.5 g/dL (13.0-17.5); LYMPH # 2.1 x10^3/uL (1.0-4.8); LYMPH % 24 % (24-48); MEAN CORPUSCULAR HEMOGLOBIN 28 pg (25-35); MEAN CORPUSCULAR HGB CONC 34 g/dL (31-37); MEAN CORPUSCULAR VOLUME 81 fL (79-100); MONO # 0.7 x10^3/uL (0.0-1.1); MONO % 8 % (0-9); NEUT # 5.5 x10^3/uL (1.8-7.7); NEUT % 63 % (31-73); PLATELET COUNT 301 x10^3/uL (140-400); RED BLOOD COUNT 5.61 x10^6/uL (4.30-5.70); RED CELL DISTRIBUTION WIDTH 14.5 % (11.5-14.5); WHITE BLOOD COUNT 8.7 x10^3/uL (4.0-11.0)
[2019-07-16 20:40] LABS: CALCIUM 8.6 mg/dL (8.5-10.1); CREATININE 0.9 mg/dL (0.7-1.3); GFR 97.8; POTASSIUM 3.2 mmol/L (3.5-5.1)
[2019-07-16] MEDS ORDERED: guaiFENesin ORAL 200 MG/10 ML LIQUID. PO PRN (21:30)
[2019-07-16] MEDS ORDERED: diphenhydrAMINE 50 MG/ML VIAL IVP PRN (21:30)
[2019-07-16] MEDS ORDERED: ZOLPIDEM 5 MG TABLET. PO PRN (21:30)
[2019-07-16] MEDS ORDERED: MAG HYDROX/ALUMINUM HYD/SIMETH 30 ML ORAL.SUSP PO PRN (21:30)
[2019-07-16] MEDS ORDERED: SODIUM PHOSPHATES 19/7GM 133 ML ENEMA. PR PRN (21:30)
[2019-07-16] MEDS ORDERED: ALBUTEROL SULFATE 2.5 MG/3 ML NEBU. NEB PRN (21:30)
[2019-07-16] MEDS ORDERED: cloNIDine HCL 0.1 MG TABLET PO PRN (21:30)
[2019-07-16] MEDS ORDERED: 0.9 % SODIUM CHLORIDE 10 ML DISP.SYRIN. IV PRN (21:30)
[2019-07-16] MEDS ORDERED: LORazepam 0.5 MG TABLET PO PRN (21:30)
[2019-07-16] MEDS ORDERED: HYDROcodone/APAP 5/325MG 1 TAB TABLET PO PRN (21:30)
[2019-07-16] MEDS ORDERED: DOCUSATE SODIUM 100 MG CAPSULE. PO PRN (21:30)
[2019-07-16] MEDS ORDERED: ERYTHROMYCIN 0.5% OPHTH OINTMENT 1GM TUBE. OS SCH (22:00)
[2019-07-16] MEDS: VANCOMYCIN PER PHARMACY MC PRN (22:05)
--- NOTE | 2019-07-16 22:07 | NUR ---
Pharmacy Vancomycin Dosing Note S:Consulted to monitor and dose vancomycin started 07/16/19. O:JOHN CURRY is a 33 year old M with Osteomyelitis . Height: 5 feet, 7 inches Weight: 86.3 kg [place] Body Weight: 66.10 Adjusted Body Weight: 74.18 Dosing Weight: Actual Other Antibiotics: LABS: Last BUN: 9 Last Creatinine: 0.9 Creatinine Clearance: >100 mL/min Last WBC: 8.7 Last Procalcitonin: Tmax (past 24 hours): Microbiology: I/O: Drug Levels: Last level: on at Last dose given at Vancomycin Dosing: Loading Dose: 2000 mg x1 07/16/192028 Dosing Weight: Actual Target Trough: 15-20 A: Based on: Actual Wt and CrCl P: 1. 07/17/19 0430 Vancomycin 1250 mg IV q8h 2. Follow up Trough level on 07/17/19 at 1999 3. Pharmacy will continue to monitor, follow and adjust therapy as needed. CANELO HUANG RPH, 07/16/192207 Signed: 07/16/19 at 2208 by CANELO HUANG RPH PHA
[2019-07-16 22:58] VITALS: BP 129/78
[2019-07-16] MEDS: IV NORMAL SALINE 1000ML BAG 1,000 ML IV SCH (23:10)
[2019-07-16] MEDS: ENOXAPARIN 40 MG/0.4 ML SYRINGE. SQ SCH (23:11)
--- NOTE | 2019-07-16 23:30 | NUR ---
Patient admission Pt arrived to the unit at approximately 2245 via wc from the ED. Patient information guide packet was explained and given to pt. All questions and concerns regarding pt's POC was addressed and answered. Pt stated that he do not take any home medications. Dr. Cartagena notified and made aware. Pt verbalized understanding. Pt made comfortable in bed. Will continue to monitor pt closely.
[2019-07-17 03:27] VITALS: BP 115/75
[2019-07-17] MEDS: VANCOMYCIN 1.25 GM in IV NORMAL SALINE 250ML 250 ML IV SCH ×3 (04:06→20:06)
[2019-07-17 05:25] LABS: BASO % 0 % (0-3); EOS # 0.2 x10^3/uL (0.0-0.7); EOS % 2 % (0-3); HEMATOCRIT 40.5 % (39.0-53.0); HEMOGLOBIN 13.7 g/dL (13.0-17.5); LYMPH # 2.2 x10^3/uL (1.0-4.8); LYMPH % 25 % (24-48); MEAN CORPUSCULAR HEMOGLOBIN 28 pg (25-35); MEAN CORPUSCULAR HGB CONC 34 g/dL (31-37); MEAN CORPUSCULAR VOLUME 82 fL (79-100); MONO # 0.7 x10^3/uL (0.0-1.1); MONO % 8 % (0-9); NEUT # 5.6 x10^3/uL (1.8-7.7); NEUT % 65 % (31-73); PLATELET COUNT 274 x10^3/uL (140-400); RED BLOOD COUNT 4.96 x10^6/uL (4.30-5.70); RED CELL DISTRIBUTION WIDTH 15.1 % (11.5-14.5); WHITE BLOOD COUNT 8.6 x10^3/uL (4.0-11.0)
[2019-07-17 05:58] LABS: ALBUMIN 3.3 g/dL (3.4-5.0); ALBUMIN/GLOBULIN RATIO 0.9 (1.0-1.7); CALCIUM 7.8 mg/dL (8.5-10.1); GFR 86.6; POTASSIUM 3.2 mmol/L (3.5-5.1); TOTAL BILIRUBIN 0.6 mg/dL (0.2-1.0); TOTAL PROTEIN 6.9 g/dL (6.4-8.2)
[2019-07-17 07:59] VITALS: BP 111/60
[2019-07-17] MEDS: LACTOBACILLUS RHAMNOSUS GG 1 CAPSULE. PO SCH ×2 (08:21→19:59)
[2019-07-17] MEDS: IV NORMAL SALINE 1000ML BAG 1,000 ML IV SCH ×2 (08:21→20:01)
[2019-07-17] MEDS: POTASSIUM CHLORIDE 20 MEQ TABLET.ER. PO SCH (08:21)
--- NOTE | 2019-07-17 09:32 | PDOC2 ---
CONSULT Date of Consult Date of Consult DATE: 07/17/19 TIME: 09:28 Reason for Consult Reason for Consult: Possible left foot osteomyelitis Referring Physician Referring Physician: Osiel Identification/Chief Complaint Chief Complaint Left foot swelling Source Source: Chart review, Patient History of Present Illness Reason for Visit: Patient is a 33-year-old who had performed an I&D on for a soft tissue wound not involving bone April 2018. He tells me that over the past couple days his foot is become more swollen. 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 He tells me his foot is better keeping elevated and staying off of it. He denies any fevers or chills. No other complaints Past Medical History Cardiovascular: No pertinent hx Musculoskeletal: Other (OSTEOMYELITIS ) Past Surgical History Past Surgical History: Other (I&D with wound VAC left foot) Family History Family History: Hypertension, Other Social History Social History: Parent No ALCOHOL: occassional Drugs: None Current Problem List Problem List Problems Medical Problems: (1) Foot osteomyelitis, left Status: Acute Current Medications Current Medications Current Medications Vancomycin HCl 250 ml @ 250 mls/hr 1X ONCE IV ; Start 07/16/19 at 20:15; Stop 07/16/19 at 21:14; Status Cancel Ceftriaxone Sodium (Rocephin) 1 gm 1X ONCE IVP Last administered on 07/16/19at 20:30; Start 07/16/19 at 20:15; Stop 07/16/19 at 20:16; Status DC Ondansetron HCl (Zofran) 4 mg PRN Q8HRS PRN IV NAUSEA/VOMITING Last administered on 07/16/19at 20:29; Start 07/16/19 at 20:15; Stop 07/17/19 at 20:14 Fentanyl Citrate (Fentanyl 2ml Vial) 50 mcg PRN Q1HR PRN IV PAIN; Start 07/16/19 at 20:15; Stop 07/17/19 at 20:14 Acetaminophen (Tylenol) 650 mg PRN Q4HRS PRN PO FEVER; Start 07/16/19 at 20:15; Stop 07/17/19 at 20:14 Sodium Chloride 1,000 ml @ 1,000 mls/hr 1X ONCE IV Last administered on 07/16/19at 20:28; Start 07/16/19 at 20:15; Stop 07/16/19 at 21:14; Status DC Fentanyl Citrate (Fentanyl 2ml Vial) 50 mcg 1X ONCE IVP Last administered on 07/16/19at 20:30; Start 07/16/19 at 20:15; Stop 07/16/19 at 20:16; Status DC Vancomycin HCl 2 gm/Sodium Chloride 500 ml @ 250 mls/hr 1X ONCE IV Last administered on 07/16/19at 20:29; Start 07/16/19 at 20:15; Stop 07/16/19 at 22:14; Status DC Sodium Chloride (Normal Saline Flush) 3 ml QSHIFT PRN IV AFTER MEDS AND BLOOD DRAWS; Start 07/16/19 at 21:30 Sodium Chloride 1,000 ml @ 100 mls/hr Q10H IV Last administered on 07/17/19at 08:21; Start 07/16/19 at 21:30 Zolpidem Tartrate (Ambien) 5 mg PRN QHS PRN PO INSOMNIA; Start 07/16/19 at 21:30 Acetaminophen (Tylenol) 650 mg PRN Q4HRS PRN PO TEMP OVER 100.4F OR MILD PAIN; Start 07/16/19 at 21:30 Al Hydroxide/Mg Hydroxide (Mylanta Plus Xs) 30 ml PRN DAILY PRN PO HEARTBURN / GAS; Start 07/16/19 at 21:30 Clonidine HCl (Catapres) 0.1 mg PRN Q6HRS PRN PO SBP>160 OR DBP>90; Start 07/16/19 at 21:30 Sodium Monofluorophosphate (Fleet Adult) 133 ml PRN DAILY PRN ND CONSTIPATION; Start 07/16/19 at 21:30 Diphenhydramine HCl (Benadryl) 25 mg PRN Q4HRS PRN IVP ITCHING; Start 07/16/19 at 21:30 Docusate Sodium (Colace) 100 mg PRN BID PRN PO CONSTIPATION; Start 07/16/19 at 21:30 Albuterol Sulfate (Ventolin Neb Soln) 2.5 mg PRN Q4HRS PRN NEB SHORTNESS OF BREATH; Start 07/16/19 at 21:30 Guaifenesin (Robitussin) 200 mg PRN Q4HRS PRN PO COUGH; Start 07/16/19 at 21:30 Lorazepam (Ativan) 0.5 mg PRN Q4HRS PRN PO ANXIETY / AGITATION; Start 07/16/19 at 21:30 Enoxaparin Sodium (Lovenox 40mg Syringe) 40 mg Q24H SQ Last administered on 07/16/19at 23:11; Start 07/16/19 at 21:30 Vancomycin HCl (Vanco Per Pharmacy) 1 each PRN DAILY PRN MC SEE COMMENTS Last administered on 07/16/19at 22:05; Start 07/16/19 at 21:30 Erythromycin (Romycin) 0.25 inch 6XDAY OS ; Start 07/16/19 at 22:00; Stop 07/16/19 at 23:54; Status DC Acetaminophen/ Hydrocodone Bitart (Lortab 5/325) 1 tab PRN Q6HRS PRN PO PAIN; Start 07/16/19 at 21:30 Lactobacillus Rhamnosus (Culturelle) 1 cap BID PO Last administered on 07/17/19at 08:21; Start 07/17/19 at 09:00 Potassium Chloride (Klor-Con) 20 meq DAILYWBKFT PO Last administered on 07/17/19at 08:21; Start 07/17/19 at 08:00 Vancomycin HCl 1.25 gm/Sodium Chloride 250 ml @ 167 mls/hr Q8H IV Last administered on 07/17/19at 04:06; Start 07/17/19 at 04:30 Vancomycin HCl (Vancomycin Trough Level) 1 each 1X ONCE MC ; Start 07/17/19 at 20:00; Stop 07/17/19 at 20:01 Active Scripts Active Mupirocin Cream (Mupirocin) 15 Gm Cream..g. 1 [place] TP BID 14 Days Erythromycin (Erythromycin Base) 1 Gm Oint...g. 0.25 Inch OS 6XDAY 10 Days Culturelle (Lactobacillus Rhamnosus Gg) 1 Each Cap.sprink 1 Cap PO BID 30 Days Klor-Con M20 (Potassium Chloride) 20 Meq Tab.er.prt 20 Meq PO DAILYWBKFT 14 Days [Fluconazole] 100 MG Tablet 200 Mg PO DAILY 28 Days [Ceftriaxone Sodium] 2 GM Vial 2 Gm IVP Q24H 30 Days [place] 5-325 Tablet (Acetaminophen/Hydrocodone Bitart) 1 Each Tablet 1 Tab PO PRN Q6HRS PRN Allergies Allergies: Coded Allergies: No Known Drug Allergies (Unverified , 06/27/18) ROS General: No: Chills, Night Sweats, Fatigue, Malaise, Appetite, Other PSYCHOLOGICAL ROS: No: Anxiety, Behavioral Disorder, Concentration difficultie, Decreased libido, Depression, Disorientation, Hallucinations, Hostility, Irritablity, Memory difficulties, Mood Swings, Obsessive thoughts, Physical abuse, Sexual abuse, Sleep disturbances, Suicidal ideation, Other Eyes: No Blurry vision, No Decreased vision, No Double vision, No Dry eyes, No Excessive tearing, No Eye Pain, No Itchy Eyes, No Loss of vision, No Photophobia, No Scotomata, No Uses contacts, No Uses glasses, No Other HEENT: No: Heacaches, Visual Changes, Hearing change, Nasal congestion, Nasal discharge, Oral lesions, Sinus pain, Sore Throat, Epistaxis, Sneezing, Snoring, Tinnitus, Vertigo, Vocal changes, Other ALLERGY AND IMMUNOLOGY: No: Hives, Insect Bite Sensitivity, Itchy/Watery Eyes, Nasal Congestion, Post Nasal Drip, Seasonal Allergies, Other Hematological and Lymphatic: No: Bleeding Problems, Blood Clots, Blood Transfusions, Brusing, Night Sweats, Pallor, Swollen Lymph Nodes, Other ENDOCRINE: No: Breast Changes, Galactorrhea, Hair Pattern Changes, Hot Flashes, Malaise/lethargy, Mood Swings, Palpitations, Polydipsia/polyuria, Skin Changes, Temperature Intolerance, Unexpected Weight Changes, Other Respiratory: No: Cough, Hemoptysis, Orthopnea, Pleuritic Pain, Shortness of breath, SOB with excertion, Sputum Changes, Stridor, Tachypnea, Wheezing, Other Cardiovascular: No Chest Pain, No Palpitations, No Orthopnea, No Paroxysmal Noc. Dyspnea, No Edema, No Lt Headedness, No Other Gastrointestinal: No Nausea, No Vomiting, No Abdominal Pain, No Diarrhea, No Constipation, No Melena, No Hematochezia, No Other Genitourinary: No Dysuria, No Frequency, No Incontinence, No Hematuria, No Retention, No Discharge, No Urgency, No Pain, No Flank Pain, No Other, No , No , No , No , No , No , No Musculoskeletal: Yes Joint Swelling Neurological: Yes Numbness/Tingling; No Behavorial Changes, No Bowel/Bladder ControlChng, No Confusion, No Dizziness, No Gait Disturbance, No Headaches, No Impaired Coord/balance, No Memory Loss, No Seizures, No Speech Problems, No Tremors, No Visual Changes, No Weakness, No Other Skin: No Dry Skin, No Eczema, No Hair Changes, No Lumps, No Mole Changes, No Mottling, No Nail Changes, No Pruritus, No Rash, No Skin Lesion Changes, No Other, No Acne Physical Exam General: Alert, Oriented X3 HEENT: Atraumatic, EOMI Lungs: Other (Respirations unlabored with symmetric chest rise) Heart: Regular rate Abdomen: Soft, No tenderness Extremities: Other (Left foot has edema and soft tissue changes consistent with his surgical history, no open wounds or redness) Neuro: Normal speech, Strength at 5/5 X4 ext Psych/Mental Status: Mental status NL, Mood NL MUSCULOSKELETAL: Other (Examination of his left foot reveals the above findings, no areas of tenderness.) Vitals VITALS Vital Signs Date Time Temp Pulse Resp B/P (MAP) Pulse Ox O2 Delivery O2 Flow Rate FiO2 07/17/19 07:59 98.3 87 18 111/60 (77) 93 Room Air 98.3 Labs Labs Laboratory Tests Test 07/16/19 20:12 07/16/19 20:20 07/17/19 04:20 07/17/19 04:50 White Blood Count 8.7 x10^3/uL (4.0-11.0) 8.6 x10^3/uL (4.0-11.0) Red Blood Count 5.61 x10^6/uL (4.30-5.70) 4.96 x10^6/uL (4.30-5.70) Hemoglobin 15.5 g/dL (13.0-17.5) 13.7 g/dL (13.0-17.5) Hematocrit 45.4 % (39.0-53.0) 40.5 % (39.0-53.0) Mean Corpuscular Volume 81 fL (79-100) 82 fL (79-100) Mean Corpuscular Hemoglobin 28 pg (25-35) 28 pg (25-35) Mean Corpuscular Hemoglobin Concent 34 g/dL (31-37) 34 g/dL (31-37) Red Cell Distribution Width 14.5 % (11.5-14.5) 15.1 % (11.5-14.5) Platelet Count 301 x10^3/uL (140-400) 274 x10^3/uL (140-400) Neutrophils (%) (Auto) 63 % (31-73) 65 % (31-73) Lymphocytes (%) (Auto) 24 % (24-48) 25 % (24-48) Monocytes (%) (Auto) 8 % (0-9) 8 % (0-9) Eosinophils (%) (Auto) 4 % (0-3) 2 % (0-3) Basophils (%) (Auto) 1 % (0-3) 0 % (0-3) Neutrophils # (Auto) 5.5 x10^3/uL (1.8-7.7) 5.6 x10^3/uL (1.8-7.7) Lymphocytes # (Auto) 2.1 x10^3/uL (1.0-4.8) 2.2 x10^3/uL (1.0-4.8) Monocytes # (Auto) 0.7 x10^3/uL (0.0-1.1) 0.7 x10^3/uL (0.0-1.1) Eosinophils # (Auto) 0.4 x10^3/uL (0.0-0.7) 0.2 x10^3/uL (0.0-0.7) Basophils # (Auto) 0.0 x10^3/uL (0.0-0.2) 0.0 x10^3/uL (0.0-0.2) Sodium Level 138 mmol/L (136-145) 142 mmol/L (136-145) Potassium Level 3.2 mmol/L (3.5-5.1) 3.2 mmol/L (3.5-5.1) Chloride Level 100 mmol/L (98-107) 106 mmol/L (98-107) Carbon Dioxide Level 26 mmol/L (21-32) 26 mmol/L (21-32) Anion Gap 12 (6-14) 10 (6-14) Blood Urea Nitrogen 9 mg/dL (8-26) 11 mg/dL (8-26) Creatinine 0.9 mg/dL (0.7-1.3) 1.0 mg/dL (0.7-1.3) Estimated GFR (Cockcroft-Gault) 97.8 86.6 Glucose Level 96 mg/dL (70-99) 93 mg/dL (70-99) Lactic Acid Level 1.9 mmol/L (0.4-2.0) Calcium Level 8.6 mg/dL (8.5-10.1) 7.8 mg/dL (8.5-10.1) Erythrocyte Sedimentation Rate 21 (0-15) Procalcitonin < 0.10 ng/mL (0.00-0.10) BUN/Creatinine Ratio 11 (6-20) Total Bilirubin 0.6 mg/dL (0.2-1.0) Aspartate Amino Transf (AST/SGOT) 30 U/L (15-37) Alanine Aminotransferase (ALT/SGPT) 38 U/L (16-63) Alkaline Phosphatase 71 U/L (46-116) Total Protein 6.9 g/dL (6.4-8.2) Albumin 3.3 g/dL (3.4-5.0) Albumin/Globulin Ratio 0.9 (1.0-1.7) Laboratory Tests Test 07/16/19 20:12 07/16/19 20:20 07/17/19 04:20 07/17/19 04:50 White Blood Count 8.7 x10^3/uL (4.0-11.0) 8.6 x10^3/uL (4.0-11.0) Red Blood Count 5.61 x10^6/uL (4.30-5.70) 4.96 x10^6/uL (4.30-5.70) Hemoglobin 15.5 g/dL (13.0-17.5) 13.7 g/dL (13.0-17.5) Hematocrit 45.4 % (39.0-53.0) 40.5 % (39.0-53.0) Mean Corpuscular Volume 81 fL (79-100) 82 fL (79-100) Mean Corpuscular Hemoglobin 28 pg (25-35) 28 pg (25-35) Mean Corpuscular Hemoglobin Concent 34 g/dL (31-37) 34 g/dL (31-37) Red Cell Distribution Width 14.5 % (11.5-14.5) 15.1 % (11.5-14.5) Platelet Count 301 x10^3/uL (140-400) 274 x10^3/uL (140-400) Neutrophils (%) (Auto) 63 % (31-73) 65 % (31-73) Lymphocytes (%) (Auto) 24 % (24-48) 25 % (24-48) Monocytes (%) (Auto) 8 % (0-9) 8 % (0-9) Eosinophils (%) (Auto) 4 % (0-3) 2 % (0-3) Basophils (%) (Auto) 1 % (0-3) 0 % (0-3) Neutrophils # (Auto) 5.5 x10^3/uL (1.8-7.7) 5.6 x10^3/uL (1.8-7.7) Lymphocytes # (Auto) 2.1 x10^3/uL (1.0-4.8) 2.2 x10^3/uL (1.0-4.8) Monocytes # (Auto) 0.7 x10^3/uL (0.0-1.1) 0.7 x10^3/uL (0.0-1.1) Eosinophils # (Auto) 0.4 x10^3/uL (0.0-0.7) 0.2 x10^3/uL (0.0-0.7) Basophils # (Auto) 0.0 x10^3/uL (0.0-0.2) 0.0 x10^3/uL (0.0-0.2) Sodium Level 138 mmol/L (136-145) 142 mmol/L (136-145) Potassium Level 3.2 mmol/L (3.5-5.1) 3.2 mmol/L (3.5-5.1) Chloride Level 100 mmol/L (98-107) 106 mmol/L (98-107) Carbon Dioxide Level 26 mmol/L (21-32) 26 mmol/L (21-32) Anion Gap 12 (6-14) 10 (6-14) Blood Urea Nitrogen 9 mg/dL (8-26) 11 mg/dL (8-26) Creatinine 0.9 mg/dL (0.7-1.3) 1.0 mg/dL (0.7-1.3) Estimated GFR (Cockcroft-Gault) 97.8 86.6 Glucose Level 96 mg/dL (70-99) 93 mg/dL (70-99) Lactic Acid Level 1.9 mmol/L (0.4-2.0) Calcium Level 8.6 mg/dL (8.5-10.1) 7.8 mg/dL (8.5-10.1) Erythrocyte Sedimentation Rate 21 (0-15) Procalcitonin < 0.10 ng/mL (0.00-0.10) BUN/Creatinine Ratio 11 (6-20) Total Bilirubin 0.6 mg/dL (0.2-1.0) Aspartate Amino Transf (AST/SGOT) 30 U/L (15-37) Alanine Aminotransferase (ALT/SGPT) 38 U/L (16-63) Alkaline Phosphatase 71 U/L (46-116) Total Protein 6.9 g/dL (6.4-8.2) Albumin 3.3 g/dL (3.4-5.0) Albumin/Globulin Ratio 0.9 (1.0-1.7) Images Images X-rays from prior visits were reviewed as were recent x-rays. He has changes consistent with chronic osteomyelitis versus Charcot arthropathy new changes noted at his first TMT joint now. Assessment/Plan Assessment/Plan I reviewed cultures from his earlier hospitalization and these were essentially negative demonstrating only a small amount of mixed skin william. I am not convinced that this represents osteomyelitis but I think that this may be more of a Charcot picture. I will follow him along with his hospital course and consider biopsy and culture if he does not improve. OBINNA LÓPEZ II, MD Jul 17, 2019 09:32
[2019-07-17 11:00] VITALS: BP 107/58
--- NOTE | 2019-07-17 12:21 | PDOC ---
PROGRESS NOTES History of Present Illness History of Present Illness Assessment/Plan Assessment/Plan VTE Prophylaxis Ordered VTE Prophylaxis Devices: No VTE Pharmacological Prophylaxi: Yes Assessment/Plan Assessment/Plan Left foot pain and swelling s/p plantar nail puncture s/p debridement in Apr 2018// OSTEOMYELITIS vs Charcot deformity Irregularity with osseous destructive changes at the first TMT joint and second MTP joint. There is surrounding soft tissue swelling. findings have progressed when compared to the prior radiograph on 09/12/2018 Enlargement and sclerosis of the second metatarsal, progressed from prior study. medical floor - X-ray of the left foot shows evidence of significant bony erosion of the head of the second metatarsal extending to the proximal phalanx concerning for osteomyelitis. - no fever, - Vancomycin and Rocephin. Blood cultures were drawn HYPOKALEMIA NONCOMPLIANCE HX PLAN ADMIT dvt ppx: full code ortho CONSULT ID CONSULT EMPERIC IV ANTIBIOTICS PROCALCITONIN BLOOD CULT DVT PROPHYLAXIS REPLETE K ct left foot, ankle 07/16 07/16 esr=21 procalcitonin < .10 Vitals Vitals Vital Signs Date Time Temp Pulse Resp B/P (MAP) Pulse Ox O2 Delivery O2 Flow Rate FiO2 07/17/19 08:00 Room Air 07/17/19 07:59 98.3 87 18 111/60 (77) 93 98.3 Physical Exam General: Alert, Oriented X3, No acute distress Heart: Regular rate, Normal S1, Normal S2 Lungs: Clear Abdomen: Soft, No tenderness Extremities: Other (Left foot has edema and soft tissue changes consistent with his surgical history, no open wounds or redness) Labs LABS Laboratory Tests Test 07/16/19 20:12 07/16/19 20:20 07/17/19 04:20 07/17/19 04:50 White Blood Count 8.7 x10^3/uL (4.0-11.0) 8.6 x10^3/uL (4.0-11.0) Red Blood Count 5.61 x10^6/uL (4.30-5.70) 4.96 x10^6/uL (4.30-5.70) Hemoglobin 15.5 g/dL (13.0-17.5) 13.7 g/dL (13.0-17.5) Hematocrit 45.4 % (39.0-53.0) 40.5 % (39.0-53.0) Mean Corpuscular Volume 81 fL (79-100) 82 fL (79-100) Mean Corpuscular Hemoglobin 28 pg (25-35) 28 pg (25-35) Mean Corpuscular Hemoglobin Concent 34 g/dL (31-37) 34 g/dL (31-37) Red Cell Distribution Width 14.5 % (11.5-14.5) 15.1 % (11.5-14.5) Platelet Count 301 x10^3/uL (140-400) 274 x10^3/uL (140-400) Neutrophils (%) (Auto) 63 % (31-73) 65 % (31-73) Lymphocytes (%) (Auto) 24 % (24-48) 25 % (24-48) Monocytes (%) (Auto) 8 % (0-9) 8 % (0-9) Eosinophils (%) (Auto) 4 % (0-3) 2 % (0-3) Basophils (%) (Auto) 1 % (0-3) 0 % (0-3) Neutrophils # (Auto) 5.5 x10^3/uL (1.8-7.7) 5.6 x10^3/uL (1.8-7.7) Lymphocytes # (Auto) 2.1 x10^3/uL (1.0-4.8) 2.2 x10^3/uL (1.0-4.8) Monocytes # (Auto) 0.7 x10^3/uL (0.0-1.1) 0.7 x10^3/uL (0.0-1.1) Eosinophils # (Auto) 0.4 x10^3/uL (0.0-0.7) 0.2 x10^3/uL (0.0-0.7) Basophils # (Auto) 0.0 x10^3/uL (0.0-0.2) 0.0 x10^3/uL (0.0-0.2) Sodium Level 138 mmol/L (136-145) 142 mmol/L (136-145) Potassium Level 3.2 mmol/L (3.5-5.1) 3.2 mmol/L (3.5-5.1) Chloride Level 100 mmol/L (98-107) 106 mmol/L (98-107) Carbon Dioxide Level 26 mmol/L (21-32) 26 mmol/L (21-32) Anion Gap 12 (6-14) 10 (6-14) Blood Urea Nitrogen 9 mg/dL (8-26) 11 mg/dL (8-26) Creatinine 0.9 mg/dL (0.7-1.3) 1.0 mg/dL (0.7-1.3) Estimated GFR (Cockcroft-Gault) 97.8 86.6 Glucose Level 96 mg/dL (70-99) 93 mg/dL (70-99) Lactic Acid Level 1.9 mmol/L (0.4-2.0) Calcium Level 8.6 mg/dL (8.5-10.1) 7.8 mg/dL (8.5-10.1) Erythrocyte Sedimentation Rate 21 (0-15) Procalcitonin < 0.10 ng/mL (0.00-0.10) BUN/Creatinine Ratio 11 (6-20) Total Bilirubin 0.6 mg/dL (0.2-1.0) Aspartate Amino Transf (AST/SGOT) 30 U/L (15-37) Alanine Aminotransferase (ALT/SGPT) 38 U/L (16-63) Alkaline Phosphatase 71 U/L (46-116) Total Protein 6.9 g/dL (6.4-8.2) Albumin 3.3 g/dL (3.4-5.0) Albumin/Globulin Ratio 0.9 (1.0-1.7) Assessment and Plan Assessmemt and Plan Problems Medical Problems: (1) Foot osteomyelitis, left Status: Acute Comment Review of Relevant I have reviewed the following items pedro (where applicable) has been applied. Labs Laboratory Tests Test 07/16/19 20:12 07/16/19 20:20 07/17/19 04:20 07/17/19 04:50 White Blood Count 8.7 x10^3/uL (4.0-11.0) 8.6 x10^3/uL (4.0-11.0) Red Blood Count 5.61 x10^6/uL (4.30-5.70) 4.96 x10^6/uL (4.30-5.70) Hemoglobin 15.5 g/dL (13.0-17.5) 13.7 g/dL (13.0-17.5) Hematocrit 45.4 % (39.0-53.0) 40.5 % (39.0-53.0) Mean Corpuscular Volume 81 fL (79-100) 82 fL (79-100) Mean Corpuscular Hemoglobin 28 pg (25-35) 28 pg (25-35) Mean Corpuscular Hemoglobin Concent 34 g/dL (31-37) 34 g/dL (31-37) Red Cell Distribution Width 14.5 % (11.5-14.5) 15.1 % (11.5-14.5) Platelet Count 301 x10^3/uL (140-400) 274 x10^3/uL (140-400) Neutrophils (%) (Auto) 63 % (31-73) 65 % (31-73) Lymphocytes (%) (Auto) 24 % (24-48) 25 % (24-48) Monocytes (%) (Auto) 8 % (0-9) 8 % (0-9) Eosinophils (%) (Auto) 4 % (0-3) 2 % (0-3) Basophils (%) (Auto) 1 % (0-3) 0 % (0-3) Neutrophils # (Auto) 5.5 x10^3/uL (1.8-7.7) 5.6 x10^3/uL (1.8-7.7) Lymphocytes # (Auto) 2.1 x10^3/uL (1.0-4.8) 2.2 x10^3/uL (1.0-4.8) Monocytes # (Auto) 0.7 x10^3/uL (0.0-1.1) 0.7 x10^3/uL (0.0-1.1) Eosinophils # (Auto) 0.4 x10^3/uL (0.0-0.7) 0.2 x10^3/uL (0.0-0.7) Basophils # (Auto) 0.0 x10^3/uL (0.0-0.2) 0.0 x10^3/uL (0.0-0.2) Sodium Level 138 mmol/L (136-145) 142 mmol/L (136-145) Potassium Level 3.2 mmol/L (3.5-5.1) 3.2 mmol/L (3.5-5.1) Chloride Level 100 mmol/L (98-107) 106 mmol/L (98-107) Carbon Dioxide Level 26 mmol/L (21-32) 26 mmol/L (21-32) Anion Gap 12 (6-14) 10 (6-14) Blood Urea Nitrogen 9 mg/dL (8-26) 11 mg/dL (8-26) Creatinine 0.9 mg/dL (0.7-1.3) 1.0 mg/dL (0.7-1.3) Estimated GFR (Cockcroft-Gault) 97.8 86.6 Glucose Level 96 mg/dL (70-99) 93 mg/dL (70-99) Lactic Acid Level 1.9 mmol/L (0.4-2.0) Calcium Level 8.6 mg/dL (8.5-10.1) 7.8 mg/dL (8.5-10.1) Erythrocyte Sedimentation Rate 21 (0-15) Procalcitonin < 0.10 ng/mL (0.00-0.10) BUN/Creatinine Ratio 11 (6-20) Total Bilirubin 0.6 mg/dL (0.2-1.0) Aspartate Amino Transf (AST/SGOT) 30 U/L (15-37) Alanine Aminotransferase (ALT/SGPT) 38 U/L (16-63) Alkaline Phosphatase 71 U/L (46-116) Total Protein 6.9 g/dL (6.4-8.2) Albumin 3.3 g/dL (3.4-5.0) Albumin/Globulin Ratio 0.9 (1.0-1.7) Laboratory Tests Test 07/16/19 20:12 07/16/19 20:20 07/17/19 04:20 07/17/19 04:50 White Blood Count 8.7 x10^3/uL (4.0-11.0) 8.6 x10^3/uL (4.0-11.0) Red Blood Count 5.61 x10^6/uL (4.30-5.70) 4.96 x10^6/uL (4.30-5.70) Hemoglobin 15.5 g/dL (13.0-17.5) 13.7 g/dL (13.0-17.5) Hematocrit 45.4 % (39.0-53.0) 40.5 % (39.0-53.0) Mean Corpuscular Volume 81 fL (79-100) 82 fL (79-100) Mean Corpuscular Hemoglobin 28 pg (25-35) 28 pg (25-35) Mean Corpuscular Hemoglobin Concent 34 g/dL (31-37) 34 g/dL (31-37) Red Cell Distribution Width 14.5 % (11.5-14.5) 15.1 % (11.5-14.5) Platelet Count 301 x10^3/uL (140-400) 274 x10^3/uL (140-400) Neutrophils (%) (Auto) 63 % (31-73) 65 % (31-73) Lymphocytes (%) (Auto) 24 % (24-48) 25 % (24-48) Monocytes (%) (Auto) 8 % (0-9) 8 % (0-9) Eosinophils (%) (Auto) 4 % (0-3) 2 % (0-3) Basophils (%) (Auto) 1 % (0-3) 0 % (0-3) Neutrophils # (Auto) 5.5 x10^3/uL (1.8-7.7) 5.6 x10^3/uL (1.8-7.7) Lymphocytes # (Auto) 2.1 x10^3/uL (1.0-4.8) 2.2 x10^3/uL (1.0-4.8) Monocytes # (Auto) 0.7 x10^3/uL (0.0-1.1) 0.7 x10^3/uL (0.0-1.1) Eosinophils # (Auto) 0.4 x10^3/uL (0.0-0.7) 0.2 x10^3/uL (0.0-0.7) Basophils # (Auto) 0.0 x10^3/uL (0.0-0.2) 0.0 x10^3/uL (0.0-0.2) Sodium Level 138 mmol/L (136-145) 142 mmol/L (136-145) Potassium Level 3.2 mmol/L (3.5-5.1) 3.2 mmol/L (3.5-5.1) Chloride Level 100 mmol/L (98-107) 106 mmol/L (98-107) Carbon Dioxide Level 26 mmol/L (21-32) 26 mmol/L (21-32) Anion Gap 12 (6-14) 10 (6-14) Blood Urea Nitrogen 9 mg/dL (8-26) 11 mg/dL (8-26) Creatinine 0.9 mg/dL (0.7-1.3) 1.0 mg/dL (0.7-1.3) Estimated GFR (Cockcroft-Gault) 97.8 86.6 Glucose Level 96 mg/dL (70-99) 93 mg/dL (70-99) Lactic Acid Level 1.9 mmol/L (0.4-2.0) Calcium Level 8.6 mg/dL (8.5-10.1) 7.8 mg/dL (8.5-10.1) Erythrocyte Sedimentation Rate 21 (0-15) Procalcitonin < 0.10 ng/mL (0.00-0.10) BUN/Creatinine Ratio 11 (6-20) Total Bilirubin 0.6 mg/dL (0.2-1.0) Aspartate Amino Transf (AST/SGOT) 30 U/L (15-37) Alanine Aminotransferase (ALT/SGPT) 38 U/L (16-63) Alkaline Phosphatase 71 U/L (46-116) Total Protein 6.9 g/dL (6.4-8.2) Albumin 3.3 g/dL (3.4-5.0) Albumin/Globulin Ratio 0.9 (1.0-1.7) Medications Current Medications Vancomycin HCl 250 ml @ 250 mls/hr 1X ONCE IV ; Start 07/16/19 at 20:15; Stop 07/16/19 at 21:14; Status Cancel Ceftriaxone Sodium (Rocephin) 1 gm 1X ONCE IVP Last administered on 07/16/19at 20:30; Start 07/16/19 at 20:15; Stop 07/16/19 at 20:16; Status DC Ondansetron HCl (Zofran) 4 mg PRN Q8HRS PRN IV NAUSEA/VOMITING Last administered on 07/16/19at 20:29; Start 07/16/19 at 20:15; Stop 07/17/19 at 20:14 Fentanyl Citrate (Fentanyl 2ml Vial) 50 mcg PRN Q1HR PRN IV PAIN; Start 07/16/19 at 20:15; Stop 07/17/19 at 20:14 Acetaminophen (Tylenol) 650 mg PRN Q4HRS PRN PO FEVER; Start 07/16/19 at 20:15; Stop 07/17/19 at 20:14 Sodium Chloride 1,000 ml @ 1,000 mls/hr 1X ONCE IV Last administered on 07/16/19at 20:28; Start 07/16/19 at 20:15; Stop 07/16/19 at 21:14; Status DC Fentanyl Citrate (Fentanyl 2ml Vial) 50 mcg 1X ONCE IVP Last administered on 07/16/19at 20:30; Start 07/16/19 at 20:15; Stop 07/16/19 at 20:16; Status DC Vancomycin HCl 2 gm/Sodium Chloride 500 ml @ 250 mls/hr 1X ONCE IV Last admin istered on 07/16/19at 20:29; Start 07/16/19 at 20:15; Stop 07/16/19 at 22:14; Status DC Sodium Chloride (Normal Saline Flush) 3 ml QSHIFT PRN IV AFTER MEDS AND BLOOD DRAWS; Start 07/16/19 at 21:30 Sodium Chloride 1,000 ml @ 100 mls/hr Q10H IV Last administered on 07/17/19at 08:21; Start 07/16/19 at 21:30 Zolpidem Tartrate (Ambien) 5 mg PRN QHS PRN PO INSOMNIA; Start 07/16/19 at 21:30 Acetaminophen (Tylenol) 650 mg PRN Q4HRS PRN PO TEMP OVER 100.4F OR MILD PAIN; Start 07/16/19 at 21:30 Al Hydroxide/Mg Hydroxide (Mylanta Plus Xs) 30 ml PRN DAILY PRN PO HEARTBURN / GAS; Start 07/16/19 at 21:30 Clonidine HCl (Catapres) 0.1 mg PRN Q6HRS PRN PO SBP>160 OR DBP>90; Start 07/16/19 at 21:30 Sodium Monofluorophosphate (Fleet Adult) 133 ml PRN DAILY PRN IA CONSTIPATION; Start 07/16/19 at 21:30 Diphenhydramine HCl (Benadryl) 25 mg PRN Q4HRS PRN IVP ITCHING; Start 07/16/19 at 21:30 Docusate Sodium (Colace) 100 mg PRN BID PRN PO CONSTIPATION; Start 07/16/19 at 21:30 Albuterol Sulfate (Ventolin Neb Soln) 2.5 mg PRN Q4HRS PRN NEB SHORTNESS OF BREATH; Start 07/16/19 at 21:30 Guaifenesin (Robitussin) 200 mg PRN Q4HRS PRN PO COUGH; Start 07/16/19 at 21:30 Lorazepam (Ativan) 0.5 mg PRN Q4HRS PRN PO ANXIETY / AGITATION; Start 07/16/19 at 21:30 Enoxaparin Sodium (Lovenox 40mg Syringe) 40 mg Q24H SQ Last administered on 07/16/19at 23:11; Start 07/16/19 at 21:30 Vancomycin HCl (Vanco Per Pharmacy) 1 each PRN DAILY PRN MC SEE COMMENTS Last administered on 07/16/19at 22:05; Start 07/16/19 at 21:30 Erythromycin (Romycin) 0.25 inch 6XDAY OS ; Start 07/16/19 at 22:00; Stop 07/16/19 at 23:54; Status DC Acetaminophen/ Hydrocodone Bitart (Lortab 5/325) 1 tab PRN Q6HRS PRN PO PAIN; Start 07/16/19 at 21:30 Lactobacillus Rhamnosus (Culturelle) 1 cap BID PO Last administered on at 08:21; Start 07/17/19 at 09:00 Potassium Chloride (Klor-Con) 20 meq DAILYWBKFT PO Last administered on 07/17/19at 08:21; Start 07/17/19 at 08:00 Vancomycin HCl 1.25 gm/Sodium Chloride 250 ml @ 167 mls/hr Q8H IV Last administered on 07/17/19at 04:06; Start 07/17/19 at 04:30 Vancomycin HCl (Vancomycin Trough Level) 1 each 1X ONCE MC ; Start 07/17/19 at 20:00; Stop 07/17/19 at 20:01 Active Scripts Active Mupirocin Cream (Mupirocin) 15 Gm Cream..g. 1 [place] TP BID 14 Days Erythromycin (Erythromycin Base) 1 Gm Oint...g. 0.25 Inch OS 6XDAY 10 Days Culturelle (Lactobacillus Rhamnosus Gg) 1 Each Cap.sprink 1 Cap PO BID 30 Days Klor-Con M20 (Potassium Chloride) 20 Meq Tab.er.prt 20 Meq PO DAILYWBKFT 14 Days [Fluconazole] 100 MG Tablet 200 Mg PO DAILY 28 Days [Ceftriaxone Sodium] 2 GM Vial 2 Gm IVP Q24H 30 Days [place] 5-325 Tablet (Acetaminophen/Hydrocodone Bitart) 1 Each Tablet 1 Tab PO PRN Q6HRS PRN Vitals/I & O Vital Sign - Last 24 Hours 07/16/19 07/16/19 07/16/19 07/16/19 18:21 20:15 20:30 20:45 Temp 98.1 98.1 Pulse 95 84 78 Resp 18 18 16 18 B/P (MAP) 147/88 (107) Pulse Ox 100 99 99 98 O2 Delivery Room Air Room Air 07/16/19 07/16/19 07/16/19 07/17/19 21:00 22:30 22:58 00:12 Temp 97.8 97.8 Pulse 86 76 78 Resp 18 18 20 B/P (MAP) 128/70 (89) 130/74 (92) 129/78 (95) Pulse Ox 99 98 97 O2 Delivery Room Air Room Air 07/17/19 07/17/19 07/17/19 03:27 07:59 08:00 Temp 98.3 98.3 98.3 98.3 Pulse 95 87 Resp 20 18 B/P (MAP) 115/75 (88) 111/60 (77) Pulse Ox 96 93 O2 Delivery Room Air Room Air Room Air Intake and Output 07/16/19 07/16/19 07/17/19 15:00 23:00 07:00 Intake Total 240 ml Output Total 400 ml Balance -160 ml JACQUES KEMP MD Jul 17, 2019 12:21
--- NOTE | 2019-07-17 15:12 | PDOC ---
Infectious Disease Note Vital Sign Vital Signs Vital Signs Date Time Temp Pulse Resp B/P (MAP) Pulse Ox O2 Delivery O2 Flow Rate FiO2 07/17/19 11:00 98.1 81 20 107/58 (74) 99 Room Air 98.1 Labs Lab Laboratory Tests Test 07/16/19 20:12 07/16/19 20:20 07/17/19 04:20 07/17/19 04:50 White Blood Count 8.7 x10^3/uL (4.0-11.0) 8.6 x10^3/uL (4.0-11.0) Red Blood Count 5.61 x10^6/uL (4.30-5.70) 4.96 x10^6/uL (4.30-5.70) Hemoglobin 15.5 g/dL (13.0-17.5) 13.7 g/dL (13.0-17.5) Hematocrit 45.4 % (39.0-53.0) 40.5 % (39.0-53.0) Mean Corpuscular Volume 81 fL (79-100) 82 fL (79-100) Mean Corpuscular Hemoglobin 28 pg (25-35) 28 pg (25-35) Mean Corpuscular Hemoglobin Concent 34 g/dL (31-37) 34 g/dL (31-37) Red Cell Distribution Width 14.5 % (11.5-14.5) 15.1 % (11.5-14.5) Platelet Count 301 x10^3/uL (140-400) 274 x10^3/uL (140-400) Neutrophils (%) (Auto) 63 % (31-73) 65 % (31-73) Lymphocytes (%) (Auto) 24 % (24-48) 25 % (24-48) Monocytes (%) (Auto) 8 % (0-9) 8 % (0-9) Eosinophils (%) (Auto) 4 % (0-3) 2 % (0-3) Basophils (%) (Auto) 1 % (0-3) 0 % (0-3) Neutrophils # (Auto) 5.5 x10^3/uL (1.8-7.7) 5.6 x10^3/uL (1.8-7.7) Lymphocytes # (Auto) 2.1 x10^3/uL (1.0-4.8) 2.2 x10^3/uL (1.0-4.8) Monocytes # (Auto) 0.7 x10^3/uL (0.0-1.1) 0.7 x10^3/uL (0.0-1.1) Eosinophils # (Auto) 0.4 x10^3/uL (0.0-0.7) 0.2 x10^3/uL (0.0-0.7) Basophils # (Auto) 0.0 x10^3/uL (0.0-0.2) 0.0 x10^3/uL (0.0-0.2) Sodium Level 138 mmol/L (136-145) 142 mmol/L (136-145) Potassium Level 3.2 mmol/L (3.5-5.1) 3.2 mmol/L (3.5-5.1) Chloride Level 100 mmol/L (98-107) 106 mmol/L (98-107) Carbon Dioxide Level 26 mmol/L (21-32) 26 mmol/L (21-32) Anion Gap 12 (6-14) 10 (6-14) Blood Urea Nitrogen 9 mg/dL (8-26) 11 mg/dL (8-26) Creatinine 0.9 mg/dL (0.7-1.3) 1.0 mg/dL (0.7-1.3) Estimated GFR (Cockcroft-Gault) 97.8 86.6 Glucose Level 96 mg/dL (70-99) 93 mg/dL (70-99) Lactic Acid Level 1.9 mmol/L (0.4-2.0) Calcium Level 8.6 mg/dL (8.5-10.1) 7.8 mg/dL (8.5-10.1) Erythrocyte Sedimentation Rate 21 (0-15) Procalcitonin < 0.10 ng/mL (0.00-0.10) BUN/Creatinine Ratio 11 (6-20) Total Bilirubin 0.6 mg/dL (0.2-1.0) Aspartate Amino Transf (AST/SGOT) 30 U/L (15-37) Alanine Aminotransferase (ALT/SGPT) 38 U/L (16-63) Alkaline Phosphatase 71 U/L (46-116) Total Protein 6.9 g/dL (6.4-8.2) Albumin 3.3 g/dL (3.4-5.0) Albumin/Globulin Ratio 0.9 (1.0-1.7) Objective Assessment Left foot swelling with progressive osseous destructive changes at the first TMT joint and second MTP joint. No injury or wounds. ESR 21 Suspect Charcot arthropathy Peripheral neuropathy h/o left foot injury from stepping on a screw in 2018 s/p I and D down to the bone. cultures mixed skin william h/o Strep anginosus bacteremia 2018 Plan Plan of Care vancomycin and one time dose Rocephin started in ER Ortho following, no surgical plans Offload Thank you Full consult to follow CT pending. No wounds - he states it swelled because he was standing on it too long at work. Had recent visit to ER 06/23 for similar complaint Denies injury/F/C/S Normal Procalcitonin and sed rate only mildly elevated Cont Rocephin Attending Co-Sign Attending Co-Sign The patient was seen and interviewed as well as examined at the bedside. The chart was reviewed. The case was discussed. Agree with the plan of care. ROMINA LOZANO APRN Jul 17, 2019 15:12 [place] ROLAND MD Jul 17, 2019 15:44
--- NOTE | 2019-07-17 15:21 | RAD ---
Examination: CT left foot without contrast HISTORY: History of osteomyelitis left foot COMPARISON: Radiograph from 07/16/2019 TECHNIQUE: Axial CT images of the left foot were performed without contrast. Coronal and sagittal reformats are performed Exposure: One or more of the following individualized dose reduction techniques were utilized for this examination: 1. Automated exposure control 2. Adjustment of the mA and/or kV according to patient size 3. Use of iterative reconstruction technique FINDINGS: There is widening of the first and second proximal metatarsals at the level of the metatarsophalangeal joints likely Lisfranc dislocation with destructive changes identified in the distal aspect of the medial cuneiform and proximal portion of the base of the first metatarsal. Bony irregularity destructive changes identified in the head of the second metatarsal with scalloping of the proximal phalanx of the second toe. There is diffuse sclerotic thickening of the second metatarsal. There is a probable sequestrum identified in the medial cuneiform distally. IMPRESSION: 1. Findings suggest possible septic arthritis with osteomyelitis at the first metatarsophalangeal joint with destructive changes are described and widened appearance in the first and second metatarsal likely Lisfranc dislocation. MRI is recommended for better evaluation if clinically feasible. 2. Bony irregularity destructive changes identified in the head of the second metatarsal with scalloping of the proximal phalanx of the second toe. There is diffuse sclerotic thickening of the second metatarsal could be osteomyelitis/septic arthritis. Electronically signed by: Camacho Madera MD (07/17/2019 3:18 PM) [id number]
[2019-07-17 15:59] VITALS: BP 120/71
[2019-07-17] MEDS: cefTRIAXone IV Push 2 GM VIAL. IVP SCH (17:04)
--- NOTE | 2019-07-17 17:54 | CONS ---
DATE OF CONSULTATION: 07/17/2019 REQUESTING PHYSICIAN: Britton Cartagena MD REASON FOR CONSULTATION: Osteomyelitis of left foot. HISTORY OF PRESENT ILLNESS: The patient is a 33-year-old male who developed the left foot swelling over the last week or so. He attributes the swelling to being on his feet 12 hours a day at work. He has peripheral neuropathy in his hands and feet. He denies pain. He denies injury or open wounds. He denies fevers, chills or sweats. X-ray imaging showed irregularity with osseous destructive changes at the 1st TMT joint and second MTP joint with surrounding soft tissue swelling. Findings have progressed compared to prior study in 08/2018. His sed rate is 21. Procalcitonin is normal. He was started on vancomycin and given a one-time dose of ceftriaxone in the ER. He was evaluated ortho. There are no surgical plans. PAST MEDICAL HISTORY: Streptococcus anginosus bacteremia 04/2018, history of left foot injury from stepping on a screw in 2018, status post incision and drainage down to the bone, cultures were mixed skin william, peripheral neuropathy, bilateral hand contractures. PAST SURGICAL HISTORY: Incision and drainage left foot. FAMILY HISTORY: Noncontributory. SOCIAL HISTORY: He is a nonsmoker. He is employed at the [employer]. ALLERGIES: No known drug allergies. MEDICATIONS: Vancomycin. One-time dose of ceftriaxone in the ER. Probiotics. Other medications are available and have been reviewed in the MAR. REVIEW OF SYSTEMS: As mentioned above. He was seen in the ER on 06/23 for similar complaints. All other review of systems are negative. He denies recent traveling or known exposure to COVID-19 positive individuals. PHYSICAL EXAMINATION: VITAL SIGNS: Temperature is 98.1, blood pressure 107/58, heart rate 81, respiratory rate 20, pulse oximetry 99% on room air. BMI 33. GENERAL: The patient is propped up in bed, alert, no apparent distress. HEENT: Pupils equally round and reactive. Oropharynx pink and moist. No lesions. NECK: Supple. LUNGS: Clear to auscultation. HEART: S1 and S2. ABDOMEN: Obese, soft, nontender with bowel sounds present. EXTREMITIES: Left foot is swollen, nontender. No redness or warmth. Dorsalis pedis pulse palpable. There are no open wounds. He has contractures of bilateral hands. SKIN: Warm to touch. No signs of rash. He has tattoos. NEUROLOGIC: Alert and answering questions appropriately. LABORATORY DATA: Today WBC 8.6, hemoglobin 13.7, platelets 274,000, sed rate 21. Sodium 142, potassium 3.2, creatinine 1.0, BUN 11. Lactic acid 1.9, glucose 93, total bilirubin 0.6, AST 30, ALT 38. Procalcitonin less than 0.10, albumin 3.3. Blood cultures from the pending. X-ray imaging per HPI. Left venous ultrasound negative for DVT. Left inguinal adenopathy noted. Lower extremity CT pending. IMPRESSION: 1. Left foot swelling with progressive osseous destructive changes at the 1st TMT joint and second MTP joint. No injuries or wounds. His sed rate is 21. 2. Suspect Charcot arthropathy. 3. Peripheral neuropathy. 4. History of Strep anginosus bacteremia in 2019. 5. History of left foot injury from stepping on a screw in 2019, status post incision and drainage down to the bone cultures, mixed skin william. PLAN: 1. Continue the vancomycin and ceftriaxone. 2. Ortho is following. No surgical plans recommended at this time. 3. Offloading. 4. Monitor renal function closely. 5. CT lower extremity pending. 6. We will follow. Thank you, Dr. Cartagena for asking us to participate in this patient's care. Should you have further questions or concerns, please call. The patient seen and examined and plan of care implemented by Dr. Ny Azar. [place] AZAR MD DR: RENAN/jhoan JOB#: [id number] / [id number] KVNG
[2019-07-17 19:30] VITALS: BP 125/65
[2019-07-17] MEDS: ENOXAPARIN 40 MG/0.4 ML SYRINGE. SQ SCH (20:00)
[2019-07-17 20:34] LABS: VANC TR 12.9 mcg/mL (10.0-20.0)
[2019-07-17] MEDS: VANCOMYCIN PER PHARMACY MC PRN (20:42)
--- NOTE | 2019-07-17 20:42 | NUR ---
Pharmacy Vancomycin Dosing Note S: Consulted to monitor and dose vancomycin started 07/16/19. O: JOHN CURRY is a 33 year old M with osteomyelitis. Other Antibiotics: ROCEPHIN 2G IV Q24HRS LABS: Last BUN: 11 Last Creatinine: 1.0 Creatinine Clearance: >100 mL/min Last WBC: 8.6 Last Procalcitonin: - Tmax (past 24 hours): 98.4 Microbiology: BLOOD CX (07/15): NGTD I/O: 240/400 Drug Levels: Last Trough level: 12.9 on 07/17/19 at 2000 Last dose given 07/17/19 at 1230 Vancomycin Dosing: Dosing Weight: Actual Target Trough: 15-20 A: Patient is receiving vancomycin 1250 mg IV q8hrs. A trough of 12.9 mcg/ml is below goal range. Renal function remains stable. Adjust to the following dose: P: 1. Change to Vancomycin 1500 mg IV q8h 2. Follow up trough in 5 - 7 days or if changes in renal function occur. 3. Pharmacy will continue to monitor, follow and adjust therapy as needed. MALIK TELLEZ [facility], 07/17/198
[2019-07-17 23:00] VITALS: BP 125/70
[2019-07-18 02:58] VITALS: BP 121/80
[2019-07-18] MEDS: VANCOMYCIN 1.5 GM in IV NORMAL SALINE 500ML BAG 500 ML IV SCH ×3 (02:58→20:45)
[2019-07-18] MEDS: IV NORMAL SALINE 1000ML BAG 1,000 ML IV SCH ×2 (03:26→12:57)
[2019-07-18 04:49] LABS: GFR 86.6
[2019-07-18 07:00] VITALS: BP 142/88
[2019-07-18] MEDS: POTASSIUM CHLORIDE 20 MEQ TABLET.ER. PO SCH (09:01)
[2019-07-18] MEDS: LACTOBACILLUS RHAMNOSUS GG 1 CAPSULE. PO SCH ×2 (09:01→20:45)
--- NOTE | 2019-07-18 09:20 | NUR ---
SW following. Discussed with RN, pt from home. RN advised no SW needs at this time. SW will continue to follow.
--- NOTE | 2019-07-18 10:17 | PDOC ---
Infectious Disease Note Subjective Subjective Foot some better but has not been ambulating No F/c/S/N/V/D/SOA/rash ROS ROS o/w neg Vital Sign Vital Signs Vital Signs Date Time Temp Pulse Resp B/P (MAP) Pulse Ox O2 Delivery O2 Flow Rate FiO2 07/18/19 07:00 97.5 77 20 142/88 (106) 100 Room Air 97.5 Physical Exam PHYSICAL EXAM GENERAL: Slleping ioin arrival. Awakened easily. The patient is propped up in bed, alert, no apparent distress. HEENT: Pupils equally round and reactive. Oropharynx pink and moist. No lesions. NECK: Supple. LUNGS: Clear to auscultation. HEART: S1 and S2. ABDOMEN: Obese, soft, nontender with bowel sounds present. EXTREMITIES: Left foot is swollen, nontender. No redness or warmth. Dorsalis pedis pulse palpable. There are no open wounds. He has contractures of bilateral hands. SKIN: Warm to touch. No signs of rash. He has tattoos. NEUROLOGIC: Alert and answering questions appropriately Labs Lab Laboratory Tests Test 07/17/19 19:55 07/18/19 04:05 Vancomycin Level Trough 12.9 mcg/mL (10.0-20.0) Vancomycin Last Dose Date Unk Vancomycin Last Dose Time Unk Creatinine 1.0 mg/dL (0.7-1.3) Estimated GFR (Cockcroft-Gault) 86.6 Micro IMPRESSION: 1. Findings suggest possible septic arthritis with osteomyelitis at the first metatarsophalangeal joint with destructive changes are described and widened appearance in the first and second metatarsal likely Lisfranc dislocation. MRI is recommended for better evaluation if clinically feasible. 2. Bony irregularity destructive changes identified in the head of the second metatarsal with scalloping of the proximal phalanx of the second toe. There is diffuse sclerotic thickening of the second metatarsal could be osteomyelitis/septic arthritis. Microbiology 07/16/19 Blood Culture - Preliminary, Resulted NO GROWTH AFTER 1 DAY Objective Assessment Left foot swelling with progressive osseous destructive changes at the first TMT joint and second MTP joint. No injury or wounds. ESR 21 Normal Procalcitonin and sed rate only mildly elevated Suspect Charcot arthropathy Peripheral neuropathy h/o left foot injury from stepping on a screw in 2018 s/p I and D down to the bone. cultures mixed skin william h/o Strep anginosus bacteremia 2018 Plan Plan of Care Cont vancomycin and Rocephin for now F/u cults Ortho following, no surgical plans await CT review Offload D/w nursing [place] ROLAND MD Jul 18, 2019 10:17
--- NOTE | 2019-07-18 10:52 | PDOC ---
PROGRESS NOTES History of Present Illness History of Present Illness Assessment/Plan Assessment/Plan VTE Prophylaxis Ordered VTE Prophylaxis Devices: No VTE Pharmacological Prophylaxi: Yes Assessment/Plan Assessment/Plan Left foot pain and swelling s/p plantar nail puncture s/p debridement in Apr 2018// OSTEOMYELITIS vs Charcot deformity Irregularity with osseous destructive changes at the first TMT joint and second MTP joint. There is surrounding soft tissue swelling. findings have progressed when compared to the prior radiograph on 09/12/2018 Enlargement and sclerosis of the second metatarsal, progressed from prior study. medical floor on ct 07/16 Findings suggest possible septic arthritis with osteomyelitis at the first metatarsophalangeal joint with destructive changes are described and widened appearance in the first and second metatarsal likely Lisfranc dislocation. MRI is recommended for better evaluation if clinically feasible. Bony irregularity destructive changes identified in the head of the second metatarsal with scalloping of the proximal phalanx of the second toe. There is diffuse sclerotic thickening of the second metatarsal could be osteomyelitis/septic arthritis. - X-ray of the left foot shows evidence of significant bony erosion of the head of the second metatarsal extending to the proximal phalanx concerning for osteom yelitis. - no fever, - Vancomycin and Rocephin. Blood cultures were drawn HYPOKALEMIA NONCOMPLIANCE HX PLAN ADMIT dvt ppx: full code ortho CONSULT ID CONSULT EMPERIC IV ANTIBIOTICS PROCALCITONIN BLOOD CULT DVT PROPHYLAXIS REPLETE K ct left foot, ankle 07/16 07/17 esr=21 procalcitonin < .10 38 MIN PT exam, chart review, > 50% of time spent with exam, chart review, pt care coordination Vitals Vitals Vital Signs Date Time Temp Pulse Resp B/P (MAP) Pulse Ox O2 Delivery O2 Flow Rate FiO2 07/18/19 07:00 97.5 77 20 142/88 (106) 100 Room Air 97.5 Physical Exam Physical Exam GENERAL: Slleping ioin arrival. Awakened easily. The patient is propped up in bed, alert, no apparent distress. HEENT: Pupils equally round and reactive. Oropharynx pink and moist. No lesions. NECK: Supple. LUNGS: Clear to auscultation. HEART: S1 and S2. ABDOMEN: Obese, soft, nontender with bowel sounds present. EXTREMITIES: Left foot is swollen, nontender. No redness or warmth. Dorsalis pedis pulse palpable. There are no open wounds. He has contractures of bilateral hands. SKIN: Warm to touch. No signs of rash. He has tattoos. NEUROLOGIC: Alert and answering questions appropriately General: Alert, Oriented X3, No acute distress Heart: Regular rate, Normal S1, Normal S2 Lungs: Clear Abdomen: Soft, No tenderness Extremities: No cyanosis, Other (Left foot has edema and soft tissue changes consistent with his surgical history, no open wounds or redness) Labs LABS HISTORY: History of osteomyelitis left foot COMPARISON: Radiograph from 07/16/2019 TECHNIQUE: Axial CT images of the left foot were performed without contrast. Coronal and sagittal reformats are performed Exposure: One or more of the following individualized dose reduction techniques were utilized for this examination: 1. Automated exposure control 2. Adjustment of the mA and/or kV according to patient size 3. Use of iterative reconstruction technique FINDINGS: There is widening of the first and second proximal metatarsals at the level of the metatarsophalangeal joints likely Lisfranc dislocation with destructive changes identified in the distal aspect of the medial cuneiform and proximal portion of the base of the first metatarsal. Bony irregularity destructive changes identified in the head of the second metatarsal with scalloping of the proximal phalanx of the second toe. There is diffuse sclerotic thickening of the second metatarsal. There is a probable sequestrum identified in the medial cuneiform distally. IMPRESSION: 1. Findings suggest possible septic arthritis with osteomyelitis at the first metatarsophalangeal joint with destructive changes are described and widened appearance in the first and second metatarsal likely Lisfranc dislocation. MRI is recommended for better evaluation if clinically feasible. 2. Bony irregularity destructive changes identified in the head of the second metatarsal with scalloping of the proximal phalanx of the second toe. There is diffuse sclerotic thickening of the second metatarsal could be osteomyelitis/septic arthritis. Electronically signed by: Camacho Madera MD (07/17/2019 3:18 PM) [id number] DICTATED and SIGNED BY: CAMACHO MADERA MD DATE: 07/17/19 1518 Laboratory Tests Test 07/17/19 19:55 07/18/19 04:05 Vancomycin Level Trough 12.9 mcg/mL (10.0-20.0) Vancomycin Last Dose Date Unk Vancomycin Last Dose Time Unk Creatinine 1.0 mg/dL (0.7-1.3) Estimated GFR (Cockcroft-Gault) 86.6 Assessment and Plan Assessmemt and Plan Problems Medical Problems: (1) Foot osteomyelitis, left Status: Acute Comment Review of Relevant I have reviewed the following items pedro (where applicable) has been applied. Labs Laboratory Tests Test 07/16/19 20:12 07/16/19 20:20 07/17/19 04:20 07/17/19 04:50 White Blood Count 8.7 x10^3/uL (4.0-11.0) 8.6 x10^3/uL (4.0-11.0) Red Blood Count 5.61 x10^6/uL (4.30-5.70) 4.96 x10^6/uL (4.30-5.70) Hemoglobin 15.5 g/dL (13.0-17.5) 13.7 g/dL (13.0-17.5) Hematocrit 45.4 % (39.0-53.0) 40.5 % (39.0-53.0) Mean Corpuscular Volume 81 fL (79-100) 82 fL (79-100) Mean Corpuscular Hemoglobin 28 pg (25-35) 28 pg (25-35) Mean Corpuscular Hemoglobin Concent 34 g/dL (31-37) 34 g/dL (31-37) Red Cell Distribution Width 14.5 % (11.5-14.5) 15.1 % (11.5-14.5) Platelet Count 301 x10^3/uL (140-400) 274 x10^3/uL (140-400) Neutrophils (%) (Auto) 63 % (31-73) 65 % (31-73) Lymphocytes (%) (Auto) 24 % (24-48) 25 % (24-48) Monocytes (%) (Auto) 8 % (0-9) 8 % (0-9) Eosinophils (%) (Auto) 4 % (0-3) 2 % (0-3) Basophils (%) (Auto) 1 % (0-3) 0 % (0-3) Neutrophils # (Auto) 5.5 x10^3/uL (1.8-7.7) 5.6 x10^3/uL (1.8-7.7) Lymphocytes # (Auto) 2.1 x10^3/uL (1.0-4.8) 2.2 x10^3/uL (1.0-4.8) Monocytes # (Auto) 0.7 x10^3/uL (0.0-1.1) 0.7 x10^3/uL (0.0-1.1) Eosinophils # (Auto) 0.4 x10^3/uL (0.0-0.7) 0.2 x10^3/uL (0.0-0.7) Basophils # (Auto) 0.0 x10^3/uL (0.0-0.2) 0.0 x10^3/uL (0.0-0.2) Sodium Level 138 mmol/L (136-145) 142 mmol/L (136-145) Potassium Level 3.2 mmol/L (3.5-5.1) 3.2 mmol/L (3.5-5.1) Chloride Level 100 mmol/L (98-107) 106 mmol/L (98-107) Carbon Dioxide Level 26 mmol/L (21-32) 26 mmol/L (21-32) Anion Gap 12 (6-14) 10 (6-14) Blood Urea Nitrogen 9 mg/dL (8-26) 11 mg/dL (8-26) Creatinine 0.9 mg/dL (0.7-1.3) 1.0 mg/dL (0.7-1.3) Estimated GFR (Cockcroft-Gault) 97.8 86.6 Glucose Level 96 mg/dL (70-99) 93 mg/dL (70-99) Lactic Acid Level 1.9 mmol/L (0.4-2.0) Calcium Level 8.6 mg/dL (8.5-10.1) 7.8 mg/dL (8.5-10.1) Erythrocyte Sedimentation Rate 21 (0-15) Procalcitonin < 0.10 ng/mL (0.00-0.10) BUN/Creatinine Ratio 11 (6-20) Total Bilirubin 0.6 mg/dL (0.2-1.0) Aspartate Amino Transf (AST/SGOT) 30 U/L (15-37) Alanine Aminotransferase (ALT/SGPT) 38 U/L (16-63) Alkaline Phosphatase 71 U/L (46-116) Total Protein 6.9 g/dL (6.4-8.2) Albumin 3.3 g/dL (3.4-5.0) Albumin/Globulin Ratio 0.9 (1.0-1.7) Test 07/17/19 19:55 07/18/19 04:05 Vancomycin Level Trough 12.9 mcg/mL (10.0-20.0) Vancomycin Last Dose Date Unk Vancomycin Last Dose Time Unk Creatinine 1.0 mg/dL (0.7-1.3) Estimated GFR (Cockcroft-Gault) 86.6 Laboratory Tests Test 07/17/19 19:55 07/18/19 04:05 Vancomycin Level Trough 12.9 mcg/mL (10.0-20.0) Vancomycin Last Dose Date Unk Vancomycin Last Dose Time Unk Creatinine 1.0 mg/dL (0.7-1.3) Estimated GFR (Cockcroft-Gault) 86.6 Microbiology 07/16/19 Blood Culture - Preliminary, Resulted NO GROWTH AFTER 1 DAY Medications Current Medications Vancomycin HCl 250 ml @ 250 mls/hr 1X ONCE IV ; Start 07/16/19 at 20:15; Stop 07/16/19 at 21:14; Status Cancel Ceftriaxone Sodium (Rocephin) 1 gm 1X ONCE IVP Last administered on 07/16/19at 20:30; Start 07/16/19 at 20:15; Stop 07/16/19 at 20:16; Status DC Ondansetron HCl (Zofran) 4 mg PRN Q8HRS PRN IV NAUSEA/VOMITING Last administered on 07/16/19at 20:29; Start 07/16/19 at 20:15; Stop 07/17/19 at 20:14; Status DC Fentanyl Citrate (Fentanyl 2ml Vial) 50 mcg PRN Q1HR PRN IV PAIN; Start 07/16/19 at 20:15; Stop 07/17/19 at 20:14; Status DC Acetaminophen (Tylenol) 650 mg PRN Q4HRS PRN PO FEVER; Start 07/16/19 at 20:15; Stop 07/17/19 at 14:14; Status DC Sodium Chloride 1,000 ml @ 1,000 mls/hr 1X ONCE IV Last administered on 07/16/19at 20:28; Start 07/16/19 at 20:15; Stop 07/16/19 at 21:14; Status DC Fentanyl Citrate (Fentanyl 2ml Vial) 50 mcg 1X ONCE IVP Last administered on 07/16/19at 20:30; Start 07/16/19 at 20:15; Stop 07/16/19 at 20:16; Status DC Vancomycin HCl 2 gm/Sodium Chloride 500 ml @ 250 mls/hr 1X ONCE IV Last administered on 07/16/19at 20:29; Start 07/16/19 at 20:15; Stop 07/16/19 at 22:14; Status DC Sodium Chloride (Normal Saline Flush) 3 ml QSHIFT PRN IV AFTER MEDS AND BLOOD DRAWS; Start 07/16/19 at 21:30 Sodium Chloride 1,000 ml @ 100 mls/hr Q10H IV Last administered on 07/17/19at 20:01; Start 07/16/19 at 21:30 Zolpidem Tartrate (Ambien) 5 mg PRN QHS PRN PO INSOMNIA; Start 07/16/19 at 21:30 Acetaminophen (Tylenol) 650 mg PRN Q4HRS PRN PO TEMP OVER 100.4F OR MILD PAIN; Start 07/16/19 at 21:30 Al Hydroxide/Mg Hydroxide (Mylanta Plus Xs) 30 ml PRN DAILY PRN PO HEARTBURN / GAS; Start 07/16/19 at 21:30 Clonidine HCl (Catapres) 0.1 mg PRN Q6HRS PRN PO SBP>160 OR DBP>90; Start 07/16/19 at 21:30 Sodium Monofluorophosphate (Fleet Adult) 133 ml PRN DAILY PRN FL CONSTIPATION; Start 07/16/19 at 21:30 Diphenhydramine HCl (Benadryl) 25 mg PRN Q4HRS PRN IVP ITCHING; Start 07/16/19 at 21:30 Docusate Sodium (Colace) 100 mg PRN BID PRN PO CONSTIPATION; Start 07/16/19 at 21:30 Albuterol Sulfate (Ventolin Neb Soln) 2.5 mg PRN Q4HRS PRN NEB SHORTNESS OF BREATH; Start 07/16/19 at 21:30 Guaifenesin (Robitussin) 200 mg PRN Q4HRS PRN PO COUGH; Start 07/16/19 at 21:30 Lorazepam (Ativan) 0.5 mg PRN Q4HRS PRN PO ANXIETY / AGITATION; Start 07/16/19 at 21:30 Enoxaparin Sodium (Lovenox 40mg Syringe) 40 mg Q24H SQ Last administered on 07/17/19at 20:00; Start 07/16/19 at 21:30 Vancomycin HCl (Vanco Per Pharmacy) 1 each PRN DAILY PRN MC SEE COMMENTS Last administered on 07/17/19at 20:42; Start 07/16/19 at 21:30 Erythromycin (Romycin) 0.25 inch 6XDAY OS ; Start 07/16/19 at 22:00; Stop 07/16/19 at 23:54; Status DC Acetaminophen/ Hydrocodone Bitart (Lortab 5/325) 1 tab PRN Q6HRS PRN PO MODERATE PAIN, SEVERE PAIN; Start 07/16/19 at 21:30 Lactobacillus Rhamnosus (Culturelle) 1 cap BID PO Last administered on 07/18/19at 09:01; Start 07/17/19 at 09:00 Potassium Chloride (Klor-Con) 20 meq DAILYWBKFT PO Last administered on 07/18/19at 09:01; Start 07/17/19 at 08:00 Vancomycin HCl 1.25 gm/Sodium Chloride 250 ml @ 167 mls/hr Q8H IV Last administered on 07/17/19at 20:06; Start 07/17/19 at 04:30; Stop 07/17/19 at 20:38; Status DC Vancomycin HCl (Vancomycin Trough Level) 1 each 1X ONCE MC Last administered on 07/17/19at 19:55; Start 07/17/19 at 20:00; Stop 07/17/19 at 20:01; Status DC Ceftriaxone Sodium (Rocephin) 2 gm Q24H IVP Last administered on 07/17/19at 17:04; Start 07/17/19 at 16:00 Vancomycin HCl 1.5 gm/Sodium Chloride 500 ml @ 250 mls/hr Q8H IV Last administered on 07/18/19at 02:58; Start 07/18/19 at 03:00 Multivitamins (Thera M Plus) 1 tab DAILY PO ; Start 07/18/19 at 10:00 Active Scripts Active Mupirocin Cream (Mupirocin) 15 Gm Cream..g. 1 [place] TP BID 14 Days Erythromycin (Erythromycin Base) 1 Gm Oint...g. 0.25 Inch OS 6XDAY 10 Days Culturelle (Lactobacillus Rhamnosus Gg) 1 Each Cap.sprink 1 Cap PO BID 30 Days Klor-Con M20 (Potassium Chloride) 20 Meq Tab.er.prt 20 Meq PO DAILYWBKFT 14 Days [Fluconazole] 100 MG Tablet 200 Mg PO DAILY 28 Days [Ceftriaxone Sodium] 2 GM Vial 2 Gm IVP Q24H 30 Days [place] 5-325 Tablet (Acetaminophen/Hydrocodone Bitart) 1 Each Tablet 1 Tab PO PRN Q6HRS PRN Vitals/I & O Vital Sign - Last 24 Hours 07/17/19 07/17/19 07/17/19 07/17/19 11:00 15:59 19:30 20:00 Temp 98.1 97.9 98.4 98.1 97.9 98.4 Pulse 81 83 88 Resp 20 18 20 B/P (MAP) 107/58 (74) 120/71 (87) 125/65 (85) Pulse Ox 99 96 97 O2 Delivery Room Air Room Air Room Air Room Air 07/17/19 07/17/19 07/18/19 07/18/19 20:39 23:00 02:58 07:00 Temp 98.5 98.1 97.5 98.5 98.1 97.5 Pulse 82 78 77 Resp 20 20 20 B/P (MAP) 125/70 (88) 121/80 (94) 142/88 (106) Pulse Ox 97 98 98 100 O2 Delivery Room Air Room Air Room Air Intake and Output 07/17/19 07/17/19 07/18/19 15:00 23:00 07:00 Intake Total 120 ml 1250 ml Output Total 1025 ml 700 ml Balance 120 ml 225 ml -700 ml JACQUES KEMP MD Jul 18, 2019 10:52
[2019-07-18 11:00] VITALS: BP 121/64
[2019-07-18] MEDS: VANCOMYCIN PER PHARMACY MC PRN (12:22)
[2019-07-18] MEDS: MULTIVITAMIN with MINERAL TABLET. PO SCH (12:55)
--- NOTE | 2019-07-18 14:32 | NUR ---
Wound Care: Wound care consult, no open wounds at this time. L foot is swollen but no open areas, possible osteomyelitis per Cat, RN. Wound care is signing off for now.
[2019-07-18 15:00] VITALS: BP 135/90
[2019-07-18] MEDS: cefTRIAXone IV Push 2 GM VIAL. IVP SCH (16:00)
--- NOTE | 2019-07-18 16:37 | NUR ---
Left msg with Dr. Garcias's office re: pt's CT results as requested by Dr. Monae. Staff stated Dr. Huerta is chain [employer] control. She will pull up CT scan and present it to Dr. Huerta.
[2019-07-18 19:00] VITALS: BP 121/82
[2019-07-18] MEDS: ENOXAPARIN 40 MG/0.4 ML SYRINGE. SQ SCH (20:47)
[2019-07-18 23:00] VITALS: BP 122/80
[2019-07-19] MEDS: IV NORMAL SALINE 1000ML BAG 1,000 ML IV SCH (02:48)
[2019-07-19] MEDS: VANCOMYCIN 1.5 GM in IV NORMAL SALINE 500ML BAG 500 ML IV SCH ×2 (02:48→11:39)
[2019-07-19 03:00] VITALS: BP 135/92
[2019-07-19 05:05] LABS: CREATININE 0.9 mg/dL (0.7-1.3); GFR 97.8
[2019-07-19 07:00] VITALS: BP 118/67
--- NOTE | 2019-07-19 08:23 | PDOC ---
ORTHO PROGRESS NOTES Subjective He tells me that his foot is feeling much better since he has not been up and on it very much. Vitals Vital Signs Date Time Temp Pulse Resp B/P (MAP) Pulse Ox O2 Delivery O2 Flow Rate FiO2 07/19/19 03:00 98.6 71 16 135/92 (106) 99 98.6 07/18/19 15:00 Room Air Labs Laboratory Tests Test 07/17/19 19:55 07/18/19 04:05 07/19/19 04:10 Vancomycin Level Trough 12.9 mcg/mL (10.0-20.0) Vancomycin Last Dose Date Unk Vancomycin Last Dose Time Unk Creatinine 1.0 mg/dL (0.7-1.3) 0.9 mg/dL (0.7-1.3) Estimated GFR (Cockcroft-Gault) 86.6 97.8 Laboratory Tests Test 07/19/19 04:10 Creatinine 0.9 mg/dL (0.7-1.3) Estimated GFR (Cockcroft-Gault) 97.[address] was reviewed He is awake and alert and lying in bed. Still has some edema around his foot, no tenderness no wounds. Assessment and Plan All things taken together, I did discuss 2 options with him including resting his foot in a cam boot versus a biopsy in the operating room to see if if there is infection. He declined any interventions at this time. I did discuss worrisome signs and symptoms with him. We will get him a cam boot and from my standpoint he could go home. I did discuss with him that I would like to see him back in my clinic in 1 week. OBINNA LÓPEZ II, MD Jul 19, 2019 08:23
--- NOTE | 2019-07-19 09:16 | PDOC ---
Infectious Disease Note Subjective Subjective Foot is better but has not been ambulating as much No F/c/S/N/V/D/SOA/rash Vital Sign Vital Signs Vital Signs Date Time Temp Pulse Resp B/P (MAP) Pulse Ox O2 Delivery O2 Flow Rate FiO2 07/19/19 07:00 98.2 66 16 118/67 (84) 99 Room Air 98.2 Physical Exam PHYSICAL EXAM GENERAL: Slleping ioin arrival. Awakened easily. The patient is propped up in bed, alert, no apparent distress. HEENT: Pupils equally round and reactive. Oropharynx pink and moist. No lesions. NECK: Supple. LUNGS: Clear to auscultation. HEART: S1 and S2. ABDOMEN: Obese, soft, nontender with bowel sounds present. EXTREMITIES: Left foot is swollen, nontender. No redness or warmth. Dorsalis pedis pulse palpable. There are no open wounds. He has contractures of bilateral hands. SKIN: Warm to touch. No signs of rash. He has tattoos. NEUROLOGIC: Alert and answering questions appropriately Labs Lab Laboratory Tests Test 07/19/19 04:10 Creatinine 0.9 mg/dL (0.7-1.3) Estimated GFR (Cockcroft-Gault) 97.8 Micro IMPRESSION: 1. Findings suggest possible septic arthritis with osteomyelitis at the first metatarsophalangeal joint with destructive changes are described and widened appearance in the first and second metatarsal likely Lisfranc dislocation. MRI is recommended for better evaluation if clinically feasible. 2. Bony irregularity destructive changes identified in the head of the second metatarsal with scalloping of the proximal phalanx of the second toe. There is diffuse sclerotic thickening of the second metatarsal could be osteomyelitis/septic arthritis. Microbiology 07/16/19 Blood Culture - Preliminary, Resulted NO GROWTH AFTER 1 DAY Objective Assessment Left foot swelling with progressive osseous destructive changes at the first TMT joint and second MTP joint. No injury or wounds. ESR 21 Normal Procalcitonin and sed rate only mildly elevated Suspect Charcot arthropathy Peripheral neuropathy h/o left foot injury from stepping on a screw in 2019 s/p I and D down to the bone. cultures mixed skin william h/o Strep anginosus bacteremia 2018 Plan Plan of Care Ortho note reviewed Adelso (Nursing) and I had a long discussion with Mr. Lomeli re ? of deep infection and risks of not treating appropriately including loss of foot. I explained he needed IV abx with a PICC line for at least 6 weeks to see. I ev en offered to give some oral abx however he just wants to leave and see how he does We discussed obtaining a biospy/cult but he declined he just wants to go I reviewed the risks several times and asked him to seek medical attention if he worsens He understands the risks D/w nursing [place] ROLAND MD Jul 19, 2019 09:16
--- NOTE | 2019-07-19 09:47 | NUR ---
SW following. Discussed with RN, pt getting a CAM boot from [facility]. Per RN, pt wanting to discharge and go back to work because his work is offering $2 extra an hour for people to work currently. 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 RN advised no SW needs and anticipates pt will discharge home today with self care. SW will continue to follow. Addendum: 07/19/19 at 1215 by BLAIR MADRIGAL Pt is not wanting to do IV or PO abx at discharge, per RN. Pt has SWETHA polanco, NATASHA waiting on discharge orders for pt to discharge with self care today. No SW needs. Pt is a high risk readmission due to not wanting to take abx for infection.
[2019-07-19] MEDS: LACTOBACILLUS RHAMNOSUS GG 1 CAPSULE. PO SCH (10:22)
[2019-07-19] MEDS: MULTIVITAMIN with MINERAL TABLET. PO SCH (10:22)
[2019-07-19] MEDS: POTASSIUM CHLORIDE 20 MEQ TABLET.ER. PO SCH (10:23)
--- NOTE | 2019-07-19 10:28 | PDOC ---
PROGRESS NOTES History of Present Illness History of Present Illness Assessment/Plan Assessment/Plan VTE Prophylaxis Ordered VTE Prophylaxis Devices: No VTE Pharmacological Prophylaxi: Yes DISCHARGE DX Assessment/Plan Left foot pain and swelling s/p plantar nail puncture s/p debridement in Apr 2018// OSTEOMYELITIS vs Charcot deformity Irregularity with osseous destructive changes at the first TMT joint and second MTP joint. There is surrounding soft tissue swelling. findings have progressed when compared to the prior radiograph on 09/12/2018 Enlargement and sclerosis of the second metatarsal, progressed from prior study. medical floor on ct 07/16 Findings suggest possible septic arthritis with osteomyelitis at the first metatarsophalangeal joint with destructive changes are described and widened appearance in the first and second metatarsal likely Lisfranc dislocation. MRI is recommended for better evaluation if clinically feasible. Bony irregularity destructive changes identified in the head of the second metatarsal with scalloping of the proximal phalanx of the second toe. There is diffuse sclerotic thickening of the second metatarsal could be osteomyelitis/septic arthritis. - X-ray of the left foot shows evidence of significant bony erosion of the head of the second metatarsal extending to the proximal phalanx concerning for osteomyelitis. - no fever, - Vancomycin and Rocephin. 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 Awakened easily. The patient is propped up in bed, alert, no apparent distress. HEENT: Pupils equally round and reactive. Oropharynx pink and moist. No lesions. NECK: Supple. LUNGS: Clear to auscultation. HEART: S1 and S2. ABDOMEN: Obese, soft, nontender with bowel sounds present. EXTREMITIES: Left foot is swollen, nontender. No redness or warmth. Dorsalis pedis pulse palpable. There are no open wounds. He has contractures of bilateral hands. SKIN: Warm to touch. No signs of rash. He has tattoos. NEUROLOGIC: Alert and answering questions appropriately General: Alert, Oriented X3, No acute distress Heart: Regular rate, Normal S1, Normal S2 Lungs: Clear Abdomen: Soft, No tenderness Extremities: No cyanosis, Other (Left foot has edema and soft tissue changes consistent with his surgical history, no open wounds or redness) Labs LABS Laboratory Tests Test 07/19/19 04:10 Creatinine 0.9 mg/dL (0.7-1.3) Estimated GFR (Cockcroft-Gault) 97.8 Assessment and Plan Assessmemt and Plan Problems Medical Problems: (1) Foot osteomyelitis, left Status: Acute Comment Review of Relevant I have reviewed the following items pedro (where applicable) has been applied. Labs Laboratory Tests Test 07/17/19 19:55 07/18/19 04:05 07/19/19 04:10 Vancomycin Level Trough 12.9 mcg/mL (10.0-20.0) Vancomycin Last Dose Date Unk Vancomycin Last Dose Time Unk Creatinine 1.0 mg/dL (0.7-1.3) 0.9 mg/dL (0.7-1.3) Estimated GFR (Cockcroft-Gault) 86.6 97.8 Laboratory Tests Test 07/19/19 04:10 Creatinine 0.9 mg/dL (0.7-1.3) Estimated GFR (Cockcroft-Gault) 97.8 Microbiology 07/16/19 Blood Culture - Preliminary, Resulted NO GROWTH AFTER 2 DAYS Medications Current Medications Vancomycin HCl 250 ml @ 250 mls/hr 1X ONCE IV ; Start 07/16/19 at 20:15; Stop 07/16/19 at 21:14; Status Cancel Ceftriaxone Sodium (Rocephin) 1 gm 1X ONCE IVP Last administered on 07/16/19at 20:30; Start 07/16/19 at 20:15; Stop 07/16/19 at 20:16; Status DC Ondansetron HCl (Zofran) 4 mg PRN Q8HRS PRN IV NAUSEA/VOMITING Last administered on 07/16/19at 20:29; Start 07/16/19 at 20:15; Stop 07/17/19 at 20:14; Status DC Fentanyl Citrate (Fentanyl 2ml Vial) 50 mcg PRN Q1HR PRN IV PAIN; Start 07/16/19 at 20:15; Stop 07/17/19 at 20:14; Status DC Acetaminophen (Tylenol) 650 mg PRN Q4HRS PRN PO FEVER; Start 07/16/19 at 20:15; Stop 07/17/19 at 14:14; Status DC Sodium Chloride 1,000 ml @ 1,000 mls/hr 1X ONCE IV Last administered on 07/16/19at 20:28; Start 07/16/19 at 20:15; Stop 07/16/19 at 21:14; Status DC Fentanyl Citrate (Fentanyl 2ml Vial) 50 mcg 1X ONCE IVP Last administered on 07/16/19at 20:30; Start 07/16/19 at 20:15; Stop 07/16/19 at 20:16; Status DC Vancomycin HCl 2 gm/Sodium Chloride 500 ml @ 250 mls/hr 1X ONCE IV Last administered on 07/16/19at 20:29; Start 07/16/19 at 20:15; Stop 07/16/19 at 22:14; Status DC Sodium Chloride (Normal Saline Flush) 3 ml QSHIFT PRN IV AFTER MEDS AND BLOOD DRAWS; Start 07/16/19 at 21:30 Sodium Chloride 1,000 ml @ 100 mls/hr Q10H IV Last administered on 07/19/19at 02:48; Start 07/16/19 at 21:30 Zolpidem Tartrate (Ambien) 5 mg PRN QHS PRN PO INSOMNIA; Start 07/16/19 at 21:30 Acetaminophen (Tylenol) 650 mg PRN Q4HRS PRN PO TEMP OVER 100.4F OR MILD PAIN; Start 07/16/19 at 21:30 Al Hydroxide/Mg Hydroxide (Mylanta Plus Xs) 30 ml PRN DAILY PRN PO HEARTBURN / GAS; Start 07/16/19 at 21:30 Clonidine HCl (Catapres) 0.1 mg PRN Q6HRS PRN PO SBP>160 OR DBP>90; Start 07/16/19 at 21:30 Sodium Monofluorophosphate (Fleet Adult) 133 ml PRN DAILY PRN [place] CONSTIPATION; Start 07/16/19 at 21:30 Diphenhydramine HCl (Benadryl) 25 mg PRN Q4HRS PRN IVP ITCHING; Start 07/16/19 at 21:30 Docusate Sodium (Colace) 100 mg PRN BID PRN PO CONSTIPATION; Start 07/16/19 at 21:30 Albuterol Sulfate (Ventolin Neb Soln) 2.5 mg PRN Q4HRS PRN NEB SHORTNESS OF BREATH; Start 07/16/19 at 21:30 Guaifenesin (Robitussin) 200 mg PRN Q4HRS PRN PO COUGH; Start 07/16/19 at 21:30 Lorazepam (Ativan) 0.5 mg PRN Q4HRS PRN PO ANXIETY / AGITATION; Start 07/16/19 at 21:30 Enoxaparin Sodium (Lovenox 40mg Syringe) 40 mg Q24H SQ Last administered on 07/18/19at 20:47; Start 07/16/19 at 21:30 Vancomycin HCl (Vanco Per Pharmacy) 1 each PRN DAILY PRN MC SEE COMMENTS Last administered on 07/18/19at 12:22; Start 07/16/19 at 21:30 Erythromycin (Romycin) 0.25 inch 6XDAY OS ; Start 07/16/19 at 22:00; Stop 07/16/19 at 23:54; Status DC Acetaminophen/ Hydrocodone Bitart (Lortab 5/325) 1 tab PRN Q6HRS PRN PO MOD ERATE PAIN, SEVERE PAIN; Start 07/16/19 at 21:30 Lactobacillus Rhamnosus (Culturelle) 1 cap BID PO Last administered on 07/19/19 at 10:22; Start 07/17/19 at 09:00 Potassium Chloride (Klor-Con) 20 meq DAILYWBKFT PO Last administered on 07/19/19at 10:23; Start 07/17/19 at 08:00 Vancomycin HCl 1.25 gm/Sodium Chloride 250 ml @ 167 mls/hr Q8H IV Last administered on 07/17/19at 20:06; Start 07/17/19 at 04:30; Stop 07/17/19 at 20:38; Status DC Vancomycin HCl (Vancomycin Trough Level) 1 each 1X ONCE MC Last administered on 07/17/19at 19:55; Start 07/17/19 at 20:00; Stop 07/17/19 at 20:01; Status DC Ceftriaxone Sodium (Rocephin) 2 gm Q24H IVP Last administered on 07/18/19at 16:00; Start 07/17/19 at 16:00 Vancomycin HCl 1.5 gm/Sodium Chloride 500 ml @ 250 mls/hr Q8H IV Last administered on 07/19/19at 02:48; Start 07/18/19 at 03:00 Multivitamins (Thera M Plus) 1 tab DAILY PO Last administered on 07/19/19at 10:22; Start 07/18/19 at 10:00 Active Scripts Active Mupirocin Cream (Mupirocin) 15 Gm Cream..g. 1 [place] TP BID 14 Days Erythromycin (Erythromycin Base) 1 Gm Oint...g. 0.25 Inch OS 6XDAY 10 Days Culturelle (Lactobacillus Rhamnosus Gg) 1 Each Cap.sprink 1 Cap PO BID 30 Days Klor-Con M20 (Potassium Chloride) 20 Meq Tab.er.prt 20 Meq PO DAILYWBKFT 14 Days [Fluconazole] 100 MG Tablet 200 Mg PO DAILY 28 Days [Ceftriaxone Sodium] 2 GM Vial 2 Gm IVP Q24H 30 Days [place] 5-325 Tablet (Acetaminophen/Hydrocodone Bitart) 1 Each Tablet 1 Tab PO PRN Q6HRS PRN Vitals/I & O Vital Sign - Last 24 Hours 07/18/19 07/18/19 07/18/19 07/18/19 11:00 15:00 19:00 23:00 Temp 97.9 97.7 98.2 98.8 97.9 97.7 98.2 98.8 Pulse 69 80 72 81 Resp 20 18 16 16 B/P (MAP) 121/64 (83) 135/90 (105) 121/82 (95) 122/80 (94) Pulse Ox 96 96 96 99 O2 Delivery Room Air Room Air 07/19/19 07/19/19 03:00 07:00 Temp 98.6 98.2 98.6 98.2 Pulse 71 66 Resp 16 16 B/P (MAP) 135/92 (106) 118/67 (84) Pulse Ox 99 99 O2 Delivery Room Air Intake and Output 07/18/19 07/18/19 07/19/19 15:00 23:00 07:00 Intake Total 500 ml 1500 ml Balance 500 ml 1500 ml JACQUES KEMP MD Jul 19, 2019 10:28
[2019-07-19 11:00] VITALS: BP 125/87
[2019-07-19] MEDS ORDERED: MULT1TAB90 PO (12:29)
[2019-07-19] MEDS ORDERED: ACET325T9 PO (12:29)
--- NOTE | 2019-07-19 12:30 | DISCH ---
DISCHARGE INSTRUCTIONS Condition on Discharge Condition on Discharge: Stable Activity After Discharge Activity Instructions for Disc: Activity as tolerated Bathing Instructions: Shower-keep dressing dry, No Tub Bath until see Lifting Instructions after Dis: No heavy lifting Exercise Instruction after Dis: Progress as tolerated Driving Instructions after Dis: Do not drive Weight Bearing Status after Di: Partial weight bearing Diet after Discharge Diet after Discharge: Regular Diet Texture: Regular Liquid Texture: Thin Liquid Swallowing Supervision: None needed Wound Incision Care Wound/Incision Care: Other, see below Checks after Discharge Checks after discharge: Check blood press - daily Contacting the after DC Call your doctor for: If your condition worsens Warfarin Follow-Up Warfarin Follow UP: SEE PCP NEXT WEEK JACQUES KEMP MD Jul 19, 2019 12:30
== END 2019-07-19 14:40 | disposition home or self-care (01) | DRG 540 ==
LOC: ER 18:02 → 5 SOUTH 20:03
PROVIDERS: ADMIT Family Medicine; ATTEND Family Medicine
DX: M86.8X7 Other osteomyelitis, ankle and foot (principal); A52.16 Charcot's arthropathy (tabetic); M00.9 Pyogenic arthritis, unspecified; E87.6 Hypokalemia; G62.9 Polyneuropathy, unspecified; Z82.49 Family history of ischemic heart disease and other diseases of the circulatory system; Z91.19 Patient's noncompliance with other medical treatment and regimen; Z79.899 Other long term (current) drug therapy
CPT/HCPCS: 36415; 73590; 73610; 73630; 73700; 80048; 80053; 80202; 82565; 83605; 84145; 85025; 85651; 87040; 93971; J0696; J1650; J2405; J3010; J3370; J7030; J7040; J7050; G0378

== ENCOUNTER 2019-10-18 00:39 | Emergency (ER) | payer SELFPAY ==
[~2019-10-18 00:39] MED LIST changes: +ACET325T9 PO; +MULT1TAB90 PO
== END 2019-10-18 00:52 | disposition left against medical advice (07) ==
LOC: ER 00:39
DX: R10.9 Unspecified abdominal pain (principal); Z53.21 Procedure and treatment not carried out due to patient leaving prior to being seen by health care provider